=== PATIENT | female | born 1955 | race Caucasian/White ===

== ENCOUNTER 2016-05-23 08:10 | Outpatient (CLI) | payer OTHER ==
[~2016-05-23 08:10] MED LIST: CLINDAMYCIN300 M1 PO; GLUCOPHAGE1000 MG PO; GLUCOTROL10 MG PO; INVOKANA300 MG PO; LIPITOR10 MG PO; PENICILLIN VK PO; ZESTRIL10 MG PO
== END 2016-05-23 22:38 | disposition home or self-care (01) ==
LOC: MLB 08:10
PROVIDERS: ATTEND Internal Medicine Geriatric Medicine
DX: E11.9 Type 2 diabetes mellitus without complications (principal); I10 Essential (primary) hypertension; E55.9 Vitamin D deficiency, unspecified

== ENCOUNTER 2017-04-22 10:46 | Emergency (ER) | payer OTHER ==
[~2017-04-22] VITALS: Ht 160 cm; Wt 99.8 kg
[~2017-04-22 10:46] MED LIST changes: +CANA300T PO; -CLINDAMYCIN300 M1 PO; +GLIP10TA3 PO; -GLUCOPHAGE1000 MG PO; -GLUCOTROL10 MG PO; -INVOKANA300 MG PO; -LIPITOR10 MG PO; +LISI10TA11 PO; -PENICILLIN VK PO; -ZESTRIL10 MG PO
[2017-04-22 10:47] VITALS: BP_SYST 146; BP_SYST 167; BP_DIAS 71; BP_DIAS 97
[2017-04-22] MEDS ORDERED: KETOROLAC 30 MG/ML VIAL IM ONE (10:50)
[2017-04-22] MEDS ORDERED: ACETAMINOPHEN 325 MG TAB PO ONE (10:50)
--- NOTE | 2017-04-22 10:50 | NUR ---
62/F BIB SELF C/O LEFT EAR PAIN 610 X 2DAYS. SKIN IS PINK/WARM/DRY; AAOX4 WITH EVEN AND STEADY GAIT; LUNGS CLEAR BL. PATIENT POSITIONED FOR COMFORT; HOB ELEVATED; BEDRAILS UP X2; BED DOWN. ER MADE AWARE OF PT STATUS. Addendum: 04/22/17 at 1109 by MED1 BP 167/97. L EAR PAIN 10 AT THIS TIME. PT STATED HX OF HTN DENIES HEADACHE AT THIS TIME. MADE AWARE.
[2017-04-22 11:10] VITALS: BP 167/97
--- NOTE | 2017-04-22 11:10 | NUR ---
Patient discharged with BP 167/97; DENIES HEADACHE AT THIS TIMEE. Written and verbal after care instructions given and explained. Patient alert, oriented and verbalized understanding of instructions. Ambulatory with steady gait. All questions addressed prior to discharge. ID band removed. Patient advised to follow up with PMD. Rx of ACETAMINOPHEN, NAPROSYN & AXITHROMYCIN given. Patient educated on indication of medication including possible reaction and side effects. Opportunity to ask questions provided and answered.
== END 2017-04-22 11:10 | disposition home or self-care (01) ==
LOC: MED 10:46
DX: H66.92 Otitis media, unspecified, left ear (principal); E11.9 Type 2 diabetes mellitus without complications; I10 Essential (primary) hypertension; Z90.49 Acquired absence of other specified parts of digestive tract; Z90.710 Acquired absence of both cervix and uterus; Z88.5 Allergy status to narcotic agent; Z88.2 Allergy status to sulfonamides; Z88.0 Allergy status to penicillin; Z88.8 Allergy status to other drugs, medicaments and biological substances
CPT/HCPCS: 96372; 99283; J1885

== ENCOUNTER 2017-04-26 11:34 | Emergency (ER) | payer OTHER ==
[~2017-04-26] VITALS: Ht 160 cm; Wt 99.8 kg
[2017-04-26 11:38] VITALS: BP 149/71
[2017-04-26] MEDS ORDERED: KETOROLAC 60 MG/2 ML VIAL IM ONE (12:30)
[2017-04-26] MEDS ORDERED: cefTRIAXone 1,000 MG in LIDOCAINE 1% ***ER ONLY *** 2.1 ML IM ONE (12:30)
[2017-04-26] MEDS ORDERED: cefTRIAXone 1,000 MG VIAL ONE (12:37)
[2017-04-26] MEDS ORDERED: LIDOCAINE MPF 1% - **ER/OR** 5 ML ONE (12:38)
[2017-04-26 13:04] VITALS: BP 135/89
== END 2017-04-26 13:04 | disposition home or self-care (01) ==
LOC: MED 11:34
DX: H60.92 Unspecified otitis externa, left ear (principal); H66.92 Otitis media, unspecified, left ear; I10 Essential (primary) hypertension; E11.9 Type 2 diabetes mellitus without complications; Z79.899 Other long term (current) drug therapy; Z88.8 Allergy status to other drugs, medicaments and biological substances; Z88.2 Allergy status to sulfonamides; Z88.5 Allergy status to narcotic agent; Z79.84 Long term (current) use of oral hypoglycemic drugs
CPT/HCPCS: 96372; 99284; J0696; J1885; J2001

== ENCOUNTER 2017-06-21 10:06 | Outpatient (CLI) | payer OTHER ==
[2017-06-21 10:58] LABS: BASOPHILS # (AUTO) 0.1 K/uL (0.00-0.22); BASOPHILS % (AUTO) 0.8 % (0.0-2.0); EOSINOPHILS # (AUTO) 0.2 K/uL (0-0.4); EOSINOPHILS % (AUTO) 2.3 % (0.0-4.0); HEMATOCRIT 37.4 % (36-48); HEMOGLOBIN 12.5 g/dL (12.0-16.0); LYMPHOCYTES # (AUTO) 2.6 K/uL (2.5-16.5); LYMPHOCYTES % (AUTO) 27.4 % (20.5-51.1); MEAN CORPUSCULAR HEMOGLOBIN 28 pg (27-31); MEAN CORPUSCULAR HGB CONC 33 g/dL (33-37); MEAN CORPUSCULAR VOLUME 84.4 fL (80-94); MONOCYTES # (AUTO) 0.6 K/uL (0.8-1.0); MONOCYTES % (AUTO) 6.5 % (1.7-9.3); NEUTROPHILS # (AUTO) 6.1 K/uL (1.8-7.7); PLATELET COUNT (AUTO) 288 K/uL (140-450); RED BLOOD CELL COUNT(AUTO) 4.44 MIL/uL (4.20-5.40); RED CELL DISTRIBUTION WIDTH 13.6 % (11.6-13.7); WHITE BLOOD COUNT (AUTO) 9.6 K/uL (4.8-10.8)
[2017-06-21 11:29] LABS: ALBUMIN 3.2 g/dL (3.4-5.0); ANION GAP 13.9 (8-16); ASPARTATE AMINOTRANSFERASE 3 U/L (15-37); CARBON DIOXIDE 25.9 mmol/L (21-32); CHLORIDE 95 mmol/L (98-107); CHOL/HDL RATIO 10.8 (1-4.5); CREATININE 1.2 mg/dL (0.6-1.3); GFR ARICAN-AMERICAN 58 mL/min (>90); GLUCOSE 383 mg/dL (74-106); HDL CHOLESTEROL 36 mg/dL (40-60); POTASSIUM 4.8 mmol/L (3.5-5.1); SODIUM SERUM 130 mmol/L (136-145); THYROID STIMULATING HORMONE 1.68 uIU/mL (0.34-3.74); TOTAL BILIRUBIN 0.4 mg/dL (0.0-1.0); TRIGLYCERIDES 1106 mg/dL (30-150); UREA NITROGEN, BLOOD 42 mg/dL (7-18)
[2017-06-22 15:08] LABS: MICROALBUMIN, UR RANDOM 80.4 ug/mL (Not Estab.)
== END 2017-06-21 20:33 | disposition home or self-care (01) ==
LOC: MLB 10:06
PROVIDERS: ATTEND Internal Medicine Geriatric Medicine
DX: Z00.01 Encounter for general adult medical examination with abnormal findings (principal); M51.36 Other intervertebral disc degeneration, lumbar region; R80.9 Proteinuria, unspecified
CPT/HCPCS: 36415; 72110; 80053; 82043; 82306; 83036; 84443; 85025

== ENCOUNTER → 2017-11-11 | Outpatient (CLI) | payer OTHER ==
[2017-11-11 13:17] LABS: BASOPHILS # (AUTO) 0.2 K/uL (0.00-0.22); BASOPHILS % (AUTO) 1.3 % (0.0-2.0); EOSINOPHILS # (AUTO) 0.2 K/uL (0-0.4); EOSINOPHILS % (AUTO) 1.1 % (0.0-4.0); HEMATOCRIT 40.8 % (36-48); HEMOGLOBIN 13.4 g/dL (12.0-16.0); LYMPHOCYTES # (AUTO) 3.2 K/uL (2.5-16.5); LYMPHOCYTES % (AUTO) 21.3 % (20.5-51.1); MEAN CORPUSCULAR HEMOGLOBIN 27 pg (27-31); MEAN CORPUSCULAR HGB CONC 33 g/dL (33-37); MEAN CORPUSCULAR VOLUME 81.5 fL (80-94); MONOCYTES # (AUTO) 0.8 K/uL (0.8-1.0); MONOCYTES % (AUTO) 5.4 % (1.7-9.3); NEUTROPHILS # (AUTO) 10.5 K/uL (1.8-7.7); NEUTROPHILS % (AUTO) 70.9 % (42.2-75.2); PLATELET COUNT (AUTO) 352 K/uL (140-450); RED BLOOD CELL COUNT(AUTO) 5.01 MIL/uL (4.20-5.40); RED CELL DISTRIBUTION WIDTH 14.7 % (11.6-13.7); WHITE BLOOD COUNT (AUTO) 14.8 K/uL (4.8-10.8)
[2017-11-11 13:48] LABS: ALBUMIN 3.6 g/dL (3.4-5.0); ANION GAP 13.8 (8-16); CARBON DIOXIDE 23.1 mmol/L (21-32); CHOL/HDL RATIO 7.8 (1-4.5); CREATININE 1.2 mg/dL (0.6-1.3); POTASSIUM 4.9 mmol/L (3.5-5.1); TOTAL BILIRUBIN 0.4 mg/dL (0.0-1.0)
== END | disposition home or self-care (01) ==
LOC: MLB 12:49
PROVIDERS: ATTEND Internal Medicine Geriatric Medicine
DX: E11.9 Type 2 diabetes mellitus without complications (principal); I11.9 Hypertensive heart disease without heart failure; E78.5 Hyperlipidemia, unspecified; E55.9 Vitamin D deficiency, unspecified
CPT/HCPCS: 36415; 80053; 82306; 83036; 85025

== ENCOUNTER 2018-02-28 19:17 | Inpatient (IN) | payer OTHER ==
[~2018-02-28] VITALS: Ht 160 cm; Wt 113.4 kg
--- NOTE | 2018-02-28 19:17 | NUR ---
BIB EMS FROM HOME. PT STATES SLIDING OUT OF BED AND HURTING LOWER BACK UPON LANDING ON FLOOR IN SITTING POSITION. PT STATES 10/10 PAIN. CMS INTACT BILAT LOWER EXTREMITIES. VSS. POSITIONED IN BED FOR COMFORT. ER MD AWARE. CONTINUE TO MONITOR.
--- NOTE | 2018-02-28 19:17 | NUR ---
PT BIBA BLS. TAKEN TO BED 8 Addendum: 02/28/18 at 1924 by PUNEET PT BIBA ALS. TAKEN TO BED 8
[2018-02-28 19:20] VITALS: BP 147/68
[2018-02-28] MEDS ORDERED: INSU100S10 SC (19:37)
[2018-02-28] MEDS ORDERED: IBUP-1842 PO (19:37)
[2018-02-28] MEDS ORDERED: METF1000 PO (19:37)
[2018-02-28] MEDS ORDERED: LISI-420 PO (19:37)
--- NOTE | 2018-02-28 21:05 | NUR ---
PT TAKEN TO XRAY
--- NOTE | 2018-02-28 21:29 | NUR ---
PT RETURN FROM XRAY
--- NOTE | 2018-02-28 22:35 | NUR ---
Dr. Millan evaluating patient at bedside.
--- NOTE | 2018-02-28 22:52 | NUR ---
ORTHO IMMOBILIZER UNDONE AND CRUTCHES NOT BEING USED PT IS NOW BEING ADMITTED TO THE HOSPITAL. BEING SENT WITH PT TO NEW ROOM.
[2018-02-28] MEDS ORDERED: NACL 0.9% 1,000 ML IV ONE (22:55)
[2018-02-28] MEDS ORDERED: KETOROLAC 30 MG/ML VIAL IVP ONE (22:55)
[2018-02-28 23:21] LABS: MEAN CORPUSCULAR HEMOGLOBIN 28 pg (27-31); MEAN CORPUSCULAR HGB CONC 32 g/dL (33-37); MEAN CORPUSCULAR VOLUME 84.9 fL (80-94); PLATELET COUNT (AUTO) 364 K/uL (140-450); RED BLOOD CELL COUNT(AUTO) 4.35 MIL/uL (4.20-5.40); RED CELL DISTRIBUTION WIDTH 13.4 % (11.6-13.7)
[2018-02-28 23:37] LABS: LYMPHOCYTES % (MANUAL) 0 % (20-46); MONOCYTES % (MANUAL) 3 % (5-12)
[2018-02-28 23:44] LABS: ALBUMIN 2.3 g/dL (3.4-5.0); ANION GAP 20.3 (8-16); CARBON DIOXIDE 18.1 mmol/L (21-32); CREATININE 1.8 mg/dL (0.6-1.3); POTASSIUM 4.4 mmol/L (3.5-5.1); TOTAL BILIRUBIN 0.7 mg/dL (0.0-1.0)
[2018-03-01] VITALS (7 sets, daily range): BP systolic 82–147; BP diastolic 40–68
[2018-03-01] MEDS ORDERED: NACL 0.9% 3,000 ML IV ONE
[2018-03-01] MEDS ORDERED: LEVOFLOXACIN 500 MG/D5W PREMIX 100 ML IV ONE
[2018-03-01 00:10] LABS: APPEARANCE,URINE CLEAR (CLEAR); BILIRUBIN,URINE NEGATIVE (NEGATIVE); BLOOD, URINE 1+ (NEGATIVE); COLOR,URINE YELLOW (YELLOW); LEUKOCYTE ESTERASE ,URINE TRACE (NEGATIVE); NITRITE, URINE NEGATIVE (NEGATIVE); PH,URINE 5.5 (5.0-9.0); UGLUCOSE 3+ (NEGATIVE)
[2018-03-01 00:12] LABS: HYALINE CASTS, URINE 0-10 /LPF (None Seen); RBC,URINE 3-10 (FEW) /HPF (0-5); WBC,URINE 0-5 (RARE) /HPF (0-5); YEAST,URINE Many /HPF (None Seen)
[2018-03-01] MEDS ORDERED: INSULIN REGULAR, HUMAN 100 UNIT/ML VIAL SUBQ ONE (00:25)
[2018-03-01] MEDS ORDERED: METF1000 PO (01:03)
--- NOTE | 2018-03-01 01:10 | NUR ---
DR WRIGHT CALLED TELEPHONE ORDERS GIVEN FOR PT. REQUESTING THAT I CALL HER IN THE MORNING WITH PT BS RESULTS.
[2018-03-01] MEDS ORDERED: ACETAMINOPHEN 325 MG TAB PO PRN ×2 (01:15→07:07)
--- NOTE | 2018-03-01 01:30 | NUR ---
PT ARRIVED ON UNIT WITH ER NURSE VIA [facility]. PT TRANSFERRED FROM [facility] INTO BED. PT ACCOMPANIED BY FAMILY MEMBERS. PT IS AAOX4. PT IS ON RA WITH RESPIRATIONS EVEN AND UNLABORED. IV ACCESS IN L HAND 22G WITH FLUID BOLUS CURRENTLY INFUSING. IV IS PATENT AND INTACT. PT SKIN IS INTACT. FALL RISK PROTOCOL INITIATED. MRSA SWAB COLLECTED. ORIENTED PT TO ROOM AND USE OF CALL LIGHT. BED IS LOCKED, LOW POSITION WITH SIDE RAILS UP X2. BOARD UPDATED. CALL LIGHT IS WITHIN REACH. WILL CONTINUE TO MONITOR.
--- NOTE | 2018-03-01 04:00 | NUR ---
PT ASLEEP IN BED. NO S/SX OF DISTRESS. VS WITHIN NORMAL LIMITS. WILL CONTINUE TO MONITOR.
--- NOTE | 2018-03-01 04:35 | NUR ---
REPORT GIVEN AND CARE TRANSFERED TO IMANI RN ROOM 119B. TRANSPORTED VIA GURNEY WITH VSS. ACCOMPANIED BY FAMILY.
--- NOTE | 2018-03-01 05:27 | NUR ---
BS CHECKED, 495. WILL CALL DR. RICHARDS FOR ORDERS.
[2018-03-01] MEDS ORDERED: BLOOD GLUCOSE MONITORING 1 DEV DEV FS ONE (06:00)
--- NOTE | 2018-03-01 06:07 | NUR ---
DR MAURICE HERNANDEZ.
--- NOTE | 2018-03-01 06:25 | NUR ---
SPOKE WITH DR RICHARDS, ORDERS RECEIVED.
[2018-03-01 06:45] LABS: HEMATOCRIT 32.8 % (36-48); HEMOGLOBIN 10.6 g/dL (12.0-16.0); MEAN CORPUSCULAR HEMOGLOBIN 27 pg (27-31); MEAN CORPUSCULAR HGB CONC 32 g/dL (33-37); MEAN CORPUSCULAR VOLUME 84.8 fL (80-94); PLATELET COUNT (AUTO) 299 K/uL (140-450); RED BLOOD CELL COUNT(AUTO) 3.87 MIL/uL (4.20-5.40); RED CELL DISTRIBUTION WIDTH 13.6 % (11.6-13.7); WHITE BLOOD COUNT (AUTO) 19.8 K/uL (4.8-10.8)
[2018-03-01 06:53] LABS: ANION GAP 19.8 (8-16); CARBON DIOXIDE 18.2 mmol/L (21-32); CREATININE 1.3 mg/dL (0.6-1.3)
[2018-03-01] MEDS: NACL 0.9% 1,000 ML IV SCH ×2 (06:56→14:35)
--- NOTE | 2018-03-01 06:56 | NUR ---
ORDERED IVF STARTED.
[2018-03-01] MEDS ORDERED: INSULIN LISPRO 100 UNITS/ML VIAL SUBQ SCH (07:08)
[2018-03-01] MEDS ORDERED: INSULIN NPH HUMAN ISOPHANE 100 UNIT/ML VIAL SUBQ SCH (07:09)
[2018-03-01 07:20] LABS: LYMPHOCYTES % (MANUAL) 14 % (20-46); MONOCYTES % (MANUAL) 4 % (5-12)
--- NOTE | 2018-03-01 07:20 | NUR ---
ENDORSED PT TO DAY SHIFT NURSE FOR CONTINUITY OF CARE. PT IN STABLE CONDITION.
--- NOTE | 2018-03-01 07:21 | NUR ---
Received bedside report from pm nurse Janiya. Pt in bed, awake, verbally responsive, respirations even & nonlabored. No c/o discomfort at this time. Left hand IV acces asymptomatic with ongoing NS @ 75ml/hr. Call light within reach.
--- NOTE | 2018-03-01 08:15 | NUR ---
Assisted pt to bed white with moderate assist. Voided moderate amount. Pericare provided. Pt able to use siderails for bed mobility. Call light within reach.
[2018-03-01] MEDS: BLOOD GLUCOSE MONITORING 1 DEV DEV FS SCH ×4 (08:30→20:42)
--- NOTE | 2018-03-01 08:49 | NUR ---
PATIENT HAS BEEN SCREENED AND CATEGORIZED HIGH NUTRITION RISK. PATIENT WILL BE SEEN WITHIN 1-2 DAYS OF ADMISSION. 03/01/18-03/02/[address]
[2018-03-01] MEDS ORDERED: DEXTROSE 50% 50 ML SYR IVP PRN (09:05)
--- NOTE | 2018-03-01 09:05 | NUR ---
Pt c/o 09/19 neck & back pain. Pt repositioned for comfort. No swelling/redness present to back/neck area. Offered acetaminophen. Pt refused & states she will need something stronger. Informed pt no other pain meds ordered at this time. Verbalized understanding & states she will wait for new order. Dr Neil mercado.
[2018-03-01] MEDS ORDERED: LISINOPRIL 20 MG TAB PO SCH (09:30)
[2018-03-01] MEDS: HYDROcodone/APAP 5/325 MG 1 TAB TAB PO PRN ×3 (09:31→18:10)
--- NOTE | 2018-03-01 11:15 | NUR ---
Pt asleep. Respirations even & nonlabored in room air. FLACC 0. Call light within reach.
[2018-03-01] MEDS: INSULIN LISPRO SLIDING SCALE 100 UNITS/ML VIAL SUBQ PRN ×3 (11:55→20:48)
--- NOTE | 2018-03-01 12:15 | NUR ---
03/01/18 RD INITIAL ASSESSMENT COMPLETED PLEASE REFER TO NUTRITION ASSESSMENT UNDER CARE ACTIVITY FOR ESTIMATED NUTRITIONAL NEEDS. 1. CONTINUE 60 GM CCHO DIET TOLERATED 2. RD PROVIDED EDUCATION ON DM AND CHO COUNTING 3. RD TO FOLLOW-UP 3-5 DAYS, MODERATE RISK FILIPE VARELA, RD
--- NOTE | 2018-03-01 15:29 | NUR ---
Spongebath given via 2-person moderate assist. Pt repositioned. Mary Grace ADL care well. No c/o pain. Call light within reach. Left hand IV access asymptomatic with ongoing NS @ 75 ml/hr. Grand daughter at bedside visiting pt.
--- NOTE | 2018-03-01 16:15 | NUR ---
Son & grand daughter at bedside visiting. Pt drowsy, opens eyes spontaneously, verbally responsive. No c/o discomfort at this time. Respirations even & nonlabored in room air. Call light within reach.
[2018-03-01] MEDS: INSULIN NPH HUMAN ISOPHANE 100 UNIT/ML VIAL SUBQ SCH (16:31)
--- NOTE | 2018-03-01 18:15 | NUR ---
Pt refused dinner. States she is not hungry. Explained risk of hypoglycemia. Pt verbalized understanding, but cont to refuse. Pt repositioned. Call light within reach.
--- NOTE | 2018-03-01 19:15 | NUR ---
Bedside report given to pm nurse Ashley.
--- NOTE | 2018-03-01 19:20 | NUR ---
RECEIVED FROM AM RN IN BED AWAKE AND ALERT. VERBALIZES WELL IN CAMEROONIAN. NO SOB. NO PAIN COMPLAINTS AT THIS TIME. ON TELEMETRY MONITORING. DX. UNCONTROLLED DM. OBESE FEMALE. ENCOURAGED TO CALL FOR ANY HELP SHE MAY NEED. CALL LIGHT WITH IN REACH. CARE PLANS FOR THE NIGHT DISCUSSED WITH HER.
[2018-03-01] MEDS: ATORVASTATIN 20 MG TAB PO SCH (20:41)
[2018-03-01] MEDS: GLIMEPIRIDE 2 MG TAB PO SCH (20:42)
[2018-03-01] MEDS ORDERED: VANCOMYCIN PER PHARMACY MC PRN (22:10)
[2018-03-01] MEDS ORDERED: VANCOMYCIN 1,500 MG in DEXTROSE 5% 500 ML IV SCH (23:30)
[2018-03-01] MEDS ORDERED: VANCOMYCIN 1,000 MG VIAL ONE (23:41)
--- NOTE | 2018-03-01 23:44 | NUR ---
MD ABDI WITH NEW ORDER TO ADMINISTER 1500 MG OF VANCOMYCIN IVP WITH 500 ML D5% . ADMINISTERED ORDERED.
--- NOTE | 2018-03-02 03:07 | NUR ---
TURNED TO SIDES WITH ASSIST FROM PT. PILLOW SUPPORT TO PRESSURE AREAS. VERBALIZES WELL. SLEEPING AT THIS TIME. NO NOTED ADVERSE REACTIONS TO VANCO IVP MEDICATION.
[2018-03-02] MEDS: NACL 0.9% 1,000 ML IV SCH ×2 (03:55→17:15)
[2018-03-02 04:51] VITALS: BP 123/53
[2018-03-02] MEDS: BLOOD GLUCOSE MONITORING 1 DEV DEV FS SCH ×4 (05:25→21:02)
[2018-03-02] MEDS: INSULIN NPH HUMAN ISOPHANE 100 UNIT/ML VIAL SUBQ SCH ×2 (05:30→17:11)
[2018-03-02] MEDS: INSULIN LISPRO SLIDING SCALE 100 UNITS/ML VIAL SUBQ PRN ×4 (05:31→21:06)
[2018-03-02] MEDS: HYDROcodone/APAP 5/325 MG 1 TAB TAB PO PRN ×3 (05:32→16:20)
--- NOTE | 2018-03-02 06:47 | NUR ---
AM PERSONAL HYGIENE RENDERED. BEDDINGS CHANGED. NEEDS ALL MET. NO COMPLAINTS DONE. INCONTINENT X 4 THIS SHIFT. ENCOURAGED TO USE CALL LIGHT FOR HELP. "OK"
[2018-03-02 07:27] LABS: HEMATOCRIT 31.7 % (36-48); HEMOGLOBIN 10.3 g/dL (12.0-16.0); MEAN CORPUSCULAR HEMOGLOBIN 27 pg (27-31); MEAN CORPUSCULAR HGB CONC 33 g/dL (33-37); MEAN CORPUSCULAR VOLUME 83.4 fL (80-94); PLATELET COUNT (AUTO) 325 K/uL (140-450); RED CELL DISTRIBUTION WIDTH 13.8 % (11.6-13.7); WHITE BLOOD COUNT (AUTO) 24.9 K/uL (4.8-10.8)
--- NOTE | 2018-03-02 07:31 | NUR ---
AWAKE AND ALERT. VERBALIZES WELL. ENDORSED TO THE NEXT RN FOR CONTINUITY OF CARE.
--- NOTE | 2018-03-02 07:32 | NUR ---
RECEIVED REPORT FROM PM NURSE AT BEDSIDE. PT LYING ON HER BED. AWAKE AND ALERT. PT HAS LFT FA IV 22 G, NS IVF INFUSING AT 75 ML/HR. NO SIGN OF DISTRESS. PT IS TOTAL CARE, NEEDS HELP WITH HER ADLS. CALL LIGHT WITHIN PT REACH. INFORMED HER TO USE CALL LIGHT FOR NAY HELP. WILL CONTINUE O MONITOR PT.
[2018-03-02 07:38] LABS: ALBUMIN 1.5 g/dL (3.4-5.0); ANION GAP 18.7 (8-16); CARBON DIOXIDE 16.6 mmol/L (21-32); CREATININE 1.2 mg/dL (0.6-1.3); POTASSIUM 3.3 mmol/L (3.5-5.1); TOTAL BILIRUBIN 0.7 mg/dL (0.0-1.0)
[2018-03-02 07:49] VITALS: BP 119/53
[2018-03-02 07:50] LABS: CHOL/HDL RATIO 14.9 (1-4.5); MAGNESIUM 1.5 mg/dL (1.8-2.4); THYROID STIMULATING HORMONE 1.12 uIU/mL (0.34-3.74)
[2018-03-02] MEDS ORDERED: LEVOFLOXACIN 250 MG/D5 PREMIX 50 ML IV SCH (09:00)
[2018-03-02 09:08] LABS: LYMPHOCYTES % (MANUAL) 6 % (20-46); MONOCYTES % (MANUAL) 8 % (5-12)
[2018-03-02] MEDS: GLIMEPIRIDE 2 MG TAB PO SCH ×2 (09:08→21:02)
[2018-03-02] MEDS: LISINOPRIL 20 MG TAB PO SCH (09:09)
--- NOTE | 2018-03-02 09:10 | NUR ---
ADMINISTERED MEDS TO PT. TOLERATED WELL. LYIONG ON HER BED. NO SIGN OF DISTRESS NOTED. ALL SAFETY MEASURE IN PLACE. WILL CONTINUE TO MONITOR PT/
[2018-03-02 12:00] VITALS: BP 102/43
--- NOTE | 2018-03-02 12:24 | NUR ---
CHECKED ON PT, LYING ON HER BED. HELPED HER FOR REPOSITION. MEDICATED WITH PAIN MED. FAMILY OF PTS AT BEDSIDE. ADMINISTER HOMOLOG 10 UNITS FOR BS 367. WILL REASSESS PAIN IN AN HOUR. ALL SAFETY MEASURE IN PLACE . WILL CONTINUE TO MONITOR PT.
--- NOTE | 2018-03-02 14:26 | NUR ---
CHECKED ON PT, LYING ON HER BED. FAMILY MEMBER AT BEDSIDE, APPLYING PAIN CUSTOMS VERIFIER CREAM CREAM TO PT. PT A0X3, HAS DX OF UTI. HAS WBC TRENDING UP.CALLED DR WRIGHT, PT WANTS TO TALK TO DOCTOR. CALLED OFFICE, LAFT MSG . WILL CONTINUE TO MONITOR PT.
--- NOTE | 2018-03-02 14:45 | NUR ---
TRANSFERRED PT TO ROOM 118 AT 1445. PT STATES IS COMFORTABLE . PT SON AT BEDSIDE. NO SIG OF DISTRESSED. DR. WRIGHT STATES TO SEE . BED AT LOWER POSITION, CALL LIGHT WITHIN PT REACH. PTS AL BELONGING PLACED IN HER DRAWER, HAS PHONE AT BEDSIDE. WILL CONTINUE TO MONITOR PT.
[2018-03-02 16:00] VITALS: BP 118/44
--- NOTE | 2018-03-02 16:39 | NUR ---
CHECKED ON PT. RECORDED VS. COMPLAINING OF PAIN. MEDICATED WITH PAIN MEDS. BS 321, ADMINISTERED HUMOLOG PER SLIDING SCALE. ALL SAFETY MEASURE IN PLACE. WILL CONTINUE TO MONITOR PT.
--- NOTE | 2018-03-02 18:00 | NUR ---
RECEIVED CALL FROM RADIOLOGY REGARDING US GUIDED DRAINAGE FROM KNEE. STATES WILL REQUIRE PTT, INR CURRENT AND LAB VALUES. STATES THAT WILL INFORM IN AM IF PROCEDURE CAN BE DONE IN AM. INFORMED HER THAT DR WRIGHT HAS PUT ORDER FOR LABS. WILL PASS INFO TO PM NURSE AND CHARGE NURSE.
[2018-03-02] MEDS ORDERED: NYSTATIN/TRIAMCINOLONE CRM 15 GM TUBE TP PRN (18:05)
[2018-03-02] MEDS: VANCOMYCIN 1,250 MG in NACL 0.9% 250 ML IV SCH (18:12)
--- NOTE | 2018-03-02 18:16 | NUR ---
ADMINISTERED VANCOMYCIN TO PT ORDERED. INFORMED HER THAT SHE NEEDS TO EAT SHE IS SEVERE CALORE MALNUTRITION, PT IS ON GLUCERNA ORAL SUPPLEMENT. PT AWARE OF THE PROCEDURE THAT NEEDS TO BE DONE FOR KNEE ASPIRATION FORM KNEE. INFORMED HER MIGHT NEED CONSENT TO BE SIGNED FOR THE PROCESS.VERBALIZED UNDERSTANDING OF TEACHING. VANCOMYCIN INFUSING WELL. NO SIGN OF DISTRESS NOTED. PT CLEANED BY AIDE, SET UP HER FOOD TRAY. PT STATES THAT SHE CAN EAT BY HERSELF. INFORMED HER TO CALL IF NEEDS HELP WITH FEEDING. VERBALIZED UNDERSTANDING. VERBALIZED UNDERSTANDING. WILL CONTINUE TO MONITOR PT.
--- NOTE | 2018-03-02 19:20 | NUR ---
ENDORSED PT TO PM NURSE AT BEDSIDE. PT IN STABLE CONDITION.
--- NOTE | 2018-03-02 19:21 | NUR ---
RECEIVED REPORT FROM DAY SHIFT NURSE JUDE-RN AT BEDSIDE. PT RESTING IN BED. AOX4, ON ROOM AIR WITH LEFT WRIST #22G RUNNING VANCO. LEFT LEG HEMATOMA- SKIN INTACT. DISCUSSED PLAN OF CARE AND PT VERBALIZED UNDERSTANDING. NO S/S OF RESPIRATORY DISTRESS OR DISCOMFORT NOTED AT THIS TIME. BED IN LOWEST POSITION, BED BREAKS ON, BOTH SIDE RAILS UP AND FALL PRECAUTIONS IN PLACE. BEDSIDE TABLE AND CALL LIGHT ARE WITHIN REACH. WILL CONTINUE TO MONITOR.
[2018-03-02 20:00] VITALS: BP 121/47
--- NOTE | 2018-03-02 20:00 | NUR ---
VITAL SIGNS TAKEN AND TOLERATED WELL. BLOOD GLUCOSE 290- WILL ADMINISTER INSULIN COVERAGE. NO S/S OF RESPIRATORY DISTRESS OR DISCOMFORT NOTED AT THIS TIME. WILL CONTINUE TO MONITOR.
[2018-03-02] MEDS: ATORVASTATIN 20 MG TAB PO SCH (21:02)
--- NOTE | 2018-03-02 21:06 | NUR ---
SCHEDULED MEDICATION GIVEN AND TOLERATED WELL. INSULIN COVERAGE GIVEN AND TOLERATED WELL. NO S/S OF RESPIRATORY DISTRESS OR DISCOMFORT NOTED AT THIS TIME. WILL CONTINUE TO MONITOR.
[2018-03-02 21:11] LABS: PROTHROMBIN TIME 10.8 secs (10.8-13.4)
--- NOTE | 2018-03-02 22:00 | NUR ---
PT SLEEPING AT THIS TIME. NO S/S OF RESPIRATORY DISTRESS OR DISCOMFORT NOTED AT THIS TIME. WILL CONTINUE TO MONITOR.
[2018-03-03] VITALS: BP 118/49
--- NOTE | 2018-03-03 | NUR ---
PT CONTINUES TO SLEEP IN BED. NO S/S OF RESPIRATORY DISTRESS OR DISCOMFORT NOTED AT THIS TIME. WILL CONTINUE TO MONITOR.
--- NOTE | 2018-03-03 | NUR ---
VITAL SIGNS TAKEN BY MARLENE. NO S/S OF RESPIRATORY DISTRESS OR DISCOMFORT NOTED AT THIS TIME. WILL CONTINUE TO MONITOR.
[2018-03-03] MEDS: NACL 0.9% 1,000 ML IV SCH ×2 (01:17→11:58)
--- NOTE | 2018-03-03 02:00 | NUR ---
PT CONTINUES TO SLEEP. NO S/S OF RESPIRATORY DISTRESS OR DISCOMFORT NOTED AT THIS TIME. WILL CONTINUE TO MONITOR.
[2018-03-03 04:00] VITALS: BP 147/62
--- NOTE | 2018-03-03 04:00 | NUR ---
VITAL SIGNS TAKEN AND TOLERATED WELL. PT C/O PAIN 08/20- WILL MEDICATE WITH NORCO. NO S/S OF RESPIRATORY DISTRESS OR DISCOMFORT NOTED AT THIS TIME. WILL CONTINUE TO MONITOR.
[2018-03-03] MEDS: HYDROcodone/APAP 5/325 MG 1 TAB TAB PO PRN ×2 (04:48→11:57)
--- NOTE | 2018-03-03 04:48 | NUR ---
NORCO GIVEN FOR PAIN 08/20. PT TOLERATED WELL. NO S/S OF RESPIRATORY DISTRESS OR DISCOMFORT NOTED AT THIS TIME. WILL CONTINUE TO MONITOR.
--- NOTE | 2018-03-03 06:00 | NUR ---
BLOOD GLUCOSE 258- WILL ADMINISTER INSULIN COVERAGE.
--- NOTE | 2018-03-03 06:00 | NUR ---
PT CONTINUES TO SLEEP. NO S/S OF RESPIRATORY DISTRESS OR DISCOMFORT NOTED AT THIS TIME. WILL CONTINUE TO MONITOR.
[2018-03-03] MEDS: BLOOD GLUCOSE MONITORING 1 DEV DEV FS SCH ×4 (06:26→21:28)
[2018-03-03] MEDS: INSULIN LISPRO SLIDING SCALE 100 UNITS/ML VIAL SUBQ PRN ×3 (06:31→21:33)
[2018-03-03] MEDS: INSULIN NPH HUMAN ISOPHANE 100 UNIT/ML VIAL SUBQ SCH ×2 (06:32→17:20)
--- NOTE | 2018-03-03 06:32 | NUR ---
INSULIN COVERAGE GIVEN AND TOLERATED WELL. NO S/S OF RESPIRATORY DISTRESS OR DISCOMFORT NOTED AT THIS TIME. WILL CONTINUE TO MONITOR.
--- NOTE | 2018-03-03 07:19 | NUR ---
ENDORSED PT CARE TO DAY SHIFT NURSE ROSALIA FOR CONTINUITY OF CARE.
--- NOTE | 2018-03-03 07:29 | NUR ---
RECEIVED REPORT FROM RISK DEVELOPER NURSE AT BEDSIDE. PT RESTING IN BED. AOX4, ON ROOM AIR WITH LEFT WRIST #22G ON NS @ 75ML/HR. LEFT LEG HEMATOMA, BLISTER NOTED ON LEFT LOWER ABDOMEN- SKIN INTACT. DISCUSSED PLAN OF CARE AND PT VERBALIZED UNDERSTANDING. NO S/S OF RESPIRATORY DISTRESS OR DISCOMFORT NOTED AT THIS TIME. BED IN LOWEST POSITION, BED BREAKS ON, BOTH SIDE RAILS UP AND FALL PRECAUTIONS IN PLACE. BEDSIDE TABLE AND CALL LIGHT ARE WITHIN REACH. WILL CONTINUE TO MONITOR.
[2018-03-03 07:42] LABS: HEMOGLOBIN 10.2 g/dL (12.0-16.0); MEAN CORPUSCULAR HEMOGLOBIN 28 pg (27-31); MEAN CORPUSCULAR HGB CONC 33 g/dL (33-37); MEAN CORPUSCULAR VOLUME 84.4 fL (80-94); PLATELET COUNT (AUTO) 313 K/uL (140-450); RED BLOOD CELL COUNT(AUTO) 3.67 MIL/uL (4.20-5.40); RED CELL DISTRIBUTION WIDTH 13.7 % (11.6-13.7)
[2018-03-03 07:52] LABS: ALBUMIN 1.3 g/dL (3.4-5.0); ANION GAP 17.2 (8-16); CARBON DIOXIDE 19.1 mmol/L (21-32); CREATININE 0.9 mg/dL (0.6-1.3); POTASSIUM 3.3 mmol/L (3.5-5.1); TOTAL BILIRUBIN 0.5 mg/dL (0.0-1.0)
[2018-03-03 08:00] VITALS: BP 135/63
[2018-03-03 08:30] LABS: LYMPHOCYTES % (MANUAL) 9 % (20-46); MONOCYTES % (MANUAL) 3 % (5-12)
[2018-03-03 08:31] LABS: METAMYELOCYTES % 4 % (0-0)
--- NOTE | 2018-03-03 09:20 | NUR ---
PT IS REQUESTING GALAVIZ CATHETER. PT WAS EDUCATED ON RISKS OUTWEIGHING THE BENEFITS. PT VERBALIZED UNDERSTANDING.
[2018-03-03] MEDS: GLIMEPIRIDE 2 MG TAB PO SCH ×2 (09:46→21:27)
[2018-03-03] MEDS: LISINOPRIL 20 MG TAB PO SCH (09:46)
[2018-03-03] MEDS: NYSTATIN/TRIAMCINOLONE CRM 15 GM TUBE TP SCH ×2 (09:47→21:27)
--- NOTE | 2018-03-03 10:10 | NUR ---
PT INSISTING ON GALAVIZ CATHETER. DR WRIGHT NOTIFIED.
[2018-03-03 12:00] VITALS: BP 133/63
--- NOTE | 2018-03-03 12:12 | NUR ---
PT RESTING IN BED. ALL NEEDS MET AT THIS TIME. WILL CONTINUE TO MONITOR FREQUENTLY. CALL LIGHT WITHIN REACH. BED IN LOW POSITION.
[2018-03-03] MEDS: VANCOMYCIN 1,250 MG in NACL 0.9% 250 ML IV SCH (12:46)
--- NOTE | 2018-03-03 14:12 | NUR ---
DR. WRIGHT IN PT'S ROOM. PT INSISTED ON GALAVIZ CATHETER TO DR. LEE STATED TO GO AHEAD AND INSERT GALAVIZ. WILL INSERT CATHETER. ALL OTHER NEEDS MET AT THIS TIME.
[2018-03-03 16:00] VITALS: BP 137/67
--- NOTE | 2018-03-03 17:32 | NUR ---
ENDORSED PT TO COLLECTION COORDINATOR FOR CONTINUITY OF CARE. PT IN STABLE CONDITION.
--- NOTE | 2018-03-03 19:33 | NUR ---
RECEIVED REPORT FROM DAY SHIFT NURSE LEVI-RN AT BEDSIDE. PT RESTING IN BED. AOX4, ON ROOM AIR WITH LEFT WRIST #22G RUNNING VANCO. LEFT LEG HEMATOMA- S/P KNEE ASPIRATION 120 CC REMOVED. GALAVIZ CATHETER IN PLACE. DISCUSSED PLAN OF CARE AND PT VERBALIZED UNDERSTANDING. NO S/S OF RESPIRATORY DISTRESS OR DISCOMFORT NOTED AT THIS TIME. BED IN LOWEST POSITION, BED BREAKS ON, BOTH SIDE RAILS UP AND FALL PRECAUTIONS IN PLACE. BEDSIDE TABLE AND CALL LIGHT ARE WITHIN REACH. WILL CONTINUE TO MONITOR.
[2018-03-03 20:00] VITALS: BP 148/62
--- NOTE | 2018-03-03 20:00 | NUR ---
BLOOD GLUCOSE 261- WILL ADMINISTER INSULIN COVERAGE
--- NOTE | 2018-03-03 20:00 | NUR ---
VITAL SIGNS TAKEN AND TOLERATED WELL. PT STATED 3/10 PAIN LEVEL WITHIN TOLERABLE LEVEL. NO S/S OF RESPIRATORY DISTRESS AT THIS TIME. WILL CONTINUE TO MONITOR.
[2018-03-03 20:19] LABS: SPECIMENTYPE,BODY FLUID SYNOVIAL; TOTAL VOLUME,BODY FLUID 122 mL
[2018-03-03 20:20] LABS: APPEARANCE,SPUN,BODY FLUID HAZY (CLEAR); APPEARANCE,UNSPUN,BODY FLUID HAZY (CLEAR); COLOR,BODY FLUID YELLOW (LT YELLOW)
[2018-03-03] MEDS ORDERED: PREGABALIN 25 MG CAP PO SCH (21:00)
[2018-03-03] MEDS: PREGABALIN 25 MG CAP PO SCH (21:27)
[2018-03-03] MEDS: ATORVASTATIN 20 MG TAB PO SCH (21:27)
--- NOTE | 2018-03-03 21:27 | NUR ---
SCHEDULED MEDICATION GIVEN AND TOLERATED WELL. NO S/S OF RESPIRATORY DISTRESS AT THIS TIME. WILL CONTINUE TO MONITOR.
--- NOTE | 2018-03-03 21:33 | NUR ---
INSULIN COVERAGE GIVEN AND TOLERATED WELL. NO S/S OF RESPIRATORY DISTRESS AT THIS TIME. WILL CONTINUE TO MONITOR.
[2018-03-03 22:26] LABS: POLYNUCLEAR, BODY FLUID 98 %; RBC, BODY FLUID 648 /cu. mm.; WBC, BODY FLUID 10411 /cu. mm.
--- NOTE | 2018-03-03 23:00 | NUR ---
PT SLEEPING IN BED. NO S/S OF RESPIRATORY DISTRESS AT THIS TIME. WILL CONTINUE TO MONITOR.
[2018-03-04] VITALS: BP 126/57
--- NOTE | 2018-03-04 | NUR ---
VITAL SIGNS TAKEN AND TOLERATED WELL. PT C/O PAIN 12/20- WILL ADMINISTER PAIN MEDICATION. NO S/S OF RESPIRATORY DISTRESS AT THIS TIME. WILL CONTINUE TO MONITOR.
[2018-03-04] MEDS: HYDROcodone/APAP 5/325 MG 1 TAB TAB PO PRN ×5 (00:12→20:31)
--- NOTE | 2018-03-04 00:12 | NUR ---
NORCO GIVEN FOR PAIN 12/20. PT TOLERATED WELL. WILL CONTINUE TO MONITOR.
--- NOTE | 2018-03-04 02:00 | NUR ---
PT CONTINUES TO SLEEP. NO S/S OF RESPIRATORY DISTRESS OR DISCOMFORT NOTED AT THIS TIME. WILL CONTINUE TO MONITOR.
[2018-03-04 04:00] VITALS: BP 122/60
--- NOTE | 2018-03-04 04:00 | NUR ---
VITAL SIGNS TAKEN AND TOLERATED WELL. NO S/S OF RESPIRATORY DISTRESS OR DISCOMFORT NOTED AT THIS TIME. WILL CONTINUE TO MONITOR.
--- NOTE | 2018-03-04 05:30 | NUR ---
SPOKE WITH PHARMACY ABOUT VANCO TROPH AND WAS TOLD THERE IS AN ORDER FOR 0500 VANCO TROPH TO BE DRAWN.
--- NOTE | 2018-03-04 05:50 | NUR ---
SPOKE WITH MANAGER CLINICAL RESEARCH RACHELLE AND KAYLEEN ABOUT VANCO TROPH LAB DRAW AND NEITHER HAD ORDERS. CALLED LAB AND WAS TOLD THERE WAS ORDERS AND WOULD NOTIFY ASSIGNED MANAGER CLINICAL RESEARCH. KAYLEEN USED NURSES STATION COMPUTERS AND FOUND ORDERS. SHE WILL DRAW ORDERED LABS. SCHEDULED VANCOCIN WILL NOT BE GIVEN UNTIL VANCO TROPH LABS HAVE RESULTS.
--- NOTE | 2018-03-04 06:00 | NUR ---
BLOOD GLUCOSE 257- WILL ADMINISTER INSULIN COVERAGE.
[2018-03-04] MEDS: BLOOD GLUCOSE MONITORING 1 DEV DEV FS SCH ×5 (06:26→20:50)
[2018-03-04] MEDS: INSULIN NPH HUMAN ISOPHANE 100 UNIT/ML VIAL SUBQ SCH ×2 (06:39→17:14)
[2018-03-04] MEDS: INSULIN LISPRO SLIDING SCALE 100 UNITS/ML VIAL SUBQ PRN ×4 (06:39→20:53)
--- NOTE | 2018-03-04 06:39 | NUR ---
SCHEDULED MEDICATION HUMALIN AND INSULIN COVERAGE GIVEN AND TOLERATED WELL. NO S/S OF RESPIRATORY DISTRESS OR DISCOMFORT NOTED AT THIS TIME. WILL CONTINUE TO MONITOR.
[2018-03-04 06:52] LABS: BASOPHILS % (AUTO) 0.2 % (0.0-2.0); EOSINOPHILS % (AUTO) 0.2 % (0.0-4.0); HEMATOCRIT 32.4 % (36-48); HEMOGLOBIN 10.5 g/dL (12.0-16.0); LYMPHOCYTES # (AUTO) 1.2 K/uL (2.5-16.5); LYMPHOCYTES % (AUTO) 5.8 % (20.5-51.1); MEAN CORPUSCULAR HEMOGLOBIN 27 pg (27-31); MEAN CORPUSCULAR HGB CONC 32 g/dL (33-37); MEAN CORPUSCULAR VOLUME 83.7 fL (80-94); MONOCYTES # (AUTO) 1.2 K/uL (0.8-1.0); MONOCYTES % (AUTO) 5.7 % (1.7-9.3); NEUTROPHILS # (AUTO) 18.4 K/uL (1.8-7.7); NEUTROPHILS % (AUTO) 88.1 % (42.2-75.2); PLATELET COUNT (AUTO) 305 K/uL (140-450); RED BLOOD CELL COUNT(AUTO) 3.87 MIL/uL (4.20-5.40); RED CELL DISTRIBUTION WIDTH 13.9 % (11.6-13.7); WHITE BLOOD COUNT (AUTO) 20.9 K/uL (4.8-10.8)
[2018-03-04 07:26] LABS: ANION GAP 13.8 (8-16); CARBON DIOXIDE 20.8 mmol/L (21-32); CREATININE 0.9 mg/dL (0.6-1.3); POTASSIUM 3.6 mmol/L (3.5-5.1)
--- NOTE | 2018-03-04 07:29 | NUR ---
REPORT GIVEN TO DAY SHIFT NURSE UZAIR-RN FOR CONTINUITY OF CARE.
--- NOTE | 2018-03-04 07:30 | NUR ---
RECEIVED REPORT FROM OCEAN BIOLOGIST RN COREY AT BEDSIDE FOR CONTINUITY OF CARE. PATIENT RESTING IN BED WITH EYES CLOSED, AROUSABLE. AOX4. RESPIRATIONS EVEN AND UNLABORED ON ROOM AIR. MEDICATED FOR PAIN AT 0643. NO DISTRESS OR SOB NOTED ON ROOM AIR. PATIENT HAS GALAVIZ CATHETER DRAINING TO GRAVITY WITH YELLOW URINE. IV SITE PATENT, INTACT, AND INFUSING IVF WELL. UPDATED BOARD. UPDATED PLAN OF CARE. PATIENT VERBALIZED UNDERSTANDING. SAFETY PRECAUTIONS IN PLACE, CALL LIGHT WITHIN REACH, BED ALARM ON WITH BRAKES IN PLACE, WILL CONTINUE TO MONITOR PATIENT.
[2018-03-04] MEDS: NACL 0.9% 1,000 ML IV SCH ×2 (07:40→22:43)
[2018-03-04 07:58] VITALS: BP 127/63
[2018-03-04] MEDS: VANCOMYCIN 1,250 MG in NACL 0.9% 250 ML IV SCH (08:11)
--- NOTE | 2018-03-04 08:11 | NUR ---
VANCO TROPH 12.5 AND WITHIN LEVEL TO SAFELY GIVE SCHEDULED VANCO; GIVEN AND TOLERATED WELL. NO S/S OF RESPIRATORY DISTRESS OR DISCOMFORT NOTED AT THIS TIME. WILL CONTINUE TO MONITOR.
[2018-03-04] MEDS: PREGABALIN 25 MG CAP PO SCH ×2 (08:58→20:33)
[2018-03-04] MEDS: LACTOBACILLUS RHAMNOSUS GG 1 EACH CAP PO SCH (08:58)
[2018-03-04] MEDS: GLIMEPIRIDE 2 MG TAB PO SCH ×2 (08:58→20:33)
[2018-03-04] MEDS: LISINOPRIL 20 MG TAB PO SCH (08:58)
[2018-03-04] MEDS: POTASSIUM CHLORIDE 10 MEQ TABER PO SCH (08:58)
[2018-03-04] MEDS: NYSTATIN/TRIAMCINOLONE CRM 15 GM TUBE TP SCH ×2 (09:02→21:00)
--- NOTE | 2018-03-04 09:02 | NUR ---
ORDERED MEDICATIONS GIVEN. PATIENT TOLERATED THEM WELL. PATIENT REFUSED TO BE REPOSITIONED, STATED THAT "I'M GOOD RIGHT NOW". ALL NEEDS MET, NO COMPLAINTS AT THE MOMENT. SAFETY PRECAUTIONS IN PLACE, CALL LIGHT WITHIN REACH, WILL CONTINUE TO MONITOR PATIENT.
--- NOTE | 2018-03-04 11:20 | NUR ---
PATIENT GIVEN SPONGE BATH. PATIENT TOLERATED IT. DR. WRIGHT IN TO SEE THE PATIENT. WILL WAIT FOR HER ORDERS.
[2018-03-04 12:00] VITALS: BP 133/65
--- NOTE | 2018-03-04 14:35 | NUR ---
DR. WRIGHT IN TO SEE THE PATIENT. WAITING FOR HER NEW ORDERS. NO COMPLAINTS AT THIS TIME. SAFETY PRECAUTION IN PLACE, CALL LIGHT WITHIN REACH, WILL CONTINUE TO MONITOR PATIENT.
--- NOTE | 2018-03-04 15:15 | NUR ---
PATIENT'S FAMILY AT BEDSIDE. UPDATED THEM ABOUT PATIENT'S STATUS. SCDS GIVEN. PATIENT TOLERATING IT WELL. CALLED RT FOR IS ORDER. WILL CONTINUE TO MONITOR PATIENT.
[2018-03-04 16:00] VITALS: BP 133/57
--- NOTE | 2018-03-04 17:07 | NUR ---
PRN NORCO GIVEN FOR CHRONIC PAIN. BLOOD SUGAR 199, COVERAGE GIVEN. PATIENT TOLERATED IT WELL. NO COMPLAINTS AT THIS TIME. SAFETY PRECAUTION IN PLACE, CALL LIGHT WITHIN REACH, WILL CONTINUE TO MONITOR PATIENT.
--- NOTE | 2018-03-04 19:40 | NUR ---
REPORT GIVEN TO DIRECTOR CRAFT CENTER RN AT BEDSIDE FOR CONTINUITY OF CARE. PATIENT RESTING IN BED, STABLE.
--- NOTE | 2018-03-04 19:41 | NUR ---
RECEIVED BEDSIDE REPORT FROM AM SHIFT FOR CONTINUITY OF CARE. PATIENT RESTING IN BED WITH EYES CLOSED, AROUSABLE. AOX4. RESPIRATIONS EVEN AND UNLABORED ON ROOM AIR. PT C/O OF PAIN 8/10 GENERALIZED BODY PAIN BUT MORE ON LEFT SHOULDER. NO DISTRESS OR SOB NOTED ON ROOM AIR. PATIENT HAS GALAVIZ CATHETER DRAINING TO GRAVITY WITH YELLOW URINE. IV SITE PATENT, INTACT, AND INFUSING IVF WELL.POC REVIEWED W/ PATIENT. PATIENT VERBALIZED UNDERSTANDING. SAFETY PRECAUTIONS IN PLACE, CALL LIGHT WITHIN REACH, BED ALARM ON WITH BRAKES IN PLACE, WILL CONTINUE TO MONITOR PATIENT.
[2018-03-04 20:00] VITALS: BP 134/62
[2018-03-04] MEDS: ATORVASTATIN 20 MG TAB PO SCH (20:33)
[2018-03-04] MEDS: MICONAZOLE VAG 2% 45 GM TUBE VG SCH (21:00)
--- NOTE | 2018-03-04 21:30 | NUR ---
PT'S SISTER CALLED AND TALKED TO PT. PER SISTER ALOC ALTERED. WENT IN AND CHECKED W/ PT. PT CONFUSED IF ITS NIGHT TIME OR AM TIME. WILL REFER TO AP.(DR. WRIGHT).
--- NOTE | 2018-03-04 22:45 | NUR ---
DR. WRIGHT DCALLED UP AND INFORMED HER: RE: ALOC ( PER SISTER CONFUSED WHETHER ITS AM OR NIGHT TIME AND WHETHER SHE HAS FINISHED EATING OR NOT). ORDERS FROM DR. WRIGHT FOR CT SCAN IN THE A.M. CARRIED OUT. RE: PAIN ON LEFT SHOULDER, ORDERS OF DR. WRIGHT FOR X-RAY OF LEFT SHOULDER AND TO INCLUDE X-RAY BOTH HANDS(RE: SWELLING ON BOTH HANDS) IN THE AM, CARRIED OUT.WILLL CONTINUE TO MONITOR.
[2018-03-05] VITALS: BP 130/60
[2018-03-05] MEDS: VANCOMYCIN 1,500 MG in NACL 0.9% 500 ML IV SCH ×2 (01:23→19:51)
--- NOTE | 2018-03-05 01:37 | NUR ---
PT C/PO PAIN ON BACK BUT MORE ON LEFT SHOULDER. WILL MEDICATE
[2018-03-05] MEDS: HYDROcodone/APAP 5/325 MG 1 TAB TAB PO PRN ×4 (01:45→17:34)
[2018-03-05 04:00] VITALS: BP 134/64
--- NOTE | 2018-03-05 05:03 | NUR ---
PT AWAKE, NO COMPLAINTS AT THIS TIME. NO RESPIRATORY DISTRESS. WILL CONTINUE TO MONITOR
[2018-03-05] MEDS: BLOOD GLUCOSE MONITORING 1 DEV DEV FS SCH ×4 (05:30→21:06)
[2018-03-05] MEDS: INSULIN NPH HUMAN ISOPHANE 100 UNIT/ML VIAL SUBQ SCH ×2 (05:54→17:33)
--- NOTE | 2018-03-05 07:15 | NUR ---
ENDORSED TO AM SHIFT IN STABLE CONDITION. PAIN MEDS LAST GIVEN AT 6:48 AM. FOR REASSESSMENT OF PAIN
[2018-03-05 07:16] LABS: HEMATOCRIT 31.4 % (36-48); HEMOGLOBIN 10.1 g/dL (12.0-16.0); MEAN CORPUSCULAR HEMOGLOBIN 27 pg (27-31); MEAN CORPUSCULAR HGB CONC 32 g/dL (33-37); PLATELET COUNT (AUTO) 262 K/uL (140-450); RED BLOOD CELL COUNT(AUTO) 3.73 MIL/uL (4.20-5.40); RED CELL DISTRIBUTION WIDTH 14.4 % (11.6-13.7); WHITE BLOOD COUNT (AUTO) 26.6 K/uL (4.8-10.8)
--- NOTE | 2018-03-05 07:16 | NUR ---
RECEIVED REPORT FROM WOOD MECHANIST NURSE. PT IN STABLE CONDITION. RESPIRATIONS EVEN AND UNLABORED. IV INTACT AND PATENT. SAFETY MEASURES IN PLACE. BED IN LOW POSITION. WILL CONTINUE TO MONITOR.
[2018-03-05 07:23] LABS: ANION GAP 13.6 (8-16); CARBON DIOXIDE 21.2 mmol/L (21-32); CREATININE 0.8 mg/dL (0.6-1.3); POTASSIUM 3.8 mmol/L (3.5-5.1)
[2018-03-05 08:00] LABS: BASOPHILS % (MANUAL) 0 % (0-2); EOSINOPHILS % (MANUAL) 0 % (0-4); LYMPHOCYTES % (MANUAL) 2 % (20-46); METAMYELOCYTES % 3 % (0-0); MONOCYTES % (MANUAL) 3 % (5-12); MYELOCYTES % 2 % (0-0)
--- NOTE | 2018-03-05 08:00 | NUR ---
PT REFUSED CT HEAD STATING SHE DID NOT WANT TO BE MOVED.
[2018-03-05 09:39] LABS: ALBUMIN 1.1 g/dL (3.4-5.0); ANION GAP 13.3 (8-16); CARBON DIOXIDE 21.4 mmol/L (21-32); CREATININE 0.8 mg/dL (0.6-1.3); POTASSIUM 3.7 mmol/L (3.5-5.1); TOTAL BILIRUBIN 0.3 mg/dL (0.0-1.0)
[2018-03-05] MEDS: POTASSIUM CHLORIDE 10 MEQ TABER PO SCH (09:59)
[2018-03-05] MEDS: LACTOBACILLUS RHAMNOSUS GG 1 EACH CAP PO SCH (09:59)
[2018-03-05] MEDS: PREGABALIN 25 MG CAP PO SCH ×2 (10:00→21:07)
[2018-03-05] MEDS: GLIMEPIRIDE 2 MG TAB PO SCH ×2 (10:00→21:07)
[2018-03-05] MEDS: LISINOPRIL 20 MG TAB PO SCH (10:00)
[2018-03-05] MEDS: ENOXAPARIN 40 MG/0.4 ML SYR SUBQ SCH (10:02)
[2018-03-05] MEDS: NYSTATIN/TRIAMCINOLONE CRM 15 GM TUBE TP SCH ×2 (10:13→21:11)
--- NOTE | 2018-03-05 11:00 | NUR ---
ASSIST PT IN REPOSITIONING. PT TOLERATED WELL. WILL CONTINUE TO MONITOR.
[2018-03-05 11:32] LABS: ALBUMIN 1.1 g/dL (3.4-5.0); TOTAL BILIRUBIN 0.3 mg/dL (0.0-1.0)
[2018-03-05] MEDS: NACL 0.9% 1,000 ML IV SCH ×2 (11:55→19:50)
[2018-03-05 12:00] VITALS: BP 148/64
[2018-03-05 12:18] LABS: BILIRUBIN,DIRECT 0.1 mg/dL (0.0-0.3)
--- NOTE | 2018-03-05 13:00 | NUR ---
PT LYING IN BED IN STABLE CONDITION. RESPIRATIONS EVEN AND UNLABORED. PT REQUEST DOOR CLOSED AND LIGHTS OFF AT THIS TIME.
[2018-03-05] MEDS ORDERED: BISACODYL 5 MG TABEC PO SCH (13:30)
[2018-03-05] MEDS ORDERED: MAG SULF 2000 MG/WATER PREMIX 50 ML IV SCH (14:00)
[2018-03-05] MEDS: INSULIN LISPRO SLIDING SCALE 100 UNITS/ML VIAL SUBQ PRN ×3 (14:21→21:22)
[2018-03-05 16:00] VITALS: BP 131/65
--- NOTE | 2018-03-05 16:00 | NUR ---
NEW IV PLACED RIGHT HAND 22G.
--- NOTE | 2018-03-05 16:30 | NUR ---
GAVE PT SANDWICH FROM [facility] PER PT REQUEST.
[2018-03-05] MEDS: KETOROLAC 10 MG TAB PO SCH ×2 (18:00→23:19)
--- NOTE | 2018-03-05 18:13 | NUR ---
TORADOL 10MG TAB NOT GIVEN. NORCO GIVEN AT 1530. PT STATED SHE WILL TAKE THE TORADOL AT MIDNIGHT ORDERED.
--- NOTE | 2018-03-05 19:22 | NUR ---
GAVE REPORT TO SOFTWARE TOOLS BUILD ENGINEER NURSE FOR CONTINUITY OF CARE. PT IN STABLE CONDITION.
--- NOTE | 2018-03-05 19:25 | NUR ---
RECEIVED PT IN STABLE CONDITION FROM AM NURSE. AWAKE,ALERT AND ORIENTED X4. ON ROSITA MONITOR-SR/BBB. NO ACUTE DISTRESS NOR DISCOMFORT NOTED. BEDREST. WITH BOTH BUE, BLE SWELLING. LT LOWER ABDOMINAL FOLDS WITH BLISTERS.DRAINING TO WHITISH/BEIGE LIQUID. HAS INTERDRY .IVF INFUSING WELL ON THE RT HAND #22. BOTH HANDS ARE SWOLLEN BUT IV ACCESS WITH VERY GOOD BLOOD RETURN. LT HAND IV ACCESS NOT WORKING. DISCONTINUED. HAS GALAVIZ CATHETER TO GRAVITY. BED ON LOWEST POSITION. FREQUENT ROUNDS NEEDED. CALL LIGHT PLACED WITHIN EASY REACH. WILL CONTINUE TO MONITOR.
[2018-03-05 19:57] VITALS: BP 150/62
[2018-03-05] MEDS: ATORVASTATIN 20 MG TAB PO SCH (21:07)
[2018-03-05] MEDS: MICONAZOLE VAG 2% 45 GM TUBE VG SCH (21:08)
--- NOTE | 2018-03-05 21:22 | NUR ---
BLOOD SUGAR WAS CHECKED RESULT 220. INSULIN COVERAGE GIVEN SUBQ. PROVIDED WITH SOME SNACK. WILL CONTINUE TO MONITOR.
--- NOTE | 2018-03-05 22:14 | NUR ---
PAGED TO CLARIFY LEVAQUIN PO ORDER PER PHARMACY TO KNOW . CALLED BACK AND HE SAID LEVAQUIN PO 500MG QOD TO START TONIGHT.
[2018-03-05] MEDS ORDERED: LEVOFLOXACIN 500 MG TAB PO SCH (23:00)
[2018-03-05 23:30] VITALS: BP 115/45
--- NOTE | 2018-03-05 23:30 | NUR ---
FAMILY MEMBERS AT BEDSIDE. PT JUST HAD HER SCHEDULED MEDS.
--- NOTE | 2018-03-06 02:00 | NUR ---
MADE ROUNDS. PT SLEEPING. NO S/S OF ANY DISCOMFORT NOTED.
[2018-03-06 04:35] VITALS: BP 130/51
[2018-03-06] MEDS: HYDROcodone/APAP 5/325 MG 1 TAB TAB PO PRN ×3 (04:46→21:19)
--- NOTE | 2018-03-06 05:00 | NUR ---
PT ASLEEP AFTER THE PAIN MED GIVEN EARLIER. WILL CONTINUE TO MONITOR.
[2018-03-06] MEDS: BLOOD GLUCOSE MONITORING 1 DEV DEV FS SCH ×4 (06:09→20:58)
[2018-03-06] MEDS: INSULIN NPH HUMAN ISOPHANE 100 UNIT/ML VIAL SUBQ SCH ×2 (06:25→17:38)
[2018-03-06] MEDS: KETOROLAC 10 MG TAB PO SCH ×3 (06:27→18:10)
--- NOTE | 2018-03-06 07:20 | NUR ---
ENDORSED PT IN STABLE CONDITION TO AM NURSE.
--- NOTE | 2018-03-06 07:21 | NUR ---
RECEIVED REPORT FROM DIRECTOR OF HEAD START NURSE. PT IN STABLE CONDITION. RESPIRATIONS EVEN AND UNLABORED. IV INTACT AND PATENT. SAFETY MEASURES IN PLACE. CALL LIGHT AT BEDSIDE. BED IN LOW POSITION. WILL CONTINUE TO MONITOR.
[2018-03-06 07:47] LABS: CARBON DIOXIDE 20.1 mmol/L (21-32); CREATININE 0.8 mg/dL (0.6-1.3)
[2018-03-06 08:00] VITALS: BP 118/59
[2018-03-06 08:17] LABS: ANION GAP 14.1 (8-16); POTASSIUM 4.2 mmol/L (3.5-5.1)
--- NOTE | 2018-03-06 09:00 | NUR ---
GAVE ORDERED DUE MEDICATIONS, PT TOLERATED WELL. ASSISTED IN REPOSITIONING PT, PT TOLERATED WELL. WILL CONTINUE TO MONITOR.
[2018-03-06] MEDS: LISINOPRIL 20 MG TAB PO SCH (09:37)
[2018-03-06] MEDS: PREGABALIN 25 MG CAP PO SCH ×2 (09:38→21:01)
[2018-03-06] MEDS: LACTOBACILLUS RHAMNOSUS GG 1 EACH CAP PO SCH (09:38)
[2018-03-06] MEDS: SENNA 8.6 MG TAB PO SCH (09:38)
[2018-03-06] MEDS: POTASSIUM CHLORIDE 10 MEQ TABER PO SCH (09:38)
[2018-03-06] MEDS: GLIMEPIRIDE 2 MG TAB PO SCH ×2 (09:38→21:01)
[2018-03-06] MEDS: POLYETHYLENE GLYCOL 17 GM/PKT PO SCH (09:39)
[2018-03-06] MEDS: ENOXAPARIN 40 MG/0.4 ML SYR SUBQ SCH (09:40)
[2018-03-06] MEDS: NYSTATIN/TRIAMCINOLONE CRM 15 GM TUBE TP SCH ×2 (09:48→21:03)
--- NOTE | 2018-03-06 10:21 | NUR ---
03/06/18 RD FOLLOW UP COMPLETED PLEASE REFER TO NUTRITION PROGRESS NOTE UNDER CARE ACTIVITY FOR ESTIMATED NUTRITION NEEDS. RD RECOMMENDATIONS: 1. CONTINUE 60 GM CCHO DIET TOLERATED 2. RD PROVIDED EDUCATION ON DM AND CHO COUNTING 3. RD TO FOLLOW-UP 3-5 DAYS, MODERATE RISK ELSY CARROLL, MS, RDN
[2018-03-06 12:00] VITALS: BP 131/62
--- NOTE | 2018-03-06 12:00 | NUR ---
PT REFUSED SUPPOSITORY AT THIS TIME.
[2018-03-06] MEDS: NACL 0.9% 1,000 ML IV SCH (12:19)
[2018-03-06] MEDS: INSULIN LISPRO SLIDING SCALE 100 UNITS/ML VIAL SUBQ PRN ×3 (13:17→21:09)
--- NOTE | 2018-03-06 14:00 | NUR ---
PAGED DR. WRIGHT ABOUT VANCO EXP. DR. WRIGHT ADVISED TO CONTINUE VANCO ORDERED. DR. WRIGHT ALSO ADVISED TO ORDER CBC, BNP, AND MAG FOR AM BLOOD DRAW.
[2018-03-06] MEDS: VANCOMYCIN 1,500 MG in NACL 0.9% 500 ML IV SCH (14:24)
[2018-03-06] MEDS ORDERED: VANCOMYCIN PER PHARMACY MC PRN (15:50)
[2018-03-06 16:00] VITALS: BP 150/57
--- NOTE | 2018-03-06 18:06 | NUR ---
ASSISTED IN REPOSITIONING PT. PT TOLERATED WELL. WILL CONTINUE TO MONITOR.
--- NOTE | 2018-03-06 19:28 | NUR ---
GAVE REPORT TO NIGHT NURSE FOR CONTINUITY OF CARE. PT IN STABLE CONDITION.
--- NOTE | 2018-03-06 19:30 | NUR ---
RECEIVED BEDSIDE REPORT. PT IS A&OX4. RESPIRATIONS ARE EQUAL AND UNLABORED. PT DENIES ANY SOB OR PAIN AT THIS TIME. IV ON R HAND 24G INFUSING PER ORDERS. BOTH ARMS ARE SWOLLEN. LEFT ARM IS WARM TO THE TOUCH. PT DID NOT WANT ME TO ELEVATE ARM ON A PILLOW. HAS GALAVIZ CATH DRAINING YELLOW URINE. PATIENT WITH REDNESS ON SACRAL AREA AND VAGINA. HAS YEAST INFECTION. FAMILY MEMBER AT BEDSIDE. PLAN OF CARE WAS DISCUSSED WITH PATIENT. CALL LIGHT WITHIN REACH.
[2018-03-06 20:00] VITALS: BP 135/63
[2018-03-06] MEDS: ATORVASTATIN 20 MG TAB PO SCH (21:01)
--- NOTE | 2018-03-06 21:01 | NUR ---
VITAL SIGNS ARE WITHIN NORMAL LIMITS. DUE MEDICATIONS GIVEN PT TOLERATED WELL.
[2018-03-06] MEDS: MICONAZOLE VAG 2% 45 GM TUBE VG SCH (21:02)
--- NOTE | 2018-03-06 21:19 | NUR ---
NORCO ADMINISTERED PER ORDER FOR PAIN. PT TOLERATED WELL. ALL NEEDS MET AT THIS TIME. CALL LIGHT WITHIN REACH.
[2018-03-07 00:05] VITALS: BP 134/56
[2018-03-07] MEDS: KETOROLAC 10 MG TAB PO SCH ×4 (00:29→17:57)
--- NOTE | 2018-03-07 00:29 | NUR ---
VITAL SIGNS ARE WITHIN NORMAL LIMITS. TORADOL ADMINISTERED PER ORDERS. SAFETY MEASURES ARE IN PLACE. CALL LIGHT WITHIN REACH.
--- NOTE | 2018-03-07 02:10 | NUR ---
PT SLEEPING COMFORTABLY IN BED. RESPIRATIONS ARE EQUAL AND UNLABORED. CALL LIGHT WITHIN REACH.
[2018-03-07 04:00] VITALS: BP 134/55
--- NOTE | 2018-03-07 04:00 | NUR ---
VITAL SIGNS ARE WITHIN NORMAL LIMITS. NEW IVF BAG NOW INFUSING. PT IN NO DISTRESS. ALL NEEDS MET AT THIS TIME. WILL CONTINUE TO MONITOR.
[2018-03-07] MEDS: NACL 0.9% 1,000 ML IV SCH ×2 (04:48→17:15)
[2018-03-07] MEDS: BLOOD GLUCOSE MONITORING 1 DEV DEV FS SCH ×4 (06:14→20:29)
[2018-03-07] MEDS: INSULIN NPH HUMAN ISOPHANE 100 UNIT/ML VIAL SUBQ SCH ×2 (06:30→17:52)
--- NOTE | 2018-03-07 06:30 | NUR ---
PTS BLOOD SUGAR 102 INSULIN HELD. PT HAS NOT BEEN EATING WELL. WILL CONTINUE TO MONITOR.
--- NOTE | 2018-03-07 06:50 | NUR ---
R HAND IV INFILTRATED. REMOVED IV CATH INTACT. NEW IV STARTED ON R WRIST 22G NS INFUSING PER ORDERS. WILL CONTINUE TO MONITOR.
[2018-03-07 07:08] LABS: HEMATOCRIT 31.7 % (36-48); HEMOGLOBIN 10.2 g/dL (12.0-16.0); MEAN CORPUSCULAR HEMOGLOBIN 27 pg (27-31); MEAN CORPUSCULAR HGB CONC 32 g/dL (33-37); MEAN CORPUSCULAR VOLUME 84.7 fL (80-94); PLATELET COUNT (AUTO) 270 K/uL (140-450); RED BLOOD CELL COUNT(AUTO) 3.75 MIL/uL (4.20-5.40); RED CELL DISTRIBUTION WIDTH 14.2 % (11.6-13.7); WHITE BLOOD COUNT (AUTO) 28.3 K/uL (4.8-10.8)
--- NOTE | 2018-03-07 07:29 | NUR ---
RECEIVED BEDSIDE REPORT FROM AIR CARGO GROUND OPERATIONS SUPERVISOR. PT IS A&OX4. RESPIRATIONS ARE EQUAL AND UNLABORED. PT DENIES ANY SOB OR PAIN AT THIS TIME. IV ON R WRIST 22G INFUSING PER ORDERS. BOTH ARMS ARE SWOLLEN. PT HAS GALAVIZ CATH DRAINING YELLOW URINE. PATIENT WITH REDNESS ON SACRAL AREA AND VAGINA. REDDENED PEELING SPOT NOTED ON PT'S RIGHT BUTTOCK. PT EDUCATED ON THE IMPORTANCE OF TURNING Q2H. PT VERBALIZED UNDERSTANDING. HAS YEAST INFECTION. FAMILY MEMBER AT BEDSIDE. PLAN OF CARE WAS DISCUSSED WITH PATIENT. CALL LIGHT WITHIN REACH.
--- NOTE | 2018-03-07 07:30 | NUR ---
ENDORSED TO DAY SHIFT RN. PT STABLE CONDITION.
[2018-03-07 07:33] LABS: ANION GAP 13.2 (8-16); CARBON DIOXIDE 21.5 mmol/L (21-32); CREATININE 0.9 mg/dL (0.6-1.3); POTASSIUM 4.7 mmol/L (3.5-5.1)
[2018-03-07 07:52] LABS: LYMPHOCYTES % (MANUAL) 8 % (20-46); MONOCYTES % (MANUAL) 5 % (5-12)
[2018-03-07 08:00] VITALS: BP 128/74
[2018-03-07] MEDS ORDERED: CLINICAL MONITORING MC SCH (09:00)
[2018-03-07] MEDS: VANCOMYCIN 1,500 MG in NACL 0.9% 500 ML IV SCH (09:13)
--- NOTE | 2018-03-07 09:52 | NUR ---
ADMINISTERED MORNING MEDS TO PT. PT TOLERATED WELL. ALL NEEDS MET AT THIS TIME. WILL CONTINUE TO MONITOR.
[2018-03-07] MEDS: PREGABALIN 25 MG CAP PO SCH ×2 (10:01→20:47)
[2018-03-07] MEDS: POLYETHYLENE GLYCOL 17 GM/PKT PO SCH (10:01)
[2018-03-07] MEDS: GLIMEPIRIDE 2 MG TAB PO SCH ×2 (10:01→20:47)
[2018-03-07] MEDS: LACTOBACILLUS RHAMNOSUS GG 1 EACH CAP PO SCH (10:02)
[2018-03-07] MEDS: HYDROcodone/APAP 5/325 MG 1 TAB TAB PO PRN ×2 (10:02→20:47)
[2018-03-07] MEDS: LEVOFLOXACIN 500 MG TAB PO SCH (10:02)
[2018-03-07] MEDS: POTASSIUM CHLORIDE 10 MEQ TABER PO SCH (10:02)
[2018-03-07] MEDS: SENNA 8.6 MG TAB PO SCH (10:03)
[2018-03-07] MEDS: LISINOPRIL 20 MG TAB PO SCH (10:03)
[2018-03-07] MEDS: ENOXAPARIN 40 MG/0.4 ML SYR SUBQ SCH (10:04)
[2018-03-07] MEDS: NYSTATIN/TRIAMCINOLONE CRM 15 GM TUBE TP SCH ×2 (11:10→20:50)
[2018-03-07 12:00] VITALS: BP 142/69
--- NOTE | 2018-03-07 12:23 | NUR ---
PT NOTIFIED OF NEED TO TRANSFER TO [facility] FOR MRI. PT UNDERSTANDS. PT REQUESTED TO BE TAKEN TOMORROW BUT PER . PT NEEDS TO GO TODAY. PT VERBALIZED UNDERSTANDING. TRANSFER SCHEDULED FOR 1400
--- NOTE | 2018-03-07 12:42 | NUR ---
RECEIVED ORDER FOR MRI KNEE. SPOKE WITH MARY FROM [facility]. FAXED ORDER, FACE SHEET, H&P AND MED LIST. AND MRI SCREEN TO [phone].
--- NOTE | 2018-03-07 13:37 | NUR ---
SPOKE WITH VERONA FROM [facility]. THEY CAN DO THE MRI AT 2:45P.M. IT WAS APPROVED AT [facility] BY CEO VERONICA. I CALLED JAYDA MILLERACTUARIAL ANALYST NURSE AND INFORMED HER AND SHE WILL SET UP [facility] TRANSPORT. [facility] TO STOP AT OUT PATIENT SURGERY FIRST.
[2018-03-07 17:05] VITALS: BP 146/65
--- NOTE | 2018-03-07 17:10 | NUR ---
PT RETURNED FROM [place]. PT IN STABLE CONDITION. BS CHECKED WITH READING OF 176. WILL GIVE HUMALIN N AND INSULIN 2 UNITS COVERAGE. PT HAD BOWEL MOVEMENT AND WAS CHANGED. PEELING NOTED ON RIGHT BUTTOCK NOTED WITH REDNESS. MYCOLOG APPLIED TO AFFECTED AREA.
[2018-03-07] MEDS: INSULIN LISPRO SLIDING SCALE 100 UNITS/ML VIAL SUBQ PRN ×2 (17:53→20:55)
--- NOTE | 2018-03-07 19:25 | NUR ---
ENDORSED PT TO CLARITY DEVELOPER NURSE FOR CONTINUITY OF CARE. PT IN STABLE CONDITION.
--- NOTE | 2018-03-07 19:26 | NUR ---
RECEIVED BEDSIDE REPORT. PT IS A&OX4. RESPIRATIONS ARE EQUAL AND UNLABORED. PT DENIES ANY SOB OR PAIN AT THIS TIME. IV ON R WRIST 22G INFUSING PER ORDERS. BOTH ARMS ARE SWOLLEN. LEFT ARM IS WARM TO THE TOUCH. HAS GALAVIZ CATH DRAINING YELLOW URINE. PATIENT WITH REDNESS ON SACRAL AREA SKIN HAS BEGAN TO PEEL. BUT SHE REFUSES TO TURN. EDUCATED ON THE IMPORTANCE OF TURNING TO PREVENT PRESSURE ULCERS. VERBALIZED UNDERSTANDING STATES "YOU CAN TURN ME LATER."VISIBLE REDNESS ON VAGINA HAS YEAST INFECTION CURRENTLY ON TREATMENT. PLAN OF CARE WAS DISCUSSED WITH PATIENT. CALL LIGHT WITHIN REACH.
[2018-03-07 20:00] VITALS: BP 145/71
[2018-03-07] MEDS: ATORVASTATIN 20 MG TAB PO SCH (20:47)
--- NOTE | 2018-03-07 20:47 | NUR ---
VITAL SIGNS ARE WITHIN NORMAL LIMITS. PT HAS SOME PAIN IN LEFT KNEE NORCO WAS GIVEN. DUE MEDICATIONS ADMINISTERED. PT TOLERATED WELL.
[2018-03-07] MEDS: MICONAZOLE VAG 2% 45 GM TUBE VG SCH (20:50)
[2018-03-07] MEDS ORDERED: MORPHINE SULFATE 4 MG/ML SYR IVP SCH (21:00)
[2018-03-08] VITALS: BP 122/54
[2018-03-08] MEDS: KETOROLAC 10 MG TAB PO SCH ×5 (00:04→23:41)
--- NOTE | 2018-03-08 00:04 | NUR ---
VITAL SIGNS ARE WITHIN NORMAL LIMITS. TORADOL WAS GIVEN FOR PAIN
--- NOTE | 2018-03-08 01:42 | NUR ---
CALLED PHARMACY TO CLARIFY IF ITS OKAY TO GIVE VANCO. VANCO TROUGH DRAWN 03-07-18 AT 0655 VANCO 20.6 PER PHARMACY HOLD DOSE AND THEY WILL CLARIFY THIS MORNING.
--- NOTE | 2018-03-08 02:00 | NUR ---
SPOKE WITH PHARMACY OKAY TO GIVE 0200 DOSE OF VANCO. RANDOM VANCO 03-08-18 AT 1000.
[2018-03-08] MEDS: VANCOMYCIN 1,500 MG in NACL 0.9% 500 ML IV SCH ×2 (02:05→20:00)
--- NOTE | 2018-03-08 02:05 | NUR ---
VANCO INFUSING PER ORDERS. PT TOLERATED WELL. WILL CONTINUE TO MONITOR.
[2018-03-08 04:00] VITALS: BP 145/65
--- NOTE | 2018-03-08 04:30 | NUR ---
GALAVIZ CATH WAS EMPTIED. PT REFUSED TO GET CLEANED AND REPOSITION. REEDUCATED PATIENT ON THE IMPORTANCE TO REPOSITION TO PREVENT SORES. PT CONTINUES TO REFUSE. WILL CONTINUE TO MONITOR. CALL LIGHT WITHIN REACH.
--- NOTE | 2018-03-08 05:45 | NUR ---
PATIENT BLOOD SUAGR 100 ROBERTO HUMULIN HELD AT THIS TIME. PT HAS NOT BEING EATING WELL SINCE ADMISSION. SHE IS CURRENTLY ON GLUCERNA. WILL CONTINUE TO MONITOR.
[2018-03-08] MEDS: NACL 0.9% 1,000 ML IV SCH ×2 (05:49→19:55)
[2018-03-08] MEDS: BLOOD GLUCOSE MONITORING 1 DEV DEV FS SCH ×4 (05:49→20:35)
[2018-03-08] MEDS: INSULIN NPH HUMAN ISOPHANE 100 UNIT/ML VIAL SUBQ SCH ×2 (05:50→17:26)
--- NOTE | 2018-03-08 07:30 | NUR ---
ENDORSED PATIENT TO DAY SHIFT. PATIENT IS IN STABLE CONDITION.
--- NOTE | 2018-03-08 07:31 | NUR ---
RECEIVED BEDSIDE REPORT FROM REAL ESTATE LEGAL SECRETARY NURSE. PT AWAKE, ALERT, AND STABLE. NO SIGNS OF DISTRESS NOTED. PT DENIES PAIN. COLOR WNL. SAFETY MEASURES IN PLACE. CALL LIGHT WITHIN REACH. PLAN OF CARE REVIEWED WITH PATIENT. WILL CONTINUE TO MONITOR.
[2018-03-08 07:56] LABS: HEMATOCRIT 28.6 % (36-48); HEMOGLOBIN 9.1 g/dL (12.0-16.0); MEAN CORPUSCULAR HEMOGLOBIN 27 pg (27-31); MEAN CORPUSCULAR HGB CONC 32 g/dL (33-37); MEAN CORPUSCULAR VOLUME 85.1 fL (80-94); PLATELET COUNT (AUTO) 293 K/uL (140-450); RED BLOOD CELL COUNT(AUTO) 3.36 MIL/uL (4.20-5.40); RED CELL DISTRIBUTION WIDTH 14.4 % (11.6-13.7); WHITE BLOOD COUNT (AUTO) 28.1 K/uL (4.8-10.8)
[2018-03-08 08:00] VITALS: BP 118/61
[2018-03-08] MEDS: HYDROcodone/APAP 5/325 MG 1 TAB TAB PO PRN ×2 (08:25→15:32)
[2018-03-08 08:32] LABS: LYMPHOCYTES % (MANUAL) 6 % (20-46); MONOCYTES % (MANUAL) 6 % (5-12)
[2018-03-08] MEDS: POLYETHYLENE GLYCOL 17 GM/PKT PO SCH (09:28)
[2018-03-08] MEDS: PREGABALIN 25 MG CAP PO SCH ×2 (09:29→21:43)
[2018-03-08] MEDS: LACTOBACILLUS RHAMNOSUS GG 1 EACH CAP PO SCH (09:29)
[2018-03-08] MEDS: POTASSIUM CHLORIDE 10 MEQ TABER PO SCH (09:29)
[2018-03-08] MEDS: GLIMEPIRIDE 2 MG TAB PO SCH ×2 (09:30→21:43)
[2018-03-08] MEDS: LISINOPRIL 20 MG TAB PO SCH (09:30)
[2018-03-08] MEDS: SENNA 8.6 MG TAB PO SCH (09:30)
[2018-03-08] MEDS: NYSTATIN/TRIAMCINOLONE CRM 15 GM TUBE TP SCH ×2 (09:34→21:43)
[2018-03-08] MEDS: ENOXAPARIN 40 MG/0.4 ML SYR SUBQ SCH (09:36)
--- NOTE | 2018-03-08 09:45 | NUR ---
LOOSE BM X1, PERICARE DONE, BED BATH GIVEN, LINEN CHANGED, GOWN CHANGED, LEFT LOWER ABD WOUND WITH CREAM YELLOW DRAINAGE, WOUND BED CREAM YELLOW WITH BLACK SPOTS, FLUID FILLED BLISTERS NOTED AROUND THE WOUND. LEFT BUTTOCK/PERINEUM WOUNDS WITH CREAM/YELLOW DRAINAGE. MOISTURE RELATED OPEN SKIN NOTED TO BUTTOCK. NYSTATIN CREAM APPLIED PER ORDER. WILL NOTIFY DR WRIGHT OF WOUND CONDITION CHANGES AND REQUEST Z GUARD.
[2018-03-08 09:49] LABS: ANION GAP 12.4 (8-16); CARBON DIOXIDE 18.6 mmol/L (21-32)
[2018-03-08] MEDS ORDERED: Z-GUARD PASTE TP ONE (10:07)
--- NOTE | 2018-03-08 10:35 | NUR ---
DR WRIGHT CALLED TO NOTIFY OF WOUNDS ON LEFT LOWER ABD AT ABD FOLD AND LEFT PERINEUM, T.O FOR CULTURES AND WOUND CARE CONSULT.
[2018-03-08] MEDS ORDERED: Z-GUARD PASTE TP PRN (10:40)
[2018-03-08 12:00] VITALS: BP 145/72
--- NOTE | 2018-03-08 12:05 | NUR ---
PT'S NIECE FILIPE AT BEDSIDE, PT VERBALIZED PERMISSION TO DISCUSS MEDICAL INFORMATION WITH FILIPE, POC DISCUSSED, INSULIN 3U GIVEN FOR BS 164 PER SLIDING SCALE, WILL CONTINUE TO MONITOR.
[2018-03-08] MEDS: INSULIN LISPRO SLIDING SCALE 100 UNITS/ML VIAL SUBQ PRN ×3 (12:06→21:49)
--- NOTE | 2018-03-08 13:20 | NUR ---
UNABLE TO FLUSH IV, PT C/O PAIN AT IV ISTE, WILL START ANOTHER IV.
--- NOTE | 2018-03-08 14:20 | NUR ---
LARGE BM LOOSE, PERICARE DONE, CATH CARE DONE, WOUND CULTURE COLLECTED, PT POSITION CHANGED.
--- NOTE | 2018-03-08 15:02 | NUR ---
IV START ATTEMPTED X3, UNSUCCESSFUL, WILL NOTIFY .
--- NOTE | 2018-03-08 15:45 | NUR ---
ORDER RECIEVED FROM DR WRIGHT FOR PICC INSERTION. PT AGREES WITH PROCEDURE.
[2018-03-08 16:00] VITALS: BP 115/47
--- NOTE | 2018-03-08 16:48 | NUR ---
PICC LINE CONSENT SIGNED BY PT
--- NOTE | 2018-03-08 17:30 | NUR ---
POSITION CHANGED, PERICA REDONE, PT REPORTS PAIN WITH MOVEMNT ONLY.
--- NOTE | 2018-03-08 18:20 | NUR ---
PER PICC LINE SERVICE, [phone] , PICC NURSE SHYANNE WILL COME TO PLACE PICC LINE ERIS, SHYANNE WILL CALL WITH ETA. Addendum: 03/08/18 at 1935 by Ramona Owens RN [phone] PICC LINE NURSE.
--- NOTE | 2018-03-08 18:30 | NUR ---
PER PHARMACY, HOLD 1999 VANCO UNTIL TROPH RESULTED AND DISCUSSED WITH NIGHT PHARMACIST, WILL REPORT TO RUBBER TURNER NURSE.
--- NOTE | 2018-03-08 19:30 | NUR ---
RECEIVED PATIENT RESTING ON BED. EXPLAINED PLAN OF CARE. NO S/S OF DISTRESS NOTED. REPOSITIONED PATIENT AND PLACE IN COMFORTABLE POSITION. TOLD PATIENT TO USE CALL LIGHT FOR ASSISTANCE. WILL CONTINUE TO MONITOR
--- NOTE | 2018-03-08 19:30 | NUR ---
ENDORSED PT TO ASPHALT SPREADER NURSE. PT AWAKE, ALERT, AND STABLE. NO SIGNS ON DISCOMFORT NOTED.
[2018-03-08 20:00] VITALS: BP 122/54
--- NOTE | 2018-03-08 21:00 | NUR ---
V/S TAKEN AND RECORDED. SCHEDULE MEDICATION GIVEN. TOLERATED WELL. ALL NEEDS ATTENDED. REPOSITIONED PATIENT AND PLACE IN COMFORTABLE POSITION.ALL NEEDS ATTENDED. NO S/S OF DISTRESS NOTED.
[2018-03-08] MEDS: ATORVASTATIN 20 MG TAB PO SCH (21:42)
[2018-03-08] MEDS: MICONAZOLE VAG 2% 45 GM TUBE VG SCH (21:43)
[2018-03-08] MEDS: FLUCONAZOLE 200 MG/NS PREMIX 100 ML IV SCH (22:20)
--- NOTE | 2018-03-08 22:30 | NUR ---
PICC LINE INSERTED ON RIGHT UPPER ARM WITH 2 LUMEN BY SHYANNE PICC LINE NURSE.
[2018-03-09] VITALS: BP 124/58
--- NOTE | 2018-03-09 | NUR ---
V/S TAKEN AND RECORDED. REPOSITIONED PATIENT AND PLACE IN COMFORTABLE POSITION. ALL NEEDS ATTENDED. PAIN MEDICATION GIVEN. TOLERATED WELL.
--- NOTE | 2018-03-09 02:00 | NUR ---
SEEN PATIENT ASLEEP ON BED. REPOSITIONED AND PLACE IN COMFORTABLE POSITION. CALL LIGHTS WITHIN REACH. NO S/S OF DISTRESS NOTED. WILL CONTINUE TO MONITOR.
[2018-03-09 04:00] VITALS: BP 145/59
--- NOTE | 2018-03-09 04:15 | NUR ---
URINE COLLECTED AND SENT TO THE LAB.
[2018-03-09] MEDS: MORPHINE SULFATE 4 MG/ML SYR IVP PRN ×2 (04:52→23:54)
[2018-03-09] MEDS: INSULIN NPH HUMAN ISOPHANE 100 UNIT/ML VIAL SUBQ SCH ×2 (06:06→17:06)
[2018-03-09] MEDS: KETOROLAC 10 MG TAB PO SCH ×3 (06:13→18:00)
[2018-03-09] MEDS: BLOOD GLUCOSE MONITORING 1 DEV DEV FS SCH ×4 (06:16→21:00)
--- NOTE | 2018-03-09 07:35 | NUR ---
GAVE REPORT TO AM SHIFT RN AT BEDSIDE FOR CONTINUITY OF CARE. PATIENT IN STABLE CONDITION.
[2018-03-09 08:00] VITALS: BP 128/56
[2018-03-09] MEDS: POLYETHYLENE GLYCOL 17 GM/PKT PO SCH (09:00)
[2018-03-09] MEDS: SENNA 8.6 MG TAB PO SCH (09:00)
[2018-03-09] MEDS: NACL 0.9% 1,000 ML IV SCH ×2 (09:15→23:04)
[2018-03-09] MEDS: VANCOMYCIN 1,500 MG in NACL 0.9% 500 ML IV SCH (10:26)
[2018-03-09] MEDS: PREGABALIN 25 MG CAP PO SCH ×2 (10:28→21:00)
[2018-03-09] MEDS: LISINOPRIL 20 MG TAB PO SCH (10:29)
[2018-03-09] MEDS: LACTOBACILLUS RHAMNOSUS GG 1 EACH CAP PO SCH (10:29)
[2018-03-09] MEDS: LEVOFLOXACIN 500 MG TAB PO SCH (10:30)
[2018-03-09] MEDS: POTASSIUM CHLORIDE 10 MEQ TABER PO SCH (10:30)
[2018-03-09] MEDS: HYDROcodone/APAP 5/325 MG 1 TAB TAB PO PRN ×2 (10:30→17:02)
[2018-03-09] MEDS: GLIMEPIRIDE 2 MG TAB PO SCH ×2 (10:30→21:00)
[2018-03-09] MEDS: ENOXAPARIN 40 MG/0.4 ML SYR SUBQ SCH (10:35)
[2018-03-09] MEDS: NYSTATIN/TRIAMCINOLONE CRM 15 GM TUBE TP SCH ×2 (10:36→21:00)
[2018-03-09 12:00] VITALS: BP 149/56
--- NOTE | 2018-03-09 12:30 | NUR ---
PATIENT TURNED AND REPOSITIONED FOR COMFORT. PATIENT TOLERATED WELL
[2018-03-09 13:35] LABS: HEMATOCRIT 26.6 % (36-48); HEMOGLOBIN 8.5 g/dL (12.0-16.0); MEAN CORPUSCULAR HEMOGLOBIN 27 pg (27-31); MEAN CORPUSCULAR HGB CONC 32 g/dL (33-37); MEAN CORPUSCULAR VOLUME 83.3 fL (80-94); PLATELET COUNT (AUTO) 357 K/uL (140-450); RED BLOOD CELL COUNT(AUTO) 3.19 MIL/uL (4.20-5.40); WHITE BLOOD COUNT (AUTO) 28.2 K/uL (4.8-10.8)
[2018-03-09 13:45] LABS: ANION GAP 11.7 (8-16); CARBON DIOXIDE 20.5 mmol/L (21-32); POTASSIUM 5.2 mmol/L (3.5-5.1)
[2018-03-09 13:48] LABS: LYMPHOCYTES % (MANUAL) 5 % (20-46); MONOCYTES % (MANUAL) 1 % (5-12)
[2018-03-09 13:53] LABS: ALBUMIN 0.9 g/dL (3.4-5.0); TOTAL BILIRUBIN 0.3 mg/dL (0.0-1.0)
--- NOTE | 2018-03-09 14:21 | NUR ---
WOUND CARE EVALUATION NOTE: REASON FOR EVALUATION: MULTIPLE WOUNDS SKIN ASSESSMENT DONE THIS MORNING WITH THIS 63 Y/O FEMALE PT. ADMITTED FROM HOME TO [facility] WITH INITIAL DX OF LEFT KNEE PAIN. PAST MEDICAL HX INCLUDES UNCONTROLLED DM, CKD AND MORBID OBESITY. LABS ARE WBC 28.2, H/H 8.5/26.6, GLUCOSE 131 AND ALBUMIN 0.9. PT IS AWAKE, ALERT X4. SKIN IS WARM AND DRY, BLE NO HAIR GROWTH, DORSAL PEDAL PULSES DIFFICULT TO PALPATE DUE TO +2 EDEMA AND PAINFUL TO TOUCH. CAPILLARY REFILLED < 3 SEC. X 10 TOES[address] F/C IN PLACE, DEVONTE COLOR OF MODERATE AMOUNT URINE OUTPUT. PLAN OF CARE DISCUSSED WITH PRIMARY RN AND PT. PT VERBALIZES UNDERSTANDING. COMORBIDITIES RELATED TO SKIN BREAKS: INFECTION, DM, CKD, AND VERY LOW ALBUMIN LEVEL. INTEGUMENTARY: -INTERTRIGO TO BREAST FOLDS AND LOWER ABDOMINAL FOLDS -INCONTINENT ASSOCIATE DERMATITIS (IAD) TO: B/L GROINS EXTENDED TO R/L MEDIAL THIGHS, RIGHT AND LEFT INNER BUTTOCKS MULTIPLE SMALL PARTIAL THICKNESS SKIN EROSIONS WITH LARGEST SIZE 0.5X0.5X0.1 CM ON RIGHT INNER BUTTOCK, WOUND BED IS PINK, CLEAN AND MOIST. NO ODOR. - LLQ ABD OPEN WOUND(PUPPED BLISTER),6X5CM, WOUND BED 100 % THIN YELLOW SLOUGH, SMALL AMOUNT OF SEROUS DRAINAGE, NO ODOR AND PERIWOUND SKIN INTACT. -LEFT INNER THIGH ABSCESS, SKIN INTACT, 5X2CM, WARM TO TOUCH. -LEFT LABIA ABSCESS, 4X3 CM WITH MODERATE AMOUNT OF PURULENT DRAINAGE, STRONG ODOR, PAIN 5/10, HELENA-WOUND SKIN DENUDED. -BLANCHABLE REDNESS TO SACRALCOCCYX AND BILATERAL HEELS, SKIN INTACT. RECOMMENDATIONS: -ULTRASOUND TO LEFT INNER THIGH AND LEFT LABIA ABSCESS -SURGEON TO CONSULT LEFT INNER THIGH AND LEFT LABIA ABSCESS -KEEP SKIN DRY AND CLEAN AT ALL TIMES -APPLY INTER DRY CLOTH TO BREASTS FOLDS AND LOWER ABDOMINAL FOLDS INTERTRIGO QD AND PRN IF SOILING. -CLEANSE ALL IAD AREAS INCLUDES GROINS/ MEDIAL THIGHS, PERIANAL WITH SOAP AND WATER, PAT DRY AND APPLY Z-GUARD, BID AND PRN IF SOILING -CLEANSE LLQ ABDOMEN WOUND WITH WOUND CARE SOLUTION, PAT DRY, APPLY THERAHONEY SHEET, COVER WITH DRY DRESSING QOD AND PRN IF SOILING. -APPLY OPTIFORM TO SACRALCOCCYX AND CHANGE Q5D AND PRN IF DISLODGED -OFFLOAD BILATERAL HEELS BY PLACING PILLOWS UNDER CALVES UNLESS OTHERWISE CONTRAINDICATED -PRESSURE REDISTRIBUTION SURFACE THERAPY -TURN AND REPOSITION Q2H, OFFLOAD SACRALCOCCYX BY TURNING RIGHT AND LEFT -MONITOR SKIN CONDITION EACH TIME PT IS REPOSITIONS -KEEP SKIN DRY AND CLEAN AT ALL TIMES -CONTINUE TO FOLLOW RD RECOMMENDATIONS ALL ABOVE RECOMMENDATIONS DISCUSSED WITH PRIMARY RN AND DR. LEIGH WILL FOLLOW UP PT Q7-10 DAYS. PLEASE CONTACT WOUND CARE NURSE FOR ANY QUESTION AND CHANGE OF WOUND CONDITION. Addendum: 03/09/18 at 1439 by Harlan Monte RN (Grace) -CLEANSE LEFT LABIA ABSCESS WITH WOUND CARE SOLUTION AND COVER WITH DRY DRESSING BID AND PRN IF SOILING.
[2018-03-09 14:37] LABS: BILIRUBIN,URINE NEGATIVE (NEGATIVE); BLOOD, URINE 3+ (NEGATIVE); COLOR,URINE YELLOW (YELLOW); LEUKOCYTE ESTERASE ,URINE TRACE (NEGATIVE); NITRITE, URINE NEGATIVE (NEGATIVE); UGLUCOSE NEGATIVE (NEGATIVE)
[2018-03-09 14:38] LABS: APPEARANCE,URINE HAZY (CLEAR)
[2018-03-09] MEDS ORDERED: Z-GUARD PASTE TP SCH (15:00)
[2018-03-09 15:19] LABS: RBC,URINE >20 (MANY) /HPF (0-5); URINE AMORPHOUS URATE 3+ /HPF (None Seen); WBC,URINE 0-5 (RARE) /HPF (0-5)
--- NOTE | 2018-03-09 15:30 | NUR ---
PAGED DR WRIGHT TO UPDATE HER ABOUT PATIENT'S LAB VALUES TODAY AND TO INFORM HER ABOUT WOUND NURSE'S RECOMMENDATION. WAITING FOR CALL BACK
--- NOTE | 2018-03-09 15:59 | NUR ---
SPOKE WITH DR WRIGHT AND INFORMED HER ABOUT PATIENT'S LATEST LABS AND WOUND CARE NURSE'S RECOMMENDATION OF HAVING A SURGEON CONSULTATION
[2018-03-09 16:00] VITALS: BP 140/53
[2018-03-09] MEDS ORDERED: THERAHONEY GEL 42.5 GM TP SCH (16:00)
[2018-03-09] MEDS: INTERDRY CLOTH TP SCH (16:49)
--- NOTE | 2018-03-09 17:30 | NUR ---
SPOKE WITH DR ANN. PER DR ANN, KEEP PATIENT NPO. PLANS TO DO I&D OF THE LEFT LABIA ABSCESS ERIS
--- NOTE | 2018-03-09 19:30 | NUR ---
PATIENT REPORT GIVEN AT BEDSIDE. PATIENT ENDORSED IN STABLE CONDITION
--- NOTE | 2018-03-09 19:40 | NUR ---
RECEIVED PT FROM KILO MILLER PT IS AAOX4 ON BED REST PICC LINE ON RT UPPER ARM INFUSING WELL IV FLUIDS ON TELEMETRY ST, RELATIVES AT BD SIDE , PT IS NPO FOR INCISON AND DRAINAGE OF PERIANAL ABSCESS INITIAL ASSESSMENT DONE
[2018-03-09 20:00] VITALS: BP 141/75
--- NOTE | 2018-03-09 20:30 | NUR ---
DR CALZADA IS HERE AND ORDERS TO FOLLOW PT GOING TO OR FOR INCISION AND DRAINAGE OF PERIANAL ISCHIORECTAL ABSCESS CONSENT SIGNED
[2018-03-09] MEDS ORDERED: KETAMINE 500 MG/5 ML VIAL ONE (20:37)
--- NOTE | 2018-03-09 20:40 | NUR ---
PT IS TAKEN TO OR SURGICAL CHECK LIST READY.
[2018-03-09] MEDS ORDERED: LABETALOL 100 MG/20 ML VIAL IVP ONE (20:43)
[2018-03-09] MEDS ORDERED: PROPOFOL 200 MG/20 ML VIAL IV ONE (20:43)
[2018-03-09] MEDS ORDERED: LIDOCAINE/EPI MPF 1%1:200000 30 ML VIAL INJ ONE (20:53)
[2018-03-09] MEDS ORDERED: BUPIVACAINE-MPF 0.5% 30 ML VIAL INJ ONE (20:53)
[2018-03-09] MEDS: MICONAZOLE VAG 2% 45 GM TUBE VG SCH (21:00)
[2018-03-09] MEDS: ATORVASTATIN 20 MG TAB PO SCH (21:00)
--- NOTE | 2018-03-09 21:00 | NUR ---
PT ON SURGERY PO MEDIC WAS NOT GIVEN AND ALL MED AND BLOOD SUGAR ON SCHEDULE AT THIS TIME NOT GIVEN TOO
[2018-03-09 21:05] LABS: ANION GAP 15.9 (8-16); CARBON DIOXIDE 18.5 mmol/L (21-32); POTASSIUM 5.4 mmol/L (3.5-5.1)
[2018-03-09] MEDS ORDERED: HYDROmorphone 1 MG/ML AMP IVP PRN (21:15)
[2018-03-09] MEDS ORDERED: ONDANSETRON 4 MG/2 ML VIAL IVP PRN (21:15)
[2018-03-09] MEDS ORDERED: BLOOD GLUCOSE MONITORING 1 DEV DEV FS SCH (21:30)
[2018-03-09] MEDS: FLUCONAZOLE 200 MG/NS PREMIX 100 ML IV SCH (22:20)
[2018-03-09] MEDS ORDERED: MEROPENEM 1,000 MG in NACL 0.9% 100 ML IV SCH (23:00)
--- NOTE | 2018-03-09 23:10 | NUR ---
PT WAS TRANSFERRED FROM SURGERY. PT A0X2, WITH INTERMITTENT CONFUSION. PT IS EASILY REDIRECTED. PT VS BP 98/51, RR-14. P -91, T-97.6. DRSG IS IN PLACE AND WILL BE REMOVED BY SURGEON. PT HAS NO C/O PAIN AT THIS TIME. WILL CONTINUE TO MONITOR
--- NOTE | 2018-03-09 23:25 | NUR ---
REPORT FROM TELEMETRY UNIT GIVEN TO ICU NURSE AT BED SIDE
[2018-03-10] VITALS (10 sets, daily range): BP systolic 94–156; BP diastolic 2–70
--- NOTE | 2018-03-10 00:08 | NUR ---
PT C/O PAIN RATED A 6/10. PT GIVEN PRN WILL RE EVAL
--- NOTE | 2018-03-10 00:25 | NUR ---
PAGED DR. WRIGHT FOR MENTAL HEALTH ORDERLY.
--- NOTE | 2018-03-10 00:34 | NUR ---
SPOKE TO DR. WRIGHT REGARDING KILN LOADER. UPDATED ON PATIENT'S CURRENT CONDITION. WILL CALL [facility].
[2018-03-10] MEDS ORDERED: MEROPENEM 500 MG VIAL IV ONE ×2 (00:35→04:47)
--- NOTE | 2018-03-10 00:42 | NUR ---
SPOKE WITH DR. FERNANDEZ. DR. FERNANDEZ MADE AWARE OF PTS CURRENT CONDITION. WILL FOLLOW UP ANY ADDITIONAL ORDERS.
[2018-03-10] MEDS: WOUND CARE PREPARATION 178 ML SPR TP SCH ×2 (01:00→13:00)
[2018-03-10] MEDS: MORPHINE SULFATE 4 MG/ML SYR IVP PRN ×4 (01:33→22:17)
[2018-03-10] MEDS: Z-GUARD PASTE TP SCH ×2 (01:47→13:00)
--- NOTE | 2018-03-10 03:06 | NUR ---
PT REQUESTED SOMETHING FOR PAIN. RATING PAIN 6/10. WILL RE EVAL WITH IN AN HOUR.WILL CONTNUE TO MONITOR. PT REPOSITIONED FOR COMFORT
[2018-03-10] MEDS: HYDROcodone/APAP 5/325 MG 1 TAB TAB PO PRN ×3 (03:31→21:16)
[2018-03-10] MEDS: BLOOD GLUCOSE MONITORING 1 DEV DEV FS SCH ×4 (04:38→21:23)
[2018-03-10] MEDS: MEROPENEM 1,000 MG in NACL 0.9% 100 ML IV SCH ×3 (05:01→21:22)
--- NOTE | 2018-03-10 05:03 | NUR ---
PT HAS NO C/O PAIN DENIES ANY N/V AT THIS TIME WAS REPOSITIONED FOR COMFORT. GIVEN ORAL CARE AND WATER AT THIS TIME. PT BP WA READING LOWER THAT HER AVERAGE. THE NURSE CHANGED TO A BIGGER BP CUFF AND BP WAS MORE IN TH EPT NORMS. HOB DECREASES AND OT REQUESTED LIGHT BE TURNED OFF SO SHE CAN TRY TO GET SOME SLEEP
--- NOTE | 2018-03-10 05:41 | NUR ---
LAB AT BEDSIDE AT THIS TIME FOR AM DRAW.
[2018-03-10] MEDS: INSULIN NPH HUMAN ISOPHANE 100 UNIT/ML VIAL SUBQ SCH ×2 (06:30→17:00)
--- NOTE | 2018-03-10 06:55 | NUR ---
DR. FERNANDEZ AT BEDSIDE AT THIS TIME TO EVALUATE PT. UPDATED ON CURRENT CONDITION. WILL FOLLOW UP ANY ADDITIONAL ORDERS.
--- NOTE | 2018-03-10 07:05 | NUR ---
Report will be given to oncoming nurse. Pt has been cleaned and repostioned for comfort. VSS for current condition and history. Pt has no pain at this time per FACE scale. Alert and oriented to person only but with more response to stimuli than Christian catheter patent with clear yellow urine draining, only 150ml entire shift pt care transfer to on coming nurse Addendum: 03/10/18 at 0708 by Agency 02 RN RN pt denies pain report 04/22 and need no relief. urinae was 500 ml output for shif
--- NOTE | 2018-03-10 07:15 | NUR ---
ASSUMED CONTINUITY OF CARE. BEDSIDE REPORT RECEIVED FROM NIGHT RN. PATIENT IS STABLE CONDITION. COMPLETE ASSESSMENT TO FOLLOW.
[2018-03-10 07:57] LABS: HEMATOCRIT 22.1 % (36-48); MEAN CORPUSCULAR HEMOGLOBIN 27 pg (27-31); MEAN CORPUSCULAR HGB CONC 31 g/dL (33-37); MEAN CORPUSCULAR VOLUME 85.9 fL (80-94); PLATELET COUNT (AUTO) 376 K/uL (140-450); RED BLOOD CELL COUNT(AUTO) 2.57 MIL/uL (4.20-5.40); RED CELL DISTRIBUTION WIDTH 14.1 % (11.6-13.7)
[2018-03-10 08:24] LABS: HEMOGLOBIN 6.9 g/dL (12.0-16.0); WHITE BLOOD COUNT (AUTO) 32.4 K/uL (4.8-10.8)
[2018-03-10 08:25] LABS: LYMPHOCYTES % (MANUAL) 7 % (20-46); MONOCYTES % (MANUAL) 3 % (5-12)
--- NOTE | 2018-03-10 08:25 | NUR ---
PAGE KYLE GAVIN FOR CRITICAL LAB RESULT WBC32.4 HBG 6.9 ODER [facility] 2[facility] OF RED PACK CELL AND WILL COME TO SEE PATIENT IN ABOUT ONE HOUR.
[2018-03-10 08:34] LABS: ALBUMIN 0.8 g/dL (3.4-5.0); ANION GAP 17.2 (8-16); CARBON DIOXIDE 17.6 mmol/L (21-32); CREATININE 1.1 mg/dL (0.6-1.3); POTASSIUM 5.8 mmol/L (3.5-5.1); TOTAL BILIRUBIN 0.3 mg/dL (0.0-1.0)
[2018-03-10] MEDS: LACTOBACILLUS RHAMNOSUS GG 1 EACH CAP PO SCH ×2 (09:00→21:16)
[2018-03-10] MEDS: POTASSIUM CHLORIDE 10 MEQ TABER PO SCH (09:00)
[2018-03-10] MEDS: NYSTATIN/TRIAMCINOLONE CRM 15 GM TUBE TP SCH ×2 (09:00→21:00)
[2018-03-10] MEDS: SENNA 8.6 MG TAB PO SCH (09:00)
[2018-03-10] MEDS: POLYETHYLENE GLYCOL 17 GM/PKT PO SCH (09:00)
[2018-03-10] MEDS: LISINOPRIL 20 MG TAB PO SCH (09:02)
--- NOTE | 2018-03-10 10:30 | NUR ---
DR. WRIGHT SEEN THE PATIENT AT BED SIDE , ORDER RECEIVED.TO COLLECT STOOL FOR C=DIFF IF PT. HAS DIARRHEA.
--- NOTE | 2018-03-10 10:34 | NUR ---
PATIENT C/O SEVERE PAIN AT WOUND SITE 10/10 MORPHINE 2MG GIVEN ORDERED.
[2018-03-10] MEDS ORDERED: ALTEPLASE 2 MG VIAL MC SCH (10:45)
[2018-03-10] MEDS: VANCOMYCIN 1,500 MG in NACL 0.9% 500 ML IV SCH (11:14)
[2018-03-10] MEDS: GLIMEPIRIDE 2 MG TAB PO SCH ×2 (11:14→21:00)
[2018-03-10] MEDS: ENOXAPARIN 40 MG/0.4 ML SYR SUBQ SCH (11:15)
--- NOTE | 2018-03-10 12:20 | NUR ---
DR. WRIGHT IN, SEEN AND EXAMINED PATIENT. WILL FOLLOW UP WITH ORDERS.
[2018-03-10] MEDS: FOAM DRESSING TP SCH (13:00)
[2018-03-10] MEDS: THERAHONEY GEL 42.5 GM TP SCH (13:00)
--- NOTE | 2018-03-10 15:11 | NUR ---
03/10/18 RD FOLLOW UP COMPLETED PLEASE REFER TO NUTRITION PROGRESS NOTE UNDER CARE ACTIVITY FOR ESTIMATED NUTRITION NEEDS. RD RECOMMENDATIONS: 1.CONTINUE CLEAR LIQUID TOLERATED 2.ADAVNCE TO 60 GM CCHO DIET TOLERATED 2. RD PROVIDED EDUCATION ON DM AND CHO COUNTING 3. RD TO FOLLOW-UP 3-5 DAYS, MODERATE RISK ELSY CARROLL MS, RDN
--- NOTE | 2018-03-10 17:30 | NUR ---
TRANSFERRED TO TELE UNIT RM 118 VIA HOSPITAL BED, PATIENT IN STABLE CONDITION. REPORT GIVEN TO ANGELA ANDRADE.
--- NOTE | 2018-03-10 17:35 | NUR ---
RECEIVED PT FROM ICU NURSE BECCA, REPORT GIVEN AT BEDSIDE. VITALS TAKEN. WILL RECORD. PT IS AAOX4, S/P I/D OF LEFT PERINEAL AREA. DRESSING IN PLACE DRY AND INTACT. PT HAS PICC LINE TO THE RIGHT ARM, DOUBLE LUMEN, RUNNING PRBC AT 150ML/HR. NS 75ML/HR. GALAVIZ CATH IN PLACE, DRAINING SLIGHT DEVONTE URINE WITH SEDIMENTS. BED IN LOWEST POSITION, BED ALARM ON, FALL PRECAUTIONS IN PLACE, CALL LIGHT WITHIN REACH. PT IS ON TELE, WILL CONTINUE TO MONITOR.
--- NOTE | 2018-03-10 17:50 | NUR ---
ACCORDING ICU NURSE BECCA, BLOOD SUGAR BEFORE TRANSFER WAS 76, NO INSULIN WAS GIVEN.
--- NOTE | 2018-03-10 18:05 | NUR ---
PT C/O LEFT LEG PAIN 7/10 AFTER TRANSFERRING FROM BED TO BED. MORPHINE WILL BE GIVEN.
--- NOTE | 2018-03-10 18:25 | NUR ---
PRBC FINISHED, VITALS TAKEN, PT IS ON NS 75ML/HR
--- NOTE | 2018-03-10 19:25 | NUR ---
ENDORSED PT TO X RAY EQUIPMENT SERVICER RN. PT IN STABLE CONDITION.
--- NOTE | 2018-03-10 19:26 | NUR ---
RECEIVED BEDSIDE REPORT FROM DAY SHIFT NURSE RAYMOND RN, PT STABLE, NO DISTRESS NOTED, PICC LINE TO R UA, DOUBLE LUMEN, PATENT, INTACT, PT ON ROOM AIR, NO SOB NOTED, DRESSINGS INTACT, SEROSANGUINEOUS DISCHARGE NOTED, WILL REINFORCE DRESSING, INITIAL ASSESSMENT DONE, ALL SAFETY PRECAUTION MET, CALL LIGHT WITHIN REACH, WILL CONTINUE TO MONITOR.
[2018-03-10] MEDS: ATORVASTATIN 20 MG TAB PO SCH (21:16)
--- NOTE | 2018-03-10 21:16 | NUR ---
DUE MEDICATION ADMINISTERED, PT STATED HAVING PAIN 6/10 NORCO PER MD ORDER ADMINISTERED, PT TOLERATED WELL, DRESSINGS REINFORCED, NO DISTRESS NOTED, CALL LIGHT WITHIN REACH, WILL CONTINUE TO MONITOR.
[2018-03-10] MEDS: MICONAZOLE VAG 2% 45 GM TUBE VG SCH (21:17)
[2018-03-10] MEDS: PREGABALIN 25 MG CAP PO SCH (21:17)
[2018-03-10] MEDS: FLUCONAZOLE 200 MG/NS PREMIX 100 ML IV SCH (21:32)
[2018-03-10] MEDS: NACL 0.9% 1,000 ML IV SCH (22:00)
--- NOTE | 2018-03-10 22:17 | NUR ---
PT C/O PAIN 10/20 TO THE HELENA AREA, PAIN MEDICATION ADMINISTERED, PER MD ORDER, PT TOLERATED WELL, NO DISTRESS NOTED, CALL LIGHT WITHIN REACH, WILL CONTINUE TO MONITOR.
[2018-03-11] VITALS: BP 131/58
--- NOTE | 2018-03-11 00:05 | NUR ---
CHECKED ON PT, PT SLEEPING, V/S TAKEN, WNL, CALL LIGHT WITHIN [facility]. WILL CONTINUE TO MONITOR.
[2018-03-11] MEDS: WOUND CARE PREPARATION 178 ML SPR TP SCH ×2 (00:39→13:59)
[2018-03-11] MEDS: Z-GUARD PASTE TP SCH ×2 (00:39→13:00)
[2018-03-11] MEDS: NACL 0.9% 1,000 ML IV SCH ×2 (01:15→14:35)
[2018-03-11 04:00] VITALS: BP 143/58
[2018-03-11] MEDS: MEROPENEM 1,000 MG in NACL 0.9% 100 ML IV SCH ×3 (04:26→21:29)
[2018-03-11] MEDS: BLOOD GLUCOSE MONITORING 1 DEV DEV FS SCH ×5 (05:35→21:29)
[2018-03-11] MEDS: DEXTROSE 50% 50 ML SYR IVP PRN (05:37)
--- NOTE | 2018-03-11 05:37 | NUR ---
CHECKED ON PT BLOOD SUGAR 52, D 50 ADMINISTERED PER PROTOCOL, ORANGE JUICE GIVEN TO PT, PT TOLERATED WELL, WILL RECHECK BLOOD SUGAR. Addendum: 03/11/18 at 0628 by Evelyn Moon RN HUMULIN ORDERED NOT ADMINISTERED, PT HAS DECREASED BLOOD SUGAR
[2018-03-11] MEDS: INSULIN NPH HUMAN ISOPHANE 100 UNIT/ML VIAL SUBQ SCH ×2 (05:46→16:52)
--- NOTE | 2018-03-11 06:10 | NUR ---
RECHECKED PT BLOOD SUGAR 115, PT RESTING, NO DISTRESS NOTED. CALL LIGHT WITHIN REACH, WILL CONTINUE TO MONITOR.
[2018-03-11] MEDS: MORPHINE SULFATE 4 MG/ML SYR IVP PRN ×4 (06:15→20:03)
--- NOTE | 2018-03-11 07:19 | NUR ---
ENDORSED PT TO DAY SHIFT NURSE ALEJANDRO RN, PT STABLE, NO DISTRESS NOTED, CALL LIGHT WITHIN REACH.
--- NOTE | 2018-03-11 07:20 | NUR ---
Received bedside report from pm nurse Evelyn. Pt awake, verbally responsive, respirations even & nonlabored, FLACC 0. Call light within reach.
[2018-03-11] MEDS ORDERED: fentaNYL 0.05 MG/ML VIAL ONE (07:43)
[2018-03-11] MEDS ORDERED: HYDROmorphone PFS 2 MG/ML SYR ONE (07:43)
[2018-03-11] MEDS ORDERED: MIDAZOLAM 2 MG/2 ML VIAL ONE ×2 (07:44)
[2018-03-11] MEDS ORDERED: diphenhydrAMINE 50 MG/ML VIAL ONE (07:44)
--- NOTE | 2018-03-11 07:52 | NUR ---
Dr Marinelli at bedside, completed dressing change for right labia wound. Dilaudid 1mg IVP given per Dr Marinelli verbal order. Wound bed beefy red with min sanguineous discharge. Periwound blanchable red. Dr Marinelli packed wound with dry dressing & covered with dry abd pad. Pt sukhwinder tx well.
[2018-03-11 08:00] VITALS: BP 141/64
[2018-03-11 08:18] LABS: BASOPHILS # (AUTO) 0.1 K/uL (0.00-0.22); BASOPHILS % (AUTO) 0.5 % (0.0-2.0); EOSINOPHILS % (AUTO) 0.1 % (0.0-4.0); HEMATOCRIT 27.1 % (36-48); HEMOGLOBIN 8.6 g/dL (12.0-16.0); LYMPHOCYTES # (AUTO) 1.2 K/uL (2.5-16.5); LYMPHOCYTES % (AUTO) 4.1 % (20.5-51.1); MEAN CORPUSCULAR HEMOGLOBIN 27 pg (27-31); MEAN CORPUSCULAR HGB CONC 32 g/dL (33-37); MONOCYTES # (AUTO) 0.8 K/uL (0.8-1.0); MONOCYTES % (AUTO) 2.9 % (1.7-9.3); NEUTROPHILS # (AUTO) 26.6 K/uL (1.8-7.7); NEUTROPHILS % (AUTO) 92.4 % (42.2-75.2); PLATELET COUNT (AUTO) 460 K/uL (140-450); RED BLOOD CELL COUNT(AUTO) 3.19 MIL/uL (4.20-5.40); WHITE BLOOD COUNT (AUTO) 28.8 K/uL (4.8-10.8)
[2018-03-11] MEDS: LACTOBACILLUS RHAMNOSUS GG 1 EACH CAP PO SCH ×3 (09:00→21:29)
[2018-03-11] MEDS: POLYETHYLENE GLYCOL 17 GM/PKT PO SCH (09:00)
[2018-03-11] MEDS: SENNA 8.6 MG TAB PO SCH (09:00)
[2018-03-11 09:16] LABS: ALBUMIN 0.9 g/dL (3.4-5.0); ANION GAP 12.9 (8-16); CARBON DIOXIDE 20.7 mmol/L (21-32); POTASSIUM 5.6 mmol/L (3.5-5.1); TOTAL BILIRUBIN 0.4 mg/dL (0.0-1.0)
[2018-03-11] MEDS: GLIMEPIRIDE 2 MG TAB PO SCH ×2 (09:23→21:29)
[2018-03-11] MEDS: PREGABALIN 25 MG CAP PO SCH ×2 (09:23→21:29)
[2018-03-11] MEDS: LISINOPRIL 20 MG TAB PO SCH (09:23)
[2018-03-11] MEDS: ENOXAPARIN 40 MG/0.4 ML SYR SUBQ SCH (09:27)
[2018-03-11] MEDS: NYSTATIN/TRIAMCINOLONE CRM 15 GM TUBE TP SCH ×2 (09:30→21:29)
--- NOTE | 2018-03-11 10:10 | NUR ---
Pt asleep at this time, respirations even & nonlabored, FLACC 0. Call light within reach.
[2018-03-11] MEDS ORDERED: VANCOMYCIN PER PHARMACY MC PRN (10:20)
[2018-03-11 12:00] VITALS: BP 138/58
[2018-03-11] MEDS: VANCOMYCIN 1,250 MG in DEXTROSE 5% 250 ML IV SCH (12:13)
[2018-03-11] MEDS: THERAHONEY GEL 42.5 GM TP SCH (13:00)
--- NOTE | 2018-03-11 13:00 | NUR ---
Completed wound assessment & tx to abd & sacral wound. Perineal dressing with mod serosanguineous drainage. Reinforced with abd pad. Pt sukhwinder tx well. Call light within reach.
[2018-03-11] MEDS: FOAM DRESSING TP SCH (13:59)
[2018-03-11 16:00] VITALS: BP 132/56
--- NOTE | 2018-03-11 16:10 | NUR ---
Visitors at pt's bedside. Pt awake, interacting appropriately. Call light within reach.
[2018-03-11] MEDS: ERGOCALCIFEROL 50,000 IU SGL PO SCH (16:40)
[2018-03-11] MEDS: INSULIN LISPRO SLIDING SCALE 100 UNITS/ML VIAL SUBQ PRN (16:44)
[2018-03-11] MEDS: HYDROcodone/APAP 5/325 MG 1 TAB TAB PO PRN (16:51)
--- NOTE | 2018-03-11 19:20 | NUR ---
Report given to pm nurse Siomara.
--- NOTE | 2018-03-11 19:21 | NUR ---
RECEIVED BEDSIDE REPORT FROM AM SHIFT NURSE. PT C/O OF 10/20 ON LEFT KNEE AT THIS TIME. WILL MEDICATE. REPOSITIONED PT Q2. W/ PICC LINE TO R UA, DOUBLE LUMEN, PATENT, INTACT, PT ON ROOM AIR, NO SOB NOTED, DRESSINGS INTACT ON ABDOMINAL FOLDS. W/ INSTRUCTIONS NOT TO TOUCH DRESSINGS OF DR. ANN PER PREVIOUS SHIFT. FOR DRESSING BEE BY DR. ANN UNDER IV SEDATION. BED AT LOWEST POSITION. CALL LIGHT WITHIN REACH, WILL CONTINUE TO MONITOR.
[2018-03-11 20:00] VITALS: BP 130/54
--- NOTE | 2018-03-11 20:03 | NUR ---
PT C/O OF 8/10 PAIN ON LEFT KNEE THIS TIME. MEDICATED WITH MORPHINE. PT ALSO C/O OF RIGHT KNEE PAIN AND LOWER BACK PAIN. GENERALIZED PAIN. PAT REPOSITIONED Q2 TOLERATED
--- NOTE | 2018-03-11 21:00 | NUR ---
BLOOD SUGAR 144 MG/DL. NO INSULIN COVERAGE NEEDED. MEDS GIVEN. TOLERATED BY PT.
[2018-03-11] MEDS: ATORVASTATIN 20 MG TAB PO SCH (21:29)
[2018-03-11] MEDS: MICONAZOLE VAG 2% 45 GM TUBE VG SCH (21:30)
[2018-03-11] MEDS: FLUCONAZOLE 200 MG/NS PREMIX 100 ML IV SCH (21:53)
[2018-03-12] VITALS: BP 130/55
[2018-03-12] MEDS: MORPHINE SULFATE 4 MG/ML SYR IVP PRN ×4 (00:02→20:39)
[2018-03-12] MEDS: Z-GUARD PASTE TP SCH ×2 (01:00→12:11)
[2018-03-12] MEDS: WOUND CARE PREPARATION 178 ML SPR TP SCH ×2 (01:00→12:11)
--- NOTE | 2018-03-12 01:50 | NUR ---
PT Addendum: 03/12/18 at 0604 by Siomara Gonsales RN WRONG ENTRY
--- NOTE | 2018-03-12 01:50 | NUR ---
PT SLEEPING, RELIEVED BY PAIN MEDS. WILL MONITOR.
[2018-03-12 04:00] VITALS: BP 136/56
[2018-03-12] MEDS: NACL 0.9% 1,000 ML IV SCH ×2 (04:58→17:15)
[2018-03-12] MEDS: MEROPENEM 1,000 MG in NACL 0.9% 100 ML IV SCH ×3 (04:58→20:42)
[2018-03-12] MEDS: INSULIN NPH HUMAN ISOPHANE 100 UNIT/ML VIAL SUBQ SCH ×2 (05:55→17:14)
[2018-03-12] MEDS: BLOOD GLUCOSE MONITORING 1 DEV DEV FS SCH ×4 (05:56→20:42)
--- NOTE | 2018-03-12 05:59 | NUR ---
PTS BLOOD SUGAR IS 111 MG/DL.(WNL) PT DOES NOT WANT TO EAT. HUMULIN N WITHHELD FOR THIS DOSE ONLY. ENCOURAGED PT TO DRINK GLUCERNA. PT SAID DR. ANN MIGHT DO I&D (IV SEDATION) THIS A.M AND SHE DOES NOT WANT ANYTHING TO EAT/DRINK UNTIL AFTER THE PROCEDURE OF DR. ANN.
[2018-03-12 07:07] LABS: BASOPHILS # (AUTO) 0.1 K/uL (0.00-0.22); BASOPHILS % (AUTO) 0.2 % (0.0-2.0); EOSINOPHILS # (AUTO) 0.1 K/uL (0-0.4); EOSINOPHILS % (AUTO) 0.5 % (0.0-4.0); HEMATOCRIT 25.9 % (36-48); HEMOGLOBIN 8.4 g/dL (12.0-16.0); LYMPHOCYTES # (AUTO) 1.7 K/uL (2.5-16.5); LYMPHOCYTES % (AUTO) 7.1 % (20.5-51.1); MEAN CORPUSCULAR HEMOGLOBIN 28 pg (27-31); MEAN CORPUSCULAR HGB CONC 33 g/dL (33-37); MEAN CORPUSCULAR VOLUME 85.3 fL (80-94); MONOCYTES # (AUTO) 0.9 K/uL (0.8-1.0); MONOCYTES % (AUTO) 3.9 % (1.7-9.3); NEUTROPHILS # (AUTO) 21.3 K/uL (1.8-7.7); NEUTROPHILS % (AUTO) 88.3 % (42.2-75.2); PLATELET COUNT (AUTO) 521 K/uL (140-450); RED BLOOD CELL COUNT(AUTO) 3.04 MIL/uL (4.20-5.40); RED CELL DISTRIBUTION WIDTH 15.1 % (11.6-13.7); WHITE BLOOD COUNT (AUTO) 24.1 K/uL (4.8-10.8)
--- NOTE | 2018-03-12 07:51 | NUR ---
ENDORSED TO AM SHIFT NURSE, PT'S PAIN REASSESSED. 04/22 VERBALIZED BY PT
[2018-03-12 08:00] VITALS: BP 142/72
--- NOTE | 2018-03-12 08:00 | NUR ---
RECEIVED BEDSIDE REPORT FROM MATERIALS HANDLING COORDINATOR RN. PT SLEEPING IN BED, AROUSABLE BY VOICE. AOX4. NO C/O PAIN OR DISCOMFORT AT THIS TIME. RESPIRATIONS EVEN AND UNLABORED. PICC LINE TO RT UA PATENT AND ASYMPTOMATIC, INFUSING IVF PER MD ORDERS. S/P I&D ON LT PERIANAL AREA, LT ISCHIORECTAL AREA, AND PERINEAL AREA. DRESSINGS C/D/I. PER MATERIALS HANDLING COORDINATOR RNDR. ANN TO CHANGE DRESSINGS TODAY UNDER IV SEDATION. F/C IN PLACE, DRAINING URINE. ALL SAFETY PRECAUTIONS IN PLACE, WILL CONTINUE TO MONITOR.
[2018-03-12 08:15] LABS: ANION GAP 12.9 (8-16); CARBON DIOXIDE 22.9 mmol/L (21-32); CREATININE 0.9 mg/dL (0.6-1.3)
[2018-03-12 08:17] LABS: POTASSIUM 5.8 mmol/L (3.5-5.1)
[2018-03-12 08:47] LABS: CHOL/HDL RATIO 4.9 (1-4.5); THYROID STIMULATING HORMONE 3.72 uIU/mL (0.34-3.74)
[2018-03-12] MEDS: POLYETHYLENE GLYCOL 17 GM/PKT PO SCH (09:00)
[2018-03-12] MEDS: SENNA 8.6 MG TAB PO SCH (09:00)
[2018-03-12] MEDS ORDERED: amLODIPine 5 MG TAB PO SCH (09:00)
[2018-03-12] MEDS ORDERED: SODIUM POLYSTYRENE 15 GM/60 ML UDBTL PO SCH (09:16)
[2018-03-12] MEDS: ENOXAPARIN 40 MG/0.4 ML SYR SUBQ SCH (10:17)
[2018-03-12] MEDS: GLIMEPIRIDE 2 MG TAB PO SCH ×2 (10:19→20:38)
[2018-03-12] MEDS: amLODIPine 5 MG TAB PO SCH (10:19)
[2018-03-12] MEDS: PREGABALIN 25 MG CAP PO SCH ×2 (10:20→20:38)
[2018-03-12] MEDS: LACTOBACILLUS RHAMNOSUS GG 1 EACH CAP PO SCH ×2 (10:20→21:10)
[2018-03-12] MEDS: NYSTATIN/TRIAMCINOLONE CRM 15 GM TUBE TP SCH ×2 (10:21→21:10)
--- NOTE | 2018-03-12 10:26 | NUR ---
SCHEDULED MEDICATIONS ADMINISTERED. PT EDUCATED ON THE KAYEXALATE AND VERBALIZED COMPLETE UNDERSTANDING.
[2018-03-12 12:00] VITALS: BP 161/68
[2018-03-12] MEDS: VANCOMYCIN 1,250 MG in DEXTROSE 5% 250 ML IV SCH (12:05)
[2018-03-12] MEDS: FOAM DRESSING TP SCH (12:10)
[2018-03-12] MEDS: THERAHONEY GEL 42.5 GM TP SCH (12:11)
--- NOTE | 2018-03-12 12:11 | NUR ---
PER PREMIUM REPRESENTATIVE RN, DO NOT TOUCH WOUND/DRESSINGS. DR. ANN TO COMPLETE WOUND DRESSING CHANGE UNDER IV SEDATION TODAY.
--- NOTE | 2018-03-12 14:09 | NUR ---
PT HAVING LARGE LIQUIDY BM AFTER KAYEXALATE ADMINISTRATION. Addendum: 03/12/18 at 1410 by Kinza Hancock Meng, RN DRESSINGS CHANGED PRN SOILING.
--- NOTE | 2018-03-12 14:31 | NUR ---
PER DR. WRIGHT, INSERT RECTAL TUBE. NOTIFIED DR. WRIGHT THAT INCISION/WOUND IS VERY CLOSE TO RECTUM.
--- NOTE | 2018-03-12 14:55 | NUR ---
PER DR. KYLE HODGES, HOLD OFF ON RECTAL TUBE PLACEMENT.
[2018-03-12 16:00] VITALS: BP 159/68
--- NOTE | 2018-03-12 16:31 | NUR ---
ASKED PT IF WE CAN CHANGE HER NOW. SHE REFUSES, STATES SHE WANTS TO WAIT FOR DR. ANN FOR DRESSING CHANGE BECAUSE IT HURTS WHEN WE TURN HER. EXPLAINED THAT STOOL MAY BE SITTING IN HER WOUNDS NOW AND THAT SHE SHOULD BE CHANGED FOR INFECTION PREVENTION. PT CONTINUES TO REFUSE AND WISHES TO WAIT FOR DR. ANN.
--- NOTE | 2018-03-12 17:05 | NUR ---
INFORMED PT THAT DR. ANN IS HERE. ASKED IF WE CAN CHANGE/CLEAN HER BEFORE DR. ANN PERFORMS DRESSING CHANGE. PT CONTINUES TO REFUSE.
--- NOTE | 2018-03-12 17:39 | NUR ---
OBTAINED DRESSINGS FROM OPERATING ROOM FOR DR. ANN TO CHANGE DRESSINGS. INFORMED DR. ANN THAT DR. WRIGHT REQUESTS THAT HE CALL HER REGARDING THE RECTAL TUBE.
[2018-03-12] MEDS ORDERED: HYDROmorphone 1 MG/ML AMP ONE (17:59)
--- NOTE | 2018-03-12 18:14 | NUR ---
PT HAS BEEN CLEANED. LARGE LIQUID BM. DR. ANN AT BEDSIDE FOR DRESSING CHANGE. PT PREMEDICATED WITH DILAUDID PER DR. ANN ORDERS.
[2018-03-12] MEDS ORDERED: HYDROmorphone 1 MG/ML AMP IVP SCH (18:15)
[2018-03-12] MEDS ORDERED: SODIUM POLYSTYRENE 15 GM/60 ML UDBTL PR SCH (19:15)
--- NOTE | 2018-03-12 19:25 | NUR ---
ENDORSED POC TO FOUR H CLUB AGENT RN AT BEDSIDE. PT IN STABLE CONDITION.
--- NOTE | 2018-03-12 19:26 | NUR ---
RECEIVED BEDSIDE REPORT FROM AM SHIFT RN. PT SLEEPING IN BED, AROUSABLE BY VOICE. AOX4.C/O PAIN 5/10 R KNEE AND GENERALIZED DISCOMFORT AT THIS TIME. RESPIRATIONS EVEN AND UNLABORED. PICC LINE TO RT UA PATENT AND ASYMPTOMATIC, INFUSING IVF PER MD ORDERS. S/P I&D ON LT PERIANAL AREA, LT ISCHIORECTAL AREA, AND PERINEAL AREA. DRESSINGS C/D/I. S/P CHANGE DRESSINGS TODAY 2ND DAY. DILAUDID FOR PAIN GIVEN BY DOCTOR. F/C IN PLACE, DRAINING URINE. ALL SAFETY PRECAUTIONS IN PLACE, WILL CONTINUE TO MONITOR.
[2018-03-12 20:00] VITALS: BP 150/65
[2018-03-12] MEDS: ATORVASTATIN 20 MG TAB PO SCH (20:38)
[2018-03-12] MEDS: INSULIN LISPRO SLIDING SCALE 100 UNITS/ML VIAL SUBQ PRN (20:43)
--- NOTE | 2018-03-12 21:20 | NUR ---
PT REFUSED TO TAKE KAYEXALATE THIS EVENING. PER PT SHE DOES NOT WANT TO HAVE CRAMPING FOR TONIGHT. WILL TRY IN THE EARLY AM OR TRY TO CONVICE PT 1ST. WILL INSERT THE RECTAL TUBE 1ST BEFORE KAYEXALATE. GIVEN MORPHINE 4 MG FOR PAIN NOW.
--- NOTE | 2018-03-12 21:20 | NUR ---
PER CHARGE NURSE, DR. WRIGHT MIGHT HAVE MENTIONED ON THE PREVIOUS SHIFT AM SHIFT, JUST TO CLEAN THE RECTAL SITE S/P I&D AND THAT IT IS POSSIBLE NOT TO INSERT THE RECTAL TUBE LONG WE KEEP THE SITE CLEAN. WILL ASK DR. ANN.
--- NOTE | 2018-03-12 21:30 | NUR ---
PT HAD 1 LOOSE BM, I DOSE OF KAYEXALATE GIVEN LAST AM SHIFT(PREVIOUS SHIFT). PT WAS CLEANED WITH HELP OF 3 ASSIST. SITE FOR I&D WAS SOILED, CLEANED IT WELL, PACKED IT WITH DRESSING, APPLIED ZGUARD. ALSO REINFORCED THE ABDOMINAL FOLDS WITH TREATMENT AND DRESSING. PT FELT A LOT OF PAIN VERBALIZED. 10/20.PRIPR MORPHINE WAS GIVEN FOR THIS. ATTEMPTED TO PUT IN THE RECTAL TUBE. PT SCREAMED W/ A LOT OF PAIN. SHE COULD NOT TOLERATE IT. WILL TRY AND CALL DR. LAMB.
--- NOTE | 2018-03-12 21:34 | NUR ---
PT'S FRIEND AT BEDSIDE. COULD NOT INSERT THE RECTAL TUBE YET TO VISITOR HERE. BUT WILL TRY AGAIN AFTER.
--- NOTE | 2018-03-12 22:00 | NUR ---
DR. WRIGHT WAS CONTACTED RE: KAYEXALATE 2ND DOSE NOT GIVEN PT REFUSED TO TAKE IT CAUSING HER DISCOMFORT AND CRAMPING EARLIER. DICONTINUE KAYEXALATE PER DR. WRIGHT'S ORDER, SHE ORDERED FOR D50 AND 7 UNITS OF REGULAR INSULIN INSTEAD. CHARGE NURSE TO ORDER.
--- NOTE | 2018-03-12 22:15 | NUR ---
DR. MARTIN WAS CONTACTED RE: RECTAL TUBE, WAS INFORMED THAT PT IS IN A LOT PAIN AND THAT SITE IS RAW AND PACKED WITH DRESSING W/ FRESH BLOOD S/P I AND D RECTAL SITE LAST DONE AT OR. DR. ANN SPOKE TO CHARGE NURSE AND HE SAID TO PUT THE RECTAL TUBE ANYWAY. Addendum: 03/13/18 at 0619 by Siomara Gonsales RN DR. ANN WAS CONTACTED RE: RECTAL TUBE, WAS INFORMED THAT PT IS IN A LOT PAIN AND THAT SITE IS RAW AND PACKED WITH DRESSING W/ FRESH BLOOD S/P I AND D RECTAL SITE LAST DONE AT OR. DR. ANN SPOKE TO CHARGE NURSE AND HE SAID TO PUT THE RECTAL TUBE ANYWAY.
[2018-03-12] MEDS: FLUCONAZOLE 200 MG/NS PREMIX 100 ML IV SCH (22:20)
[2018-03-12] MEDS ORDERED: INSULIN REGULAR, HUMAN 100 UNIT/ML VIAL SUBQ ONE (23:10)
[2018-03-12] MEDS ORDERED: DEXTROSE 50% 50 ML SYR IVP ONE (23:10)
[2018-03-13] MEDS: Z-GUARD PASTE TP SCH ×2 (00:19→13:00)
[2018-03-13 01:00] VITALS: BP 146/65
[2018-03-13] MEDS: WOUND CARE PREPARATION 178 ML SPR TP SCH ×2 (01:00→13:00)
[2018-03-13] MEDS: NACL 0.9% 1,000 ML IV SCH ×2 (03:33→19:55)
[2018-03-13 04:00] VITALS: BP 140/65
[2018-03-13] MEDS: MEROPENEM 1,000 MG in NACL 0.9% 100 ML IV SCH ×3 (04:54→20:43)
[2018-03-13] MEDS: BLOOD GLUCOSE MONITORING 1 DEV DEV FS SCH ×4 (05:57→20:43)
--- NOTE | 2018-03-13 05:57 | NUR ---
PT BLOOD SUGAR IS 115 MG/DL . HELD PT'S HUMULIN N PER PATIENT'S REQUEST. PATIENT WAS GIVEN REGULAR INSULIN EARLIER.
[2018-03-13] MEDS: INSULIN NPH HUMAN ISOPHANE 100 UNIT/ML VIAL SUBQ SCH ×2 (05:58→16:55)
--- NOTE | 2018-03-13 06:13 | NUR ---
NO BM THIS TIME AFTER THE LAST EPISODE OF LOOSE STOOL. ATTEMPTED TO INSERT THE RECTAL TUBE, PT SAID SHE IS NOT COMFORTABLE AT THIS TIME. TRIED TO REINSERT 2X. WILL ENDORSE TO NEXT SHIFT TO RETRY RECTAL INSERTION
[2018-03-13] MEDS: MORPHINE SULFATE 4 MG/ML SYR IVP PRN ×3 (06:38→20:43)
--- NOTE | 2018-03-13 07:15 | NUR ---
PT WAS GIVEN PAIN MEDS AT 6:38AM FOR 10/20 PAIN GENERALIZED AND ALSO THE RECTAL SITE S/P I&D. PT IN STABLE CONDITION
--- NOTE | 2018-03-13 07:40 | NUR ---
Report received from pm nurse Siomara. Pt asleep, respirations even & nonlabored, FLACC 0. Right upper arm PICC line asymptomatic with ongoing NS @ 75ml/hr. Call light within reach.
[2018-03-13 07:57] LABS: BASOPHILS # (AUTO) 0.1 K/uL (0.00-0.22); BASOPHILS % (AUTO) 0.6 % (0.0-2.0); EOSINOPHILS # (AUTO) 0.1 K/uL (0-0.4); EOSINOPHILS % (AUTO) 0.5 % (0.0-4.0); HEMATOCRIT 25.2 % (36-48); HEMOGLOBIN 8.2 g/dL (12.0-16.0); LYMPHOCYTES # (AUTO) 1.8 K/uL (2.5-16.5); LYMPHOCYTES % (AUTO) 8.3 % (20.5-51.1); MEAN CORPUSCULAR HEMOGLOBIN 28 pg (27-31); MEAN CORPUSCULAR HGB CONC 32 g/dL (33-37); MEAN CORPUSCULAR VOLUME 84.8 fL (80-94); MONOCYTES % (AUTO) 4.5 % (1.7-9.3); NEUTROPHILS # (AUTO) 18.6 K/uL (1.8-7.7); NEUTROPHILS % (AUTO) 86.1 % (42.2-75.2); PLATELET COUNT (AUTO) 540 K/uL (140-450); RED BLOOD CELL COUNT(AUTO) 2.97 MIL/uL (4.20-5.40); RED CELL DISTRIBUTION WIDTH 14.8 % (11.6-13.7); WHITE BLOOD COUNT (AUTO) 21.6 K/uL (4.8-10.8)
[2018-03-13 08:00] VITALS: BP 167/68
[2018-03-13] MEDS: GLIMEPIRIDE 2 MG TAB PO SCH ×2 (08:21→20:41)
[2018-03-13] MEDS: amLODIPine 5 MG TAB PO SCH (08:22)
[2018-03-13] MEDS: LACTOBACILLUS RHAMNOSUS GG 1 EACH CAP PO SCH ×2 (08:22→20:42)
[2018-03-13] MEDS: PREGABALIN 25 MG CAP PO SCH ×2 (08:22→20:42)
[2018-03-13] MEDS: NYSTATIN/TRIAMCINOLONE CRM 15 GM TUBE TP SCH ×2 (08:23→20:56)
[2018-03-13] MEDS: ENOXAPARIN 40 MG/0.4 ML SYR SUBQ SCH (08:27)
[2018-03-13] MEDS: SENNA 8.6 MG TAB PO SCH (08:29)
[2018-03-13] MEDS: POLYETHYLENE GLYCOL 17 GM/PKT PO SCH (08:29)
[2018-03-13] MEDS: HYDROcodone/APAP 5/325 MG 1 TAB TAB PO PRN ×2 (08:32→16:50)
[2018-03-13 08:42] LABS: ALBUMIN 0.9 g/dL (3.4-5.0); ANION GAP 14.6 (8-16); CARBON DIOXIDE 21.8 mmol/L (21-32); CREATININE 0.9 mg/dL (0.6-1.3); POTASSIUM 4.4 mmol/L (3.5-5.1); TOTAL BILIRUBIN 0.4 mg/dL (0.0-1.0)
--- NOTE | 2018-03-13 09:15 | NUR ---
Pt in high fowlers in bed, eating breakfast. No c/o discomfort at this time. Call light within reach.
--- NOTE | 2018-03-13 11:10 | NUR ---
Pt repositioned. Wound dressing intact. Right upper arm PICC in place & asymptomatic. Call light within reach.
[2018-03-13] MEDS: VANCOMYCIN 1,250 MG in DEXTROSE 5% 250 ML IV SCH (11:18)
[2018-03-13 12:00] VITALS: BP 154/65
[2018-03-13] MEDS: THERAHONEY GEL 42.5 GM TP SCH (13:00)
[2018-03-13] MEDS: FOAM DRESSING TP SCH (13:00)
--- NOTE | 2018-03-13 13:10 | NUR ---
Wound tx provided to abd wound & perineal/ischiorectal wound, repositioned. Pericare provided. Right upper arm PICC intact & asymptomatic. Call light within reach.
[2018-03-13 16:00] VITALS: BP 117/66
[2018-03-13] MEDS: INSULIN LISPRO SLIDING SCALE 100 UNITS/ML VIAL SUBQ PRN ×2 (16:54→22:43)
--- NOTE | 2018-03-13 19:25 | NUR ---
Report given to pm nurse Kusum.
--- NOTE | 2018-03-13 19:26 | NUR ---
RECEIVED REPORT FROM DAY SHIFT NURSE PAIGE AT BEDSIDE. PT RESTING IN BED, AOX4, ON ROOM AIR WITH A RIGHT UPPER ARM PICC LINE INFUSING NS 0.9% @ 75ML/HR. LEFT GROIN ABSCESS, PERINEAL INCISION S/P I&D ON 03/01/2018. GALAVIZ CATHETER IN PLACE. DISCUSSED PLAN OF CARE AND PT VERBALIZED UNDERSTANDING. NO S/S OF RESPIRATORY DISTRESS OR DISCOMFORT NOTED AT THIS TIME. BED IN LOWEST POSITION, BED BREAKS ON, BOTH SIDE RAILS UP AND FALL PRECAUTIONS IN PLACE. BEDSIDE TABLE AND CALL LIGHT ARE WITHIN REACH. WILL CONTINUE TO MONITOR.
[2018-03-13 20:00] VITALS: BP 109/67
--- NOTE | 2018-03-13 20:00 | NUR ---
VITAL SIGNS TAKEN AND TOLERATED WELL. BLOOD GLUCOSE 192- WILL ADMINISTER INSULIN COVERAGE. NO S/S OF RESPIRATORY DISTRESS OR DISCOMFORT NOTED AT THIS TIME. WILL CONTINUE TO MONITOR.
[2018-03-13] MEDS: ATORVASTATIN 20 MG TAB PO SCH (20:42)
--- NOTE | 2018-03-13 20:56 | NUR ---
SCHEDULED MEDICATION GIVEN AND TOLERATED WELL. PT C/O PAIN 09/19 AND MEDICATED WITH MORPHINE. PT TOLERATED WELL. NO S/S OF RESPIRATORY DISTRESS OR DISCOMFORT NOTED AT THIS TIME. WILL CONTINUE TO MONITOR.
--- NOTE | 2018-03-13 21:00 | NUR ---
HUMALOG NOT AVAILABLE ON THE UNIT. CHARGE NURSE RAMIRO AND POINTER MACHINE OPERATOR VICK ARE AWARE. POINTER MACHINE OPERATOR VICK WILL BRING HUMALOG VIAL. WILL ADMINISTER INSULIN COVERAGE WHEN HUMALOG IS AVAILABLE.
[2018-03-13] MEDS: FLUCONAZOLE 200 MG/NS PREMIX 100 ML IV SCH (22:43)
--- NOTE | 2018-03-13 22:43 | NUR ---
SCHEDULED MEDICATION GIVEN AND INSULIN COVERAGE GIVEN. HUMALOG WAS UNAVAILABLE ON THE UNIT AND BOTH CHARGE NURSE RAMIRO AND RESIDENTIAL PROGRAM DIRECTOR VICK WERE INFORMED. NO S/S OF RESPIRATORY DISTRESS OR DISCOMFORT NOTED AT THIS TIME. WILL CONTINUE TO MONITOR.
[2018-03-14] VITALS: BP 148/61
--- NOTE | 2018-03-14 | NUR ---
VITAL SIGNS TAKEN AND TOLERATED WELL. NO S/S OF RESPIRATORY DISTRESS OR DISCOMFORT NOTED AT THIS TIME. WILL CONTINUE TO MONITOR.
[2018-03-14] MEDS: Z-GUARD PASTE TP SCH ×2 (01:00→13:00)
[2018-03-14] MEDS: WOUND CARE PREPARATION 178 ML SPR TP SCH ×2 (01:00→13:00)
--- NOTE | 2018-03-14 01:00 | NUR ---
SEA-CLENS AND Z-GUARD ARE NOT AVAILABLE. NURSE AVIVA-RN WAS ASSIGNED PT LAST NIGHT AND WAS NOT ABLE TO FIND SEA-CLENS AND Z-GUARD WELL. WILL ENDORSE TO DAY SHIFT NURSE TO ORDER WITH PHARMACY.
--- NOTE | 2018-03-14 02:00 | NUR ---
PT CONTINUES TO SLEEP IN BED. NO S/S OF RESPIRATORY DISTRESS OR DISCOMFORT NOTED AT THIS TIME. WILL CONTINUE TO MONITOR.
[2018-03-14 04:00] VITALS: BP 149/70
--- NOTE | 2018-03-14 04:00 | NUR ---
VITAL SIGNS TAKEN AND TOLERATED WELL. NO S/S OF RESPIRATORY DISTRESS OR DISCOMFORT NOTED AT THIS TIME. WILL CONTINUE TO MONITOR.
[2018-03-14] MEDS: MEROPENEM 1,000 MG in NACL 0.9% 100 ML IV SCH ×3 (04:16→21:12)
--- NOTE | 2018-03-14 04:16 | NUR ---
SCHEDULED MEDICATION GIVEN AND TOLERATED WELL. NO S/S OF RESPIRATORY DISTRESS OR DISCOMFORT NOTED AT THIS TIME. WILL CONTINUE TO MONITOR.
[2018-03-14] MEDS: MORPHINE SULFATE 4 MG/ML SYR IVP PRN (04:43)
--- NOTE | 2018-03-14 04:43 | NUR ---
PT C/O PAIN DURING PERINEAL CARE. MEDICATED WITH MORPHINE. WOUND DRESSING CHANGE ON PERINEAL DUE TO SOILING. PT TOLERATED WELL. NO S/S OF RESPIRATORY DISTRESS OR DISCOMFORT NOTED AT THIS TIME. WILL CONTINUE TO MONITOR.
--- NOTE | 2018-03-14 06:00 | NUR ---
BLOOD GLUCOSE 119- NO INSULIN COVERAGE NEEDED. NO S/S OF RESPIRATORY DISTRESS OR DISCOMFORT NOTED AT THIS TIME. WILL CONTINUE TO MONITOR.
[2018-03-14] MEDS: BLOOD GLUCOSE MONITORING 1 DEV DEV FS SCH ×4 (06:12→21:05)
[2018-03-14] MEDS: INSULIN NPH HUMAN ISOPHANE 100 UNIT/ML VIAL SUBQ SCH ×2 (06:16→17:00)
--- NOTE | 2018-03-14 06:16 | NUR ---
SCHEDULED MEDICATION HUMULIN GIVEN AND TOLERATED WELL. NO S/S OF RESPIRATORY DISTRESS OR DISCOMFORT NOTED AT THIS TIME. WILL CONTINUE TO MONITOR.
[2018-03-14 07:20] LABS: BASOPHILS # (AUTO) 0.1 K/uL (0.00-0.22); BASOPHILS % (AUTO) 0.6 % (0.0-2.0); EOSINOPHILS # (AUTO) 0.1 K/uL (0-0.4); EOSINOPHILS % (AUTO) 0.7 % (0.0-4.0); HEMATOCRIT 25.9 % (36-48); HEMOGLOBIN 8.3 g/dL (12.0-16.0); LYMPHOCYTES # (AUTO) 1.8 K/uL (2.5-16.5); LYMPHOCYTES % (AUTO) 9.3 % (20.5-51.1); MEAN CORPUSCULAR HEMOGLOBIN 27 pg (27-31); MEAN CORPUSCULAR HGB CONC 32 g/dL (33-37); MEAN CORPUSCULAR VOLUME 84.3 fL (80-94); MONOCYTES # (AUTO) 1.1 K/uL (0.8-1.0); MONOCYTES % (AUTO) 5.6 % (1.7-9.3); NEUTROPHILS # (AUTO) 16.2 K/uL (1.8-7.7); NEUTROPHILS % (AUTO) 83.8 % (42.2-75.2); PLATELET COUNT (AUTO) 593 K/uL (140-450); RED BLOOD CELL COUNT(AUTO) 3.08 MIL/uL (4.20-5.40); RED CELL DISTRIBUTION WIDTH 14.4 % (11.6-13.7); WHITE BLOOD COUNT (AUTO) 19.3 K/uL (4.8-10.8)
[2018-03-14 07:42] LABS: ANION GAP 14.4 (8-16); CARBON DIOXIDE 23.3 mmol/L (21-32); CREATININE 0.8 mg/dL (0.6-1.3); POTASSIUM 4.7 mmol/L (3.5-5.1)
--- NOTE | 2018-03-14 07:44 | NUR ---
ENDORSED PT CARE TO DAY SHIFT NURSE BIENVENIDO-RN FOR CONTINUITY OF CARE.
--- NOTE | 2018-03-14 07:45 | NUR ---
RECEIVED BEDSIDE REPORT FROM ANGELA NICOLE. PT STABLE, SLEEPING COMFORTABLY BUT EASILY AROUSABLE. NO SIGNS OF DISTRESS NOTED. SAFETY MEASURES IN PLACE. PLAN OF CARE REVIEWED. WILL CONTINUE TO MONITOR.
[2018-03-14 08:00] VITALS: BP 144/59
[2018-03-14] MEDS: SENNA 8.6 MG TAB PO SCH (09:00)
[2018-03-14] MEDS: POLYETHYLENE GLYCOL 17 GM/PKT PO SCH (09:00)
[2018-03-14] MEDS: NYSTATIN/TRIAMCINOLONE CRM 15 GM TUBE TP SCH ×2 (09:00→21:00)
[2018-03-14] MEDS: amLODIPine 5 MG TAB PO SCH (09:39)
[2018-03-14] MEDS: PREGABALIN 25 MG CAP PO SCH ×2 (09:40→21:02)
[2018-03-14] MEDS: LACTOBACILLUS RHAMNOSUS GG 1 EACH CAP PO SCH ×2 (09:40→21:02)
[2018-03-14] MEDS: GLIMEPIRIDE 2 MG TAB PO SCH ×2 (09:41→21:02)
--- NOTE | 2018-03-14 09:41 | NUR ---
ADMINISTERED SCHEDULED MEDICATIONS. PT TOLERATED WELL. PT REPOSITIONED. NO OTHER NEEDS AT THIS TIME.
[2018-03-14] MEDS: HYDROcodone/APAP 5/325 MG 1 TAB TAB PO PRN (09:43)
[2018-03-14] MEDS: ENOXAPARIN 40 MG/0.4 ML SYR SUBQ SCH (09:46)
[2018-03-14] MEDS: VANCOMYCIN 1,250 MG in DEXTROSE 5% 250 ML IV SCH (11:48)
--- NOTE | 2018-03-14 11:48 | NUR ---
ADMINISTERED SCHEDULED VANCOMYCIN. VANCO TROUGH 14.4. PHARMACY AWARE. PT TOLERATED WELL. IVF TUBING CHANGED. NO OTHER NEEDS AT THIS TIME. Addendum: 03/14/18 at 1230 by Ramona Owens RN PT COMPLAINED OF NAUSEA. WILL PAGE DR WRIGHT. Addendum: 03/14/18 at 1930 by Yessy Smyth RN PT DECLINED BEING TURNED, PT WANTS TO STAY IN SAME POSITION FOR NOW, WILL ATTEMPT POSITION CHANGE AT LATER TIME.
[2018-03-14] MEDS: NACL 0.9% 1,000 ML IV SCH ×2 (11:50→22:19)
[2018-03-14 12:00] VITALS: BP 135/51
[2018-03-14] MEDS: THERAHONEY GEL 42.5 GM TP SCH (13:00)
[2018-03-14] MEDS: FOAM DRESSING TP SCH (13:00)
--- NOTE | 2018-03-14 13:10 | NUR ---
OPEN WOUND NOTED AT THE CREASE OF ABDOMINAL FOLD AT SUPRAPUBIC AREA 1CM X 12CM. YELLOW WOUND BED, MODERATE DRAINAGE, SURROUNDING TISSUE RED. CLEANED WITH NS, DRESSED WITH GAUZE, AND INTERDRY APPLIED TO THE CREASE. WILL NOTIFY . PHOTO TAKEN. Addendum: 03/14/18 at 1929 by Yessy Smyth RN POSITION CHANGED AT THIS TIME.
[2018-03-14] MEDS: ONDANSETRON 4 MG/2 ML VIAL IVP PRN (14:32)
[2018-03-14] MEDS ORDERED: ONDANSETRON 4 MG/2 ML VIAL ONE (14:35)
--- NOTE | 2018-03-14 14:35 | NUR ---
Correspondence Section Supervisor Note: requested I speak with patient regarding Medi-[employer] application. Dr. Trejo and I met with patient at bedside. She stated she only met with [employer] energy conservation representative Bertram from [facility] ext [phone] once and reported she does not recall their conversation since she was drowsy. She told me that she would like to apply for [employer] (even if it is with a share of cost). I explained to her I was going to contact Bertram and inform him of this. She stated she has worked for [employer] for 20 plus years and asked me how the hospital was going to financially help her with hospital bill. She reported she was already given lorna discount information. I explained to her that she could talk to administration regarding this matter. She verbalized understanding. I requested for Bertram to please meet and assist patient with [employer] application. Per Bertram, he will meet with patient today.
--- NOTE | 2018-03-14 15:05 | NUR ---
ADMINISTERED SCHEDULED MEDICATION. ADMINISTERED PRN ZOFRAN FOR NAUSEA. PT TOLERATED WELL. PT REPOSITIONED. LEFT LOWER ABDOMINAL WOUND CLEANSED AND DRESSING CHANGED. NO OTHER NEEDS AT THIS TIME.
--- NOTE | 2018-03-14 15:30 | NUR ---
DR. ANN PAGED AND CALLED BACK. DRESSING CHANGE AND PACKING TO BE DONE BY NURSING QDAY AND NEEDED FOR SOILING. DR. ANN NOTIFIED OF NEW WOUND AT SUPRAPUBIC ABDOMINAL FOLD.
[2018-03-14 16:00] VITALS: BP 126/57
[2018-03-14] MEDS: HYDROmorphone PFS 2 MG/ML SYR IVP PRN ×2 (16:40→21:03)
--- NOTE | 2018-03-14 16:43 | NUR ---
ADMINISTERED DILAUDID PRIOR TO WOUND CARE. PT TOLERATED WELL. BLOOD GLUCOSE 113. NO INSULIN NEEDED PER SLIDING SCALE. PT STABLE, BACK TO SLEEPING COMFORTABLY BUT EASILY AROUSABLE.
--- NOTE | 2018-03-14 17:30 | NUR ---
DRESSING CHANGED ON LEFT LABIAL SURGICAL WOUND. PACKED WITH STERILE GAUZE SOAKED IN NORMAL SALINE. PT TOLERATED PROCEDURE WELL. DENIES PAIN. WILL CONTINUE TO MONITOR.
--- NOTE | 2018-03-14 19:25 | NUR ---
ENDORSED PT TO RN ALICIA FOR CONTINUITY OF CARE. PT STABLE.
--- NOTE | 2018-03-14 19:30 | NUR ---
RECEIVED FROM AM RN IN BED AWAKE AND WATCHING TV. "I FEEL BETTER NOW" DENIES ANY PAIN AT THIS TIME. CALL LIGHT WITH IN REACH. DRESSING TO ABDOMEN AND PERINEAL INTACT. NO BLEEDING. ENCOURAGED TO CALL FOR ANY HELP SHE MAY NEED. REMINDED TO TURN Q 2H AND STAY ON THAT SIDE WHERE SHE IS TURNED . "OK" PT. ROM X 4.PT. FEMALE OBESE. IVF SIT INTACT AND NO INFILTRATION. AFEBRILE. ON TELEMETRY MONITORING. CARE PLANS FOR THE NIGHT DISCUSSED WITH HER AND MADE SURE CALL LIGHT WITH IN REACH.
--- NOTE | 2018-03-14 20:00 | NUR ---
PT. ASSISTED BY CNAS TO RIGHT SIDE. REMINDED TO TURN THAT SIDE FOR A WHILE. PILLOW SUPPORT TO PRESSURE AREAS.
[2018-03-14 20:24] VITALS: BP 155/66
[2018-03-14] MEDS: ATORVASTATIN 20 MG TAB PO SCH (21:01)
--- NOTE | 2018-03-14 22:00 | NUR ---
PT. TURNED TO OTHER SIDE BY CNAS. PILLOW SUPPORT TO PRESSURE AREAS. PT. TRYING TO REASON WITH CNAS NOT TO BE TURNED. EXPLAINED TO HER WHY. PILLOW SUPPORT TO PRESSURE AREAS.
[2018-03-14] MEDS: FLUCONAZOLE 200 MG/NS PREMIX 100 ML IV SCH (22:17)
--- NOTE | 2018-03-15 00:15 | NUR ---
PT. TURNED BY CNAS. PILLOW SUPPORT TO PRESSURE AREAS. ENCOURAGED TO STAY ON TURNED SIDE MUCH POSSIBLE. PT. NOTED TO MOVE TO OTHER SIDE. RE-ORIENTED TO IMPORTANCE OF HER TURNING. NO COMPLAINTS OF PAIN DONE AT THIS TIME.
--- NOTE | 2018-03-15 00:25 | NUR ---
PT. REMINDED THAT SHE IS NPO MIDNIGHT FOR PLANNED PROCEDURE OF MD. Clive ANN FOR FURTHER DEBRIDEMENT . "OK" EXPLAINED PROCEDURE TO HER BY Rafael CASTILLO WITNESSED BY ME.
[2018-03-15] MEDS: WOUND CARE PREPARATION 178 ML SPR TP SCH ×2 (01:00→13:00)
[2018-03-15 01:13] VITALS: BP 128/54
[2018-03-15] MEDS: Z-GUARD PASTE TP SCH ×2 (01:31→13:00)
--- NOTE | 2018-03-15 02:20 | NUR ---
PT. TURNED TO HER SIDES . PILLOW SUPPORT PROVIDED. NO COMPLAINTS DONE AT THIS TIME. WENT BACK TO SLEEP IMMEDIATELY. GALAVIZ CATHETER IN PLACE AND DRAINING WELL WITH YELLOW URINE.
--- NOTE | 2018-03-15 04:20 | NUR ---
AWAKE AND TURNED BY CNAS TO SIDE. PILLOW SUPPORT TO PRESSURE AREAS. A/O X 4. ROM X 4. CLEAR SPEECH. REQUESTED FOR PAIN RELIEVER RT C/O I AND D SITE TO LEFT LABIA /VAGINAL HURTING.
[2018-03-15 04:38] VITALS: BP 140/70
[2018-03-15] MEDS: MORPHINE SULFATE 4 MG/ML SYR IVP PRN ×3 (04:41→22:25)
[2018-03-15] MEDS: MEROPENEM 1,000 MG in NACL 0.9% 100 ML IV SCH ×3 (04:44→20:38)
[2018-03-15] MEDS: BLOOD GLUCOSE MONITORING 1 DEV DEV FS SCH ×4 (06:13→20:51)
[2018-03-15] MEDS: INSULIN NPH HUMAN ISOPHANE 100 UNIT/ML VIAL SUBQ SCH ×2 (06:19→17:00)
--- NOTE | 2018-03-15 06:24 | NUR ---
CONSENT FOR PROCEDURE TO BE DONE BY MD ANN TODAY SIGNED BY PT.
--- NOTE | 2018-03-15 07:05 | NUR ---
RECEIVED BEDSIDE REPORT FROM FORM WORKER NURSE. PATIENT AAOX4. PATIENT ON ROOM AIR WITH NO DISTRESS. GALAVIZ CATHETER IN PLACE. PICC LINE ON PATY INFUSING NS AT 75, CLEAN DRY AND INTACT. FALL RISK PROTOCOL IN PLACE. BED IN LOW POSITION, CALL LIGHT WITHIN REACH. WILL CONTINUE TO MONITOR.
[2018-03-15 07:38] LABS: BASOPHILS # (AUTO) 0.1 K/uL (0.00-0.22); BASOPHILS % (AUTO) 0.6 % (0.0-2.0); EOSINOPHILS # (AUTO) 0.1 K/uL (0-0.4); EOSINOPHILS % (AUTO) 0.7 % (0.0-4.0); HEMATOCRIT 24.3 % (36-48); HEMOGLOBIN 7.8 g/dL (12.0-16.0); LYMPHOCYTES % (AUTO) 10.9 % (20.5-51.1); MEAN CORPUSCULAR HEMOGLOBIN 27 pg (27-31); MEAN CORPUSCULAR HGB CONC 32 g/dL (33-37); MEAN CORPUSCULAR VOLUME 84.5 fL (80-94); MONOCYTES % (AUTO) 5.2 % (1.7-9.3); NEUTROPHILS # (AUTO) 15.5 K/uL (1.8-7.7); NEUTROPHILS % (AUTO) 82.6 % (42.2-75.2); PLATELET COUNT (AUTO) 534 K/uL (140-450); RED BLOOD CELL COUNT(AUTO) 2.88 MIL/uL (4.20-5.40); RED CELL DISTRIBUTION WIDTH 14.5 % (11.6-13.7); WHITE BLOOD COUNT (AUTO) 18.7 K/uL (4.8-10.8)
[2018-03-15 08:00] VITALS: BP 149/67
[2018-03-15 08:07] LABS: ANION GAP 11.5 (8-16); CARBON DIOXIDE 26.3 mmol/L (21-32); CREATININE 0.8 mg/dL (0.6-1.3); POTASSIUM 4.8 mmol/L (3.5-5.1)
[2018-03-15] MEDS: POLYETHYLENE GLYCOL 17 GM/PKT PO SCH (09:00)
[2018-03-15] MEDS: SENNA 8.6 MG TAB PO SCH (09:00)
[2018-03-15] MEDS: amLODIPine 5 MG TAB PO SCH (09:00)
[2018-03-15] MEDS: GLIMEPIRIDE 2 MG TAB PO SCH ×2 (09:00→20:40)
[2018-03-15] MEDS: LACTOBACILLUS RHAMNOSUS GG 1 EACH CAP PO SCH ×2 (09:00→20:39)
[2018-03-15] MEDS: ENOXAPARIN 40 MG/0.4 ML SYR SUBQ SCH (09:00)
[2018-03-15] MEDS: PREGABALIN 25 MG CAP PO SCH ×2 (09:00→20:39)
[2018-03-15] MEDS: NYSTATIN/TRIAMCINOLONE CRM 15 GM TUBE TP SCH ×2 (09:00→20:45)
[2018-03-15] MEDS: HYDROmorphone PFS 2 MG/ML SYR IVP PRN (09:50)
[2018-03-15 09:54] LABS: ANTI-NUCLEAR ANTIBODY TITER NEGATIVE (Negative)
--- NOTE | 2018-03-15 11:59 | NUR ---
FAMILY AT BEDSIDE. PATIENT SPEAKING WITH THEM, NO COMPLAINTS AT THIS TIME. WILL CONTINUE TO MONITOR.
[2018-03-15 12:00] VITALS: BP 131/47
--- NOTE | 2018-03-15 12:00 | NUR ---
PATIENTS FAMILY AT BEDSIDE. FAMILY OPENING RUTH PRESENTS. ON ROOM AIR, NO DISTRESS NOTED. WILL CONTINUE TO MONITOR.
[2018-03-15] MEDS: NACL 0.9% 1,000 ML IV SCH (12:13)
[2018-03-15] MEDS: FOAM DRESSING TP SCH (13:00)
[2018-03-15] MEDS: THERAHONEY GEL 42.5 GM TP SCH (13:39)
--- NOTE | 2018-03-15 14:00 | NUR ---
FAMILY AT BEDSIDE. PATIENT AND FAMILY CONVERSING. NO COMPLAINTS AT THIS TIME. WILL CONTINUE TO MONITOR.
--- NOTE | 2018-03-15 15:32 | NUR ---
03/15/18 RD FOLLOW UP COMPLETED PLEASE REFER TO NUTRITION ASSESSMENT UNDER CARE ACTIVITY FOR ESTIMATED NUTRITIONAL NEEDS. 1. CONTINUE NPO MEDICALLY NECESSARY 2. ADVANCE TO 60 GM CCHO DIET TOLERATED 3. RD PROVIDED EDUCATION ON DM AND CHO COUNTING 4. RD TO FOLLOW-UP 3-5 DAYS, MODERATE RISK FILIPE VARELA RD
[2018-03-15 16:00] VITALS: BP 148/69
--- NOTE | 2018-03-15 17:30 | NUR ---
NOTIFIED DR. ANN OF GLUCOSE OF 64. DR. ANN ORDERED 1 AMP OF D50 BEFORE SURGERY. ADMINISTERED 1 AMP OF D50. PATIENT TOLERATED WELL. PATIENT BROUGHT TO OR. WILL MONITOR WHEN PATIENT RETURNS TO UNIT.
[2018-03-15] MEDS: DEXTROSE 50% 50 ML SYR IVP PRN (17:38)
[2018-03-15] MEDS ORDERED: DESFLURANE 240 ML BTL INH ONE (18:00)
[2018-03-15] MEDS ORDERED: ONDANSETRON 4 MG/2 ML VIAL IVP ONE (18:00)
[2018-03-15] MEDS ORDERED: PROPOFOL 200 MG/20 ML VIAL IV ONE (18:00)
[2018-03-15] MEDS ORDERED: fentaNYL 0.05 MG/ML VIAL ONE (18:03)
[2018-03-15] MEDS: BUPIVACAINE-MPF 0.5% 30 ML VIAL INJ ONE ×2 (18:45→20:20)
[2018-03-15] MEDS ORDERED: HYDROmorphone 1 MG/ML AMP IVP PRN (18:45)
[2018-03-15] MEDS ORDERED: ONDANSETRON 4 MG/2 ML VIAL IVP PRN (18:45)
[2018-03-15] MEDS: HYDROmorphone PFS 2 MG/ML SYR ONE ×2 (19:30→19:40)
[2018-03-15 20:00] VITALS: BP 146/65
--- NOTE | 2018-03-15 20:10 | NUR ---
RECEIVED REPORT FROM ANGELA VARGAS FOR CONTINUITY OF CARE. PT IS A/OX4 ON ROOM AIR. PT IS ABLE TO MAKE NEEDS KNOWN, ABLE TO FOLLOW COMMANDS. PT IS UNABLE TO MOVE LEGS AND SKIN IS NOT INTACT, SEE WOUND ASSESSMENT. PT JUST CAME BACK FROM SURGERY (I&D) AND HAS A GALAVIZ CATHETER IN PLACE. PT ALSO HAS A RECTAL TUBE IN PLACE. PT HAS A PICC LINE TO RIGHT UPPER ARM, ASYMPTOMATIC AND INTACT. DISCUSSED PLAN OF CARE WITH PT, PT VERBALIZED UNDERSTANDING. VITAL SIGNS WITHIN NORMAL LIMITS. PT STABLE, DENIES PAIN, NO SIGNS OF DISTRESS NOTED AT THIS TIME. PT POSITIONED FOR COMFORT. BED IN LOWEST POSITION, BED ALARM ON. CALL LIGHT WITHIN REACH, WILL CONTINUE TO MONITOR.
[2018-03-15] MEDS: ATORVASTATIN 20 MG TAB PO SCH (20:39)
--- NOTE | 2018-03-15 20:46 | NUR ---
MEDICATED WITH SCHEDULED MEDICATIONS, PT TOLERATED WELL.
[2018-03-15] MEDS: FLUCONAZOLE 200 MG/NS PREMIX 100 ML IV SCH (22:23)
--- NOTE | 2018-03-15 22:32 | NUR ---
PT C/O SEVERE PAIN TO DEBRIDEMENT AREAS, MEDICATED WITH MORPHINE ORDERED. PT TOLERATED WELL.
[2018-03-16] VITALS (7 sets, daily range): BP systolic 107–150; BP diastolic 50–67
--- NOTE | 2018-03-16 | NUR ---
VITAL SIGNS WITHIN NORMAL LIMITS. PT STABLE, DENIES PAIN, NO SIGNS OF DISTRESS NOTED AT THIS TIME. PT POSITIONED FOR COMFORT. BED IN LOWEST POSITION, BED ALARM ON. CALL LIGHT WITHIN REACH, WILL CONTINUE TO MONITOR.
[2018-03-16] MEDS: WOUND CARE PREPARATION 178 ML SPR TP SCH ×3 (00:37→23:49)
[2018-03-16] MEDS: Z-GUARD PASTE TP SCH ×3 (00:38→23:50)
[2018-03-16] MEDS: NACL 0.9% 1,000 ML IV SCH ×2 (01:30→21:37)
[2018-03-16] MEDS: MORPHINE SULFATE 4 MG/ML SYR IVP PRN ×3 (02:24→21:03)
[2018-03-16] MEDS: MEROPENEM 1,000 MG in NACL 0.9% 100 ML IV SCH ×3 (05:11→20:45)
[2018-03-16] MEDS: BLOOD GLUCOSE MONITORING 1 DEV DEV FS SCH ×4 (05:13→21:37)
[2018-03-16] MEDS: INSULIN NPH HUMAN ISOPHANE 100 UNIT/ML VIAL SUBQ SCH ×2 (05:16→17:38)
--- NOTE | 2018-03-16 05:27 | NUR ---
BLOOD SUGAR AT THIS TIME PER FINGERSTICK IS 85 MG/DL. GAVE APPLE JUICE 260 ML. TOLERATED WELL. A/O X 4. ABLE TO VERBALIZE NEEDS WELL.
[2018-03-16] MEDS: HYDROmorphone PFS 2 MG/ML SYR IVP PRN ×2 (05:50→16:34)
--- NOTE | 2018-03-16 07:30 | NUR ---
ENDORSED TO THE NEXT RN FOR CONTINUITY OF CARE. AWAKE AND ALERT. ABLE TO VERBALIZE NEEDS WELL. GALAVIZ CATHETER INTACT AND DRAINING WELL WITH YELLOW URINE. RECTAL BAG IN PLACE. NO BM YET. PICC LINE TO RIGHT UPPER ARM INTACT AND NO INFILTRATION S/S/. TURNED BY CNAS Q 2H. REMINDED ALL THE TIME THAT SHE NEEDS TO STAY ON TURNED SIDE TO AVOID ANY FUTURE OPEN SORES. "OK" PT. HAS TENDENCY TO CHANGE POSITION AND NOT ADHERE TO TURNED SIDE. DRESSINGS TO I AND D SITES INTACT AND NO BLEEDING.
--- NOTE | 2018-03-16 07:31 | NUR ---
RECEIVED BEDSIDE REPORT FROM TRAVEL TRAILER COMPONENTS ASSEMBLER NURSE. PATIENT AAOX4. PATIENT ON ROOM AIR, NO DISTRESS NOTED. PICC LINE DOUBLE LUMEN ON PATY, DRESSING CLEAN DRY AND INTACT, INFUSING NS AT 75. PATIENT ON STANDARD ISOLATION. PATIENT W GALAVIZ CATHETER AND RECTAL TUBE. PATIENT ON TELE MONITOR. BED IN LOW POSITION, CALL LIGHT WITHIN REACH. WILL CONTINUE TO MONITOR.
[2018-03-16 07:36] LABS: ANION GAP 13.8 (8-16); CARBON DIOXIDE 26.9 mmol/L (21-32); CREATININE 0.8 mg/dL (0.6-1.3); POTASSIUM 4.7 mmol/L (3.5-5.1)
[2018-03-16 07:38] LABS: HEMATOCRIT 25.5 % (36-48); HEMOGLOBIN 8.1 g/dL (12.0-16.0); MEAN CORPUSCULAR HEMOGLOBIN 27 pg (27-31); MEAN CORPUSCULAR HGB CONC 32 g/dL (33-37); MEAN CORPUSCULAR VOLUME 85.2 fL (80-94); PLATELET COUNT (AUTO) 524 K/uL (140-450); RED BLOOD CELL COUNT(AUTO) 2.99 MIL/uL (4.20-5.40); RED CELL DISTRIBUTION WIDTH 14.6 % (11.6-13.7); WHITE BLOOD COUNT (AUTO) 20.2 K/uL (4.8-10.8)
[2018-03-16 09:00] LABS: LYMPHOCYTES % (MANUAL) 8 % (20-46); MONOCYTES % (MANUAL) 4 % (5-12)
[2018-03-16] MEDS: SENNA 8.6 MG TAB PO SCH (09:00)
[2018-03-16] MEDS: POLYETHYLENE GLYCOL 17 GM/PKT PO SCH (09:00)
[2018-03-16] MEDS: NYSTATIN/TRIAMCINOLONE CRM 15 GM TUBE TP SCH ×2 (09:00→21:00)
[2018-03-16] MEDS: ENOXAPARIN 40 MG/0.4 ML SYR SUBQ SCH (09:00)
[2018-03-16] MEDS: PREGABALIN 25 MG CAP PO SCH ×2 (09:35→20:45)
[2018-03-16] MEDS: GLIMEPIRIDE 2 MG TAB PO SCH ×2 (09:35→20:45)
[2018-03-16] MEDS: amLODIPine 5 MG TAB PO SCH (09:35)
[2018-03-16] MEDS: LACTOBACILLUS RHAMNOSUS GG 1 EACH CAP PO SCH ×2 (09:35→20:44)
--- NOTE | 2018-03-16 09:48 | NUR ---
ADMINISTERED SCHEDULED MEDS. PATIENT TOLERATED WELL. WILL CONTINUE TO MONITOR. FAMILY AT BEDSIDE.
--- NOTE | 2018-03-16 10:14 | NUR ---
S/P I&D WOUND CARE EVALUATION PENDING, S/P SURGERY LESS THAN 24 HOURS, DRESSING IN PLACE.
--- NOTE | 2018-03-16 12:01 | NUR ---
PATIENT SLEEPING. NO DISTRESS AT THIS TIME. WILL CONTINUE TO MONITOR.
--- NOTE | 2018-03-16 12:40 | NUR ---
PATIENTS PICC LINE DRESSING CHANGED. DATE TIME AND INITIALS APPLIED ON PICC LINE DRESSING. PICC LINE INSERTION SITE CLEAN, WITH ABSENCE OF DRAINAGE, REDNESS, OR ODOR. PATIENT TOLERATED WELL. WILL CONTINUE TO MONITOR.
--- NOTE | 2018-03-16 12:45 | NUR ---
P.T. NOTES PATIENT CLEARED BY HER NURSE LESLEY FOR THIS P.T. VISIT AND STATES THAT THE PATIENT WAS GIVEN DILAUDID EARLIER & SHOULD BE FINE TO DO P.T. HOWEVER, SHE REFUSED ON INITIAL ATTEMPT IN SPITE OF SEVERAL ENCOURAGEMENTS WERE GIVEN. ANOTHER NURSE (RELATIVE) WAS ALSO PRESENT AND AWARE OF HER REFUSAL. PATIENT STATES SHE IS IN A LOT OF PAIN AND SHE THEN STARTED CRYING. PATIENT THEN CHANGED HER MIND AND SAID TO COME BACK AROUND 12:30 AND WILL TRY TO PARTICIPATE. RETURNED AT THE SAID TIME BUT FLATLY SAID "NO" UPON ENTRY TO HER ROOM. PLAN: WE'LL ATTEMPT AGAIN ON THE NEXT P.T. VISIT SCHEDULE BUT IF SHE CONTINUES TO REFUSE TO PARTICIPATE WITH THE P.O.C., WE'LL D/C P.T. SERVICES.
[2018-03-16] MEDS: THERAHONEY GEL 42.5 GM TP SCH (13:00)
[2018-03-16] MEDS: FOAM DRESSING TP SCH (13:00)
--- NOTE | 2018-03-16 13:05 | NUR ---
CHART REVIEW DONE.
--- NOTE | 2018-03-16 13:08 | NUR ---
PATIENT EATING LUNCH. NO SIGNS OF DISTRESS, ON 2 L NC. WILL CONTINUE TO MONITOR.
[2018-03-16] MEDS: HYDROcodone/APAP 5/325 MG 1 TAB TAB PO PRN (13:33)
--- NOTE | 2018-03-16 15:05 | NUR ---
FAMILY AT BEDSIDE. PATIENT SPEAKING WITH THEM WITH NO DISTRESS ON 2 L NC. WILL CONTINUE TO MONITOR.
--- NOTE | 2018-03-16 15:53 | NUR ---
WOUND CARE TREATMENT PLAN DISCUSSED WITH DR. WRIGHT AND CHARGE NURSE WELL. DR. WRIGHT GIVES INSTRUCTIONS TO CONTINUE DR. ANN ORDERS AND KEEP AREA DRY AND CLEAN POSSIBLE. P500 MATTRESS ORDERED MD VERBAL ORDER BY DR. WRIGHT AND AB NOTIFIED.
[2018-03-16] MEDS ORDERED: ESCITALOPRAM 20 MG TAB PO SCH (16:00)
--- NOTE | 2018-03-16 17:00 | NUR ---
CHANGED WOUND DRESSINGS ON SACRAL COCCYX, LOWER ABDOMINAL FOLDS, L LABIA. PACKED WITH GAUZE AND APPLIED TOPICAL CREAMS. WASHED WITH NS AND PAT DRY. NYSTATIN CREAM AND OPTIFOAM APPLIED TO SACRAL COCCYX. L LABIA CLEANSED W WOUND CLEANSING SPRAY AND NS AND APPLIED Z GUARD TO GROIN AREA. ABDOMINAL PAD COVERED WOUND. PACKED ABDOMINAL WOUNDS, APPLIED THERAHONEY, AND COVERED WITH ABDOMINAL PAD. DRESSINGS CLEAN, DRY AND INTACT. PATIENT TOLERATED WELL. MEDICATED WITH DILAUDID 20 MIN PRIOR.
--- NOTE | 2018-03-16 19:30 | NUR ---
RECEIVED REPORT AT BEDSIDE FOR CONTINUITY OF CARE. PT AAOX4. PT IV NOTED PATY PICC LINE NS 75ML/HR. NO SOB NO S/S OF DISTRESS ON RA. BED LOWERED CALL LIGHT WITHIN REACH WILL CONTINUE TO MONITOR.
--- NOTE | 2018-03-16 19:43 | NUR ---
GAVE BEDSIDE REPORT TO TRUCK ENGINE ASSEMBLER NURSE. PATIENT ENDORSED IN STABLE CONDITION.
--- NOTE | 2018-03-16 20:00 | NUR ---
PT AND NURSE STATED PT RECEIVED WOUND DRESSING CHANGE AT 6PM. SO DIDNT ADMIN CLOTH, ABD BINDER AND NYSTATIN BECAUSE OF NEW WOUND CHANGE. WILL CONTINUE TO MONITOR. PT ALSO HAS BEEN REPOSITION Q2H.
[2018-03-16] MEDS: ATORVASTATIN 20 MG TAB PO SCH (20:45)
[2018-03-16] MEDS: INSULIN LISPRO SLIDING SCALE 100 UNITS/ML VIAL SUBQ PRN (20:58)
[2018-03-16] MEDS: INTERDRY CLOTH TP SCH (21:37)
--- NOTE | 2018-03-17 | NUR ---
PT SLEEPING NO SOB NO S/S OF DISTRESS. WILL CONTINUE TO MONITOR.
[2018-03-17] MEDS: MORPHINE SULFATE 4 MG/ML SYR IVP PRN ×4 (02:30→21:20)
[2018-03-17] MEDS: NACL 0.9% 1,000 ML IV SCH ×2 (02:31→17:15)
[2018-03-17 04:00] VITALS: BP 147/66
[2018-03-17] MEDS: MEROPENEM 1,000 MG in NACL 0.9% 100 ML IV SCH ×3 (04:27→20:25)
[2018-03-17] MEDS: INSULIN NPH HUMAN ISOPHANE 100 UNIT/ML VIAL SUBQ SCH ×2 (05:59→16:47)
[2018-03-17] MEDS: BLOOD GLUCOSE MONITORING 1 DEV DEV FS SCH ×4 (05:59→20:18)
[2018-03-17 06:13] LABS: BASOPHILS # (AUTO) 0.1 K/uL (0.00-0.22); BASOPHILS % (AUTO) 0.4 % (0.0-2.0); EOSINOPHILS # (AUTO) 0.2 K/uL (0-0.4); EOSINOPHILS % (AUTO) 0.9 % (0.0-4.0); HEMOGLOBIN 7.4 g/dL (12.0-16.0); LYMPHOCYTES # (AUTO) 2.4 K/uL (2.5-16.5); LYMPHOCYTES % (AUTO) 13.4 % (20.5-51.1); MEAN CORPUSCULAR HEMOGLOBIN 27 pg (27-31); MEAN CORPUSCULAR HGB CONC 32 g/dL (33-37); MONOCYTES # (AUTO) 1.2 K/uL (0.8-1.0); MONOCYTES % (AUTO) 6.5 % (1.7-9.3); NEUTROPHILS # (AUTO) 14.4 K/uL (1.8-7.7); NEUTROPHILS % (AUTO) 78.8 % (42.2-75.2); PLATELET COUNT (AUTO) 523 K/uL (140-450); RED BLOOD CELL COUNT(AUTO) 2.74 MIL/uL (4.20-5.40); WHITE BLOOD COUNT (AUTO) 18.2 K/uL (4.8-10.8)
[2018-03-17 07:14] LABS: ANION GAP 11.4 (8-16); CARBON DIOXIDE 26.3 mmol/L (21-32); CREATININE 0.8 mg/dL (0.6-1.3); POTASSIUM 4.7 mmol/L (3.5-5.1)
--- NOTE | 2018-03-17 07:30 | NUR ---
ENDORSED REPORT TO DAYSHIFT NURSE AT BEDSIDE FOR CONTINUITY OF CARE.
--- NOTE | 2018-03-17 07:40 | NUR ---
PATIENT WAS AWAKE, ALERT. RESPIRATION EVEN, UNLABOR ON ROOM AIR. SKIN DRY AND WARM. PICC LINE PATENT AND INTACT. COMPLAINED OF PAIN OF THE WOUND AND LEG 9/10, WILL MEDICATE PER ORDER. GALAVIZ DRAINING CLEAR YELLOW URINE. RECTAL TUBE IS IN PLACE. DRESSINGS DRY AND INTACT. PLAN OF CARE WAS DISCUSSED WITH PATIENT. BED AT LOW POSITION, SIDE RAILS UP. CALL LIGHT WITHIN REACH
[2018-03-17 08:00] VITALS: BP 145/60
[2018-03-17] MEDS: SENNA 8.6 MG TAB PO SCH (09:03)
[2018-03-17] MEDS: LACTOBACILLUS RHAMNOSUS GG 1 EACH CAP PO SCH ×2 (09:03→20:24)
[2018-03-17] MEDS: ESCITALOPRAM 20 MG TAB PO SCH (09:04)
[2018-03-17] MEDS: GLIMEPIRIDE 2 MG TAB PO SCH ×2 (09:05→20:24)
[2018-03-17] MEDS: POLYETHYLENE GLYCOL 17 GM/PKT PO SCH (09:05)
[2018-03-17] MEDS: amLODIPine 5 MG TAB PO SCH (09:05)
[2018-03-17] MEDS: NYSTATIN/TRIAMCINOLONE CRM 15 GM TUBE TP SCH ×2 (09:06→20:32)
[2018-03-17] MEDS: ENOXAPARIN 40 MG/0.4 ML SYR SUBQ SCH (09:13)
--- NOTE | 2018-03-17 10:00 | NUR ---
PATIENT WAS AWAKE, ALERT. RESPIRATION EVEN, UNLABOR ON ROOM AIR. NO DISTRESS NOTED AT THIS TIME
[2018-03-17] MEDS: HYDROmorphone PFS 2 MG/ML SYR IVP PRN (10:49)
[2018-03-17] MEDS: WOUND CARE PREPARATION 178 ML SPR TP SCH (11:59)
[2018-03-17] MEDS: FOAM DRESSING TP SCH (11:59)
[2018-03-17 12:00] VITALS: BP 145/62
[2018-03-17] MEDS: Z-GUARD PASTE TP SCH (12:00)
[2018-03-17] MEDS: THERAHONEY GEL 42.5 GM TP SCH (12:00)
--- NOTE | 2018-03-17 12:00 | NUR ---
WOUND DRESSING WAS DONE PER ORDER. PATIENT WAS PRE MEDICATED PRIOR. PATIENT TOLERATED WELL
--- NOTE | 2018-03-17 14:15 | NUR ---
PATIENT WAS AWAKE, ALERT. RESPIRATION EVEN, UNLABOR ON ROOM AIR. NO DISTRESS NOTED AT THIS TIME
[2018-03-17 16:00] VITALS: BP 153/71
--- NOTE | 2018-03-17 16:30 | NUR ---
PATIENT WAS AWAKE, ALERT. RESPIRATION EVEN, UNLABOR ON ROOM AIR. COMPLAINED OF LEG PAIN /, MEDS WERE GIVEN PER ORDER. FAMILY AT BEDSIDE. CALL LIGHT WITHIN REACH
--- NOTE | 2018-03-17 17:36 | NUR ---
OK TO CONTINUE MEROPENEM FOR [address] ABDI
--- NOTE | 2018-03-17 17:42 | NUR ---
SURGERY CONSENT WAS OBTAINED AT BEDSIDE, SIGNED BY PATIENT. PATIENT VERBALIZED UNDERSTANDING OF PROCEDURE.
[2018-03-17] MEDS: INTERDRY CLOTH TP SCH (18:43)
--- NOTE | 2018-03-17 18:45 | NUR ---
PATIENT WAS AWAKE, ALERT. RESPIRATION EVEN, UNLABOR ON ROOM AIR. INTERDRY WAS PLACED UNDER ABDOMINAL FOLD. PICC LINE PATENT AND INTACT. FAMILY WERE AT BEDSIDE. NO DISTRESS NOTED
--- NOTE | 2018-03-17 19:17 | NUR ---
ENDORSEMENT GIVEN TO HORTICULTURAL AGENT NURSE. PATIENT IS STABLE AT THIS TIME
--- NOTE | 2018-03-17 19:18 | NUR ---
RECEIVED BEDSIDE REPORT. PT IS A&O X4. RESPIRATIONS ARE EQUAL AND UNLABORED. REPORT PAIN TOLERABLE IN ABDOMEN AT THIS TIME. PT DRESSING ON ABDOMEN IS CLEAN DRY AND INTACT. HAS PACKING ON LEFT LABIA. PT WITH GALAVIZ IN PLACE DRAINING CLEAR YELLOW URINE. RECTAL TUBE IN PLACE. NO STOOL SEEN. PICC LINE ON RIGHT UPPER ARM IVF INFUSING PER ORDERS. PLAN OF CARE WAS DISCUSSED WITH PATIENT. CALL LIGHT WITHIN REACH.
[2018-03-17] MEDS: ATORVASTATIN 20 MG TAB PO SCH (20:24)
[2018-03-17] MEDS: PREGABALIN 50 MG CAP PO SCH (20:24)
--- NOTE | 2018-03-17 20:25 | NUR ---
VITAL SIGNS ARE WITHIN NORMAL LIMITS. DUE MEDICATIONS ADMINISTERED. MERREM INFUSING PER ORDERS. PT TOLERATED WELL. PT TURNED AND REPOSITION FOR COMFORT. CALL LIGHT WITHIN REACH.
[2018-03-17] MEDS: INSULIN LISPRO SLIDING SCALE 100 UNITS/ML VIAL SUBQ PRN (20:29)
[2018-03-17 23:58] VITALS: BP 150/55
--- NOTE | 2018-03-18 | NUR ---
VITAL SIGNS ARE WITHIN NORMAL LIMITS. ALL NEEDS MET AT THIS TIME. WILL CONTINUE TO MONITOR.
[2018-03-18] MEDS: WOUND CARE PREPARATION 178 ML SPR TP SCH ×2 (01:00→15:26)
[2018-03-18] MEDS: MORPHINE SULFATE 4 MG/ML SYR IVP PRN ×3 (01:19→21:05)
[2018-03-18] MEDS: NACL 0.9% 1,000 ML IV SCH ×2 (01:20→19:55)
[2018-03-18] MEDS: Z-GUARD PASTE TP SCH ×2 (01:32→15:27)
--- NOTE | 2018-03-18 04:04 | NUR ---
PT SLEEPING COMFORTABLY IN BED. RESPIRATIONS ARE EQUAL AND UNLABORED. CALL LIGHT WITHIN REACH.
[2018-03-18] MEDS: MEROPENEM 1,000 MG in NACL 0.9% 100 ML IV SCH ×3 (05:33→21:19)
--- NOTE | 2018-03-18 05:33 | NUR ---
MERREM NOW INFUSING PER ORDERS. ALL NEEDS MET AT THIS TIME.
--- NOTE | 2018-03-18 06:15 | NUR ---
PATIENTS BLOOD SUGAR IS 91. HUMULIN HELD DUE TO BLOOD SUGAR AND PATIENTS LOW APPETITE. PT IS AWARE OF NEED FOR CT OF ABDOMEN/PELVIS TODAY. ALL NEEDS ARE MET AT THIS TIME. CALL LIGHT WITHIN REACH.
[2018-03-18] MEDS: BLOOD GLUCOSE MONITORING 1 DEV DEV FS SCH ×4 (06:29→20:37)
[2018-03-18] MEDS: INSULIN NPH HUMAN ISOPHANE 100 UNIT/ML VIAL SUBQ SCH ×2 (06:29→17:29)
--- NOTE | 2018-03-18 07:25 | NUR ---
ENDORSED PATIENT TO DAY SHIFT RN. PT IN STABLE CONDITION.
--- NOTE | 2018-03-18 07:31 | NUR ---
RECEIVED BEDSIDE REPORT FROM SOUND EFFECTS MANAGER NURSE. PT IS AWAKE, RESTING IN BED, AOX4. NO S/S DISTRESS. VITALS STABLE. NO C/O PAIN OR DISCOMFORT AT THIS TIME. PT IS BEDBOUND. WOUND PACKING IN LEFT LABIA/ISCHIORECTAL C/D/I. ABD DRESSING C/D/I. DRESSINGS CHANGED DURING 03/18 SOUND EFFECTS MANAGER PRN SOILING. PT STATES THAT DR. ANN INFORMED HER THAT DRESSINGS TO BE CHANGED NEXT ON 03/19/18. WILL VERIFY WITH DR. WRIGHT. RT UA PICC PATENT AND ASYMPTOMATIC, INFUSING IVF PER DR. HAMM. F/C IN PLACE, DRAINING URINE. RECTAL TUBE IN PLACE, NO STOOL NOTED. PT AWARE OF PLANS FOR CT ABD W/O CONTRAST LATER TODAY. ALL SAFETY PRECAUTIONS IN PLACE, WILL CONTINUE TO MONITOR.
[2018-03-18 08:00] VITALS: BP 136/54
[2018-03-18] MEDS: amLODIPine 5 MG TAB PO SCH (09:00)
[2018-03-18] MEDS: ENOXAPARIN 40 MG/0.4 ML SYR SUBQ SCH (09:21)
[2018-03-18] MEDS: PREGABALIN 50 MG CAP PO SCH ×2 (09:28→21:20)
[2018-03-18] MEDS: ESCITALOPRAM 20 MG TAB PO SCH (09:28)
[2018-03-18] MEDS: GLIMEPIRIDE 2 MG TAB PO SCH ×2 (09:28→21:20)
[2018-03-18] MEDS: LACTOBACILLUS RHAMNOSUS GG 1 EACH CAP PO SCH ×2 (09:28→21:20)
[2018-03-18] MEDS: POLYETHYLENE GLYCOL 17 GM/PKT PO SCH (09:29)
[2018-03-18] MEDS: NYSTATIN/TRIAMCINOLONE CRM 15 GM TUBE TP SCH ×2 (09:29→21:26)
[2018-03-18] MEDS: SENNA 8.6 MG TAB PO SCH (09:29)
--- NOTE | 2018-03-18 10:42 | NUR ---
RESEARCH PROFESSIONAL HERE TO TAKE PT FOR CT ABD W/O CONTRAST.
[2018-03-18] MEDS: FOAM DRESSING TP SCH (11:42)
--- NOTE | 2018-03-18 11:42 | NUR ---
DRY FOOD PRODUCTS MIXER HERE TO TAKE PT FOR CT ABD W/O CONTRAST. Addendum: 03/18/18 at 1201 by Kinza Hancock Meng, RN REAL TIME [id number]
--- NOTE | 2018-03-18 11:49 | NUR ---
RECEIVED CRITICAL RADIOLOGY RESULT FOR CT ABD. CALLED AND REPORTED RESULTS TO DR. ANN.
[2018-03-18] MEDS: THERAHONEY GEL 42.5 GM TP SCH (12:02)
--- NOTE | 2018-03-18 12:05 | NUR ---
LLQ WOUND DRESSING NOT CHANGED. ORDER FOR QOD AND PT HAD DRESSING CHANGED ON 03/17/18 AT 1300. DRESSING C/D/I. WILL CHANGE TODAY IF PRN SOILING. PT REFUSING LT LABIA DRESSING CHANGE NOW. STATES THAT DR. ANN TOLD HER IT WILL BE CHANGED TOMORROW 03/18/18. INFORMED PT THAT THE ORDER IS FOR LT LABIA DRESSING CHANGE BID. PT VERBALIZED UNDERSTANDING BUT WANTS TO WAIT UNTIL LATER. Addendum: 03/18/18 at 1208 by Kinza Hancock Meng RN LLQ WOUND DRESSING NOT CHANGED. ORDER FOR QOD AND PT HAD DRESSING CHANGED ON 03/17/18 AT 1300. DRESSING C/D/I. WILL CHANGE TODAY IF PRN SOILING. PT REFUSING LT LABIA DRESSING CHANGE NOW. STATES THAT DR. ANN TOLD HER IT WILL BE CHANGED TOMORROW 03/19/18. INFORMED PT THAT THE ORDER IS FOR LT LABIA DRESSING CHANGE BID. DRESSING C/D/I NOW. PT VERBALIZED UNDERSTANDING BUT WANTS TO WAIT UNTIL LATER.
[2018-03-18] MEDS: INSULIN LISPRO SLIDING SCALE 100 UNITS/ML VIAL SUBQ PRN ×2 (12:15→21:26)
--- NOTE | 2018-03-18 12:20 | NUR ---
PT AGREES TO WOUND CARE AFTER SHE EATS LUNCH. WILL ADMIN DILAUDID IVP 20 MIN BEFORE DRESSING CHANGE PER PT REQUEST. Addendum: 03/18/18 at 1746 by Kinza Hancock Meng, RN WILL ADMIN DILAUDID IVP 20 MIN BEFORE DRESSING CHANGE PER MD ORDER.
[2018-03-18] MEDS: ERGOCALCIFEROL 50,000 IU SGL PO SCH (13:36)
[2018-03-18] MEDS: HYDROmorphone PFS 2 MG/ML SYR IVP PRN (13:36)
--- NOTE | 2018-03-18 15:25 | NUR ---
ALL WOUND DRESSINGS CHANGED. PATIENT TOLERATED WELL. SEE WOUND ASSESSMENT.
[2018-03-18 16:00] VITALS: BP 130/53
--- NOTE | 2018-03-18 16:32 | NUR ---
BLOOD GLUCOSE CHECKED WITH 148 MG/DL RESULT. DENIES PAIN AND DISCOMFORT. WILL CONTINUE TO MONITOR.
--- NOTE | 2018-03-18 19:14 | NUR ---
ENDORSED POC TO MACHINE TENDER AT BEDSIDE. PT IN STABLE CONDITION.
--- NOTE | 2018-03-18 19:15 | NUR ---
RECEIVED BEDSIDE REPORT. PT IS A&O X4. RESPIRATIONS ARE EQUAL AND UNLABORED. REPORT PAIN TOLERABLE IN ABDOMEN AT THIS TIME. PT DRESSING ON ABDOMEN IS CLEAN DRY AND INTACT. HAS PACKING ON LEFT LABIA. CLEAN AND DRY. DRESSING CHANGE WAS DONE TODAY DURING THE DAY. PT WITH GALAVIZ IN PLACE DRAINING CLEAR YELLOW URINE. RECTAL TUBE IN PLACE. NO STOOL SEEN. PICC LINE ON RIGHT UPPER ARM IVF INFUSING PER ORDERS. PLAN OF CARE WAS DISCUSSED WITH PATIENT. PT AWARE SHE WILL BE NPO AFTER MIDNIGHT. CALL LIGHT WITHIN REACH.
--- NOTE | 2018-03-18 21:19 | NUR ---
DUE MEDICATIONS WERE GIVEN. MERREM INFUSING PER ORDERS. PT CLEANED AND REPOSITION FOR COMFORT. ALL NEEDS MET AT THIS TIME. CALL LIGHT WITHIN REACH.
[2018-03-18] MEDS: ATORVASTATIN 20 MG TAB PO SCH (21:20)
[2018-03-18] MEDS: DEXT 5% / NACL 0.9% 1,000 ML IV SCH (23:35)
--- NOTE | 2018-03-18 23:35 | NUR ---
NEW BAG OF IVF NOW INFUSING PER ORDERS. VITAL SIGNS ARE WITHIN NORMAL LIMITS. ALL NEEDS MET AT THIS TIME. WILL CONTINUE TO MONITOR.
[2018-03-19] VITALS: BP 148/67
[2018-03-19] MEDS ORDERED: DEXT 5% / NACL 0.9% 500 ML IV SCH
[2018-03-19] MEDS: Z-GUARD PASTE TP SCH ×2 (00:04→13:00)
[2018-03-19] MEDS: WOUND CARE PREPARATION 178 ML SPR TP SCH ×2 (01:00→13:00)
--- NOTE | 2018-03-19 03:30 | NUR ---
PT SLEEPING COMFORTABLY IN BED. RESPIRATIONS ARE EQUAL AND UNLABORED. CALL LIGHT WITHIN REACH.
[2018-03-19] MEDS: MEROPENEM 1,000 MG in NACL 0.9% 100 ML IV SCH ×3 (05:41→22:25)
[2018-03-19] MEDS: BLOOD GLUCOSE MONITORING 1 DEV DEV FS SCH ×4 (05:45→21:21)
[2018-03-19] MEDS: INSULIN NPH HUMAN ISOPHANE 100 UNIT/ML VIAL SUBQ SCH ×2 (06:05→16:44)
[2018-03-19] MEDS: INSULIN LISPRO SLIDING SCALE 100 UNITS/ML VIAL SUBQ PRN ×2 (06:06→22:56)
--- NOTE | 2018-03-19 06:06 | NUR ---
BLOOD SUGAR 249. INSULIN WAS GIVEN PER ORDERS. ALL NEEDS MET AT THIS TIME. WILL CONTINUE TO MONITOR
--- NOTE | 2018-03-19 07:05 | NUR ---
RECEIVED PT REPORT FROM BACKSIDE GRINDER NURSE. PT IS ASLEEP AT THIS TIME, NO S/S OF ACUTE DISTRESS OR SOB. CALL LIGHT IS WITHIN REACH. PT IS CURRENTLY NPO FOR UPCOMING PROCEDURE. PT IS ON ROOM AIR. GALAVIZ CATHETER NOTED DRAINING CLEAR YELLOW URINE. RECTAL TUBE IN PLACE. ABD DRESSING NOTED. DOUBLE LUME PICC LINE NOTED ON RUE, INFUSING D5NS 100 ML/HR. FALL PRECAUTIONS IN PLACE. WILL CONTINUE TO MONITOR PT.
--- NOTE | 2018-03-19 07:10 | NUR ---
ENDORSED TO RN. PT IN STABLE CONDITION.
[2018-03-19 07:20] LABS: HEMATOCRIT 24.2 % (36-48); HEMOGLOBIN 7.8 g/dL (12.0-16.0); MEAN CORPUSCULAR HEMOGLOBIN 27 pg (27-31); MEAN CORPUSCULAR HGB CONC 32 g/dL (33-37); MEAN CORPUSCULAR VOLUME 83.2 fL (80-94); PLATELET COUNT (AUTO) 571 K/uL (140-450); RED BLOOD CELL COUNT(AUTO) 2.91 MIL/uL (4.20-5.40)
[2018-03-19 07:35] LABS: ALBUMIN 1.2 g/dL (3.4-5.0); CARBON DIOXIDE 27.7 mmol/L (21-32); CREATININE 0.8 mg/dL (0.6-1.3); POTASSIUM 4.7 mmol/L (3.5-5.1); TOTAL BILIRUBIN 0.3 mg/dL (0.0-1.0)
[2018-03-19 08:00] VITALS: BP 141/69
[2018-03-19] MEDS: NYSTATIN/TRIAMCINOLONE CRM 15 GM TUBE TP SCH ×2 (09:00→22:25)
[2018-03-19] MEDS: NACL 0.9% 1,000 ML IV SCH ×2 (09:15→22:35)
[2018-03-19] MEDS: LACTOBACILLUS RHAMNOSUS GG 1 EACH CAP PO SCH ×2 (09:36→22:24)
[2018-03-19] MEDS: amLODIPine 5 MG TAB PO SCH (09:36)
[2018-03-19] MEDS: PREGABALIN 50 MG CAP PO SCH ×2 (09:37→22:24)
[2018-03-19] MEDS: ESCITALOPRAM 20 MG TAB PO SCH (09:37)
[2018-03-19] MEDS: GLIMEPIRIDE 2 MG TAB PO SCH ×2 (09:38→22:24)
[2018-03-19] MEDS: SENNA 8.6 MG TAB PO SCH (09:38)
[2018-03-19] MEDS: ENOXAPARIN 40 MG/0.4 ML SYR SUBQ SCH (09:39)
[2018-03-19] MEDS: DEXT 5% / NACL 0.9% 1,000 ML IV SCH ×2 (09:40→22:00)
[2018-03-19] MEDS: POLYETHYLENE GLYCOL 17 GM/PKT PO SCH (09:42)
[2018-03-19] MEDS: MORPHINE SULFATE 4 MG/ML SYR IVP PRN ×2 (09:55→15:11)
--- NOTE | 2018-03-19 10:20 | NUR ---
PT SEEN BY WOUND CARE NURSE. ABD AND LABIA WOUND AREAS CLEANSED, PACKED, AND DRY DRESSINGS APPLIED. PT TOLERATED WELL.
--- NOTE | 2018-03-19 11:00 | NUR ---
PT SEEN BY PHYS THERAPY. PT WAS ABLE TO SIT ON THE SIDE OF HER BED FOR 20 MINUTES.
--- NOTE | 2018-03-19 12:07 | NUR ---
WOUND CARE RE-EVALUATION TO ABDOMEN SURGICAL WOUNDS: ABDOMEN WOUND IS NOT APPROPRIATE FOR WOUND VAC TREATMENT AT THIS TIME DUE TO GREATER THAN 50% OF YELLOW SLOUGH TO WOUND BEDS. PT. IS SCHEDULED FOR LABIA/PERINEUM DEBRIDEMENT TONIGHT WITH DR. ANN THEREFORE WOUND CARE RE-EVAL. TO LABIA AND PERINEUM IS PENDING AT THIS TIME. MULTIPLE ABDOMEN SURGICAL WOUNDS SITE #1 ON MID ABDOMEN WOUND BED WITH 50% YELLOW SLOUGH, AND 50% OF GRANULATION TISSUE SMALL AMOUNT OF SEROSANGUINEOUS DRAINAGE, NO ODOR AND HELENA-WOUND SKIN INTACT. ABDOMEN SURGICAL WOUNDS SITE #2 ON LUQ ABDOMEN WOUND BED WITH 20% YELLOW SLOUGH, AND 80% OF GRANULATION TISSUE, MODERATE AMOUNT OF SEROSANGUINEOUS DRAINAGE, NO ODOR AND HELENA-WOUND SKIN INTACT. ABDOMEN SURGICAL WOUNDS SITE #3 ON LEFT LOWER ABDOMEN FOLD WOUND BED WITH 70% YELLOW SLOUGH, AND 30% OF GRANULATION TISSUE, MODERATE AMOUNT OF SEROSANGUINEOUS DRAINAGE, NO ODOR AND HELENA-WOUND SKIN INTACT. RECOMMENDATIONS: -IF AGREEABLE WITH SURGEON, DEBRIDEMENT TO ABDOMINAL SURGICAL WOUNDS, AFTER DEBRIDEMENT, WOUND VAC MAY BE PLACE IF DEBRIDEMENT TO THE AREAS ARE SUCCESSFUL DONE WITHOUT COMPLICATION. -CLEANSE MULTIPLE ABDOMEN SURGICAL WOUNDS WITH NS, PAT DRY, PACK WOUNDS WITH 1/2" KERLEX ELBA ROLL MOIST WITH NS, FILL THE BASE OF THE WOUND, COVER WITH ABD DRESSING AND SECURE WITH TAPE QD AND PRN IF SOILING.
[2018-03-19] MEDS: FOAM DRESSING TP SCH (13:00)
[2018-03-19] MEDS: GAUZE TP SCH (13:00)
--- NOTE | 2018-03-19 13:10 | NUR ---
CALLED AB ABOUT PT'S BED DISPLAYING A "PNEUMATIC BOARD SYSTEM ERROR", PT REPORTS THE BED IS NOT INFLATING. AB SAYS A MDM DEVELOPER SHOULD COME BY WITHIN THE NEXT 4 HOURS TO FIX THE ISSUE. WORK ORDER CONFIRMATION # [id number]. Addendum: 03/19/18 at 1651 by Cindy Chapman RN AB MDM DEVELOPER CALLED AND WALKED ME THROUGH THE STEPS TO GET THE BED REINFLATED. THE BED IS NOW IN WORKING CONDITION.
--- NOTE | 2018-03-19 13:49 | NUR ---
CHART REVIEW DONE.
--- NOTE | 2018-03-19 15:41 | NUR ---
LINENS CHANGED, AND PT REPOSITIONED. THE PRESENT OPTIFOAM DRESSING IS CLEAN, DRY, AND INTACT. FAMILY IS AT BEDSIDE. NO S/S OF ACUTE DISTRESS OR SOB. CALL LIGHT WITHIN REACH. WILL CONTINUE TO MONITOR.
[2018-03-19 16:00] VITALS: BP 110/56
--- NOTE | 2018-03-19 18:15 | NUR ---
PT SEEN BY DR ANN.
--- NOTE | 2018-03-19 18:35 | NUR ---
OBTAINED CONSENT FOR BLOOD TRANSFUSION
--- NOTE | 2018-03-19 18:38 | NUR ---
CALLED LAB TO CHECK IF PRBC'S ARE READY FOR PT'S TRANSFUSION. LAB SAID THEY WILL CALL RIGHT AWAY WHEN IT IS READY.
--- NOTE | 2018-03-19 19:30 | NUR ---
PT ENDORSED TO GATEMAN IN STABLE CONDITION.
--- NOTE | 2018-03-19 19:30 | NUR ---
RECEIVED REPORT FROM DAY SHIFT FROM DAY SHIFT NURSEDOUG AT PT BEDSIDE. PT FAMILY IS AT BEDSIDE. PT IS AAOX4. PT IS ON RA WITH RESPIRATIONS EVEN AND UNLABORED. PATY PICC LINE IS IN PLACE WITH IVF RUNNING PER MD ORDERS. PATENT AND INTACT. PT HAS MULTIPLE WOUNDS TO ABDOMEN AND PERIANAL ARE COVERED WITH DRY AND INTACT DRESSINGS. GALAVIZ CATHETER AND RECTAL TUBE ARE IN PLACE. NO C/O PAIN AT THIS TIME. BED IS LOCKED, LOW POSITION WITH SIDE RAILS UP X2. CALL LIGHT IS WITHIN REACH. BOARD UPDATED. WILL CONTINUE TO MONITOR.
[2018-03-19 22:05] VITALS: BP 138/63
[2018-03-19] MEDS: HYDROmorphone PFS 2 MG/ML SYR IVP PRN (22:07)
[2018-03-19] MEDS: ATORVASTATIN 20 MG TAB PO SCH (22:24)
--- NOTE | 2018-03-19 22:25 | NUR ---
FIRST UNIT OF PRBC STARTED. NO SIGNS OR SYMPTOMS OF DISTRESS. WILL CONTINUE TO MONITOR.
--- NOTE | 2018-03-19 22:27 | NUR ---
ADMINISTERED SCHEDULED MEDICATIONS. PT TOLERATED WELL. NO SIGNS OR SYMPTOMS OF DISTRESS. WILL CONTINUE TO MONITOR.
[2018-03-19 22:40] VITALS: BP 144/63
[2018-03-19 22:55] VITALS: BP 134/53
--- NOTE | 2018-03-19 22:56 | NUR ---
INSULIN COVERAGE GIVEN FOR BS 193. PT TURNED AND Z-GUARD APPLIED TO BUTTOCKS AND INNER THIGHS. ALL DRESSING ARE DRY AND INTACT. NO SIGNS OR SYMPTOMS OF DISTRESS. WILL CONTINUE TO MONITOR.
[2018-03-20] VITALS (8 sets, daily range): BP systolic 121–142; BP diastolic 55–68
--- NOTE | 2018-03-20 00:01 | NUR ---
VS WNL. PRBC STILL INFUSING. PT TOLERATING WELL. NO SIGNS OR SYMPTOMS OF DISTRESS. WILL CONTINUE TO MONITOR.
[2018-03-20] MEDS: WOUND CARE PREPARATION 178 ML SPR TP SCH ×2 (01:09→13:00)
[2018-03-20] MEDS: Z-GUARD PASTE TP SCH ×2 (01:09→13:00)
--- NOTE | 2018-03-20 01:15 | NUR ---
BLOOD TRANSFUSION COMPLETE. VS WNL. PT REQUESTING TO BE TURNED. PT TURNED. PT TOLERATED WELL. NO SIGNS OR SYMPTOMS OF DISTRESS. WILL CONTINUE TO MONITOR.
--- NOTE | 2018-03-20 02:20 | NUR ---
SECOND UNIT OF PRBC STARTED. PT TOLERATING WELL. NO SIGNS OR SYMPTOMS OF DISTRESS. WILL CONTINUE TO MONITOR.
[2018-03-20] MEDS: MORPHINE SULFATE 4 MG/ML SYR IVP PRN ×4 (03:03→21:24)
--- NOTE | 2018-03-20 03:03 | NUR ---
PT C/O PAIN, MORPHINE GIVEN. PT TURNED. PT TOLERATED WELL. NO SIGNS OR SYMPTOMS OF DISTRESS. WILL CONTINUE TO MONITOR.
--- NOTE | 2018-03-20 05:05 | NUR ---
BLOOD TRANSFUSION COMPLETED. NO REACTION NOTED. WILL CONTINUE TO MONITOR PT.
[2018-03-20] MEDS: DEXT 5% / NACL 0.9% 1,000 ML IV SCH ×2 (05:28→16:00)
--- NOTE | 2018-03-20 05:29 | NUR ---
NEW BAG OF IVF STARTED.
[2018-03-20] MEDS: BLOOD GLUCOSE MONITORING 1 DEV DEV FS SCH ×4 (05:59→21:07)
[2018-03-20] MEDS: INSULIN NPH HUMAN ISOPHANE 100 UNIT/ML VIAL SUBQ SCH ×2 (06:05→18:17)
--- NOTE | 2018-03-20 06:07 | NUR ---
SCHEDULED MEDICATIONS ADMINISTERED. BS CHECKED, 140, NO COVERAGE NEEDED PER MD ORDERS. PT C/O PAIN, MORPHINE GIVEN. LAB AT BEDSIDE DRAWING BLOOD. PT TOLERATING WELL. NO S/S OF DISTRESS. WILL CONTINUE TO MONITOR.
[2018-03-20] MEDS: MEROPENEM 1,000 MG in NACL 0.9% 100 ML IV SCH ×3 (06:14→21:11)
--- NOTE | 2018-03-20 07:12 | NUR ---
ENDORSED PT TO DAY SHIFT NURSE FOR CONTINUITY OF CARE. PT IN STABLE CONDITION.
[2018-03-20 07:23] LABS: BASOPHILS # (AUTO) 0.1 K/uL (0.00-0.22); BASOPHILS % (AUTO) 0.4 % (0.0-2.0); EOSINOPHILS # (AUTO) 0.2 K/uL (0-0.4); EOSINOPHILS % (AUTO) 1.5 % (0.0-4.0); HEMATOCRIT 30.1 % (36-48); HEMOGLOBIN 9.8 g/dL (12.0-16.0); LYMPHOCYTES # (AUTO) 2.3 K/uL (2.5-16.5); LYMPHOCYTES % (AUTO) 14.5 % (20.5-51.1); MEAN CORPUSCULAR HEMOGLOBIN 27 pg (27-31); MEAN CORPUSCULAR HGB CONC 33 g/dL (33-37); MEAN CORPUSCULAR VOLUME 83.7 fL (80-94); MONOCYTES # (AUTO) 1.1 K/uL (0.8-1.0); MONOCYTES % (AUTO) 7.1 % (1.7-9.3); NEUTROPHILS % (AUTO) 76.5 % (42.2-75.2); PLATELET COUNT (AUTO) 554 K/uL (140-450); RED BLOOD CELL COUNT(AUTO) 3.59 MIL/uL (4.20-5.40); RED CELL DISTRIBUTION WIDTH 14.9 % (11.6-13.7); WHITE BLOOD COUNT (AUTO) 15.6 K/uL (4.8-10.8)
--- NOTE | 2018-03-20 07:25 | NUR ---
RECEIVED PT REPORT FROM INSURANCE ANALYST NURSE. PT IS AWAKE IN BED, NO S/S OF DISTRESS NOTED, NO SOB OR C/O PAIN AT THIS TIME. D5NS INFUSING AT 100 ML/HR, THROUGH THE RUE PICC LINE. PT IS NPO FOR THE UPCOMING DEBRIDEMENT PROCEDURE TODAY. PT IS ON ROOM AIR. ABD AND LABIA DRESSINGS ARE INTACT. CALL LIGHT WITHIN REACH, FALL PRECAUTIONS IN PLACE. WILL CONTINUE TO MONITOR.
[2018-03-20 08:32] LABS: ANION GAP 11.7 (8-16); CARBON DIOXIDE 28.1 mmol/L (21-32); CREATININE 0.8 mg/dL (0.6-1.3); POTASSIUM 4.8 mmol/L (3.5-5.1)
[2018-03-20] MEDS: amLODIPine 5 MG TAB PO SCH (08:57)
[2018-03-20] MEDS: PREGABALIN 50 MG CAP PO SCH ×2 (08:58→21:12)
[2018-03-20] MEDS: SENNA 8.6 MG TAB PO SCH (08:59)
[2018-03-20] MEDS: POLYETHYLENE GLYCOL 17 GM/PKT PO SCH (08:59)
[2018-03-20] MEDS: ESCITALOPRAM 20 MG TAB PO SCH (08:59)
[2018-03-20] MEDS: LACTOBACILLUS RHAMNOSUS GG 1 EACH CAP PO SCH ×2 (08:59→21:12)
[2018-03-20] MEDS: GLIMEPIRIDE 2 MG TAB PO SCH ×2 (08:59→21:11)
[2018-03-20] MEDS: NYSTATIN/TRIAMCINOLONE CRM 15 GM TUBE TP SCH ×2 (09:00→21:12)
--- NOTE | 2018-03-20 09:00 | NUR ---
P.T. NOTES PATIENT REFUSED TO PARTICIPATE WITH P.T. TODAY IN SPITE OF SEVERAL ENCOURAGEMENTS GIVEN. SHE STATES THAT SHE WANTS TO REST TODAY DUE TO SURGERY WILL BE DONE AGAIN LATER TODAY. PLAN: WE'LL FOLLOW UP AGAIN TOMORROW.
[2018-03-20] MEDS: BUPIVACAINE-MPF 0.5% 30 ML VIAL INJ ONE ×2 (10:49→12:12)
[2018-03-20] MEDS ORDERED: PROPOFOL 200 MG/20 ML VIAL IV ONE (10:51)
[2018-03-20] MEDS ORDERED: KETAMINE 500 MG/5 ML VIAL ONE (11:06)
[2018-03-20] MEDS ORDERED: BLOOD GLUCOSE MONITORING 1 DEV DEV FS ONE (11:20)
[2018-03-20] MEDS ORDERED: ONDANSETRON 4 MG/2 ML VIAL IVP PRN (11:20)
[2018-03-20] MEDS ORDERED: HYDROmorphone 1 MG/ML AMP IVP PRN (11:20)
--- NOTE | 2018-03-20 11:50 | NUR ---
PT OFF THE UNIT FOR DEBRIDEMENT PROCEDURE
[2018-03-20] MEDS: NACL 0.9% 1,000 ML IV SCH (11:55)
--- NOTE | 2018-03-20 12:50 | NUR ---
PT BACK ON THE UNIT FROM PROCEDURE. VS STABLE. FAMILY AT BEDSIDE.
[2018-03-20] MEDS: FOAM DRESSING TP SCH (13:00)
[2018-03-20] MEDS: GAUZE TP SCH (13:00)
--- NOTE | 2018-03-20 14:18 | NUR ---
CHART REVIEW DONE.
--- NOTE | 2018-03-20 15:16 | NUR ---
03/20/18 RD FOLLOW UP COMPLETED PLEASE REFER TO NUTRITION ASSESSMENT UNDER CARE ACTIVITY FOR ESTIMATED NUTRITIONAL NEEDS. 1.CONTINUE CCHO 60 GM WITH PROSOURCE TID TOLERATED 2. RECOMMEND MVI FOR WOUND HEALING 3. RD TO FOLLOW-UP 3-5 DAYS, MODERATE RISK FILIPE VARELA, RD
--- NOTE | 2018-03-20 15:37 | NUR ---
RECEIVED A CALL FROM FNSFILIPE AND RECOMMENDED MULTIVITAMIN FOR THE PT TO HELP WITH THE WOUND HEALING, AM ANGELA CAMACHO NOTIFIED AND VERBALIZED UNDERSTANDING OF FNS RECOMMENDATION.
--- NOTE | 2018-03-20 18:10 | NUR ---
PT REPOSITIONED AND LINENS CHANGED. PT TOLERATED WELL. SURGICAL DRESSINGS ARE DRY AND INTACT, NO DRAINAGE NOTED. WILL CONTINUE TO MONITOR PT.
[2018-03-20] MEDS: INSULIN LISPRO SLIDING SCALE 100 UNITS/ML VIAL SUBQ PRN (18:16)
--- NOTE | 2018-03-20 19:25 | NUR ---
PT ENDORSED TO GRAB SETTER NURSE IN STABLE CONDITION.
--- NOTE | 2018-03-20 19:30 | NUR ---
ASSUMED CARE OF PATIENT, AWAKE, ALERT AND ORIENTED. NO COMPLAINS. CARE BOARD UPDATED. CALL LIGHT WITHIN REACH.
--- NOTE | 2018-03-20 20:00 | NUR ---
DRESSING ABD AND LABIAL DRY AND INTACT. CARE BOARD UPDATED. PLAN OF CARE DISCUSSED WITH PATIENT, VERBALIZED UNDERSTANDING WELL. CALL LIGHT WITHIN REACH.
[2018-03-20] MEDS: ATORVASTATIN 20 MG TAB PO SCH (21:12)
--- NOTE | 2018-03-21 | NUR ---
VITAL SIGNS STABLE. AFEBRILE. NO COMPLAINS. SLEEPING WELL, EASILY AROUSABLE. CALL LIGHT WITHIN REACH.
[2018-03-21] MEDS: WOUND CARE PREPARATION 178 ML SPR TP SCH ×2 (00:07→13:00)
[2018-03-21] MEDS: Z-GUARD PASTE TP SCH ×2 (00:08→13:00)
[2018-03-21 00:22] VITALS: BP 141/63
[2018-03-21] MEDS: NACL 0.9% 1,000 ML IV SCH ×2 (01:59→14:35)
[2018-03-21] MEDS: DEXT 5% / NACL 0.9% 1,000 ML IV SCH ×3 (02:00→21:41)
--- NOTE | 2018-03-21 04:00 | NUR ---
ASLEEP NO COMPLAINS. CALL LIGHT WITHIN REACH.
[2018-03-21] MEDS: MEROPENEM 1,000 MG in NACL 0.9% 100 ML IV SCH ×3 (04:35→21:17)
[2018-03-21] MEDS: BLOOD GLUCOSE MONITORING 1 DEV DEV FS SCH ×4 (05:48→20:58)
[2018-03-21] MEDS: INSULIN NPH HUMAN ISOPHANE 100 UNIT/ML VIAL SUBQ SCH ×2 (06:33→17:06)
--- NOTE | 2018-03-21 07:29 | NUR ---
ENDORSED CARE AT BEDSIDE WITH JOSEF MILLER, PATIENT IN STABLE CONDITION.
--- NOTE | 2018-03-21 07:34 | NUR ---
RECEIVED PT FROM SANFORIZING MACHINE OPERATOR NURSEDENITA, PT IS AWAKE AND LYING ON THE BED WITH FAMILY ON THE BEDSIDE. SIDE RAILS ARE UP AND CALL LIGHT WITHIN REACH, PT HAS A PICC LINE IN PLACE, DOUBLE LUMEN WITH IVF INFUSING AT 75ML/HR. PT VERBALIZED A PAIN RATE OF 10/10 AND WILL MEDICATE. NO SOB NOTED. WILL CONTINUE TO MONITOR PT.
[2018-03-21] MEDS: MORPHINE SULFATE 4 MG/ML SYR IVP PRN ×3 (07:55→21:18)
[2018-03-21 08:00] VITALS: BP 154/74
--- NOTE | 2018-03-21 08:02 | NUR ---
PT IS AWAKE WITH FRIENDS AND FAMILY ON THE BEDSIDE, PT VERBALIZED A PAIN RATE OF 67/10 FOR HER RT LEG, MORPHINE GIVEN VIA IV PUSH, V/S CHECKED PRIOR TO MEDICATION ADMINISTRATION. WILL RE-ASSESS AND MONITOR PT.
[2018-03-21] MEDS: amLODIPine 5 MG TAB PO SCH (08:15)
[2018-03-21] MEDS: PREGABALIN 50 MG CAP PO SCH ×2 (08:16→21:18)
[2018-03-21] MEDS: SENNA 8.6 MG TAB PO SCH (08:16)
[2018-03-21] MEDS: GLIMEPIRIDE 2 MG TAB PO SCH ×2 (08:16→21:18)
[2018-03-21] MEDS: POLYETHYLENE GLYCOL 17 GM/PKT PO SCH (08:17)
[2018-03-21] MEDS: LACTOBACILLUS RHAMNOSUS GG 1 EACH CAP PO SCH ×2 (08:17→21:17)
[2018-03-21] MEDS: ESCITALOPRAM 20 MG TAB PO SCH (08:17)
--- NOTE | 2018-03-21 08:22 | NUR ---
PT'S ORAL MEDICATIONS WERE GIVEN AND PT TOLERATED IT. NO SIGN OF DISTRESS NOTED. WILL MONITOR PT.
[2018-03-21] MEDS: NYSTATIN/TRIAMCINOLONE CRM 15 GM TUBE TP SCH ×2 (10:22→21:19)
--- NOTE | 2018-03-21 10:22 | NUR ---
PT'S MEDICATION WAS APPLIED IN THE BUTTOCKS AND PT WAS REPOSITIONED TO HER RT SIDE, MADE COMFORTABLE, NO SIGN OF DISTRESS NOTED. WILL MONITOR PT;.L
[2018-03-21 11:07] LABS: BASOPHILS % (AUTO) 0.1 % (0.0-2.0); EOSINOPHILS # (AUTO) 0.2 K/uL (0-0.4); EOSINOPHILS % (AUTO) 1.3 % (0.0-4.0); HEMATOCRIT 31.4 % (36-48); HEMOGLOBIN 10.1 g/dL (12.0-16.0); LYMPHOCYTES # (AUTO) 2.1 K/uL (2.5-16.5); MEAN CORPUSCULAR HEMOGLOBIN 27 pg (27-31); MEAN CORPUSCULAR HGB CONC 32 g/dL (33-37); MEAN CORPUSCULAR VOLUME 83.3 fL (80-94); MONOCYTES # (AUTO) 1.1 K/uL (0.8-1.0); MONOCYTES % (AUTO) 6.2 % (1.7-9.3); NEUTROPHILS # (AUTO) 14.2 K/uL (1.8-7.7); NEUTROPHILS % (AUTO) 80.4 % (42.2-75.2); PLATELET COUNT (AUTO) 529 K/uL (140-450); RED BLOOD CELL COUNT(AUTO) 3.77 MIL/uL (4.20-5.40); WHITE BLOOD COUNT (AUTO) 17.7 K/uL (4.8-10.8)
--- NOTE | 2018-03-21 11:58 | NUR ---
PT IS AWAKE AND LYING ON THE BED, BLOOD GLUCOSE CHECK DONE AND RESULT IS 126 AND NO INSULIN COVERAGE NEEDED, WILL MONITOR PT.
--- NOTE | 2018-03-21 12:19 | NUR ---
PT IS AWAKE AND WAS STARTED ON D5NS AT 100ML/HR. IV MEDICATION WAS GIVEN VIA PIGGYBACK WELL. WILL MONITOR PT.
[2018-03-21] MEDS: GAUZE TP SCH (13:00)
[2018-03-21] MEDS: FOAM DRESSING TP SCH (13:00)
--- NOTE | 2018-03-21 14:00 | NUR ---
PT WAS REPOSITIONED, DRESSING CHANGED DONE AND CLEANSING AND PACKING OF THE LABIAL WOUND WAS DONE BY WOUND CARE NURSECARA, BARRIER CREAM WAS APPLIED TO GROIN AREAS AND BUTTOCK. NO SIGN OF DISTRESS NOTED. WILL MONITOR PT.
--- NOTE | 2018-03-21 15:00 | NUR ---
CHART REVIEW DONE.
[2018-03-21 16:00] VITALS: BP 141/61
--- NOTE | 2018-03-21 17:09 | NUR ---
PT IS AWAKE, VITAL SIGNS TAKEN AND IS WITHIN NORMAL LIMIT, BLOOD GLUCOSE CHECK DONE AND RESULT MIS 145, NO INSULIN COVERAGE NEEDED. HUMULIN N INSULIN GIVEN SUBQ ON THE LEFT UA. WILL MONITOR PT.
--- NOTE | 2018-03-21 19:25 | NUR ---
ENDORSED PT TO ACCOUNT UNDERWRITER NURSEMISSY FOR CONTINUITY OF CARE, PT IS STABLE AT THIS TIME.
--- NOTE | 2018-03-21 19:30 | NUR ---
RECEIVED REPORT FROM DAYSNHFT NURSE AT BEDSIDE FOR CONTINUITY OF CARE. PT AAOX4. NO SOB NO S/S OF DISTRESS ON RA. PT IV NOTED PATY PICC LINE DOUBLE LUMEN. BED LOWERED CALL LIGHT WITHIN REACH WILL CONTINUE TO MONITOR.
[2018-03-21] MEDS: ATORVASTATIN 20 MG TAB PO SCH (21:18)
[2018-03-22] VITALS: BP 109/72
[2018-03-22] MEDS: WOUND CARE PREPARATION 178 ML SPR TP SCH ×2 (01:00→11:35)
[2018-03-22] MEDS: Z-GUARD PASTE TP SCH ×2 (01:41→11:35)
[2018-03-22] MEDS: MORPHINE SULFATE 4 MG/ML SYR IVP PRN ×4 (02:21→21:02)
[2018-03-22] MEDS: NACL 0.9% 1,000 ML IV SCH ×2 (05:48→21:02)
[2018-03-22] MEDS: MEROPENEM 1,000 MG in NACL 0.9% 100 ML IV SCH ×3 (05:48→21:02)
[2018-03-22] MEDS: DEXT 5% / NACL 0.9% 1,000 ML IV SCH ×2 (05:48→17:03)
[2018-03-22] MEDS: INSULIN NPH HUMAN ISOPHANE 100 UNIT/ML VIAL SUBQ SCH ×2 (06:03→17:09)
[2018-03-22] MEDS: BLOOD GLUCOSE MONITORING 1 DEV DEV FS SCH ×4 (06:52→21:19)
--- NOTE | 2018-03-22 07:20 | NUR ---
ENDORSED REPORT TO DAYSHIFT NURSE AT BEDSIDE FOR CONTINUITY CARE.
--- NOTE | 2018-03-22 07:25 | NUR ---
RECEIVED PT. FROM HAND SLITTER ANGELA LOUIS; PT IS A/Ox4, PATIENT CAN VERBALIZE NEEDS. NO SOB OR RESPIRATORY DISTRESS NOTED. PT. HAS A PICC LINE IN PLACE, DOUBLE LUMEN WITH IVF INFUSING AT 75ML/HR., PATENT, INTACT AND NO S/SX OF SWELLING OR INFECTION NOTED. SIDE RAILS UP, CALL LIGHT WITHIN REACH. WILL CONTINUE TO MONITOR.
[2018-03-22 08:00] VITALS: BP 133/71
[2018-03-22] MEDS: POLYETHYLENE GLYCOL 17 GM/PKT PO SCH ×2 (09:00→09:28)
[2018-03-22] MEDS: SENNA 8.6 MG TAB PO SCH (09:27)
[2018-03-22] MEDS: LACTOBACILLUS RHAMNOSUS GG 1 EACH CAP PO SCH ×2 (09:27→20:59)
[2018-03-22] MEDS: PREGABALIN 50 MG CAP PO SCH ×2 (09:28→21:01)
[2018-03-22] MEDS: GLIMEPIRIDE 2 MG TAB PO SCH ×2 (09:30→21:00)
[2018-03-22] MEDS: ESCITALOPRAM 20 MG TAB PO SCH (09:30)
[2018-03-22] MEDS: amLODIPine 5 MG TAB PO SCH (09:32)
[2018-03-22] MEDS: NYSTATIN/TRIAMCINOLONE CRM 15 GM TUBE TP SCH ×2 (09:35→21:03)
--- NOTE | 2018-03-22 09:35 | NUR ---
PT. COMPLAINED OF 7/10 BACK PAIN. MORPHINE GIVEN. WILL CONTINUE TO MONITOR
--- NOTE | 2018-03-22 10:00 | NUR ---
NONFARM ANIMAL CARETAKER CARA WENT TO CHANGE DRESSING AND APPLY WOUND VAC ON ABDOMEN. SPONGE BATH GIVEN, LINENS CHANGED. REPOSITIONED, PATIENT TOLERATED WELL. WILL CONTINUE TO MONITOR.
[2018-03-22 10:52] LABS: BASOPHILS # (AUTO) 0.1 K/uL (0.00-0.22); BASOPHILS % (AUTO) 0.6 % (0.0-2.0); EOSINOPHILS # (AUTO) 0.4 K/uL (0-0.4); EOSINOPHILS % (AUTO) 1.9 % (0.0-4.0); HEMATOCRIT 31.5 % (36-48); HEMOGLOBIN 10.1 g/dL (12.0-16.0); LYMPHOCYTES # (AUTO) 2.3 K/uL (2.5-16.5); LYMPHOCYTES % (AUTO) 11.9 % (20.5-51.1); MEAN CORPUSCULAR HEMOGLOBIN 27 pg (27-31); MEAN CORPUSCULAR HGB CONC 32 g/dL (33-37); MEAN CORPUSCULAR VOLUME 83.7 fL (80-94); MONOCYTES # (AUTO) 1.4 K/uL (0.8-1.0); MONOCYTES % (AUTO) 7.1 % (1.7-9.3); NEUTROPHILS # (AUTO) 15.2 K/uL (1.8-7.7); NEUTROPHILS % (AUTO) 78.5 % (42.2-75.2); PLATELET COUNT (AUTO) 522 K/uL (140-450); RED BLOOD CELL COUNT(AUTO) 3.76 MIL/uL (4.20-5.40); RED CELL DISTRIBUTION WIDTH 15.4 % (11.6-13.7); WHITE BLOOD COUNT (AUTO) 19.4 K/uL (4.8-10.8)
[2018-03-22] MEDS: ONDANSETRON 4 MG/2 ML VIAL IVP PRN (11:34)
[2018-03-22] MEDS: FOAM DRESSING TP SCH (11:34)
[2018-03-22] MEDS: GAUZE TP SCH (11:35)
--- NOTE | 2018-03-22 11:43 | NUR ---
WOUND CARE RE-EVALUATION TO S/P 03/20/2018 ABDOMEN AND PERINEUM SURGICAL WOUNDS: INTEGUMENTARY -PREVIOUS MULTIPLE ABDOMEN SURGICAL WOUNDS 3 SITES IS NOW ALL MERGED WITH ONE " Z " SHAPE WOUND.[id number] CM, WOUND BED 100 % YELLOW LOOSE (FATTY)TISSUE LIKE WITH MODERATE AMOUNT OF SEROSANGUINEOUS DRAINAGE, NO ODOR AND HELENA-WOUND SKIN INTACT. -LEFT LABIA SURGICAL WOUND [id number], 100% GRANULATION TISSUE WITH MODERATE AMOUNT OF SEROSANGUINEOUS DRAINAGE, NO ODOR AND HELENA-WOUND SKIN INTACT. - LEFT PERINEUM SURGICAL WOUND [id number], WITH TUNNELING, 100% GRANULATION TISSUE WITH MODERATE AMOUNT OF SEROSANGUINEOUS DRAINAGE, NO ODOR AND HELENA-WOUND SKIN TOWARD ANAL AREA DENUDED. -SACRALCOCCYX IAD 0.5X0.5X0.1CM WOUND BED PINK AND MOIST, HELENA-WOUND DRY AND INTACT. RECOMMENDATIONS: -[facility] VAC THERAPY TO ABDOMEN SURGICAL WOUND WITH LARGE GRANUFOAM DRESSING FOLLOW V.A.C THERAPY CLINICAL GUIDELINES. SET THERAPY ON CONTINUOUS THERAPY AT 125 MMHG. CHANGE DRESSING Q72 HOURS AND PRN IS DISLODGED. (PLACE LARGE ADAPTIC DRESSING TO WOUND BED PRIOR FOAM DRESSING APPLICATION) -CLEANSE LEFT LABIA AND LEFT PERINEUM SURGICAL WOUNDS WITH NS, PAT DRY, PACK WOUNDS WITH 1/2" ELBA ROLL MOIST WITH NS, FILL THE BASE OF THE WOUND, COVER WITH ABD DRESSING AND SECURE WITH TAPE QD AND PRN IF SOILING. -MAY APPLY COLOSTOMY BAG TO ANAL AREA TO COLLECT STOOL TO AVOID FECAL CONTAMINATION PT. WAS PRE-MEDICATED FOR PAIN AND TOLERATED PROCEDURES WELL. PRIMARY RN AT BED SIDE ASSISTED WOUND CARE AND DR. ANN WAS PAGED AND CALLED TO CLARIFY ORDER.
--- NOTE | 2018-03-22 12:30 | NUR ---
SPOKE WITH DR ABDI, RENEW MERREM IV ABX, Q8H, 1G.
--- NOTE | 2018-03-22 12:57 | NUR ---
MET DR. ANN AT ICU AND SPOKE TO DR. ANN REGARDING TO: WOUND BED WITH 100 % YELLOW LOOSE (FATTY)LIKE TISSUE, HE REPLIED " DON'T WORRY ABOUT THAT YELLOW TISSUE."
--- NOTE | 2018-03-22 13:00 | NUR ---
P.T. NOTES PATIENT WAS SEEN INITIALLY IN THE MORNING (10:00 AM) BUT PER WOUND CARE NURSE CARA, TO COME BACK SINCE SHE IS PLACING A WOUND VAC AT THIS TIME AROUND HER WOUND AREA. INFORMED PATIENT THAT P.T. WILL COME BACK AFTER AN HOUR (AROUND 11:00 AM) & WAS AGREEABLE WITH THE TIME. BUT UPON RETURN, SHE REFUSED TO PARTICIPATE STATING THAT SHE'S IN A LOT OF PAIN RIGHT NOW AND WOULD LIKE TO DO IT TOMORROW INSTEAD. PLAN: WE'LL FOLLOW UP AGAIN TOMORROW.
--- NOTE | 2018-03-22 13:30 | NUR ---
CHANGED LYRICA ORDER FROM 100MG. TO 150MG. ORDERS MADE AND CARRIED OUT
[2018-03-22 16:00] VITALS: BP 142/60
--- NOTE | 2018-03-22 19:25 | NUR ---
ENDORSED REPORT TO PRODUCTION ROUSTABOUT NURSE AT BEDSIDE FOR CONTINUITY CARE.
--- NOTE | 2018-03-22 19:26 | NUR ---
RECEIVED REPORT FROM DAYSHIFT NURSE AT BEDSIDE FOR CONTINUITY OF CARE. PT AAOX4. PT IV NOTED PATY PICC LINE DOUBLE LUMEN NS 75ML/HR. NO SOB NO S/S OF DISTRESS ON RA. PT HAS WOUND VAC ON CONTINUIOUS SUCTIONING OUTPUT AT THIS TIME IS 40ML/HR. PT HAS RECTAL BAG, NO BM AT THIS TIME WILL CONTINUE TO MONITOR .
[2018-03-22] MEDS: ATORVASTATIN 20 MG TAB PO SCH (20:59)
[2018-03-22] MEDS: ASCORBIC ACID 500 MG TAB PO SCH (21:00)
[2018-03-22] MEDS: INSULIN LISPRO SLIDING SCALE 100 UNITS/ML VIAL SUBQ PRN (21:04)
[2018-03-23] VITALS: BP 138/65
[2018-03-23] MEDS: WOUND CARE PREPARATION 178 ML SPR TP SCH ×2 (01:00→12:27)
[2018-03-23] MEDS: MORPHINE SULFATE 4 MG/ML SYR IVP PRN ×5 (01:14→21:37)
[2018-03-23] MEDS: Z-GUARD PASTE TP SCH ×2 (01:17→12:27)
[2018-03-23] MEDS: DEXT 5% / NACL 0.9% 1,000 ML IV SCH ×2 (04:00→12:27)
[2018-03-23] MEDS: MEROPENEM 1,000 MG in NACL 0.9% 100 ML IV SCH ×3 (05:25→20:17)
[2018-03-23] MEDS: INSULIN NPH HUMAN ISOPHANE 100 UNIT/ML VIAL SUBQ SCH ×2 (05:28→16:56)
[2018-03-23] MEDS: NACL 0.9% 1,000 ML IV SCH ×2 (05:28→12:27)
[2018-03-23] MEDS: BLOOD GLUCOSE MONITORING 1 DEV DEV FS SCH ×4 (05:29→20:16)
[2018-03-23 07:08] LABS: BASOPHILS # (AUTO) 0.1 K/uL (0.00-0.22); BASOPHILS % (AUTO) 0.4 % (0.0-2.0); EOSINOPHILS # (AUTO) 0.4 K/uL (0-0.4); EOSINOPHILS % (AUTO) 2.3 % (0.0-4.0); HEMATOCRIT 29.8 % (36-48); HEMOGLOBIN 9.4 g/dL (12.0-16.0); LYMPHOCYTES # (AUTO) 2.2 K/uL (2.5-16.5); LYMPHOCYTES % (AUTO) 13.8 % (20.5-51.1); MEAN CORPUSCULAR HEMOGLOBIN 27 pg (27-31); MEAN CORPUSCULAR HGB CONC 32 g/dL (33-37); MEAN CORPUSCULAR VOLUME 84.3 fL (80-94); MONOCYTES # (AUTO) 1.1 K/uL (0.8-1.0); NEUTROPHILS # (AUTO) 12.2 K/uL (1.8-7.7); NEUTROPHILS % (AUTO) 76.5 % (42.2-75.2); PLATELET COUNT (AUTO) 475 K/uL (140-450); RED BLOOD CELL COUNT(AUTO) 3.54 MIL/uL (4.20-5.40); RED CELL DISTRIBUTION WIDTH 15.5 % (11.6-13.7); WHITE BLOOD COUNT (AUTO) 15.9 K/uL (4.8-10.8)
--- NOTE | 2018-03-23 07:19 | NUR ---
ENDORSED REPORT TO DAYSHIFT NURSE AT BEDSIDE FOR CONTINUITY OF CARE.
--- NOTE | 2018-03-23 07:20 | NUR ---
RECEIVED PT REPORT FROM SPORTS PHYSIOLOGIST ANGELA LOUIS. PT IS AAOx4, PT CAN VERBALIZE NEEDS. NO S/S OF RESPIRATORY DISTRESS NOTED. RIGHT ARM PICC LINE IN PLACE, DOUBLE LUMEN WITH IVF INFUSING AT 75ML/HR, PATENT, INTACT. WOUND DRESSING CLEAN AND INTACT. WOUND VAC WORKING FINE. 100ML DRAINAGE IN THE COLLECTION BAG. SIDE RAILS UP, CALL LIGHT WITHIN REACH. BED IN LOWEST POSITION, AIR MATTRESS AND SCDS WORKING. WILL CONTINUE TO MONITOR.
[2018-03-23 08:00] VITALS: BP 133/60
[2018-03-23] MEDS: ZINC SULF 220 MG CAP PO SCH (09:07)
[2018-03-23] MEDS ORDERED: LACTULOSE 20 GM/30 ML UDC PO PRN (09:10)
[2018-03-23] MEDS: PREGABALIN 50 MG CAP PO SCH ×2 (09:13→20:23)
[2018-03-23] MEDS: ESCITALOPRAM 20 MG TAB PO SCH (09:14)
[2018-03-23] MEDS: LACTOBACILLUS RHAMNOSUS GG 1 EACH CAP PO SCH ×2 (09:14→20:22)
[2018-03-23] MEDS: GLIMEPIRIDE 2 MG TAB PO SCH ×2 (09:14→20:21)
[2018-03-23] MEDS: ASCORBIC ACID 500 MG TAB PO SCH ×2 (09:14→20:23)
[2018-03-23] MEDS: SENNA 8.6 MG TAB PO SCH (09:14)
[2018-03-23] MEDS ORDERED: ESCITALOPRAM 20 MG TAB PO SCH (09:14)
[2018-03-23] MEDS: NYSTATIN/TRIAMCINOLONE CRM 15 GM TUBE TP SCH ×2 (09:15→22:07)
[2018-03-23] MEDS: POLYETHYLENE GLYCOL 17 GM/PKT PO SCH (09:15)
[2018-03-23] MEDS: amLODIPine 5 MG TAB PO SCH (09:15)
--- NOTE | 2018-03-23 10:03 | NUR ---
PT WORKED WITH PHYSICAL THERAPY. PT WAS PREMEDICATED. PT WAS ABLE TO STAND UP WITH ASSISTANCE FROM PHYSICAL THERAPIST.
[2018-03-23 10:10] LABS: ANION GAP 10.1 (8-16); CARBON DIOXIDE 26.6 mmol/L (21-32); POTASSIUM 4.7 mmol/L (3.5-5.1)
[2018-03-23 10:11] LABS: CREATININE 0.8 mg/dL (0.6-1.3)
--- NOTE | 2018-03-23 11:05 | NUR ---
DRESSING CHANGED FOR LEFT LABIA AND LEFT PERINEAL AREA. RINSED WITH WOUND CLEANING SOLUTION, PATTED DRY, PACKED WITH WET TO DRY ELBA DRESSING. APPLIED NEW RECTAL BAG.
[2018-03-23] MEDS: FOAM DRESSING TP SCH (12:19)
[2018-03-23] MEDS: GAUZE TP SCH (12:26)
[2018-03-23] MEDS: INTERDRY CLOTH TP SCH (12:31)
[2018-03-23 16:00] VITALS: BP 139/71
--- NOTE | 2018-03-23 16:00 | NUR ---
PT THOUGHT SHE HAD BM, HOWEVER IT WAS JUST FLATUS IN THE RECTAL BAG.
--- NOTE | 2018-03-23 17:00 | NUR ---
BLOOD SUGAR 113, HUMULIN 20 UNITS WAS NOT GIVEN, WILL LET MASTER MOTORCYCLE TECHNICIAN TO CHECK BLOOD SUGAR AROUND 9PM TO SEE IF COVERAGE IS NEEDED. PT VERBALIZED UNDERSTANDING.
--- NOTE | 2018-03-23 19:00 | NUR ---
WOUND VAC WORKING FINE, DRAINAGE AT 160ML CECIL IN THE COLLECTION CONTAINER. OUTPUT FOR THE SHIFT IS 60ML.
--- NOTE | 2018-03-23 19:05 | NUR ---
RECEIVED REPORT FROM RAYMOND RN DAYSHIFT NURSE AT BEDSIDE FOR CONTINUITY OF CARE, PT IN STABLE CONDITION.
--- NOTE | 2018-03-23 19:05 | NUR ---
ENDORSED REPORT TO LEAD TECHNICIAN NURSE AT BEDSIDE FOR CONTINUITY CARE.
--- NOTE | 2018-03-23 19:54 | NUR ---
PT IN SITTING UP IN BED NO S/S OF PAIN OR DISTRESS NOTED, VISITORS AT BEDSIDE V/S FOLLOWS T 98.1 P 86 R 20 B/P 145/68 02 93% ON R/A.
[2018-03-23] MEDS: ATORVASTATIN 20 MG TAB PO SCH (20:23)
[2018-03-23] MEDS: INSULIN LISPRO SLIDING SCALE 100 UNITS/ML VIAL SUBQ PRN (21:01)
--- NOTE | 2018-03-23 21:45 | NUR ---
PT ON WOUND BED WITH WOUND VAC IN PLACE NO AIR LEAKS NOTED. PICC LINE IN TACT AND RUNNING N/S ORDERED.PT GIVEN DUE MEDS OF MERREM IV HUNG ORDERED AND RUNNING AT 200MLS/HR, CULTURELLE, AMARYL, LIPITOR, LYRICA AND VITAMIN C. PT FINGERSTICK IS 174 AND SHE WAS GIVEN 3 UNITS OF HUMALOG COVERAGE. PT ALSO C/O SEVERE PAIN IN BACK 09/19 AND WAS GIVEN 4MG/1ML MORPHINE IVP. WOUND DRESSINGS CHANGED ON HER BUTTOCKS AND LABIA DUE TO WETNESS. RECTAL BAG AND GALAVIZ CATHETER INTACT PT OFFERED PRUNE JUICE, BUT PT DECLINED AT THIS TIME. PT TURNED AND REPOSITIONED.
[2018-03-24] VITALS: BP 113/56
[2018-03-24] MEDS: WOUND CARE PREPARATION 178 ML SPR TP SCH ×2 (00:50→12:43)
[2018-03-24] MEDS: Z-GUARD PASTE TP SCH ×2 (00:50→12:43)
[2018-03-24] MEDS: DEXT 5% / NACL 0.9% 1,000 ML IV SCH ×3 (00:50→20:00)
[2018-03-24] MEDS: MORPHINE SULFATE 4 MG/ML SYR IVP PRN ×5 (01:38→23:06)
--- NOTE | 2018-03-24 02:00 | NUR ---
PT C/O BACK PAIN 10/20, AND WAS GIVEN MORPHINE IVP ORDERED. PT WAS TURNED AND REPOSITIONED FOR COMFORT.
--- NOTE | 2018-03-24 04:32 | NUR ---
PT IN BED AWAKE BUT IN NO DISTRESS. PT DENIES PAIN AND DOESN'T WANT TO BE TURNED. N/S RUNNING AT 75MLS/HR. SEROSANGUINEOUS FLUID DRAINING FROM WOUND VAC. ALL FALLS PRECAUTIONS IN PLACE AND CALL YANES IN REACH.
[2018-03-24] MEDS: MEROPENEM 1,000 MG in NACL 0.9% 100 ML IV SCH ×3 (05:16→20:53)
--- NOTE | 2018-03-24 05:30 | NUR ---
MARY FLANNERY ORDERED.
--- NOTE | 2018-03-24 06:27 | NUR ---
PT IN BED NO S/S OF PAIN OR DISTRESS F/S IS 148 NO COVERAGE NEEDED.
[2018-03-24] MEDS: INSULIN NPH HUMAN ISOPHANE 100 UNIT/ML VIAL SUBQ SCH ×2 (06:40→18:18)
[2018-03-24] MEDS: BLOOD GLUCOSE MONITORING 1 DEV DEV FS SCH ×4 (06:43→20:53)
--- NOTE | 2018-03-24 07:26 | NUR ---
ENDORSED CARE TO AM RN SHIFT AT BEDSIDE FOR CONTINUITY OF CARE, PT IN STABLE CONDITION.
--- NOTE | 2018-03-24 07:27 | NUR ---
RECEIVED BEDSIDE REPORT FROM INSTALLATION COORDINATOR NURSE. PATIENT IS AWAKE, ALERT AND ORIENTEDX4. NO SIGNS OF DISTRESS ON RA. PICC LINE DOUBLE LUMEN ON PATY, CLEAN, DRY AND INTACT. SKIN HAS WOUNDS ABD, BUTTOCK, PERINEAL AREA. WOUND VAC ON ABD WOUND. ALL DRESSINGS CLEAN, DRY AND INTACT. WOUND BED IN PLACE. FALL RISK PROTOCOL INITIATED. PATIENT UP W PT FOR A FEW SECONDS YESTERDAY. PATIENT HAS RECTAL BAG, NO BM AT THIS TIME. GALAVIZ CATH IN PLACE. DRAINING WELL. BED IN LOW POSITION. CALL LIGHT WITHIN REACH. WILL CONTINUE TO MONITOR THE PATIENT
[2018-03-24 08:00] VITALS: BP 130/64
[2018-03-24] MEDS: PREGABALIN 50 MG CAP PO SCH ×2 (08:23→20:50)
[2018-03-24] MEDS: ESCITALOPRAM 20 MG TAB PO SCH (08:28)
[2018-03-24] MEDS: POLYETHYLENE GLYCOL 17 GM/PKT PO SCH (08:43)
[2018-03-24] MEDS: ZINC SULF 220 MG CAP PO SCH (08:43)
[2018-03-24] MEDS: amLODIPine 5 MG TAB PO SCH (08:43)
[2018-03-24] MEDS: LACTOBACILLUS RHAMNOSUS GG 1 EACH CAP PO SCH ×2 (08:43→20:49)
[2018-03-24] MEDS: SENNA 8.6 MG TAB PO SCH (08:43)
[2018-03-24] MEDS: GLIMEPIRIDE 2 MG TAB PO SCH ×2 (08:43→20:49)
[2018-03-24] MEDS: ASCORBIC ACID 500 MG TAB PO SCH ×2 (08:43→20:50)
[2018-03-24] MEDS: NYSTATIN/TRIAMCINOLONE CRM 15 GM TUBE TP SCH ×2 (08:45→21:00)
--- NOTE | 2018-03-24 08:45 | NUR ---
ADMINISTERED MEDS. PATIENT TOLERATED WELL. NO SIGNS OF DISTRESS, WILL CONTINUE TO MONITOR THE PATIENT.
[2018-03-24] MEDS: NACL 0.9% 1,000 ML IV SCH ×2 (09:15→18:16)
--- NOTE | 2018-03-24 09:16 | NUR ---
CLEANSED PATIENT. STILL NO BM AT THIS TIME. PATIENT TURNED TO R SIDE. PERFORMED WOUND CARE ON BUTTOCKS. DRESSINGS CLEAN, DRY AND INTACT.
--- NOTE | 2018-03-24 11:00 | NUR ---
PATIENT IS SLEEPING. WILL CONTINUE TO MONITOR THE PATIENT.
[2018-03-24] MEDS: FOAM DRESSING TP SCH (12:42)
[2018-03-24] MEDS: GAUZE TP SCH (12:43)
--- NOTE | 2018-03-24 13:20 | NUR ---
ADMINISTERED MEDS. PATIENT TOLERATED WELL. NO SIGNS OF DISTRESS. WILL CONTINUE TO MONITOR THE PATIENT.
--- NOTE | 2018-03-24 13:50 | NUR ---
03/24/18 RD FOLLOW UP COMPLETED PLEASE REFER TO NUTRITION PROGRESS NOTE UNDER CARE ACTIVITY FOR ESTIMATED NUTRITION NEEDS. RD RECOMMENDATIONS: 1. CONTINUE CCHO 60 GM WITH PROSOURCE AND GLUCERNA TID TOLERATED 2. CONTINUE MVI, VITAMIN C AND ZINC FOR WOUND HEALING 3. RD TO FOLLOW-UP 3-5 DAYS, MODERATE RISK XAVIER GOODMAN, RD
--- NOTE | 2018-03-24 15:10 | NUR ---
PATIENT IN NO SIGNS OF DISTRESS. PATIENT SLEEPING. WILL CONTINUE TO MONITOR THE PATIENT.
[2018-03-24 16:00] VITALS: BP 114/50
--- NOTE | 2018-03-24 16:00 | NUR ---
WOUND VAC LEAKING. REINFORCED WOUND VAC W NEW DRESSING
--- NOTE | 2018-03-24 17:49 | NUR ---
LABIA WOUND CARE DONE AGAIN D/T SOILED DRESSING.
--- NOTE | 2018-03-24 18:22 | NUR ---
ADMINISTERED PRN PAIN MEDS. PATIENT TOLERATED WELL. WILL CONTINUE TO MONITOR THE PATIENT
--- NOTE | 2018-03-24 19:25 | NUR ---
RECEIVED REPORT AT BEDSIDE FROM RADHA RN DAYSHIFT NURSE AT BEDSIDE FOR CONTINUITY OF CARE, PT IN STABLE CONDITION.
--- NOTE | 2018-03-24 19:25 | NUR ---
BEDSIDE REPORT GIVEN TO FEED MILLER NURSE. PATIENT IS STABLE. NO SIGN OF DISTRESS IN RA. DENIES PAIN.
--- NOTE | 2018-03-24 20:00 | NUR ---
PT ON WOUND BED, R UPPER ARM PICC LINE INTACT AND RUNNING N/S AT 75MLS/HR. WOUND VAC INTACT WITH NO AIR LEAKS AND SUCTIONING A MINIMAL AMOUNT OF SEROSANGUINEOUS FLUID. DRESSING TO LABIA NO DRAINAGE NOTED AND INTACT. PT C/O THAT SHE HAS NOT YET HAD A BM IN 3 DAYS. ABDOMEN IS SOFT AND DISTENDED WITH ACTIVE BM IN ALL 4 QUADS. PT GIVEN 2 PRUNE JUICES TO ASSIST WITH BM. PT LUNGS CLEAR AND SHE HAS NO C/O OF PAIN OR DISTRESS NOTED. PT DECLINED TO BE TURNED AT THIS TIME.
--- NOTE | 2018-03-24 20:30 | NUR ---
PT V/S FOLLOWS T 97.4 P 82 R 18 B/P 144/67 02 94% ON ROOM AIR . F/S IS 127, NO COVERAGE NEEDED. PT ATE VERY LITTLE OF DINNER. ( ABOUT 10% OF DINNER CONSUMED).
[2018-03-24] MEDS: ATORVASTATIN 20 MG TAB PO SCH (20:50)
--- NOTE | 2018-03-24 21:30 | NUR ---
PT AOX4 LYING IN BED WITH HOB ELEVATED 45%. PT GIVEN ALL DUE MEDS AT THIS TIME; IV ABT MERREM, WELL AMARYL, CULTURELLE, LIPITOR , LYRICA AND VITAMIN C. PT DECLINED TO BE TURNED BUT ASKED IF WE COULD RETURN TO TURN IN REPOSITION IN A LITTLE WHILE. WILL CONTINUE TO MONITOR PT FOR BM AND PAIN.
--- NOTE | 2018-03-24 23:30 | NUR ---
PT TURNED CHANGED AND REPOSITIONED. PT C/O SEVERE PAIN AND REQUEST PAIN MEDS BEFORE DRESSING CHANGES. PT GIVEN MORPHINE IVP ORDERED. BUTTOCK AND VAGINAL DRESSING CHANGED ORDERED. MODERATE AMOUNT OF SEROSANGUINEOUS DRAINAGE NOTED TO BOTH WOUNDS. MILD ODOR NOTED WITH DRESSING CHANGES. PT ALSO HAD ABOUT 1000 UNITS OF YELLOW LIGHT DEVONTE URINE DRAINED FROM UNARY BAG. RECTAL BAG INTACT BUT LOOSE. SOME STOOL NOTED AT TIP OF ANUS. PT TURNED TO LEFT SIDE TO ASSIST WITH BM. ALL FALLS PRECAUTIONS IN PLACE AND CALL YANES IN REACH.
[2018-03-25] VITALS: BP 141/67
[2018-03-25] MEDS: Z-GUARD PASTE TP SCH ×2 (00:46→14:03)
[2018-03-25] MEDS: WOUND CARE PREPARATION 178 ML SPR TP SCH ×2 (00:46→14:03)
--- NOTE | 2018-03-25 01:00 | NUR ---
PT RESTING IN BED , SHE DECLINES TO BE TURNED AT THIS TIME. NO BM NOTED RECTAL BAG AND DRESSINGS IN PLACE. V/S FOLLOWS T 98.1 P 78 R 18 B/P 141/67 02 96% WITH R/A. WILL CONTINUE TO MONITOR PT FOR PAIN AND BM.
[2018-03-25] MEDS: MORPHINE SULFATE 4 MG/ML SYR IVP PRN ×4 (04:10→19:28)
--- NOTE | 2018-03-25 04:26 | NUR ---
PT TURNED NO BM YET, PT GIVEN PRN IVPO MORPHINE ORDERED FOR GENERALIZED PAIN. WILL MONITOR FOR EFFECT.
[2018-03-25] MEDS: MEROPENEM 1,000 MG in NACL 0.9% 100 ML IV SCH ×3 (05:24→21:38)
[2018-03-25] MEDS: DEXT 5% / NACL 0.9% 1,000 ML IV SCH ×2 (06:00→16:00)
[2018-03-25] MEDS: BLOOD GLUCOSE MONITORING 1 DEV DEV FS SCH ×4 (06:22→21:00)
[2018-03-25] MEDS: INSULIN NPH HUMAN ISOPHANE 100 UNIT/ML VIAL SUBQ SCH ×2 (06:34→17:00)
[2018-03-25 06:47] LABS: BASOPHILS % (AUTO) 0.2 % (0.0-2.0); EOSINOPHILS # (AUTO) 0.3 K/uL (0-0.4); EOSINOPHILS % (AUTO) 1.7 % (0.0-4.0); HEMATOCRIT 29.9 % (36-48); HEMOGLOBIN 9.7 g/dL (12.0-16.0); LYMPHOCYTES # (AUTO) 2.1 K/uL (2.5-16.5); LYMPHOCYTES % (AUTO) 11.9 % (20.5-51.1); MEAN CORPUSCULAR HEMOGLOBIN 27 pg (27-31); MEAN CORPUSCULAR HGB CONC 33 g/dL (33-37); MEAN CORPUSCULAR VOLUME 83.2 fL (80-94); MONOCYTES % (AUTO) 5.8 % (1.7-9.3); NEUTROPHILS # (AUTO) 14.1 K/uL (1.8-7.7); NEUTROPHILS % (AUTO) 80.4 % (42.2-75.2); PLATELET COUNT (AUTO) 523 K/uL (140-450); RED BLOOD CELL COUNT(AUTO) 3.59 MIL/uL (4.20-5.40); RED CELL DISTRIBUTION WIDTH 15.9 % (11.6-13.7); WHITE BLOOD COUNT (AUTO) 17.6 K/uL (4.8-10.8)
--- NOTE | 2018-03-25 07:30 | NUR ---
REPORT GIVEN TO HIRA FOR ENDORSEMENT OF CARE, PT IN STABLE CONDITION.
--- NOTE | 2018-03-25 07:31 | NUR ---
RECEIVED BEDSIDE REPORT FROM WINDSCREEN FITTER NURSE. PATIENT IS AWAKE, ALERT AND ORIENTEDX4. NO SIGNS OF DISTRESS ON RA. PICC LINE PATY, INFUSING NS AT 75. CLEAN,DRY AND INTACT. PATIENT IS BEDBOUND AT THIS TIME. UP W PT FOR ABOUT 10SEC LAST SESSION. FALL RISK PROTOCOL IN PLACE. SKIN HAS ABDOMINAL SURGICAL WOUND, WOUND VACC IN PLACE, CLEAN,DRY AND INTACT. LABIA HAS SURGICAL WOUND AND BUTTOCKS, ALL DRESSINGS CLEAN AND INTACT. RECTAL BAG IN PLACE. PATIENT HAS GALAVIZ CATH. WOUND CARE BED IN PLACE. BED IN LOW POSITION. CALL LIGHT WITHIN REACH. WILL CONTINUE TO MONITOR THE PATIENT
[2018-03-25 07:34] LABS: ANION GAP 10.8 (8-16); CARBON DIOXIDE 27.7 mmol/L (21-32); CREATININE 0.8 mg/dL (0.6-1.3); POTASSIUM 4.5 mmol/L (3.5-5.1)
[2018-03-25 08:00] VITALS: BP 129/70
[2018-03-25] MEDS: LACTOBACILLUS RHAMNOSUS GG 1 EACH CAP PO SCH ×2 (08:38→21:32)
[2018-03-25] MEDS: GLIMEPIRIDE 2 MG TAB PO SCH ×2 (08:38→21:32)
[2018-03-25] MEDS: PREGABALIN 50 MG CAP PO SCH ×2 (08:39→21:33)
[2018-03-25] MEDS: ASCORBIC ACID 500 MG TAB PO SCH ×2 (08:39→21:33)
[2018-03-25] MEDS: SENNA 8.6 MG TAB PO SCH (08:39)
[2018-03-25] MEDS: ESCITALOPRAM 20 MG TAB PO SCH (08:40)
[2018-03-25] MEDS: ZINC SULF 220 MG CAP PO SCH (08:40)
[2018-03-25] MEDS: POLYETHYLENE GLYCOL 17 GM/PKT PO SCH (08:41)
[2018-03-25] MEDS: amLODIPine 5 MG TAB PO SCH (08:41)
[2018-03-25] MEDS: NACL 0.9% 1,000 ML IV SCH (08:42)
[2018-03-25] MEDS: NYSTATIN/TRIAMCINOLONE CRM 15 GM TUBE TP SCH ×2 (08:48→21:00)
--- NOTE | 2018-03-25 08:49 | NUR ---
ADMINISTERED MEDS. PATIENT TOLERATED WELL. NO SIGNS OF DISTRESS. WILL CONTINUE TO MONITOR THE PATIENT.
--- NOTE | 2018-03-25 10:00 | NUR ---
PATIENT IS SLEEPING. BED IN LOW POSITION. CALL LIGHT WITHIN REACH. WILL CONTINUE TO MONITOR THE PATINET
--- NOTE | 2018-03-25 11:02 | NUR ---
GAVE PRN PAIN MED. PATIENT TOLERATED WELL. WILL CONTINUE TO MONITOR THE PATIENT
--- NOTE | 2018-03-25 13:56 | NUR ---
ADMINISTERED ROBERTO ANTIBIOTICS. PATIENT TOLERATED WELL. NO SIGNS OF DISTRESS.
[2018-03-25] MEDS: FOAM DRESSING TP SCH (14:02)
[2018-03-25] MEDS: GAUZE TP SCH (14:03)
--- NOTE | 2018-03-25 14:05 | NUR ---
PERFORMED WOUND CARE. PATIENT TOLERATED WELL. NO SIGNS OF DISTRESS. WILL CONTINUE TO MONITOR
[2018-03-25] MEDS: ERGOCALCIFEROL 50,000 IU SGL PO SCH (14:41)
--- NOTE | 2018-03-25 14:50 | NUR ---
PATIENT ASKED FOR MORPHINE, MORPHINE HAS , CALLED DR WRIGHT AND SHE SAID OK TO KEEP CONTINUING MORPHINE ORDERED.
[2018-03-25 16:00] VITALS: BP 144/69
--- NOTE | 2018-03-25 16:00 | NUR ---
NO SIGNS OF DISTRESS. FAMILY AT BEDSIDE. WILL CONTINUE TO MONITOR THE PATIENT
[2018-03-25] MEDS ORDERED: SODIUM PHOSPHATE 118 ML ENEM RC PRN (17:45)
[2018-03-25] MEDS ORDERED: HYDROcodone/APAP 5/325 MG 1 TAB TAB PO PRN (17:45)
--- NOTE | 2018-03-25 17:59 | NUR ---
DR WRIGHT IN TO SEE PATIENT. PATIENT IN NO SIGNS OF DISTRESS. TOLD PATIENT WOUND VACC WILL BE CHANGED AT 1930. SHE SAID OK, LONG SHE IS MEDICATED BEFORE.
--- NOTE | 2018-03-25 18:09 | NUR ---
PATIENT RECEIVED 20UNITS HUMALOG FROM PRECEPTEE, FUNMI. PATIENTS LAST BS IS 103. PATIENT WAS SUPPOSE TO RECEIVED HUMALIN N 20 UNITS AND RECEIVED THE WRONG MEDICATION. PATIENT IS AWARE OF THE INCIDENT AND DR WRIGHT. DOCTOR KYLE SAID TO MAKE SURE PATIENT EATS. GAVE PATIENT 2 ORANGE JUICE, MILK AND GRAM CRACKERS. PATIENT CURRENTLY EATING FRUIT PLATTER. WILL CONTINUE TO MONITOR THE PATIENT. DR WRIGHT SAID TO CHECK BS 1900 AND 0000.
--- NOTE | 2018-03-25 18:39 | NUR ---
PATIENT REFUSED SUPP AT THIS TIME AND AT 7. SHE WANTS IT W KNIFE CHANGER AFTER WOUND VACC CHANGE
--- NOTE | 2018-03-25 18:40 | NUR ---
CHECKED BS 123. PATIENT HAS NO SYMPTOMS OF HYPOGLYCEMIA. WILL CONTINUE TO MONITOR
[2018-03-25] MEDS ORDERED: BISACODYL 10 MG SUPP RC SCH (19:00)
--- NOTE | 2018-03-25 19:10 | NUR ---
RECEIVED REPORT FROM RADHA RN DAYSHIFT NURSE AT BEDSIDE FOR CONTINUITY OF CARE, PT IN STABLE CONDITION.
--- NOTE | 2018-03-25 19:10 | NUR ---
GAVE BEDSIDE REPORT TO SAND SCREENER NURSE. PATIENT ENDORSED IN STABLE CONDITION. ENDORSED BS CHECKS AT 9PM AND 12AM. AND ALSO ENDORSED THE SUPPOSITORY. PATIENT WANTS IT AFTER WOUND VACC PLACEMENT
--- NOTE | 2018-03-25 19:15 | NUR ---
FINGERSTICK RECHECK WAS 117. PT SAYS SHE FEELS FINE. WILL RECHECK F/S IN ABOUT 2 HRS.
--- NOTE | 2018-03-25 19:42 | NUR ---
PT ON WOUND BED HOB UP 45%. PT AWAKE AND ALERT WITH C/O OF 7/10 PAIN IN BACK AND ABDOMEN. MOPRHINE 4MG IVP GIVEN. V/S FOLLOWS T 97.8 P 88 R 18 02 96 ON R/A B/P IS 144/68. CARA WOUND VAC NURSE AT BEDSIDE DOING WOUND CARE.
[2018-03-25 20:00] VITALS: BP 134/63
--- NOTE | 2018-03-25 21:00 | NUR ---
WOUND VAC DRESSING CHANGE PER PROTOCOL, WOUND VAC FUNCTIONING WITH CONTINUE SUCTION AT 125 mmHg, PT. TOLERATED PROCEDURE WELL. OBSERVED 150 ML LIGHT BROWN DRAINAGE IN CANISTER. PRIMARY RN AT BED SIDE ASSISTED DRESSING CHANGE, PHOTO TAKEN.
[2018-03-25] MEDS: ATORVASTATIN 20 MG TAB PO SCH (21:34)
--- NOTE | 2018-03-25 22:00 | NUR ---
PT SAID THAT SHE HAS A HEADACHE AND IS FEELING DIZZY, PT FINGERSTICK RECHECK WAS 66. PT GIVEN 1 CUP OF OJ WITH 2 SUGAR PACKETS. PT SAID THAT SHE DIDNT WANT TO EAT ANYTHING. PT ENCOURAGED TO EAT SOME ANDREA CRACKERS AT BEDSIDE. WILL RECHECK BLOOD SUGAR IN A SHORTLY.
--- NOTE | 2018-03-25 22:30 | NUR ---
BLOOD SUGAR RECHECK WAS 107. AWAITING EFFECT OF DUE SUPPOSITORY. PT TURNED WITH ASSISTANCE AND REPOSITIONED.
[2018-03-26] MEDS: WOUND CARE PREPARATION 178 ML SPR TP SCH ×2 (01:00→12:42)
[2018-03-26] MEDS: Z-GUARD PASTE TP SCH ×2 (01:00→12:42)
[2018-03-26] MEDS: NACL 0.9% 1,000 ML IV SCH (01:38)
[2018-03-26] MEDS: MORPHINE SULFATE 4 MG/ML SYR IVP PRN ×4 (01:44→21:08)
--- NOTE | 2018-03-26 01:45 | NUR ---
PT RESTING IN BED WITH EYES CLOSED NO BM NOTED, PT GIVEN 1 FLEETS ENEMA PRN FOR CONSTIPATION. A VERY SMALL AMOUNT OF STOOL CAME OUT WITH ENEMA. PT TURNED ON SIDE AWAITING A BM. PT ALSO C/O OF SEVERE PAIN IN BACK AND ABD PT GIVEN MORPHINE 4MG IVP/PRN. RECHECK OF F/S IS 140.
[2018-03-26] MEDS: DEXT 5% / NACL 0.9% 1,000 ML IV SCH (02:00)
--- NOTE | 2018-03-26 05:30 | NUR ---
PT HAD LARGE BM DRESSINGS CHANGED, RECTAL MILTON CHANGED.
[2018-03-26] MEDS: MEROPENEM 1,000 MG in NACL 0.9% 100 ML IV SCH ×3 (05:52→21:27)
[2018-03-26 06:30] LABS: BASOPHILS # (AUTO) 0.1 K/uL (0.00-0.22); BASOPHILS % (AUTO) 0.4 % (0.0-2.0); EOSINOPHILS # (AUTO) 0.3 K/uL (0-0.4); EOSINOPHILS % (AUTO) 1.5 % (0.0-4.0); HEMOGLOBIN 9.6 g/dL (12.0-16.0); LYMPHOCYTES # (AUTO) 2.1 K/uL (2.5-16.5); LYMPHOCYTES % (AUTO) 12.1 % (20.5-51.1); MEAN CORPUSCULAR HEMOGLOBIN 27 pg (27-31); MEAN CORPUSCULAR HGB CONC 32 g/dL (33-37); MEAN CORPUSCULAR VOLUME 83.1 fL (80-94); MONOCYTES % (AUTO) 5.4 % (1.7-9.3); NEUTROPHILS # (AUTO) 14.3 K/uL (1.8-7.7); NEUTROPHILS % (AUTO) 80.6 % (42.2-75.2); PLATELET COUNT (AUTO) 485 K/uL (140-450); RED BLOOD CELL COUNT(AUTO) 3.61 MIL/uL (4.20-5.40); RED CELL DISTRIBUTION WIDTH 15.7 % (11.6-13.7); WHITE BLOOD COUNT (AUTO) 17.8 K/uL (4.8-10.8)
--- NOTE | 2018-03-26 06:30 | NUR ---
PT GIVEN PRN IVP MORPHINE FOR SEVERE PAIN 10/20. PT F/S 107 GIVEN JUICE WITH HUMULIN N ORDER (20 UNITS).
[2018-03-26] MEDS: BLOOD GLUCOSE MONITORING 1 DEV DEV FS SCH ×4 (06:42→21:01)
[2018-03-26] MEDS: INSULIN NPH HUMAN ISOPHANE 100 UNIT/ML VIAL SUBQ SCH ×2 (06:42→16:33)
--- NOTE | 2018-03-26 07:20 | NUR ---
REPORT GIVEN TO MARGARET RN AND ERIC VYAS RN DAYSHIFT NURSE AT BEDSIDE, PT RESTING ON WOUND BED IN STABLE CONDITION.
[2018-03-26 08:00] VITALS: BP 143/63
--- NOTE | 2018-03-26 08:00 | NUR ---
PATIENT IS AWAKE, ALERT, RESPIRATION EVEN AND UNLABOR ON ROOM AIR. VITAL SIGNS WITHIN THE NORMAL RANGE. DENIES PAIN AND DISCOMFORT. CALL LIGHT WITHIN REACH. Addendum: 03/26/18 at 0836 by Muriel Catherine RN PICC LINE PATENT AND INTACT. WOUND VAC IS IN PLACE. GALAVIZ DRAINING CLEAR YELLOW URINE. PLAN OF CARE WAS DISCUSS WITH PATIENT. BED IS IN LOW POSITION. SIDE RAILS UP.
[2018-03-26] MEDS: ASCORBIC ACID 500 MG TAB PO SCH ×2 (09:29→21:02)
[2018-03-26] MEDS: PREGABALIN 50 MG CAP PO SCH ×2 (09:30→21:02)
[2018-03-26] MEDS: LACTOBACILLUS RHAMNOSUS GG 1 EACH CAP PO SCH ×2 (09:30→21:01)
[2018-03-26] MEDS: amLODIPine 5 MG TAB PO SCH (09:30)
[2018-03-26] MEDS: ZINC SULF 220 MG CAP PO SCH (09:30)
[2018-03-26] MEDS: GLIMEPIRIDE 2 MG TAB PO SCH ×2 (09:31→21:01)
[2018-03-26] MEDS: ESCITALOPRAM 20 MG TAB PO SCH (09:31)
[2018-03-26] MEDS: SENNA 8.6 MG TAB PO SCH (09:31)
[2018-03-26] MEDS: POLYETHYLENE GLYCOL 17 GM/PKT PO SCH (09:31)
[2018-03-26] MEDS: NYSTATIN/TRIAMCINOLONE CRM 15 GM TUBE TP SCH ×2 (09:32→21:00)
--- NOTE | 2018-03-26 10:00 | NUR ---
PATIENT IS AWAKE, ALERT, RESPIRATION EVEN AND UNLABOR ON ROOM AIR. PICC LINE DRESSING WAS CHANGE. MEDS WERE GIVEN PER ORDER. NO DISTRESS NOTED AT THIS TIME. CALL LIGHT WITHIN REACH.
--- NOTE | 2018-03-26 12:30 | NUR ---
PATIENT IS AWAKE, ALERT, RESPIRATION EVEN AND UNLABOR ON ROOM AIR. DRESSING CHANGED FOR LABIA AND PERINEAL AREA. RINSED WITH NORMAL SALINE. PATTED DRY, PACKED WITH WET TO DRY ELBA DRESSING. APPLIED NEW RECTAL BAG. ALL TREATMENTS WERE GIVEN AND TOLERATED WELL. NO DISTRESS NOTED AT THIS TIME. CALL LIGHT WITHIN REACH.
[2018-03-26] MEDS: FOAM DRESSING TP SCH (12:41)
[2018-03-26] MEDS: GAUZE TP SCH (12:42)
--- NOTE | 2018-03-26 13:30 | NUR ---
P.T. NOTES UNABLE TO SEE PATIENT (3X ATTEMPTS WERE MADE) FOR TREATMENTS DUE TO SEVERAL FACTORS SUCH : 1ST ATTEMPT: HER RECTAL BAG NOT PROPERLY PLACED AND NURSE HAVE TO FIX IT FIRST, 2ND TIME - NOT READY YET DUE TO SHE JUST HAD HER DRESSING CHANGED AND WANTS TO REST FIRST DUE TO INCREASED DISCOMFORT AND LASTLY, SHE HAD A BM AND NEEDED TO BE CLEANED AND CHANGE DRESSING AGAIN. SHE REQUESTED TO BE SEEN TOMORROW MORNING INSTEAD. PLAN: WE'LL CONTINUE PER PLAN OF CARE.
--- NOTE | 2018-03-26 14:15 | NUR ---
WOUND DRESSING WAS CHANGED DUE TO SOILING. NEW FECAL BAG WAS PLACED. PATIENT TOLERATED WELL
--- NOTE | 2018-03-26 14:45 | NUR ---
OK TO DISCONTINUE ALL IVF PER DR. WRIGHT.
--- NOTE | 2018-03-26 15:46 | NUR ---
PATIENT IS AWAKE, ALERT, RESPIRATION EVEN AND UNLABOR ON ROOM AIR. FAMILY IS AT BEDSIDE. NO DISTRESS NOTED. DENIES PAIN. CALL LIGHT WITHIN REACH.
[2018-03-26 16:00] VITALS: BP 144/64
--- NOTE | 2018-03-26 18:30 | NUR ---
PATIENT WAS AWAKE, ALERT. RESPIRATION EVEN, UNLABOR ON ROOM AIR. NO DISTRESS NOTED AT THIS TIME. PICC LINE PATENT AND INTACT. CALL LIGHT WITHIN REACH
--- NOTE | 2018-03-26 19:20 | NUR ---
ENDORSE CARE TO SCIENTIFIC PUBLICATIONS EDITOR. PATIENT IS STABLE AT THIS TIME.
--- NOTE | 2018-03-26 19:20 | NUR ---
RECEIVED REPORT FROM JEANNINE RN AND ASAEL RN DAYSHIFT NURSE FOR CONTINUITY OF CARE, PT INSTABLE CONDITION.
--- NOTE | 2018-03-26 20:00 | NUR ---
PT ON WOUND BED ALL FALLS PRECAUTIONS IN PLACE. PT REQUEST TO BE GIVEN A BREAK FROM THE SEQUENTIALS. EXPLAINED RISKS AND BENEFITS, PT ASKED IF SHE CAN HAVE SEQUENTIALS OFF FOR A LITTLE WHILE BECAUSE SHE IS SO TIRED OF HAVING THEM ON. SEQUENTIALS TAKEN OFF. WOUND VAC IN TACT NO AIR LEAKS NOTED. DRESSINGS IN TACT. PT V/S FOLLOWS T 98.9 P 89 R 20 B/P 144/64 02 94% ON R/A.
[2018-03-26] MEDS: ATORVASTATIN 20 MG TAB PO SCH (21:02)
--- NOTE | 2018-03-26 21:30 | NUR ---
PT F/S IS 133, NO COVERAGE NEEDED. PT C/O PAIN IN BACK AND WOUNDS 7/10 PAIN. GIVEN MORPHINE 4MG IVP VIA PICC LINE . PT GIVEN ALL DUE MEDS AMARYL, CULTURELLE, LIPITOR, LYRICA, VITAMIN C AND MERREM IV ABT. FLUIDS OF N/S REPLACED AND RUNNING ORDERED. PT TURNED AND REPOSITIONED.
[2018-03-27] VITALS: BP 134/60
[2018-03-27] MEDS: Z-GUARD PASTE TP SCH ×2 (01:00→13:56)
[2018-03-27] MEDS: WOUND CARE PREPARATION 178 ML SPR TP SCH ×2 (01:00→13:56)
[2018-03-27] MEDS: MORPHINE SULFATE 4 MG/ML SYR IVP PRN ×5 (05:12→21:30)
[2018-03-27] MEDS: MEROPENEM 1,000 MG in NACL 0.9% 100 ML IV SCH ×3 (05:19→21:34)
--- NOTE | 2018-03-27 05:50 | NUR ---
FINGERSTICK IS 62 PROVIDED JUICE AND PUDDING. WILL RECHECK F/S IN 1/2HR.
[2018-03-27] MEDS: INSULIN NPH HUMAN ISOPHANE 100 UNIT/ML VIAL SUBQ SCH ×2 (06:30→17:23)
[2018-03-27 06:59] LABS: HEMATOCRIT 30.1 % (36-48); HEMOGLOBIN 9.7 g/dL (12.0-16.0); MEAN CORPUSCULAR HEMOGLOBIN 27 pg (27-31); MEAN CORPUSCULAR HGB CONC 32 g/dL (33-37); MEAN CORPUSCULAR VOLUME 82.4 fL (80-94); PLATELET COUNT (AUTO) 471 K/uL (140-450); RED BLOOD CELL COUNT(AUTO) 3.65 MIL/uL (4.20-5.40); RED CELL DISTRIBUTION WIDTH 15.7 % (11.6-13.7); WHITE BLOOD COUNT (AUTO) 20.8 K/uL (4.8-10.8)
[2018-03-27 07:15] LABS: ANION GAP 11.5 (8-16); CARBON DIOXIDE 27.9 mmol/L (21-32); CREATININE 0.7 mg/dL (0.6-1.3); POTASSIUM 4.4 mmol/L (3.5-5.1)
--- NOTE | 2018-03-27 07:20 | NUR ---
F/S RETAKE WAS 91. PT GIVEN HUMULIN N 20 UNITS ORDERED BREAKFAST AT BEDSIDE.
--- NOTE | 2018-03-27 07:25 | NUR ---
RECEIVED REPORT FROM CELESTINA GLUER MACHINE OPERATOR RN. PT IS AAOX4, DOUBLE LUMEN PICC IN RIGHT ARM. PT HAS MULTIPLE WOUNDS THAT WILL NEED WOUND DRESSING CHANGES. PT CONNECTED TO WOUND VAC FOR ABDOMINAL WOUND. DRAINING WELL WITH NO SIGNS OF PRESSURE OR LEAKAGE NOTED. PT VERBALIZED UNDERSTANDING OF PLAN OF CARE FOR THE DAY. WILL CONTINUE TO MONITOR CLOSELY. CALL LIGHT WITHIN REACH.
--- NOTE | 2018-03-27 07:30 | NUR ---
REPORT GIVEN TO LEVI AT BEDSIDE FOR CONTINUITY OF CARE, PT IN STABLE CONDITION.
[2018-03-27] MEDS: BLOOD GLUCOSE MONITORING 1 DEV DEV FS SCH ×4 (07:46→21:13)
[2018-03-27 08:00] VITALS: BP 126/67
[2018-03-27 08:15] LABS: LYMPHOCYTES % (MANUAL) 14 % (20-46); MONOCYTES % (MANUAL) 4 % (5-12)
[2018-03-27] MEDS: POLYETHYLENE GLYCOL 17 GM/PKT PO SCH (09:00)
[2018-03-27] MEDS: amLODIPine 5 MG TAB PO SCH (09:23)
[2018-03-27] MEDS: SENNA 8.6 MG TAB PO SCH (09:24)
[2018-03-27] MEDS: LACTOBACILLUS RHAMNOSUS GG 1 EACH CAP PO SCH ×2 (09:25→21:33)
[2018-03-27] MEDS: ZINC SULF 220 MG CAP PO SCH (09:25)
[2018-03-27] MEDS: PREGABALIN 50 MG CAP PO SCH ×2 (09:25→21:33)
[2018-03-27] MEDS: ESCITALOPRAM 20 MG TAB PO SCH (09:25)
[2018-03-27] MEDS: GLIMEPIRIDE 2 MG TAB PO SCH ×2 (09:25→21:31)
[2018-03-27] MEDS: ASCORBIC ACID 500 MG TAB PO SCH ×2 (09:26→21:34)
[2018-03-27] MEDS: NYSTATIN/TRIAMCINOLONE CRM 15 GM TUBE TP SCH ×3 (11:36→21:34)
--- NOTE | 2018-03-27 11:45 | NUR ---
PT BLOOD GLUCOSE AT 91. NO NEED FOR INSULIN AT THIS TIME.
--- NOTE | 2018-03-27 12:48 | NUR ---
CHANGED PT DRESSING FOR WOUNDS. PT TOLERATED WELL. PT WAS PREMEDICATED WITH MORPHINE 20 MINS BEFORE WOUND CHANGE. DRESSING IN NOW DRY AND INTACT. WILL MONITOR [id number] AND PT CLOSELY. CALL LIGHT WITHIN REACH, AISLINN IN LOW POSITION.
--- NOTE | 2018-03-27 12:56 | NUR ---
Car Runner Note: Sales Associate Key Holder and/or Aviation Operations Specialist will await physician's tentative discharge plan recommendation and follow up as needed.
[2018-03-27] MEDS: BACLOFEN 10 MG TAB PO SCH ×2 (13:54→17:16)
[2018-03-27] MEDS: FOAM DRESSING TP SCH (13:55)
[2018-03-27] MEDS: GAUZE TP SCH (13:55)
--- NOTE | 2018-03-27 14:02 | NUR ---
PT RESTING IN BED. ALL NEEDS MET AT THIS TIME. WILL CONTINUE TO MONITOR FREQUENTLY. CALL LIGHT WITHIN REACH. BED IN LOW POSITION.
[2018-03-27 16:00] VITALS: BP 125/67
--- NOTE | 2018-03-27 19:26 | NUR ---
ENDORSED PT TO SUMMER TIRE TECHNICIAN RN FOR CONTINUITY OF CARE. PT IN STABLE CONDITION AT THIS TIME.
--- NOTE | 2018-03-27 19:26 | NUR ---
RECEIVED BEDSIDE REPORT FROM ANGELA SIMS, PATIENT IN BED, AAOX4, ABLE TO FOLLOW COMMANDS, ON RA, NO SIGNS OF ACUTE DISTRESS, C/O RAWLS 9/10, V/S TAKEN BP 100/52 HR 97, WILL MEDICATE ACCORDING TO MD ORDER, PICC IN RIGHT ARM, DOUBLE LUMEN INFUSING NS AT 10, NOTED WOUNDS ON BUTTOCK, ABDOMEN, AND VAGINAL AREA, WOUND VAC IN PLACE WITH 400 CC OUTPUT DARK BROWN LIQUID, WILL PROVIDE WOUND CARE ACCORDING TO MD ORDER, GALAVIZ CATH IN PLACE DRAINING DARK YELLOW URINE, BG 94, EXPLAINED PLAN OF CARE, UPDATED BORED, WILL CONTINUE TO MONITOR.
--- NOTE | 2018-03-27 21:30 | NUR ---
DUE MEDICATIONS GIVEN PATIENT TOLERATED WELL, MEDICATED WITH MORPHINE ACCORDING TO MD ORDER, WILL CONTINUE TO MONITOR.
[2018-03-27] MEDS: ATORVASTATIN 20 MG TAB PO SCH (21:31)
--- NOTE | 2018-03-27 23:52 | NUR ---
PATIENT RESTING IN BED, V/S TAKEN, ALL WITHIN BASELINE WILL CONTINUE TO MONITOR.
[2018-03-28] VITALS: BP 100/52
--- NOTE | 2018-03-28 | NUR ---
V/S TAKEN ALL WITHIN BASELINE. WILL CONTINUE TO MONITOR.
[2018-03-28] MEDS: WOUND CARE PREPARATION 178 ML SPR TP SCH ×2 (01:42→13:27)
[2018-03-28] MEDS: Z-GUARD PASTE TP SCH ×2 (01:42→13:28)
[2018-03-28] MEDS: MORPHINE SULFATE 4 MG/ML SYR IVP PRN ×3 (03:49→20:41)
--- NOTE | 2018-03-28 03:49 | NUR ---
PT C/O PAIN MEDICATED ACCORDING TO MD ORDER
[2018-03-28] MEDS: MEROPENEM 1,000 MG in NACL 0.9% 100 ML IV SCH ×3 (04:00→20:41)
--- NOTE | 2018-03-28 04:30 | NUR ---
WOUND CARE PROVIDED ACCORDING TO MD HURD
[2018-03-28] MEDS: INSULIN NPH HUMAN ISOPHANE 100 UNIT/ML VIAL SUBQ SCH ×2 (06:30→17:38)
[2018-03-28] MEDS: DEXTROSE 50% 50 ML SYR IVP PRN (06:31)
[2018-03-28] MEDS: BLOOD GLUCOSE MONITORING 1 DEV DEV FS SCH ×4 (06:36→20:32)
--- NOTE | 2018-03-28 06:36 | NUR ---
BLOOD GLUCOSE 59 MEDICATED ACCORDING TO MD ORDER.
[2018-03-28 06:54] LABS: HEMATOCRIT 28.5 % (36-48); HEMOGLOBIN 9.1 g/dL (12.0-16.0); MEAN CORPUSCULAR HEMOGLOBIN 27 pg (27-31); MEAN CORPUSCULAR HGB CONC 32 g/dL (33-37); MEAN CORPUSCULAR VOLUME 83.6 fL (80-94); PLATELET COUNT (AUTO) 435 K/uL (140-450); RED BLOOD CELL COUNT(AUTO) 3.41 MIL/uL (4.20-5.40); RED CELL DISTRIBUTION WIDTH 15.9 % (11.6-13.7)
--- NOTE | 2018-03-28 07:00 | NUR ---
BLOOD SUGAR 115, ENDORSED PATIENT TO DAY SHIFT NURSE, PATIENT STABLE.
--- NOTE | 2018-03-28 07:26 | NUR ---
RECEIVED REPORT FROM UTILITY SPECIALIST RN. PT IS AAOX4, DOUBLE LUMEN PICC IN RIGHT ARM. PT HAS MULTIPLE WOUNDS THAT WILL NEED WOUND DRESSING CHANGES. PT CONNECTED TO WOUND VAC FOR ABDOMINAL WOUND. DRAINING WELL WITH NO SIGNS OF PRESSURE OR LEAKAGE NOTED. PT VERBALIZED UNDERSTANDING OF PLAN OF CARE FOR THE DAY. WILL CONTINUE TO MONITOR CLOSELY. CALL LIGHT WITHIN REACH.
[2018-03-28 08:00] VITALS: BP 132/58
[2018-03-28 08:06] LABS: EOSINOPHILS % (MANUAL) 1 % (0-4); LYMPHOCYTES % (MANUAL) 12 % (20-46); MONOCYTES % (MANUAL) 7 % (5-12)
[2018-03-28] MEDS: POLYETHYLENE GLYCOL 17 GM/PKT PO SCH (09:00)
[2018-03-28] MEDS: SENNA 8.6 MG TAB PO SCH (09:00)
[2018-03-28] MEDS: GLIMEPIRIDE 2 MG TAB PO SCH ×2 (09:45→20:40)
[2018-03-28] MEDS: amLODIPine 5 MG TAB PO SCH (09:45)
--- NOTE | 2018-03-28 09:45 | NUR ---
PT RESTING IN BED. ALL NEEDS MET AT THIS TIME. WILL CONTINUE TO MONITOR FREQUENTLY. CALL LIGHT WITHIN REACH. BED IN LOW POSITION.
[2018-03-28] MEDS: ASCORBIC ACID 500 MG TAB PO SCH ×2 (09:46→20:40)
[2018-03-28] MEDS: LACTOBACILLUS RHAMNOSUS GG 1 EACH CAP PO SCH ×2 (09:46→20:40)
[2018-03-28] MEDS: BACLOFEN 10 MG TAB PO SCH ×3 (09:46→17:33)
[2018-03-28] MEDS: PREGABALIN 50 MG CAP PO SCH ×2 (09:46→20:40)
[2018-03-28] MEDS: ESCITALOPRAM 20 MG TAB PO SCH (09:47)
[2018-03-28] MEDS: ZINC SULF 220 MG CAP PO SCH (09:47)
[2018-03-28] MEDS: NYSTATIN/TRIAMCINOLONE CRM 15 GM TUBE TP SCH ×2 (09:48→20:42)
--- NOTE | 2018-03-28 12:07 | NUR ---
WOUND CARE DONE WITH PRIMARY RN. PER CHARGE NURSE, DR. ANN PLAN FOR DEBRIDEMENT TOMORROW, MILD ODOR NOTICE WOUND VAC DRESSING REMOVED MOIST TO DRY DRESSING APPLY TO WOUND BED, COVER WITH ABD. PAD AND SECURE WITH TAPE. RECTAL BAG REMOVE, PERINEUM WOUNDS WITH FECAL CONTAMINATION, DRESSING CHANGE DONE WITH MOIST TO DRY AND COVER WITH ISLAND DRESSING. PT. TOLERATES PROCEDURES WELL.
--- NOTE | 2018-03-28 12:09 | NUR ---
WOUND CARE WAS DONE WITH CARA, ASSOCIATE FINANCIAL REPRESENTATIVE. PT WOUND VAC WAS DC'D FOR EXPECTED DEBRIDEMENT BY DR. ANN TOMORROW. PT TOLERATED WOUND DRESSING CHANGE WELL. PRE-MEDICATED PT WITH MORPHINE 4MG. FECAL CONTAMINATION WAS NOTED IN PER-ANAL WOUND. CLEANED WITH NORMAL SALINE AND PACKED WOUND WITH WET TO DRY DRESSING.
[2018-03-28] MEDS: FOAM DRESSING TP SCH (13:27)
[2018-03-28] MEDS: GAUZE TP SCH (13:27)
--- NOTE | 2018-03-28 15:41 | NUR ---
PT IN ROOM WITH FAMILY AT BEDSIDE. PT IN GOOD SPIRITS. ALL NEEDS MET AT THIS TIME. WILL CONTINUE TO MONITOR FREQUENTLY. CALL LIGHT WITHIN REACH, BED IN LOW POSITION.
[2018-03-28 16:00] VITALS: BP 139/64
--- NOTE | 2018-03-28 16:15 | NUR ---
SPOKE TO ALONDRA AT DR. ANN OFFICE MESSAGE GIVEN PT'S WOUND VAC OFF DUE TO STRONG ODOR, MOIST TO DRY DRESSING APPLIED AT THIS MORNING. PENDING FOR DR. ANN RE-EVALUATION AND DEBRIDEMENT.
--- NOTE | 2018-03-28 19:25 | NUR ---
RECEIVED REPORT FROM DAY SHIFT FROM DAY SHIFT NURSE, LEVI, AT PT BEDSIDE. PT IS AAOX4. PT IS ON RA WITH RESPIRATIONS EVEN AND UNLABORED. PTAY PICC LINE IS IN PLACE, PATENT AND INTACT. PT HAS MULTIPLE WOUNDS TO ABDOMEN AND PERIANAL AREA COVERED WITH DRY AND INTACT DRESSINGS. GALAVIZ CATHETER IN PLACE. NO C/O PAIN AT THIS TIME. BED IS LOCKED, LOW POSITION WITH SIDE RAILS UP X2. CALL LIGHT IS WITHIN REACH. BOARD UPDATED. WILL CONTINUE TO MONITOR.
--- NOTE | 2018-03-28 19:57 | NUR ---
ENDORSED PT TO CUSTOMS IMPORT SPECIALIST FOR CONTINUITY OF CARE. PT IN STABLE CONDITION AT THIS TIME.
[2018-03-28] MEDS: ATORVASTATIN 20 MG TAB PO SCH (20:40)
--- NOTE | 2018-03-28 20:41 | NUR ---
ADMINISTERED SCHEDULED MEDICATIONS. PT C/O PAIN, MORPHINE GIVEN. PT TOLERATED WELL. NO SIGNS OR SYMPTOMS OF DISTRESS. ALL OTHER NEEDS ARE MET AT THIS TIME. WILL CONTINUE TO MONITOR.
--- NOTE | 2018-03-28 21:41 | NUR ---
PT ASLEEP IN BED. NO S/S OF DISTRESS. WILL CONTINUE TO MONITOR.
[2018-03-29] VITALS (7 sets, daily range): BP systolic 119–140; BP diastolic 57–63
--- NOTE | 2018-03-29 | NUR ---
PT VS WNL. NO SIGNS OR SYMPTOMS OF DISTRESS. WILL CONTINUE TO MONITOR PT.
[2018-03-29] MEDS: Z-GUARD PASTE TP SCH ×2 (01:03→12:06)
--- NOTE | 2018-03-29 02:34 | NUR ---
SPOKE WITH DR. ANN, ORDERED TO HAVE PT NPO. SAID HE WILL TRY TO DO SURGERY TODAY.
--- NOTE | 2018-03-29 04:00 | NUR ---
PT HAD LARGE BM. DRESSING SOILED. PERIANAL WOUND CLEANED AND DRESSING CHANGED. PT TOLERATED WELL. NO SIGNS OR SYMPTOMS OF DISTRESS. WILL CONTINUE TO MONITOR.
[2018-03-29] MEDS: MEROPENEM 1,000 MG in NACL 0.9% 100 ML IV SCH ×3 (04:23→20:54)
[2018-03-29] MEDS: MORPHINE SULFATE 4 MG/ML SYR IVP PRN ×2 (04:23→20:54)
--- NOTE | 2018-03-29 04:23 | NUR ---
PT C/O PAIN, MORPHINE GIVEN. SCHEDULED ANTIBIOTIC ADMINISTERED. PT TOLERATED WELL. NO SIGNS OR SYMPTOMS OF DISTRESS. WILL CONTINUE TO MONITOR.
[2018-03-29] MEDS: BLOOD GLUCOSE MONITORING 1 DEV DEV FS SCH ×4 (05:56→20:50)
--- NOTE | 2018-03-29 05:59 | NUR ---
DR. MARISSA HERNANDEZ.
[2018-03-29] MEDS: INSULIN NPH HUMAN ISOPHANE 100 UNIT/ML VIAL SUBQ SCH ×2 (06:30→16:58)
--- NOTE | 2018-03-29 06:37 | NUR ---
DR. ANN PAGED AGAIN.
--- NOTE | 2018-03-29 06:41 | NUR ---
SPOKE WITH DR. ANN. FLUID ORDERS RECEIVED.
[2018-03-29] MEDS: DEXT 5% /NACL 0.9% 1,000 ML IV SCH (06:57)
--- NOTE | 2018-03-29 06:57 | NUR ---
ORDERED FLUIDS STARTED.
--- NOTE | 2018-03-29 07:18 | NUR ---
ENDORSED PT TO DAY SHIFT NURSE FOR CONTINUITY OF CARE. PT IN STABLE CONDITION.
--- NOTE | 2018-03-29 07:19 | NUR ---
RECEIVED BEDSIDE REPORT FROM HOSPICE ENTRANCE ATTENDANT NURSE. PATIENT AAOX4. PATIENT ON ROOM AIR, NO DISTRESS NOTED. PATIENT UNABLE TO AMBULATE. GALAVIZ CATHETER IN PLACE, SECURE CLEAN AND DRY. PICC LINE ON PATY INFUSING D5 NS AT 50. PICC LINE DRESSING CLEAN DRY AND INTACT. PATIENT ON WOUND CARE BED. ABDOMINAL WOUND, LEFT LABIA WOUND, AND SACRAL WOUND DRESSINGS ARE DRY AND INTACT. FALL RISK PROTOCOL IN PLACE. BED IN LOW POSITION, CALL LIGHT WITHIN REACH. WILL CONTINUE TO MONITOR.
[2018-03-29] MEDS: NYSTATIN/TRIAMCINOLONE CRM 15 GM TUBE TP SCH ×2 (09:00→20:55)
--- NOTE | 2018-03-29 09:00 | NUR ---
P.T. NOTES PATIENT REQUESTING NOT TO GET UP TODAY STATING SHE'S VERY ANXIOUS BECAUSE SHE WILL BE UNDERGOING ANOTHER SURGERY LATER TODAY. PATIENT WAS REMINDED OF THE IMPORTANCE OF GETTING OUT OF BED AND MOBILITY ACTIVITIES BUT STATES SHE HAS BEEN MOVING AND EXERCISING HER ARM AND LEGS WHILE IN BED. HER REQUEST TO REFUSE WAS RESPECTED. CHARGE NURSE JACE WAS MADE AWARE OF HER REFUSAL TODAY. PLAN: WE'LL CONTINUE PER PLAN OF CARE TOMORROW.
[2018-03-29] MEDS: LACTOBACILLUS RHAMNOSUS GG 1 EACH CAP PO SCH ×2 (09:43→20:54)
[2018-03-29] MEDS: ZINC SULF 220 MG CAP PO SCH (09:44)
[2018-03-29] MEDS: BACLOFEN 10 MG TAB PO SCH ×3 (09:44→16:58)
[2018-03-29] MEDS: ESCITALOPRAM 20 MG TAB PO SCH (09:44)
[2018-03-29] MEDS: GLIMEPIRIDE 2 MG TAB PO SCH ×2 (09:45→20:54)
[2018-03-29] MEDS: SENNA 8.6 MG TAB PO SCH (09:46)
[2018-03-29] MEDS: ASCORBIC ACID 500 MG TAB PO SCH ×2 (09:46→20:54)
[2018-03-29] MEDS: amLODIPine 5 MG TAB PO SCH (09:48)
[2018-03-29] MEDS: POLYETHYLENE GLYCOL 17 GM/PKT PO SCH (09:49)
--- NOTE | 2018-03-29 10:25 | NUR ---
BLOOD SUGAR IS 76. NO COVERAGE NEEDED. WILL CONTINUE TO MONITOR.
[2018-03-29 11:09] LABS: HEMATOCRIT 29.1 % (36-48); HEMOGLOBIN 9.3 g/dL (12.0-16.0); MEAN CORPUSCULAR HEMOGLOBIN 26 pg (27-31); MEAN CORPUSCULAR HGB CONC 32 g/dL (33-37); MEAN CORPUSCULAR VOLUME 82.4 fL (80-94); PLATELET COUNT (AUTO) 454 K/uL (140-450); RED BLOOD CELL COUNT(AUTO) 3.54 MIL/uL (4.20-5.40); RED CELL DISTRIBUTION WIDTH 15.5 % (11.6-13.7); WHITE BLOOD COUNT (AUTO) 16.1 K/uL (4.8-10.8)
[2018-03-29 11:33] LABS: LYMPHOCYTES % (MANUAL) 15 % (20-46); MONOCYTES % (MANUAL) 3 % (5-12)
[2018-03-29 12:05] LABS: ALBUMIN 1.7 g/dL (3.4-5.0); ANION GAP 8.6 (8-16); CARBON DIOXIDE 30.2 mmol/L (21-32); CREATININE 0.7 mg/dL (0.6-1.3); POTASSIUM 4.8 mmol/L (3.5-5.1); TOTAL BILIRUBIN 0.5 mg/dL (0.0-1.0)
[2018-03-29] MEDS: WOUND CARE PREPARATION 178 ML SPR TP SCH (12:06)
[2018-03-29] MEDS: GAUZE TP SCH (12:06)
--- NOTE | 2018-03-29 12:07 | NUR ---
CHANGED WOUND DRESSINGS ON ABDOMEN, LEFT PERINEUM AREA, AND BUTTOCKS. CLEANSED PATIENT WITH WIPES AND NS. GAUZE USED TO PAT AREA DRY. ABDOMINAL PADS COVERED WOUNDS. DRESSINGS ARE DRY AND INTACT. APPLIED Z GUARD TO GROIN AREA. NYSTATIN APPLIED ON BUTTOCKS. PATIENT TOLERATED WELL. WILL CONTINUE TO MONITOR.
[2018-03-29 12:47] LABS: PROTHROMBIN TIME 11.2 secs (10.8-13.4)
[2018-03-29] MEDS: FOAM DRESSING TP SCH (12:49)
--- NOTE | 2018-03-29 17:01 | NUR ---
FAMILY AT BEDSIDE. PATIENT ON ROOM AIR, NO DISTRESS NOTED. WILL CONTINUE TO MONITOR.
[2018-03-29] MEDS ORDERED: PROPOFOL 200 MG/20 ML VIAL IV ONE (17:21)
[2018-03-29] MEDS ORDERED: KETAMINE 500 MG/5 ML VIAL ONE (17:23)
[2018-03-29] MEDS ORDERED: BUPIVACAINE-MPF 0.5% 30 ML VIAL INJ ONE (17:30)
[2018-03-29] MEDS ORDERED: ONDANSETRON 4 MG/2 ML VIAL IVP PRN (17:45)
[2018-03-29] MEDS ORDERED: HYDROmorphone 1 MG/ML AMP IVP PRN (17:45)
[2018-03-29] MEDS ORDERED: BUPIVACAINE-MPF/EPI 0.25% 30 ML VIAL INJ ONE ×3 (18:10→18:47)
[2018-03-29] MEDS ORDERED: BLOOD GLUCOSE MONITORING 1 DEV DEV FS SCH (18:11)
--- NOTE | 2018-03-29 19:05 | NUR ---
RECEIVED REPORT FROM DAY SHIFT FROM DAY SHIFT NURSE, PT CURRENTLY IN SURGERY.
--- NOTE | 2018-03-29 19:05 | NUR ---
GAVE REPORT TO AIRCRAFT PART ASSEMBLER NURSE. PATIENT CURRENTLY STILL IN OR.
--- NOTE | 2018-03-29 19:30 | NUR ---
PT ARRIVED ON BACK ON UNIT FROM OR. PT IS ACCOMPANIED BY FAMILY MEMBERS. PT IS AAOX4. VS WNL. NO C/O PAIN AT THIS TIME. NO SIGNS OR SYMPTOMS OF DISTRESS. WILL CONTINUE TO MONITOR.
[2018-03-29] MEDS: ATORVASTATIN 20 MG TAB PO SCH (20:54)
--- NOTE | 2018-03-29 20:54 | NUR ---
ADMINISTERED SCHEDULED MEDICATIONS. BS CHECKED, 143. NO COVERAGE NEEDED PER MD ORDERS. PT C/O PAIN, MORPHINE GIVEN. PT FAMILY IS STILL AT BEDSIDE. PT HAS NO SIGNS OR SYMPTOMS OF DISTRESS. WILL CONTINUE TO MONITOR.
--- NOTE | 2018-03-29 23:00 | NUR ---
PT ASLEEP IN BED. PT TOLERATED WELL. NO SIGNS OR SYMPTOMS OF DISTRESS. WILL CONTINUE TO MONITOR.
[2018-03-30] VITALS: BP 135/65
[2018-03-30] MEDS: MORPHINE SULFATE 4 MG/ML SYR IVP PRN ×4 (01:04→21:42)
[2018-03-30] MEDS: Z-GUARD PASTE TP SCH ×2 (01:04→13:48)
--- NOTE | 2018-03-30 01:04 | NUR ---
PT C/O PAIN, MORPHINE GIVEN. PT TOLERATED WELL. NO SIGNS OR SYMPTOMS OF DISTRESS. WILL CONTINUE TO MONITOR.
--- NOTE | 2018-03-30 01:24 | NUR ---
PT HAD SM BM. PT CLEANED AND TURNED. DRESSING REMAIN CLEAN, DRY AND INTACT. PT TOLERATED WELL. NO SIGNS OR SYMPTOMS OF DISTRESS. WILL CONTINUE TO MONITOR.
[2018-03-30] MEDS: DEXT 5% /NACL 0.9% 1,000 ML IV SCH ×2 (02:40→22:40)
--- NOTE | 2018-03-30 04:45 | NUR ---
PT C/O PAIN, MORPHINE GIVEN. PT TOLERATED WELL. WILL CONTINUE TO MONITOR.
--- NOTE | 2018-03-30 05:28 | NUR ---
PT HAD SM BM. DRESSING SOILED. CLEANED PT AND CHANGED DRESSING. PT TOLERATED WELL. NO SIGNS OR SYMPTOMS OF DISTRESS. WILL CONTINUE TO MONITOR.
--- NOTE | 2018-03-30 05:39 | NUR ---
BS CHECKED, 132. NO COVERAGE NEEDED PER MD ORDERS.
[2018-03-30] MEDS: BLOOD GLUCOSE MONITORING 1 DEV DEV FS SCH ×4 (05:51→21:00)
[2018-03-30] MEDS: INSULIN NPH HUMAN ISOPHANE 100 UNIT/ML VIAL SUBQ SCH ×2 (05:55→17:13)
--- NOTE | 2018-03-30 05:56 | NUR ---
SCHEDULED MEDICATION ADMINISTERED. PT TOLERATED WELL. ALL OTHER NEEDS ARE MET AT THIS TIME. WILL CONTINUE TO MONITOR.
--- NOTE | 2018-03-30 07:09 | NUR ---
ENDORSED PT TO DAY SHIFT NURSE FOR CONTINUITY OF CARE. PT IN STABLE CONDITION.
--- NOTE | 2018-03-30 07:10 | NUR ---
RECEIVED BEDSIDE REPORT FROM DIESEL MECHANIC FARM NURSE. PATIENT AAOX4. PATIENT ON ROOM AIR, NO DISTRESS NOTED. PATIENT UNABLE TO AMBULATE. WITH GALAVIZ CATHETER, CLEAN DRY AND INTACT. PICC LINE ON PATY, CLEAN DRY AND INTACT. PATIENT ON WOUND CARE BED. DRESSINGS ON ABDOMEN, L LABIA, AND BUTTOCKS CLEAN DRY AND INTACT. FALL RISK PROTOCOL IN PLACE. BED IN LOW POSITION, CALL LIGHT WITHIN REACH. WILL CONTINUE TO MONITOR.
--- NOTE | 2018-03-30 07:59 | NUR ---
ASKED PATIENT ABOUT ALLERGY TO CODEINE REGARDING ORDER FOR DILAUDID. PATIENT STATED THE CODEINE ALLERGY REACTION WAS LONG AGO. PATIENT STATED THE REACTION WAS A STOMACH ACHE, AND DILAUDID HAS HELPED HER IN THE PAST. PATIENT OK TO GET DILAUDID.
[2018-03-30 08:00] VITALS: BP 115/57
[2018-03-30] MEDS: HYDROmorphone 1 MG/ML AMP IVP PRN ×2 (08:21→16:42)
[2018-03-30] MEDS: ESCITALOPRAM 20 MG TAB PO SCH (08:34)
[2018-03-30] MEDS: LACTOBACILLUS RHAMNOSUS GG 1 EACH CAP PO SCH ×2 (08:34→21:51)
[2018-03-30] MEDS: ASCORBIC ACID 500 MG TAB PO SCH ×2 (08:35→21:52)
[2018-03-30] MEDS: BACLOFEN 10 MG TAB PO SCH ×3 (08:36→16:42)
[2018-03-30] MEDS: SENNA 8.6 MG TAB PO SCH (08:36)
[2018-03-30] MEDS: GLIMEPIRIDE 2 MG TAB PO SCH ×2 (08:36→21:51)
[2018-03-30] MEDS: ZINC SULF 220 MG CAP PO SCH (08:37)
[2018-03-30] MEDS: POLYETHYLENE GLYCOL 17 GM/PKT PO SCH (09:00)
[2018-03-30] MEDS: amLODIPine 5 MG TAB PO SCH (09:00)
[2018-03-30] MEDS: NYSTATIN/TRIAMCINOLONE CRM 15 GM TUBE TP SCH ×2 (09:00→21:00)
--- NOTE | 2018-03-30 11:35 | NUR ---
WOUND CARE RE-EVALUATION S/P SURGICAL DEBRIDEMENT 03/29/2018 INTEGUMENTARY -ABDOMEN SURGICAL WOUNDS " Z " SHAPE WOUND.[id number] CM, WOUND BED 60% YELLOW SLOUGH AND 4O % GRANULATING TISSUE WITH MODERATE AMOUNT OF SEROSANGUINEOUS DRAINAGE, NO ODOR AND HELENA-WOUND SKIN INTACT. TUNNELING TO 6 O'CLOCK THRU LEFT LABIA SURGICAL WOUND, UNDERMINING TO 3 O'CLOCK 3CM. -LEFT LABIA SURGICAL WOUND [id number], 100% GRANULATION TISSUE WITH MODERATE AMOUNT OF SEROSANGUINEOUS DRAINAGE, NO ODOR AND HELENA-WOUND SKIN INTACT. TUNNELING TO 12 O'CLOCK THRU ABDOMEN SURGICAL WOUND -LEFT PERINEUM/ ISCHIORECTAL SURGICAL WOUND [id number], WITH TUNNELING @12 O'CLOCK, 100% GRANULATION TISSUE WITH MODERATE AMOUNT OF SEROSANGUINEOUS DRAINAGE, NO ODOR AND HELENA-WOUND SKIN TOWARD HELENA-ANAL AREA DENUDED HAS IMPROVED -LEFT MEDIAL THIGH S/P I&D [id number] WOUND BED IS 100% YELLOW, MODERATE AMOUNT OF SEROSANGUINEOUS DRAINAGE, NO ODOR AND HELENA-WOUND SKIN INTACT. -SACRALCOCCYX IAD IMPROVING, SLIT OBSERVED, WOUND BED PINK, HELENA-WOUND DRY AND INTACT. RECOMMENDATIONS: -DISCONTINUE [facility] VAC THERAPY -CLEANSE LEFT LABIA AND LEFT PERINEUM EXTENDED ISCHIORECTAL AND LEFT MEDIAT THIGH SURGICAL WOUNDS WITH NS, PAT DRY, PACK WOUNDS WITH 1/2" ELBA ROLL MOIST WITH NS, FILL THE BASE OF THE WOUND, COVER WITH ABD DRESSING AND SECURE WITH TAPE QD AND PRN IF SOILING. - AFTER DRESSING APPLY TO PERIANAL MAY APPLY RECTAL BAG TO ANAL AREA TO COLLECT STOOL TO AVOID FECAL CONTAMINATION
--- NOTE | 2018-03-30 11:35 | NUR ---
MET DR. ANN AT [facility] UNIT AND EXPLAIN WOUND VAC NOT APPROPRIATE THIS TIME DUE TO ABDOMINAL SURGICAL WOUND HAS TUNNELING THRU LEFT LABIA AND ENTIRE OPEN WOUNDS THRU PERINEUM/ISCHIORECTAL AREAS WITH HIGH RISK OF FECAL CONTAMINATION.
[2018-03-30 12:48] LABS: HEMATOCRIT 31.4 % (36-48); HEMOGLOBIN 9.9 g/dL (12.0-16.0); MEAN CORPUSCULAR HEMOGLOBIN 26 pg (27-31); MEAN CORPUSCULAR HGB CONC 32 g/dL (33-37); MEAN CORPUSCULAR VOLUME 81.9 fL (80-94); PLATELET COUNT (AUTO) 500 K/uL (140-450); RED BLOOD CELL COUNT(AUTO) 3.83 MIL/uL (4.20-5.40); RED CELL DISTRIBUTION WIDTH 15.6 % (11.6-13.7); WHITE BLOOD COUNT (AUTO) 17.6 K/uL (4.8-10.8)
[2018-03-30 13:00] LABS: ALBUMIN 1.9 g/dL (3.4-5.0); ANION GAP 9.6 (8-16); CARBON DIOXIDE 28.5 mmol/L (21-32); CREATININE 0.7 mg/dL (0.6-1.3); POTASSIUM 4.1 mmol/L (3.5-5.1); TOTAL BILIRUBIN 0.6 mg/dL (0.0-1.0)
[2018-03-30 13:12] LABS: EOSINOPHILS % (MANUAL) 2 % (0-4); LYMPHOCYTES % (MANUAL) 6 % (20-46); MONOCYTES % (MANUAL) 2 % (5-12)
[2018-03-30] MEDS: GAUZE TP SCH (13:47)
[2018-03-30] MEDS: WOUND CARE PREPARATION 178 ML SPR TP SCH (13:47)
[2018-03-30] MEDS: FOAM DRESSING TP SCH (13:47)
--- NOTE | 2018-03-30 14:30 | NUR ---
SOILED DRESSINGS AND LINENS CHANGED. PATIENT TURNED TO OPPOSITE SIDE. PATIENT PULLED UP IN BED. DRESSINGS CLEAN DRY AND INTACT. GALAVIZ CATHETER CARE PERFORMED. PATIENT TOLERATED WELL. WILL CONTINUE TO MONITOR.
[2018-03-30] MEDS: INTERDRY CLOTH TP SCH (15:00)
[2018-03-30 16:00] VITALS: BP 128/51
--- NOTE | 2018-03-30 18:00 | NUR ---
PATIENT EATING DINNER. PATIENT ON ROOM AIR, WITH NO DISTRESS NOTED. WILL CONTINUE TO MONITOR.
--- NOTE | 2018-03-30 19:19 | NUR ---
RECEIVED REPORT AT BEDSIDE FROM RN DAYSHIFT NURSE, PT IN STABLE CONDITION.
--- NOTE | 2018-03-30 19:19 | NUR ---
GAVE REPORT TO RADIOLOGY AIDE NURSE. PATIENT ENDORSED IN STABLE CONDITION.
--- NOTE | 2018-03-30 20:00 | NUR ---
PT IN BED ALL FALLS PRECAUTIONS IN PLACE AND CALL YANES IN EACH. PT AOX4 , DRESSINGS INTACT PICC LINE INTACT AND FLUSHED PATENT. PT C/O MILD PAIN 3-4/10. FAMILY AT BEDSIDE AND V/S FOLLOWS T 98.6 P 82 R 20 B/P/140/66 02 94% ON ROOM AIR. WILL CONTINUE TO MONITOR PT PAIN LEVEL.
--- NOTE | 2018-03-30 21:45 | NUR ---
PT IN BED C/O PAIN 6/10 PAIN AND REQUESTED MORPHINE. PT GIVEN MORPHINE PRN/IVP ORDERED. PT ALSO GIVEN ALL DUE MEDS. FINGERSTICK IS 150 NO COVERAGE NEEDED. PT HAD A BM, PT WAS CLEANED, CHANGED AND TURNED. WILL CONTINUE TO MONITOR FOR EFFECT OF PAIN MEDICATION.
[2018-03-30] MEDS: ATORVASTATIN 20 MG TAB PO SCH (21:52)
[2018-03-31 01:00] VITALS: BP 136/59
[2018-03-31] MEDS: Z-GUARD PASTE TP SCH ×2 (01:00→13:50)
--- NOTE | 2018-03-31 01:00 | NUR ---
PT IN BED, ALL FALLS PRECAUTIONS IN PLACE V/S FOLLOWS T 97.0 P 80 R 20 B/P 136/59 02 95% WITH ROOM AIR. ALL REQUESTED NEEDS ATTENDED BY STAFF AND CALL YANES IN REACH.
[2018-03-31] MEDS: HYDROmorphone 1 MG/ML AMP IVP PRN ×3 (03:55→21:25)
--- NOTE | 2018-03-31 04:00 | NUR ---
PT GIVEN DILAUDID IVP FOR SEVERE PAIN IN WOUNDS. MEDICATION ADMINISTRATION. GIVEN BEFORE WOUND CARE.
[2018-03-31] MEDS: BLOOD GLUCOSE MONITORING 1 DEV DEV FS SCH ×3 (06:23→17:00)
[2018-03-31] MEDS: INSULIN NPH HUMAN ISOPHANE 100 UNIT/ML VIAL SUBQ SCH ×2 (06:30→17:00)
--- NOTE | 2018-03-31 07:20 | NUR ---
RECEIVED BEDSIDE REPORT FROM ANGELA OSCAR. PT STABLE, AWAKE, AND ALERT. NO SIGNS OF DISTRESS NOTED. DENIES PAIN. CALL LIGHT WITHIN REACH. BED IN LOW POSITION. SAFETY MEASURES IN PLACE. PLAN OF CARE REVIEWED.
--- NOTE | 2018-03-31 07:20 | NUR ---
REPORT GIVEN AT BEDSIDE FOR CONTINUITY OF CARE, PT IN STABLE CONDITION.
[2018-03-31 08:00] VITALS: BP 113/62
[2018-03-31] MEDS: MORPHINE SULFATE 4 MG/ML SYR IVP PRN ×2 (08:46→18:44)
[2018-03-31] MEDS: ESCITALOPRAM 20 MG TAB PO SCH (08:47)
[2018-03-31] MEDS: LACTOBACILLUS RHAMNOSUS GG 1 EACH CAP PO SCH ×2 (08:47→21:17)
[2018-03-31] MEDS: ZINC SULF 220 MG CAP PO SCH (08:48)
[2018-03-31] MEDS: amLODIPine 5 MG TAB PO SCH (08:48)
[2018-03-31] MEDS: ASCORBIC ACID 500 MG TAB PO SCH ×2 (08:48→21:18)
[2018-03-31] MEDS: BACLOFEN 10 MG TAB PO SCH ×3 (08:49→17:00)
[2018-03-31] MEDS: GLIMEPIRIDE 2 MG TAB PO SCH ×2 (08:49→21:17)
--- NOTE | 2018-03-31 08:50 | NUR ---
ADMINISTERED SCHEDULED MEDICATIONS. ADMINISTERED MORPHINE FOR 8/10 PAIN ON LOWER ABDOMINAL WOUND. PT TOLERATED WELL. NO SIGNS OF DISTRESS NOTED. NO OTHER NEEDS AT THIS TIME.
[2018-03-31] MEDS: NYSTATIN/TRIAMCINOLONE CRM 15 GM TUBE TP SCH ×2 (09:00→21:00)
[2018-03-31] MEDS: SENNA 8.6 MG TAB PO SCH (09:00)
[2018-03-31] MEDS: POLYETHYLENE GLYCOL 17 GM/PKT PO SCH (09:00)
--- NOTE | 2018-03-31 11:50 | NUR ---
DR ABDI PAGED AND CALLED BACK, INFORMED OF ORDER FOR MEROPENEM, ORDER RENEWED SAME DOSE AND FREQUENCY PREVIOUSLY PER DR ABDI.
--- NOTE | 2018-03-31 12:12 | NUR ---
BG 61, GAVE PT ORANGE JUICE AND MILK. PT REFUSED TO EAT BREAKFAST AND LUNCH. ENCOURAGED TO INCREASE PO INTAKE. PT DRINKING GLUCERNA.
[2018-03-31] MEDS: DEXT 5% /NACL 0.9% 1,000 ML IV SCH (12:13)
--- NOTE | 2018-03-31 13:40 | NUR ---
ADMINISTERED DILAUDID FOR WOUND CARE. ADMINISTERED SCHEDULED MEDICATION. WOUND CARE DONE PER MD ORDER. DRESSING CHANGED. PT TOLERATED WELL. NO OTHER NEEDS AT THIS TIME.
[2018-03-31] MEDS: WOUND CARE PREPARATION 178 ML SPR TP SCH (13:49)
[2018-03-31] MEDS: GAUZE TP SCH (13:49)
[2018-03-31] MEDS: FOAM DRESSING TP SCH (13:49)
[2018-03-31] MEDS: MEROPENEM 1,000 MG in NACL 0.9% 100 ML IV SCH ×2 (14:05→21:16)
[2018-03-31 16:00] VITALS: BP 130/62
--- NOTE | 2018-03-31 17:00 | NUR ---
ADMINISTERED SCHEDULED MEDICATION, HELD HUMULIN N FOR BG 65. GAVE PT ORANGE JUICE, MILK, AND CRACKERS. NO SIGNS OF DISTRESS NOTED.
--- NOTE | 2018-03-31 18:45 | NUR ---
HEMODIALYSIS COMPLETED BY DIALYSIS NURSE PAOLO, 2.0L TAKEN OUT OVER [id number], PER REPORT. Addendum: 03/31/18 at 1847 by Yessy Smyth RN DISREGARD ABOVE NOTE
--- NOTE | 2018-03-31 18:47 | NUR ---
MORPHINE GIVEN FOR PAIN AFTER WOUND CARE
--- NOTE | 2018-03-31 19:15 | NUR ---
RECEIVED ENDORSEMENT OF CARE FROM [facility] RN DAYSHIFT NURSE FOR CONTINUITY OF CARE, PT IN STABLE CONDITION.
--- NOTE | 2018-03-31 19:15 | NUR ---
ENDORSED PT TO ANGELA OSCAR FOR CONTINUITY OF CARE. PT IN STABLE CONDITION, AWAKE, AND ALERT.
--- NOTE | 2018-03-31 20:10 | NUR ---
PT ON WOUND BED WITH ALL FALLS PRECAUTIONS IN PLACE. PICC LINE ON UPPER R ARM INTACT AND RUNNING D5 NS AT 50MLS/HR. V/S FOLLOWS T 97.0 P 80 R 18 B/P145/60 02 94%. PT C/O 6/10 PAIN IN WOUNDS, WILL MEDICATE REQUESTED.
[2018-03-31] MEDS: ATORVASTATIN 20 MG TAB PO SCH (21:17)
--- NOTE | 2018-03-31 21:30 | NUR ---
PT GIVEN ALL DUE MEDS AT THIS TIME, GLIPIZIDE, LIPITOR, VITAMIN C, WELL MERREM IV ABT . FINGERSTICK IS 113 PT C/O OF SEVERE PAIN IN WOUNDS 9/10 PAIN. PT GIVEN 1MG DILAUDID PRN/IVP. WILL CONTINUE TO MONITOR PT FOR PAIN RELIEF.
[2018-04-01] VITALS: BP 144/71
--- NOTE | 2018-04-01 00:16 | NUR ---
PT IN BED AWAKE NO C/O VOICED V/S FOLLOWS T 97.4 P 82 R 18 B/P 144/71 02 96% WITH ROOM AIR. ALL FALLS PRECAUTIONS IN PLACE AND BILL YANES IN REACH.
[2018-04-01] MEDS: Z-GUARD PASTE TP SCH ×2 (01:00→13:44)
[2018-04-01] MEDS: MORPHINE SULFATE 4 MG/ML SYR IVP PRN ×2 (03:33→21:46)
--- NOTE | 2018-04-01 05:30 | NUR ---
MERREM IV ABT HUNG ORDERED.
[2018-04-01] MEDS: MEROPENEM 1,000 MG in NACL 0.9% 100 ML IV SCH ×3 (05:33→21:39)
--- NOTE | 2018-04-01 06:30 | NUR ---
PT F/S IS 79 GIVEN LARGE GLASS OF OJ WITH SUGAR PACKETS (2) . PT THEN RECEIVED SCHEDULED HUMULIN N
[2018-04-01] MEDS: INSULIN NPH HUMAN ISOPHANE 100 UNIT/ML VIAL SUBQ SCH ×2 (06:39→17:00)
--- NOTE | 2018-04-01 07:30 | NUR ---
REPORT GIVEN TO MAYRA MILLER DAYSHIFT NURSE AT BEDSIDE FOR CONTINUITY OF CARE, PT IN STABLE CONDITION.
--- NOTE | 2018-04-01 07:31 | NUR ---
RECEIVED REPORT FROM PRODUCT MARKETING EXECUTIVE NURSE. PATIENT LYING DOWN IN BED SLEEPING, AROUSABLE BY VOICE. NO DISTRESS NOTED. PAIN WITHIN TOLERABLE AT THIS TIME. AAOX4, CALM, COOPERATIVE, SKIN COLOR APPROPRIATE TO ETHNICITY, WARM TO TOUCH. HAS LARGE ABDOMINAL WOUND, LEFT THIGH, LEFT GLUTEAL, AND LEFT LABIA WOUNDS. DRESSING IS DRY AND INTACT. RIGHT PICC LINE NOTED, PATENT, AND INFUSING IVF PER MD ORDERS. REVIEWED PLAN OF CARE WITH PATIENT. PATIENT VERBALIZED UNDERSTANDING. SAFETY MEASURES IN PLACE, CALL LIGHT WITHIN REACH. WILL CONTINUE TO MONITOR.
[2018-04-01 08:00] VITALS: BP 125/89
[2018-04-01] MEDS: POLYETHYLENE GLYCOL 17 GM/PKT PO SCH (09:00)
[2018-04-01] MEDS: GLIMEPIRIDE 2 MG TAB PO SCH ×2 (09:56→21:44)
[2018-04-01] MEDS: LACTOBACILLUS RHAMNOSUS GG 1 EACH CAP PO SCH ×2 (09:56→21:44)
[2018-04-01] MEDS: amLODIPine 5 MG TAB PO SCH (09:56)
[2018-04-01] MEDS: BACLOFEN 10 MG TAB PO SCH ×3 (09:56→18:10)
[2018-04-01] MEDS: SENNA 8.6 MG TAB PO SCH (09:57)
[2018-04-01] MEDS: ESCITALOPRAM 20 MG TAB PO SCH (09:57)
[2018-04-01] MEDS: ZINC SULF 220 MG CAP PO SCH (09:57)
[2018-04-01] MEDS: ASCORBIC ACID 500 MG TAB PO SCH ×2 (09:57→21:44)
[2018-04-01] MEDS: ENOXAPARIN 40 MG/0.4 ML SYR SUBQ SCH (09:58)
[2018-04-01] MEDS: NYSTATIN/TRIAMCINOLONE CRM 15 GM TUBE TP SCH ×2 (09:59→21:45)
[2018-04-01] MEDS: DEXT 5% /NACL 0.9% 1,000 ML IV SCH ×2 (10:10→14:40)
--- NOTE | 2018-04-01 10:26 | NUR ---
PATIENT LYING DOWN IN BED. NO DISTRESS NOTED. PAIN WITHIN TOLERABLE. SCHEDULED MEDICATIONS DUE GIVEN. WILL CONTINUE TO MONITOR.
[2018-04-01] MEDS ORDERED: DEXTROSE 50% 50 ML SYR IVP PRN (10:35)
[2018-04-01] MEDS: BLOOD GLUCOSE MONITORING 1 DEV DEV FS SCH ×3 (11:30→21:37)
[2018-04-01] MEDS: FOAM DRESSING TP SCH (13:43)
[2018-04-01] MEDS: GAUZE TP SCH (13:43)
[2018-04-01] MEDS: WOUND CARE PREPARATION 178 ML SPR TP SCH (13:44)
[2018-04-01] MEDS: HYDROmorphone 1 MG/ML AMP IVP PRN (14:33)
[2018-04-01] MEDS: ERGOCALCIFEROL 50,000 IU SGL PO SCH (14:43)
--- NOTE | 2018-04-01 14:47 | NUR ---
PATIENT LYING DOWN IN BED WATCHING TV. NO DISTRESS NOTED. PAIN MEDICATION GIVEN. WOUND DRESSING CHANGED PER MD ORDERS. SCHEDULED MEDICATIONS DUE GIVEN. PATIENT TOLERATED WELL. WILL CONTINUE TO MONITOR.
[2018-04-01 16:00] VITALS: BP 137/81
--- NOTE | 2018-04-01 17:00 | NUR ---
BLOOD GLUCOSE 59, ASYMPTOMATIC. PATIENT REPORTS NOT EATING LUNCH DUE TO DECREASED APPETITE. 2 ORANGE JUICES GIVEN AT THIS TIME. WILL CONTINUE TO MONITOR.
--- NOTE | 2018-04-01 18:11 | NUR ---
PATIENT LYING DOWN IN BED WATCHING TV. SCHEDULED MEDICATIONS DUE GIVEN. WILL CONTINUE TO MONITOR.
--- NOTE | 2018-04-01 19:20 | NUR ---
RECEIVED ENDORSEMENT FROM MAYRA MILLER DAYSMDFT NURSE FOR CONTINUITY OF CARE, PT IN STABLE CONDITION.
--- NOTE | 2018-04-01 20:00 | NUR ---
PT ON WOUND BED AOX4, WITH DRESSINGS INTACT AND PICC LINE ON UPPER R ARM INTACT AND FLUSHED PATENT. PT V/S FOLLOWS T 98.6 P 82 R 18 B/P 127/62 02 95% ON R/A. PT DECLINED TO BE TURNED AND REPOSITIONED. 450 MLS OF YELLOW CLEAR URINE DRAINED FROM GALAVIZ CATHETER BAG. BED LOW ALL FALS PRECAUTIONS IN PLACE AND CALL YANES IN REACH.
--- NOTE | 2018-04-01 21:00 | NUR ---
PT GIVEN SCHEDULED MEDS INCLUDING IV ABT MERREM. PT TURNED AND REPOSITIONED. ALL FALLS PRECAUTIONS IN PLACE AND CALL YANES IN REACH.
--- NOTE | 2018-04-01 21:15 | NUR ---
PT FINGERSTICK IS 125, NO COVERAGE NEEDED.
--- NOTE | 2018-04-01 22:00 | NUR ---
PT C/O 7/10 PAIN IN BACK, WOUNDS AND GENERALIZED BODY PAIN. PT GIVEN IVP/PRN MORPHINE 4MG. WILL CONTINUE TO MONITOR PT FOR PAIN RELIEF.
[2018-04-02] VITALS: BP 137/81
--- NOTE | 2018-04-02 00:45 | NUR ---
PT REMAINS ON WOUND BED WITH ALL FALLS PRECAUTIONS IN PLACE. D5 N/S RUNNING AT 50MLS/HR. PICC LINE IN TACT AND FLUSHED PATENT. PT SAYS THAT SHE FEELS BETTER, HOWEVER PT DECLINES TO BE TURNED AND REPOSITIONED. ASKED PT IS WE COULD TURN AND CHANGE HER DURING WOUND CARE, AND PT AGREES.
[2018-04-02] MEDS: Z-GUARD PASTE TP SCH ×2 (01:00→13:00)
--- NOTE | 2018-04-02 02:00 | NUR ---
PT TURNED , CHANGED AND REPOSITIONED. WOUND CARE PROVIDED.
[2018-04-02] MEDS: HYDROmorphone 1 MG/ML AMP IVP PRN (04:10)
--- NOTE | 2018-04-02 04:19 | NUR ---
PT GIVEN DILAUDID FOR SEVERE PAIN IN WOUNDS 10/20. DILAUDID IVP/PRN. WILL MONITOR FOR EFFECT.
[2018-04-02] MEDS: MEROPENEM 1,000 MG in NACL 0.9% 100 ML IV SCH ×3 (05:39→21:18)
--- NOTE | 2018-04-02 05:48 | NUR ---
POSITIVE EFFECT OF PRN DILAUDID, MERREM IV ABT HUNG ORDERED.
[2018-04-02 06:30] LABS: BASOPHILS # (AUTO) 0.1 K/uL (0.00-0.22); BASOPHILS % (AUTO) 0.7 % (0.0-2.0); EOSINOPHILS # (AUTO) 0.5 K/uL (0-0.4); EOSINOPHILS % (AUTO) 3.5 % (0.0-4.0); HEMATOCRIT 28.7 % (36-48); HEMOGLOBIN 9.2 g/dL (12.0-16.0); LYMPHOCYTES # (AUTO) 1.8 K/uL (2.5-16.5); LYMPHOCYTES % (AUTO) 13.6 % (20.5-51.1); MEAN CORPUSCULAR HEMOGLOBIN 26 pg (27-31); MEAN CORPUSCULAR HGB CONC 32 g/dL (33-37); MEAN CORPUSCULAR VOLUME 81.3 fL (80-94); MONOCYTES # (AUTO) 0.9 K/uL (0.8-1.0); NEUTROPHILS # (AUTO) 10.1 K/uL (1.8-7.7); NEUTROPHILS % (AUTO) 75.2 % (42.2-75.2); PLATELET COUNT (AUTO) 424 K/uL (140-450); RED BLOOD CELL COUNT(AUTO) 3.53 MIL/uL (4.20-5.40); RED CELL DISTRIBUTION WIDTH 15.9 % (11.6-13.7); WHITE BLOOD COUNT (AUTO) 13.5 K/uL (4.8-10.8)
[2018-04-02] MEDS: INSULIN NPH HUMAN ISOPHANE 100 UNIT/ML VIAL SUBQ SCH ×2 (06:48→17:00)
[2018-04-02] MEDS: BLOOD GLUCOSE MONITORING 1 DEV DEV FS SCH ×4 (06:50→21:29)
--- NOTE | 2018-04-02 06:52 | NUR ---
AM FINGERSTICK WAS 101 NO HUMALOG COVERAGE NEEDED. PT GIVEN 2 JUICES WITH SUGAR PACKET AND SHE CONSUMMED THEM. PT GIVEN LONG ACTING HUMULIN N 20 UNITS ORDERED.
[2018-04-02 07:02] LABS: ALBUMIN 1.9 g/dL (3.4-5.0); ANION GAP 8.7 (8-16); CARBON DIOXIDE 28.4 mmol/L (21-32); CREATININE 0.7 mg/dL (0.6-1.3); POTASSIUM 4.1 mmol/L (3.5-5.1); TOTAL BILIRUBIN 0.5 mg/dL (0.0-1.0)
--- NOTE | 2018-04-02 07:21 | NUR ---
ENDORSED CARE TO MAYRA MILLER AND FUNMI MILLER ORIENTEE AT BEDSIDE FOR CONTINUITY OF CARE, PT IN STABLE CONDITION.
--- NOTE | 2018-04-02 07:23 | NUR ---
RECEIVED BEDSIDE REPORT FROM WOOL FLEECE SORTER NURSE. PATIENT IS AOX4. SKIN IS INTACT, CLEAN AND DRY. SHE HAS MULTIPLE WOUND ON ABDOMEN, LEFT THIGH, AND LEFT LABIA, LEFT BUTTOCKS. DRESS DRY, CLEAN AND INTACT.RECTAL BAG IN PLACE. PATIENT IS BEDREST. RESPIRATION IS EVEN, UNLABORED AND ON ROOM AIR. R PICC LINE NOTICED, INTACT AND PATENT, INFUSING IVF ORDERED. SAFETY MEASURES IN PLACE. BED IN LOW POSITION, CALL LIGHT WITHIN REACH. WILL CONTINUE TO MONITOR.
[2018-04-02 08:00] VITALS: BP 137/51
[2018-04-02] MEDS: MORPHINE SULFATE 4 MG/ML SYR IVP PRN ×3 (08:26→19:11)
[2018-04-02] MEDS: LACTOBACILLUS RHAMNOSUS GG 1 EACH CAP PO SCH ×2 (08:32→21:19)
[2018-04-02] MEDS: ASCORBIC ACID 500 MG TAB PO SCH ×2 (08:33→21:19)
[2018-04-02] MEDS: SENNA 8.6 MG TAB PO SCH (08:33)
[2018-04-02] MEDS: ZINC SULF 220 MG CAP PO SCH (08:34)
[2018-04-02] MEDS: amLODIPine 5 MG TAB PO SCH (08:34)
[2018-04-02] MEDS: BACLOFEN 10 MG TAB PO SCH ×3 (08:34→17:47)
[2018-04-02] MEDS: GLIMEPIRIDE 2 MG TAB PO SCH (08:35)
[2018-04-02] MEDS: ESCITALOPRAM 20 MG TAB PO SCH (08:36)
[2018-04-02] MEDS: ENOXAPARIN 40 MG/0.4 ML SYR SUBQ SCH (08:38)
--- NOTE | 2018-04-02 08:41 | NUR ---
PT COMPLAINED OF PAIN. MORPHINE GIVEN. ALL THE SCHEDULED MEDS ARE GIVEN. PATIENT REFUSED SENNA AT THE TIME. PATIENT TOLERATED WELL. WILL CONTINUE TO MONITOR.
[2018-04-02] MEDS: POLYETHYLENE GLYCOL 17 GM/PKT PO SCH (09:00)
[2018-04-02] MEDS: NYSTATIN/TRIAMCINOLONE CRM 15 GM TUBE TP SCH (09:32)
[2018-04-02] MEDS: DEXT 5% /NACL 0.9% 1,000 ML IV SCH (10:40)
--- NOTE | 2018-04-02 11:20 | NUR ---
PATIENT IS RESTING AND WATCHING TV ON BED. NO SIGNS OF DISTRESS. DENIES OF PAIN. WILL CONTINUE TO MONITOR.
--- NOTE | 2018-04-02 12:24 | NUR ---
Credit Assessment Analyst Note: Per Civil Engineering Technician Pinky, patient does not have Medicare A & B coverage at this time. Per Medi-[employer]ki Scheduling Administrator Bertram from [facility], patient has not provided him with required documents for [employer] application. Sealing Machine Operator and/or Claim Professional will continue to wait for physician's tentative discharge plan recommendation and follow up as needed.
[2018-04-02] MEDS: WOUND CARE PREPARATION 178 ML SPR TP SCH (13:00)
[2018-04-02] MEDS: FOAM DRESSING TP SCH (13:00)
[2018-04-02] MEDS: GAUZE TP SCH (13:00)
--- NOTE | 2018-04-02 15:11 | NUR ---
04/02/18 RD FOLLOW UP COMPLETED PLEASE REFER TO NUTRITION ASSESSMENT UNDER CARE ACTIVITY FOR ESTIMATED NUTRITIONAL NEEDS. 1. CONTINUE CCHO 60 GM 2. RECOMMEND ENSURE MAX BID 3. CONTINUE MVI, VITAMIN C AND ZINC FOR WOUND HEALING 4. RD TO FOLLOW-UP 5-7 DAYS, LOW RISK FILIPE VARELA, RD
[2018-04-02 16:00] VITALS: BP 138/61
--- NOTE | 2018-04-02 17:49 | NUR ---
ADMINISTERED SCHEDULED MED PER ORDER. PATIENT TOLERATED WELL. VISITOR AT BEDSIDE. WILL CONTINUE TO MONITOR.
--- NOTE | 2018-04-02 19:15 | NUR ---
RECEIVED REPORT FROM DAY SHIFT NURSE. AAOX4. PT C/O PAIN. DAY SHIFT NURSE IN THE ROOM TO GIVE PAIN MEDS. NO RESP DISTRESS NOTED. PT HAS DRESSING TO LOWER ABDOMEN, PERINEAL AREA AND LEFT LEG. DRESSING DRY AND INTACT. PT HAS PICC LINE TO RIGHT UPPER ARM, [address] LUMENS. GALAVIZ CATH IN PLACE DRAINING YELLOW URINE. PT HAS RECTAL BAG. DISCUSSED PLAN OF CARE, PT VERBALIZED UNDERSTANDING. REPOSITIONED PT. SAFETY PRECAUTION IN PLACE. CALL LIGHT WITHIN REACH.
--- NOTE | 2018-04-02 19:37 | NUR ---
GAVE BEDSIDE REPORT TO CORPORATE LOGISTICS MANAGER NURSE FOR CONTINUITY OF CARE. PATIENT IS IN STABLE CONDITION, NO SIGNS OF DISTRESS. INFORMED CORPORATE LOGISTICS MANAGER NURSE LAST PRN PAIN MED WAS ADMINISTERED AT 191.
[2018-04-02] MEDS: INSULIN LISPRO SLIDING SCALE 100 UNITS/ML VIAL SUBQ PRN (21:17)
--- NOTE | 2018-04-02 21:30 | NUR ---
CHECKED BLOOD SUGAR 175. HUMALOG 2 UNITS SUBQ GIVEN. DUE MEDS GIVEN. PT TOLERATED WELL.
--- NOTE | 2018-04-02 23:45 | NUR ---
PT SLEEPING. NO S/S OF PAIN OR SOB. PT KEPT CLEAN, DRY AND COMFORTABLE.
[2018-04-03] VITALS: BP 129/72
[2018-04-03] MEDS: Z-GUARD PASTE TP SCH ×2 (01:30→12:34)
--- NOTE | 2018-04-03 02:00 | NUR ---
PT AWAKE. WOUND DRESSINGS CHANGED. PT TOLERATED PROCEDURE WELL.
--- NOTE | 2018-04-03 05:15 | NUR ---
PT C/O PAIN 10/20. MORPHINE 4 MG IVP GIVEN.
[2018-04-03] MEDS: MORPHINE SULFATE 4 MG/ML SYR IVP PRN ×3 (05:17→19:44)
[2018-04-03] MEDS: MEROPENEM 1,000 MG in NACL 0.9% 100 ML IV SCH ×3 (05:18→22:05)
[2018-04-03] MEDS: INSULIN NPH HUMAN ISOPHANE 100 UNIT/ML VIAL SUBQ SCH ×2 (06:18→17:00)
[2018-04-03] MEDS: BLOOD GLUCOSE MONITORING 1 DEV DEV FS SCH ×4 (06:18→22:35)
[2018-04-03] MEDS: DEXT 5% /NACL 0.9% 1,000 ML IV SCH ×2 (06:40→12:33)
--- NOTE | 2018-04-03 07:25 | NUR ---
ENDORSED PT TO DAY SHIFT NURSE. PT IN STABLE CONDITION.
--- NOTE | 2018-04-03 07:27 | NUR ---
RECEIVED BEDSIDE REPORT FROM PROFESSOR OF SOCIAL WORK NURSE. PATIENT IS AOX4. DENIES OF PAIN. NO SIGNS OF DISTRESS IN ROOM AIR. SKIN IS INTACT, CLEAN AND DRY. MULTIPLE WOUND ON ABDOMEN, LEFT THIGH, AND LEFT LABIA, LEFT BUTTOCKS. DRESS DRY, CLEAN AND INTACT.RECTAL BAG IN PLACE. PATIENT IS BEDREST. RESPIRATION IS EVEN, UNLABORED AND ON ROOM AIR. R PICC LINE NOTICED, INTACT AND PATENT, INFUSING IVF ORDERED. SAFETY MEASURES IN PLACE. BED IN LOW POSITION, CALL LIGHT WITHIN REACH. WILL CONTINUE TO MONITOR.
[2018-04-03 08:00] VITALS: BP 128/66
[2018-04-03] MEDS: POLYETHYLENE GLYCOL 17 GM/PKT PO SCH (09:00)
[2018-04-03] MEDS: SENNA 8.6 MG TAB PO SCH (09:00)
[2018-04-03] MEDS: LACTOBACILLUS RHAMNOSUS GG 1 EACH CAP PO SCH ×2 (09:07→22:05)
[2018-04-03] MEDS: HYDROcodone/APAP 5/325 MG 1 TAB TAB PO PRN (09:07)
[2018-04-03] MEDS: BACLOFEN 10 MG TAB PO SCH ×3 (09:08→18:04)
[2018-04-03] MEDS: ENOXAPARIN 40 MG/0.4 ML SYR SUBQ SCH (09:08)
[2018-04-03] MEDS: ASCORBIC ACID 500 MG TAB PO SCH ×2 (09:08→22:05)
[2018-04-03] MEDS: amLODIPine 5 MG TAB PO SCH (09:08)
[2018-04-03] MEDS: ESCITALOPRAM 20 MG TAB PO SCH (09:09)
[2018-04-03] MEDS: ZINC SULF 220 MG CAP PO SCH (09:09)
--- NOTE | 2018-04-03 09:16 | NUR ---
CALLED SPOKE WITH DR. MARVIN RAZA OVER THE PHONE REGARDING DR. WRIGHT'S ORDER FOR CONSULTATION WITH A PSYCHOLOGIST ASIDE FROM HER ORDER OF PSYCHIATRIST. DR. WONG STATED HE WILL COME AND SEE PT TODAY, NO NEED TO FAX PT'S FACE SHEET. PER DR. WRIGHT, PT NEEDS TO SEEN BY BOTH PSYCHIATRIST (DR. SAMPSON) AND PSYCHOLOGIST (DR. WONG).
--- NOTE | 2018-04-03 09:19 | NUR ---
ADMINISTERED SCHEDULED MEDS PER ORDER. PT REFUSED TO TAKE MIRALAX AND SENNA. PREMEDICATED WITH PRN PAIN MED PRIOR TO PT. PT TOLERATED WELL. WILL CONTINUE TO MONITOR.
[2018-04-03] MEDS: FOAM DRESSING TP SCH (12:33)
[2018-04-03] MEDS: GAUZE TP SCH (12:34)
[2018-04-03] MEDS: WOUND CARE PREPARATION 178 ML SPR TP SCH (12:34)
--- NOTE | 2018-04-03 12:42 | NUR ---
ADMINISTERED SCHEDULED MEDS PER ORDER. ADMINISTERED PRN PAIN MED. NO SIGNS OF DISTRESS NOTED. PATIENT TOLERATED WELL. WILL CONTINUE TO MONITOR.
[2018-04-03 16:00] VITALS: BP 127/58
--- NOTE | 2018-04-03 18:05 | NUR ---
SCHEDULED MEDICATIONS DUE GIVEN. WILL CONTINUE TO MONITOR.
--- NOTE | 2018-04-03 19:36 | NUR ---
GAVE REPORT TO BENEFITS TECHNICIAN NURSE FOR CONTINUITY OF CARE. PATIENT IN STABLE CONDITION.
--- NOTE | 2018-04-03 19:37 | NUR ---
RECEIVED REPORT FROM DAYSUTFT NURSE AT BEDSIDE FOR CONTINUITY OF CARE. PT AAOX4. PT IV NOTED PTAY PICC LINE DOUBLE LUMEN D5NS 50ML/HR. NO SOB NO S/S OF DISTRESS ON RA. GALAVIZ IN PLACE. BED LOWERED CALL LIGHT WITHIN REACH WILL CONTINUE TO MONITOR.
[2018-04-03] MEDS: traZODone 50 MG TAB PO PRN (22:24)
[2018-04-03] MEDS: INSULIN LISPRO SLIDING SCALE 100 UNITS/ML VIAL SUBQ PRN (22:34)
[2018-04-04] VITALS: BP 120/63
[2018-04-04] MEDS: Z-GUARD PASTE TP SCH ×2 (01:00→13:17)
[2018-04-04] MEDS: DEXT 5% /NACL 0.9% 1,000 ML IV SCH ×2 (02:40→12:45)
[2018-04-04] MEDS: MEROPENEM 1,000 MG in NACL 0.9% 100 ML IV SCH ×3 (04:39→21:14)
[2018-04-04] MEDS: MORPHINE SULFATE 4 MG/ML SYR IVP PRN ×5 (04:40→21:55)
[2018-04-04] MEDS: INSULIN NPH HUMAN ISOPHANE 100 UNIT/ML VIAL SUBQ SCH ×2 (05:12→16:37)
[2018-04-04] MEDS: BLOOD GLUCOSE MONITORING 1 DEV DEV FS SCH ×4 (05:13→21:14)
--- NOTE | 2018-04-04 07:26 | NUR ---
ENDORSED REPORT TO DAYSHIFT NURSE AT BEDSIDE FOR CONTINUITY OF CARE.
--- NOTE | 2018-04-04 07:27 | NUR ---
RECEIVED BEDSIDE REPORT FROM ANGELA LOUIS. PT STABLE, AWAKE, AND ALERT. NO SIGNS OF DISTRESS NOTED. DENIES PAIN. NO REDNESS, SWELLING, OR INFLAMMATION NOTED ON IV SITE. CALL LIGHT WITHIN REACH. BED IN LOW POSITION. SAFETY MEASURES IN PLACE. PLAN OF CARE REVIEWED.
[2018-04-04 08:00] VITALS: BP 131/58
[2018-04-04] MEDS: ZINC SULF 220 MG CAP PO SCH (09:22)
[2018-04-04] MEDS: ESCITALOPRAM 20 MG TAB PO SCH (09:23)
[2018-04-04] MEDS: ASCORBIC ACID 500 MG TAB PO SCH ×2 (09:23→21:15)
[2018-04-04] MEDS: LACTOBACILLUS RHAMNOSUS GG 1 EACH CAP PO SCH ×2 (09:23→21:15)
[2018-04-04] MEDS: SENNA 8.6 MG TAB PO SCH (09:24)
[2018-04-04] MEDS: amLODIPine 5 MG TAB PO SCH (09:24)
[2018-04-04] MEDS: POLYETHYLENE GLYCOL 17 GM/PKT PO SCH (09:25)
[2018-04-04] MEDS: BACLOFEN 10 MG TAB PO SCH ×3 (09:25→16:34)
--- NOTE | 2018-04-04 09:30 | NUR ---
ADMINISTERED SCHEDULED MEDICATIONS AND MORPHINE FOR 8/10 BACK PAIN. PT TOLERATED WELL. NO OTHER NEEDS AT THIS TIME.
[2018-04-04] MEDS: ENOXAPARIN 40 MG/0.4 ML SYR SUBQ SCH (09:40)
--- NOTE | 2018-04-04 10:30 | NUR ---
PT AT THE BEDSIDE.
--- NOTE | 2018-04-04 12:10 | NUR ---
BG 140, NO COVERAGE NEEDED. FAMILY AT THE BEDSIDE.
[2018-04-04] MEDS: FOAM DRESSING TP SCH (13:17)
[2018-04-04] MEDS: WOUND CARE PREPARATION 178 ML SPR TP SCH (13:17)
[2018-04-04] MEDS: GAUZE TP SCH (13:17)
--- NOTE | 2018-04-04 14:00 | NUR ---
WOUNDS ASSESSED, CLEANSED, DRESSINGS CHANGED. RECTAL BAG CHANGED. LINENS CHANGED. DR WRIGHT AT THE BEDSIDE.
--- NOTE | 2018-04-04 14:24 | NUR ---
ORDER FOR [facility]. FAXED THE FACE SHEET TO [facility], . SPOKE WITH LEONIDES, .
--- NOTE | 2018-04-04 14:27 | NUR ---
Cigarette Making Machine Operator Note: Per Candle Wrapper Pinky, patient now has Medicare coverage. I spoke with , per , if [facility] is not able to accept patient, snf placement will be alternative discharge plan. She stated I can fax inquiry to [facility] . I faxed inquiry to both [facility].
--- NOTE | 2018-04-04 15:30 | NUR ---
LEONIDES FROM [facility] AT THE BEDSIDE.
[2018-04-04 16:00] VITALS: BP 121/62
--- NOTE | 2018-04-04 16:38 | NUR ---
PT'S FAMILY WASHED HER HAIR, BED LINEN WET, GOWN WET, LINEN CHANGED, GOWN CHNAGED, POSITION CHANGED FOR COMFORT, BG 117, HUMLIN N HELD. NO COVERAGE NEEDED PER SLIDING SCALE. PT C/O 6/10 PAIN, OFFERED NORCO, PT STATES NORCO DOESN'T WORK, MORPHINE NOT DUE UNTIL 1705, PT WISHES TO WAIT UNTIL 1705 FOR MORPHINE.
--- NOTE | 2018-04-04 19:25 | NUR ---
ENDORSED PT TO ANGELA LOUIS FOR CONTINUITY OF CARE. PT STABLE, AWAKE, AND ALERT.
[2018-04-04] MEDS: traZODone 50 MG TAB PO PRN (21:15)
[2018-04-04] MEDS: INSULIN LISPRO SLIDING SCALE 100 UNITS/ML VIAL SUBQ PRN (21:39)
[2018-04-04 23:59] VITALS: BP 154/65
--- NOTE | 2018-04-05 | NUR ---
PT SLEEPING NO SOB NO S/S OF DISTRESS ON RA.
[2018-04-05] MEDS: Z-GUARD PASTE TP SCH ×2 (01:00→15:33)
[2018-04-05] MEDS: MEROPENEM 1,000 MG in NACL 0.9% 100 ML IV SCH ×3 (05:46→21:24)
[2018-04-05] MEDS: INSULIN NPH HUMAN ISOPHANE 100 UNIT/ML VIAL SUBQ SCH ×2 (06:15→17:00)
[2018-04-05] MEDS: MORPHINE SULFATE 4 MG/ML SYR IVP PRN ×5 (06:16→23:00)
[2018-04-05] MEDS: INSULIN LISPRO SLIDING SCALE 100 UNITS/ML VIAL SUBQ PRN ×2 (06:16→21:36)
[2018-04-05] MEDS: BLOOD GLUCOSE MONITORING 1 DEV DEV FS SCH ×4 (06:17→21:22)
[2018-04-05 06:54] LABS: BASOPHILS # (AUTO) 0.1 K/uL (0.00-0.22); BASOPHILS % (AUTO) 0.8 % (0.0-2.0); EOSINOPHILS # (AUTO) 0.7 K/uL (0-0.4); EOSINOPHILS % (AUTO) 6.7 % (0.0-4.0); HEMATOCRIT 27.7 % (36-48); LYMPHOCYTES % (AUTO) 17.9 % (20.5-51.1); MEAN CORPUSCULAR HEMOGLOBIN 27 pg (27-31); MEAN CORPUSCULAR HGB CONC 33 g/dL (33-37); MEAN CORPUSCULAR VOLUME 81.9 fL (80-94); MONOCYTES # (AUTO) 0.8 K/uL (0.8-1.0); NEUTROPHILS # (AUTO) 7.4 K/uL (1.8-7.7); NEUTROPHILS % (AUTO) 67.6 % (42.2-75.2); PLATELET COUNT (AUTO) 416 K/uL (140-450); RED BLOOD CELL COUNT(AUTO) 3.38 MIL/uL (4.20-5.40); RED CELL DISTRIBUTION WIDTH 16.4 % (11.6-13.7)
--- NOTE | 2018-04-05 06:55 | NUR ---
PLAN OF CARE TO [facility] TODAY OR TOMORROW.
--- NOTE | 2018-04-05 07:10 | NUR ---
ENDORSED REPORT TO DAYSHIFT NURSE AT BEDSIDE FOR CONTINUITY OF CARE.
--- NOTE | 2018-04-05 07:10 | NUR ---
PATIENT RECEIVED AT BEDSIDE. PATIENT ASLEEP BUT AROUSABLE. NO S/S OF DISTRESS. GALAVIZ CATH IN PLACE, DRAINING YELLOW URINE. BED LOWERED WITH CALL LIGHT WITHIN REACH. WILL CONTINUE TO MONITOR
[2018-04-05 07:53] LABS: ALBUMIN 1.8 g/dL (3.4-5.0); ANION GAP 13.1 (8-16); CARBON DIOXIDE 25.3 mmol/L (21-32); CREATININE 0.7 mg/dL (0.6-1.3); POTASSIUM 4.4 mmol/L (3.5-5.1); TOTAL BILIRUBIN 0.4 mg/dL (0.0-1.0)
[2018-04-05 07:59] VITALS: BP 129/64
[2018-04-05] MEDS: BACLOFEN 10 MG TAB PO SCH ×3 (08:49→17:00)
[2018-04-05] MEDS: LACTOBACILLUS RHAMNOSUS GG 1 EACH CAP PO SCH ×2 (08:49→21:23)
[2018-04-05] MEDS: POLYETHYLENE GLYCOL 17 GM/PKT PO SCH (08:50)
[2018-04-05] MEDS: ZINC SULF 220 MG CAP PO SCH (08:50)
[2018-04-05] MEDS: ASCORBIC ACID 500 MG TAB PO SCH ×2 (08:50→21:23)
[2018-04-05] MEDS: ESCITALOPRAM 20 MG TAB PO SCH (08:50)
[2018-04-05] MEDS: SENNA 8.6 MG TAB PO SCH (08:50)
[2018-04-05] MEDS: amLODIPine 5 MG TAB PO SCH (08:50)
[2018-04-05] MEDS: ENOXAPARIN 40 MG/0.4 ML SYR SUBQ SCH (08:56)
--- NOTE | 2018-04-05 09:00 | NUR ---
P.T. NOTES RECEIVED A MESSAGE FROM HER RN KILO THAT SHE DOES NOT WANT TO HAVE ANY P.T. SERVICES TODAY DUE TO NOT FEELING GOOD RIGHT NOW. PLAN: WE'LL FOLLOW UP AGAIN TOMORROW IF SHE REMAINS IN THIS HOSPITAL.
[2018-04-05] MEDS: DEXT 5% /NACL 0.9% 1,000 ML IV SCH ×2 (11:59→22:49)
[2018-04-05] MEDS: HYDROcodone/APAP 5/325 MG 1 TAB TAB PO PRN (12:00)
--- NOTE | 2018-04-05 14:06 | NUR ---
PATIENT SEEN BY DR WRIGHT
--- NOTE | 2018-04-05 14:46 | NUR ---
CM NOTE 1130 AM TERI CAME STATING THAT THEY ARE ACCEPTING PATIENT IN [facility] AND THAT HE IS LOOKING FOR A BED 1445 PM RECEIVED CALL FROM REJI [facility]# [phone] AND HE SAID THAT [place] CAN NO LONGER ACCEPT PATIENT BECAUSE THEY CHECKED THE INSURANCE AND PATIENT ONLY HAS MEDICARE PART A CHARGE NURSE JAYDA AND KENNEY AKBAR
--- NOTE | 2018-04-05 15:28 | NUR ---
CM NOTE RECEIVED CALL FROM STEFANIE OF [facility] STATING THAT THEY CAN TAKE PATIENT TODAY TO RM [address] WR[address]. CHARGE NURSE JAYDA AKBAR.
[2018-04-05] MEDS: GAUZE TP SCH (15:32)
[2018-04-05] MEDS: WOUND CARE PREPARATION 178 ML SPR TP SCH (15:32)
[2018-04-05] MEDS: FOAM DRESSING TP SCH (15:32)
[2018-04-05] MEDS ORDERED: SIMETHICONE 80 MG TAB.CHEW PO SCH (16:00)
--- NOTE | 2018-04-05 17:00 | NUR ---
WOUND DRESSINGS CHANGED. PATIENT TOLERATED WELL. PHOTOS TAKEN AND FILED IN THE CHART
--- NOTE | 2018-04-05 17:10 | NUR ---
Hyster Driver Note: I met with patient and patient's son Nick at bedside. Per patient, she does not want to be transfer to [facility] due to poor ratings listed online. I provided her with a list of detention facilities and encouraged her to review list and provide me with her top 3 detention facilities choices. Patient and Nick verbalized they wanted to look over the list today and provide me with their snfs choices tomorrow. I gave patient my contact information and told her I will meet with her tomorrow, charge nurse Heide aware of above information. Addendum: 04/06/18 at 1548 by Carolyn SALINAS Late entry for 04/05/18: Patient stated she has never been at a detention facility before and became tearful. I normalized her feelings. I provided one on one counseling. I also provided her with general information on detention facilities.
[2018-04-05 17:16] VITALS: BP 138/63
--- NOTE | 2018-04-05 19:30 | NUR ---
PATIENT REPORT GIVEN AT BEDSIDE. PATIENT ENDORSED IN STABLE CONDITION
--- NOTE | 2018-04-05 19:40 | NUR ---
RECEIVED PT FROM KILO MILLER PT IS AAOX4 ON BED REST PICC LINE O;N RT UA INFUSING WELL GALAVIZ CATH DRAINING WELL YELLOW URINE NO PAIN AT THIS TIME INITIAL ASSESSMENT DONE
[2018-04-05 20:00] VITALS: BP 136/60
--- NOTE | 2018-04-05 21:00 | NUR ---
BRENNAN RUIZ FROM [facility] CALL TO NOTIFY THAT BED IS READY FOR [facility] BUT [facility] WANTS TO HAVE MORE INFORMATION ABOUT THIS REHAB CENTER AND BRENNAN RUIZ IS COMING TONIGH TO TALK TO [facility]
--- NOTE | 2018-04-05 21:30 | NUR ---
[facility] RUI[facility] IS HERE AND TALK TO THE PT
--- NOTE | 2018-04-05 21:30 | NUR ---
DR ABDI IS HERE AND SEE THE PT
--- NOTE | 2018-04-06 | NUR ---
PT ON CLOSE MON;ITORING IV ON RT UA INFUSING WELL NOT DISTRESS NOTED AT THIS TIME
[2018-04-06] MEDS: Z-GUARD PASTE TP SCH ×2 (01:00→13:00)
[2018-04-06 02:30] VITALS: BP 147/64
[2018-04-06] MEDS: MORPHINE SULFATE 4 MG/ML SYR IVP PRN ×4 (02:37→17:35)
--- NOTE | 2018-04-06 03:03 | NUR ---
AFTER PAIN MEDICATION GIVEN PT SLEEPS QUIET REMAIN STABLE AT THIS TIME
--- NOTE | 2018-04-06 04:30 | NUR ---
SPONGE BATH GIVEN LINEN CHANGED IV O;N RT UA PICC LINE INFUSING WELL ALL DRESSING ARE DRY AND CLEAN
--- NOTE | 2018-04-06 05:37 | NUR ---
PT HAS A BIG BM DRESSING ARE DRY AND CLEAN NOT DISTRESS NOTED
[2018-04-06] MEDS: BLOOD GLUCOSE MONITORING 1 DEV DEV FS SCH ×3 (06:38→16:30)
[2018-04-06] MEDS: INSULIN NPH HUMAN ISOPHANE 100 UNIT/ML VIAL SUBQ SCH ×2 (06:39→17:00)
--- NOTE | 2018-04-06 07:04 | NUR ---
BLOOD SUGAR TEST 138 PT SLEEPING WELL NOT DISTRESS NOTED
--- NOTE | 2018-04-06 07:30 | NUR ---
RECEIVED BEDSIDE REPORT FROM VENEER STOCK LAYER NURSE. PATIENT AAOX4. PATIENT ON ROOM AIR, NO DISTRESS NOTED. ABDOMINAL WOUND, L LABIA, AND BUTTOCKS WOUND DRESSINGS CLEAN DRY AND INTACT. PATIENT UNABLE TO AMBULATE AND INCONTINENT. PATIENT WITH GALAVIZ CATHETER IN PLACE AND RECTAL BAG. PICC LINE ON PATY INFUSING NS AT 50, PICC LINE CLEAN DRY AND INTACT. PICC DRESSING CHANGED ON 04/03/18. PATIENT ON WOUND CARE BED. PATIENT ON MED SURGE AND STANDARD ISO. FALL RISK PROTOCOL IN PLACE. BED IN LOW POSITION, CALL LIGHT WITHIN REACH. WILL CONTINUE TO MONITOR.
[2018-04-06 08:00] VITALS: BP 127/67
[2018-04-06] MEDS: LACTOBACILLUS RHAMNOSUS GG 1 EACH CAP PO SCH (09:32)
[2018-04-06] MEDS: ZINC SULF 220 MG CAP PO SCH (09:33)
[2018-04-06] MEDS: ASCORBIC ACID 500 MG TAB PO SCH (09:33)
[2018-04-06] MEDS: ESCITALOPRAM 20 MG TAB PO SCH (09:33)
[2018-04-06] MEDS: BACLOFEN 10 MG TAB PO SCH ×3 (09:33→17:00)
[2018-04-06] MEDS: amLODIPine 5 MG TAB PO SCH (09:34)
[2018-04-06] MEDS: ENOXAPARIN 40 MG/0.4 ML SYR SUBQ SCH (09:39)
--- NOTE | 2018-04-06 09:46 | NUR ---
ADMINISTERED SCHEDULED MEDS. PATIENT TOLERATED WELL. WILL CONTINUE TO MONITOR.
--- NOTE | 2018-04-06 12:09 | NUR ---
PT NOTE 1100 CHART REVIEWED AND CLEARED FOR PT PER RN; Pt REFUSED TO PARTICIPATE WITH PT TX STATING THAT SHE IS LEAVING TODAY TO TRANSFER TO SNF. Pt WAS EDUCATED ON HEP, UNDERSTANDING NOTED; RN NOTIFIED.
[2018-04-06] MEDS: WOUND CARE PREPARATION 178 ML SPR TP SCH (13:00)
[2018-04-06] MEDS: FOAM DRESSING TP SCH (13:00)
[2018-04-06] MEDS: GAUZE TP SCH (13:00)
[2018-04-06] MEDS: INTERDRY CLOTH TP SCH (15:00)
--- NOTE | 2018-04-06 15:33 | NUR ---
PATIENT WILL GO TO [facility] ROOM [address] UNDER DR. WRIGHT. CALLED [facility] AND ASKED FOR BARIATRIC GURNEY. PICKUP WILL BE AT 8:30P.Cuba MCCORMICK RN CHARGE NURSE AWARE.
--- NOTE | 2018-04-06 15:52 | NUR ---
Customs And Border Protection Inspector Note: This morning I informed I met with patient and patient's son Nick yesterday to discuss discharge plan to snf. I told patient and Nick were in agreement with snf placement. and I met with patient at bedside. provided patient with an update on her medical condition and explained to her she was medically stable. I informed patient plan was to transfer her to snf of her choice today. She agreed with plan. She told me her son Nick was going to tour [facility] this morning and she would let me know if she was in agreement with being transfer to [facility] or if she wanted me to contact another snf. I went to patient's room in the afternoon. She stated Nick went to [facility] and liked facility. Per patient, she would like to be transfer to [facility] today. She reported she is planning to participate with physical therapist at [facility]. I encouraged her to speak with transition social worker at [facility] for ongoing counseling services and to submit any required documents for [facility] application. She verbalized understanding. No questions or concerns were reported by patient. Per Cindy from [facility], patient may go to room 100A today at their facility, accepting physician is , rn field case manager Cady made aware.
[2018-04-06 16:00] VITALS: BP 131/60
--- NOTE | 2018-04-06 17:45 | NUR ---
EDUCATED PATIENT ON TRANSFER TO [facility]. EDUCATED PATIENT THE NEED TO REMOVE PICC LINE ORDERED BY DR. WRIGHT SINCE IT WAS INSERTED ON 03/08/18 AND PATIENT WILL NO LONGER CONTINUE ABX. PATIENT VERBALIZED UNDERSTANDING. REMOVED WRIST BANDS AND CHARGE NURSE REMOVED PICC LINE. PATIENT TOLERATED WELL. GALAVIZ CATHETER STILL IN PLACE, WELL RECTAL BAG. ABDOMINAL, L LABIA, AND BUTTOCKS WOUND DRESSINGS CHANGED BEFORE TRANSFER. DRESSINGS CLEAN DRY AND INTACT. ANSWERED ALL QUESTIONS AND CONCERNS OF PATIENT PRIOR TO DISCHARGE AND SWABBED BOTH NARES FOR MRSA BEFORE DISCHARGE.
--- NOTE | 2018-04-06 17:46 | NUR ---
GAVE REPORT TO ANNE FROM [facility] REGARDING PATIENT. ANSWERED ALL QUESTIONS AND CONCERNS OF NURSE.
--- NOTE | 2018-04-11 10:24 | NUR ---
Received verbal order for hydromorphone 1mg IVP once from Dr Marinelli on 03/11/18 0743. Late entry noted now. Unable to correct time of input d/t pt discharged.
[2018-04-11] MEDS ORDERED: HYDROmorphone 1 MG/ML AMP IVP PRN (10:25)
== END 2018-04-06 17:50 | DRG 853 ==
LOC: MED 19:17 → MTU 03-01 00:30 → MIC 03-09 23:02 → MTU 03-10 17:30
PROVIDERS: ADMIT Internal Medicine Geriatric Medicine; ATTEND Internal Medicine Geriatric Medicine
PROC: 0S9D3ZX Drainage of Left Knee Joint, Percutaneous Approach, Diagnostic (ICD-10-PCS; 2018-03-03)
PROC: 02HV33Z Insertion of Infusion Device into Superior Vena Cava, Percutaneous Approach (ICD-10-PCS; 2018-03-08)
PROC: B548ZZA Ultrasonography of Superior Vena Cava, Guidance (ICD-10-PCS; 2018-03-08)
PROC: 0JBB0ZZ Excision of Perineum Subcutaneous Tissue and Fascia, Open Approach (ICD-10-PCS; 2018-03-09)
PROC: 0J9C0ZZ Drainage of Pelvic Region Subcutaneous Tissue and Fascia, Open Approach (ICD-10-PCS; 2018-03-09)
PROC: 0J9B0ZZ Drainage of Perineum Subcutaneous Tissue and Fascia, Open Approach (ICD-10-PCS; 2018-03-09)
PROC: 0JBC0ZZ Excision of Pelvic Region Subcutaneous Tissue and Fascia, Open Approach (ICD-10-PCS; principal; 2018-03-09 20:30)
PROC: 30233N1 Transfusion of Nonautologous Red Blood Cells into Peripheral Vein, Percutaneous Approach (ICD-10-PCS; 2018-03-10)
PROC: 0JB80ZZ Excision of Abdomen Subcutaneous Tissue and Fascia, Open Approach (ICD-10-PCS; 2018-03-15)
PROC: 0JBB0ZZ Excision of Perineum Subcutaneous Tissue and Fascia, Open Approach (ICD-10-PCS; 2018-03-15)
PROC: 0JB80ZZ Excision of Abdomen Subcutaneous Tissue and Fascia, Open Approach (ICD-10-PCS; 2018-03-29)
PROC: 0JBB0ZZ Excision of Perineum Subcutaneous Tissue and Fascia, Open Approach (ICD-10-PCS; 2018-03-29)
PROC: 0JBC0ZZ Excision of Pelvic Region Subcutaneous Tissue and Fascia, Open Approach (ICD-10-PCS; 2018-03-29)
PROC: 0J9M0ZZ Drainage of Left Upper Leg Subcutaneous Tissue and Fascia, Open Approach (ICD-10-PCS; 2018-03-29)
DX: A41.9 Sepsis, unspecified organism (principal); M72.6 Necrotizing fasciitis; E87.1 Hypo-osmolality and hyponatremia; K61.0 Anal abscess; N76.4 Abscess of vulva; M25.062 Hemarthrosis, left knee; L03.114 Cellulitis of left upper limb; L97.929 Non-pressure chronic ulcer of unspecified part of left lower leg with unspecified severity; Z68.41 Body mass index [BMI] 40.0-44.9, adult; B37.49 Other urogenital candidiasis; L02.416 Cutaneous abscess of left lower limb; E46 Unspecified protein-calorie malnutrition; E11.65 Type 2 diabetes mellitus with hyperglycemia; E87.5 Hyperkalemia; E11.22 Type 2 diabetes mellitus with diabetic chronic kidney disease; N18.3 Chronic kidney disease, stage 3 (moderate); E66.01 Morbid (severe) obesity due to excess calories; E78.5 Hyperlipidemia, unspecified; J45.909 Unspecified asthma, uncomplicated; M17.12 Unilateral primary osteoarthritis, left knee; I12.9 Hypertensive chronic kidney disease with stage 1 through stage 4 chronic kidney disease, or unspecified chronic kidney disease; G89.29 Other chronic pain; K61.39 Other ischiorectal abscess; D63.8 Anemia in other chronic diseases classified elsewhere; M51.36 Other intervertebral disc degeneration, lumbar region; F43.21 Adjustment disorder with depressed mood; E55.9 Vitamin D deficiency, unspecified; K59.00 Constipation, unspecified; E78.1 Pure hyperglyceridemia; M47.816 Spondylosis without myelopathy or radiculopathy, lumbar region; E11.649 Type 2 diabetes mellitus with hypoglycemia without coma; W01.0XXA Fall on same level from slipping, tripping and stumbling without subsequent striking against object, initial encounter; Z88.5 Allergy status to narcotic agent; Z88.0 Allergy status to penicillin; Z88.2 Allergy status to sulfonamides; Z79.4 Long term (current) use of insulin; Z79.84 Long term (current) use of oral hypoglycemic drugs; Z91.19 Patient's noncompliance with other medical treatment and regimen; Z90.710 Acquired absence of both cervix and uterus; Z82.49 Family history of ischemic heart disease and other diseases of the circulatory system; Z83.3 Family history of diabetes mellitus; Z90.49 Acquired absence of other specified parts of digestive tract; Y93.89 Activity, other specified; Y92.89 Other specified places as the place of occurrence of the external cause; Y99.8 Other external cause status
CPT/HCPCS: 36415; 71045; 72100; 73030; 73130; 73562; 73564; 75989; 76881; 80048; 80053; 80076; 80202; 81001; 82009; 82306; 82945; 82948; 83036; 83605; 83735; 84132; 84134; 84157; 84443; 85025; 85610; 85651; 85730; 86430; 86886; 86900; 86901; 86920; 87040; 87070; 87075; 87081; 87086; 87186; 87205; 88304; 89051; 93005; 96361; 96365; 96375; 97110; 97164; 97530; 99285; A4649; C1751; J1170; J1200; J1450; J1650; J1815; J1885; J1956; J2001; J2185; J2250; J2270; J2405; J2704; J2997; J3010; J3370; J3475; J3490; J7030; J7042; J7060; P9016; Q0092

== ENCOUNTER 2018-04-12 17:05 | Inpatient (IN) | payer OTHER ==
[~2018-04-12] VITALS: Ht 160 cm; Wt 100.7 kg
[~2018-04-12 17:05] MED LIST changes: -CANA300T PO; -GLIP10TA3 PO; +IBUP-1842 PO; +INSU100S10 SC; +LISI-420 PO; -LISI10TA11 PO; +METF1000 PO
--- NOTE | 2018-04-12 19:20 | NUR ---
PT ARRIVED VIA GURNEY ACCOMPANIED BY [facility]. PT CAME FROM [facility]. RECEIVED REPORT FROM ANGELA FARIA, WHOM OBTAINED REPORT FROM ANGELA LEMOS AT [facility]. PT A/OX4 ON ROOM AIR. PT IS ABLE TO MAKE NEEDS KNOWN, ABLE TO FOLLOW COMMANDS. PT IS ON BEDREST AND STATES THAT SHE HAS BEEN USING A WALKER TO AMBULATE WITH PT. PT HAS NO IV ACCESS. OBTAINED MRSA SWAB AND SENT TO LAB. VITAL SIGNS WITHIN NORMAL LIMITS. PT STABLE, DENIES HAVING ANY PAIN, NO SIGNS OF DISTRESS NOTED AT THIS TIME. PT POSITIONED FOR COMFORT. BED IN LOWEST POSITION, BED ALARM ON. WILL CONTINUE TO MONITOR.
[2018-04-12] MEDS ORDERED: HYDROcodone/APAP 5/325 MG 1 TAB TAB PO PRN (20:40)
[2018-04-12] MEDS ORDERED: DEXTROSE 50% 50 ML SYR IVP PRN (20:40)
--- NOTE | 2018-04-12 20:45 | NUR ---
DR WRIGHT HERE TO SEE PT.
[2018-04-12] MEDS ORDERED: IBUPROFEN 400 MG TAB PO SCH (20:55)
[2018-04-12 21:00] VITALS: BP 135/50
--- NOTE | 2018-04-12 21:11 | NUR ---
CALLED TO [facility] DR ANN AGAIN TO MAKE SURE HE GOT MY MESSAGE EARLIER. I WAS TOLD DR. ANN IS IN THIS HOSPITAL ALREADY.
[2018-04-12 21:23] LABS: BASOPHILS # (AUTO) 0.1 K/uL (0.00-0.22); BASOPHILS % (AUTO) 0.9 % (0.0-2.0); EOSINOPHILS # (AUTO) 0.8 K/uL (0-0.4); EOSINOPHILS % (AUTO) 5.3 % (0.0-4.0); HEMATOCRIT 28.5 % (36-48); HEMOGLOBIN 9.2 g/dL (12.0-16.0); LYMPHOCYTES % (AUTO) 19.1 % (20.5-51.1); MEAN CORPUSCULAR HEMOGLOBIN 26 pg (27-31); MEAN CORPUSCULAR HGB CONC 32 g/dL (33-37); MEAN CORPUSCULAR VOLUME 81.5 fL (80-94); MONOCYTES % (AUTO) 6.6 % (1.7-9.3); NEUTROPHILS # (AUTO) 10.5 K/uL (1.8-7.7); NEUTROPHILS % (AUTO) 68.1 % (42.2-75.2); PLATELET COUNT (AUTO) 430 K/uL (140-450); RED CELL DISTRIBUTION WIDTH 16.9 % (11.6-13.7); WHITE BLOOD COUNT (AUTO) 15.5 K/uL (4.8-10.8)
[2018-04-12] MEDS: INSULIN LISPRO SLIDING SCALE 100 UNITS/ML VIAL SUBQ PRN (21:33)
[2018-04-12] MEDS: BLOOD GLUCOSE MONITORING 1 DEV DEV FS SCH (21:34)
[2018-04-12 21:39] LABS: ANION GAP 8.3 (8-16); CARBON DIOXIDE 28.1 mmol/L (21-32); CREATININE 0.8 mg/dL (0.6-1.3); POTASSIUM 4.4 mmol/L (3.5-5.1)
[2018-04-12 21:52] LABS: PROTHROMBIN TIME 10.1 secs (10.8-13.4)
--- NOTE | 2018-04-12 22:05 | NUR ---
ASKED DR ANN IF I&D IS TO BE DONE TONIGHT OR TOMORROW. DR ANN AID "I HAVE TO SEE THE PT FIRST."
[2018-04-12] MEDS ORDERED: PNEUMOCOCCAL VACCINE 23 MCG/0.5 ML VIAL IMVAC SCH (23:05)
[2018-04-13] MEDS ORDERED: Z-GUARD PASTE TP ONE (01:45)
--- NOTE | 2018-04-13 02:30 | NUR ---
REPORT RECEIVED FROM TRACY MILLER NIGHTSHIFT NURSE DUE TO CHANGE IN ASSIGNMENT.
--- NOTE | 2018-04-13 06:15 | NUR ---
DR. WRIGHT PAGED REGARDING DIET ORDER. PT MADE NPO, HOWEVER SURGEON WONT BE ABLE TO PERFORM THE I AND D UNTIL LATE TOMORROW NIGHT.
[2018-04-13] MEDS: BLOOD GLUCOSE MONITORING 1 DEV DEV FS SCH ×4 (06:46→20:57)
--- NOTE | 2018-04-13 06:55 | NUR ---
DR WRIGHT CALLED BACK AND WAS MADE AWARE OF WHEN DR. ANN WILL BE PERFORMING SURGERY, .. LATE TOMORROW NIGHT. DR. WRIGHT ORDERED A [facility] DIET FOR PT AND ORDERED A NORCO TO BE GIVEN 45MINUTES BEFORE WOUND CARE. PT LAST V/S T 97.2 P 85 R 18 B/P 129/59 ;AST F/S 147.
--- NOTE | 2018-04-13 07:51 | NUR ---
REPORT GIVEN TO RADHA RN DAYSHIFT NURSE AT BEDSIDE FOR CONTINUITY OF CARE,PT IN STABLE CONDITION.
--- NOTE | 2018-04-13 07:52 | NUR ---
RECEIVED BEDSIDE REPORT FROM REGIONAL MERCHANDISING MANAGER NURSE. PATIENT IS AWAKE, ALERT AND ORIENTEDX4. NO SIGNS OF DISTRESS ON RA. PATIENT DOES NOT AMBULATE, BEDBOUND. FALL RISK PROTOCOL IN PLACE. SKIN HAS MULTIPLE SURGICAL WOUNDS, ABD, L INNER THIGH, PERINEAL AREA. ALL DRESSINGS ARE CLEAN, DRY AND INTACT. MED SURGE. IV ON R WRIST 24G SL. CLEAN, DRY AND INTACT. BED IN LOW POSITION. CALL LIGHT WITHIN REACH. WILL CONTINUE TO MONITOR THE PATIENT.
[2018-04-13 08:00] VITALS: BP 122/61
--- NOTE | 2018-04-13 08:15 | NUR ---
PATIENT HAS BEEN SCREENED AND CATEGORIZED HIGH NUTRITION RISK. PATIENT WILL BE SEEN WITHIN 1-2 DAYS OF ADMISSION. 04/13/18-04/14/[address]
[2018-04-13] MEDS: LISINOPRIL 20 MG TAB PO SCH (08:35)
[2018-04-13] MEDS: metFORMIN 500 MG TAB PO SCH ×2 (08:35→16:51)
[2018-04-13] MEDS: INSULIN NPH HUMAN ISOPHANE 100 UNIT/ML VIAL SUBQ SCH (08:39)
--- NOTE | 2018-04-13 08:40 | NUR ---
ADMINISTERED MEDS. PATIENT TOLERATED WELL. NO SIGNS OF DISTRESS. WILL CONTINUE TO MONITOR THE PATIENT
[2018-04-13] MEDS ORDERED: INSULIN NPH HUMAN ISOPHANE U SCH (09:00)
--- NOTE | 2018-04-13 10:00 | NUR ---
PATIENT LAYING IN BED WATCHING TV. NO SIGNS OF DISTRESS. WILL CONTINUE TO MONITOR THE PATIENT.
--- NOTE | 2018-04-13 11:30 | NUR ---
WOUND CARE EVALUATION NOTE: REASON FOR EVALUATION: MULTIPLE SURGICAL WOUNDS SKIN ASSESSMENT DONE THIS MORNING WITH THIS 63 Y/O FEMALE PT. 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 PAST MEDICAL HX INCLUDES UNCONTROLLED DM, CKD AND MORBID OBESITY. PT. WAS ADMITTED LAST TIME AT [facility] AND UNDER WENT SEVERAL SURGICAL PROCEDURES FOR WOUND CARE. PT IS AWAKE, ALERT X4. SKIN IS WARM AND DRY, BLE NO HAIR GROWTH, DORSAL PEDAL PULSES PRESENT. CAPILLARY REFILLED < 3 SEC. X 10 TOES[address] F/C IN PLACE, DEVONTE COLOR OF MODERATE AMOUNT URINE OUTPUT. PLAN OF CARE DISCUSSED WITH PRIMARY RN AND PT. PT VERBALIZES UNDERSTANDING. INTEGUMENTARY -ABDOMEN SURGICAL WOUNDS �Z� SHAPE WOUND [id number], WOUND BED 50% YELLOW SLOUGH AND 4O % GRANULATING TISSUE WITH MODERATE AMOUNT OF SEROSANGUINEOUS DRAINAGE, NO ODOR AND HELENA-WOUND SKIN INTACT. TUNNELING TO 12 O�CLOCK 3 CM AND 3 O'CLOCK 10 CM AND UNDERMINING IN BETWEEN 12-3 O�CLOCK AREAS -LEFT LABIA SURGICAL WOUND [id number], 100% GRANULATION TISSUE WITH MODERATE AMOUNT OF SEROSANGUINEOUS DRAINAGE, NO ODOR AND HELENA-WOUND SKIN INTACT. -LEFT PERINEUM/ ISCHIORECTAL SURGICAL WOUND [id number], 40 % YELLOW SLOUGH AND 60% GRANULATION TISSUE WITH MODERATE AMOUNT OF SEROSANGUINEOUS DRAINAGE, NO ODOR AND HELENA-WOUND SKIN TOWARD HELENA-ANAL AREA SKIN INTACT. -LEFT MEDIAL THIGH S/P I&D [id number] WOUND BED IS 100% YELLOW, MODERATE AMOUNT OF PURULENT DRAINAGE, MILD ODOR AND HELENA-WOUND SKIN INTACT. RECOMMENDATIONS: -SURGEON PENDING DEBRIDEMENT -CLEANSE LEFT LABIA, LEFT PERINEUM EXTENDED ISCHIORECTAL AND LEFT MEDIAL THIGH SURGICAL WOUNDS WITH NS, PAT DRY, PACK WOUNDS WITH 1/2" ELBA ROLL MOIST WITH NS, FILL THE BASE OF THE WOUND, COVER WITH ABD DRESSING AND SECURE WITH TAPE QD AND PRN IF SOILING. -TURN AND REPOSITION PATIENT Q 2H OFFLOAD LEFT AND RIGHT HIPS -ASSESS AND MONITOR SKIN CONDITION DURING POSITION CHANGE, PLEASE PAY ATTENTION TO FEET AND HEELS -OFFLOAD BILATERAL HEELS BY PLACING PILLOWS UNDER CALVES AT ALL TIMES, UNLESS OTHERWISE CONTRAINDICATED -PRESSURE REDISTRIBUTION SURFACE THERAPY -KEEP SKIN CLEAN AND DRY AT ALL TIMES. RECOMMENDATIONS DISCUSSED WITH PRIMARY RN WILL FOLLOW UP PATIENT Q7-10 DAYS AND PRN. PLEASE CONTACT WOUND CARE NURSE FOR ANY QUESTIONS AND CHANGES IN SKIN CONDITION.
--- NOTE | 2018-04-13 11:50 | NUR ---
04/13/18 RD INITIAL ASSESSMENT COMPLETED PLEASE REFER TO NUTRITION ASSESSMENT UNDER CARE ACTIVITY FOR ESTIMATED NUTRITIONAL NEEDS. 1. CONTINUE 60 GM CCHO DIET TOLERATED 2. RECOMMEND PENNY BID AND ENSURE MAX PROTEIN TID 3. RD ATTEMPTED DIABETES EDUCATION, PATIENT REFUSED 4. RD TO FOLLOW-UP 3-5 DAYS, MODERATE RISK FILIPE VARELA RD
--- NOTE | 2018-04-13 12:00 | NUR ---
PATIENT IN NO DISTRESS AT THIS TIME. PATIENT VERBALIZED UNDERSTANDING TO BE NPO IN CASE SURGERY HAPPENS TONIGHT.
[2018-04-13] MEDS ORDERED: IBUPROFEN 800 MG TAB PO PRN (14:40)
[2018-04-13] MEDS: HYDROcodone/APAP 10/325 MG 1 TAB TAB PO PRN (14:49)
--- NOTE | 2018-04-13 14:49 | NUR ---
DR WRIGHT SAID NO TO MORPHINE REQUEST BUT INCREASED THE NORCO DOSE. SHE AGREED TO HAVE PATIENT NPO IN CASE SURGERY OCCURS TONIGHT. ADDED D5 1/2NS AT 75 D/T DM PATIENT NPO.
[2018-04-13] MEDS: DEXT 5% / NACL 0.45% 1,000 ML IV SCH (14:51)
--- NOTE | 2018-04-13 15:20 | NUR ---
REMOVED OLD GALAVIZ. NEW GALAVIZ INSERTED. PATIENT TOLERATED WELL
[2018-04-13] MEDS ORDERED: Z-GUARD PASTE TP PRN (15:30)
[2018-04-13 16:00] VITALS: BP 110/52
--- NOTE | 2018-04-13 17:41 | NUR ---
Catering Truck Operator Note: Cecile Major from [facility] came to meet with patient. She stated [facility] can accommodate patient upon discharge. She told me their facility is able to provide wound vac if necessary.
--- NOTE | 2018-04-13 17:50 | NUR ---
BS 83
--- NOTE | 2018-04-13 18:00 | NUR ---
PATIENT PICKED UP FOR OR NURSE. PATIENT LEFT IN STABLE CONDITION
[2018-04-13] MEDS ORDERED: ONDANSETRON 4 MG/2 ML VIAL ONE (18:24)
[2018-04-13] MEDS ORDERED: PROPOFOL 200 MG/20 ML VIAL IV ONE (18:24)
[2018-04-13] MEDS ORDERED: DESFLURANE 240 ML BTL INH ONE (18:24)
[2018-04-13] MEDS ORDERED: fentaNYL 0.05 MG/ML VIAL ONE (18:26)
[2018-04-13] MEDS ORDERED: LIDOCAINE/EPI MPF 1%1:200000 30 ML VIAL INJ ONE (18:31)
[2018-04-13] MEDS ORDERED: BUPIVACAINE-MPF 0.25% 30 ML VIAL INJ ONE (18:32)
--- NOTE | 2018-04-13 20:50 | NUR ---
PAGED DR WRIGHT. PT STATES [facility] WILL NOT WORK FOR HER PAIN AND WANTS SOMETHING ELSE ALONG WITH SOMETHING FOR DIARRHEA.
--- NOTE | 2018-04-13 20:57 | NUR ---
PT BLOOD SUGAR IS 79, PT REFUSES TO EAT OR DRINK ANYTHING BECAUSE SHE "WILL GET DIARRHEA." WILL LET DR. WRIGHT KNOW WHEN SHE CALLS BACK.
[2018-04-13] MEDS: MORPHINE SULFATE 4 MG/ML SYR IVP PRN (21:54)
[2018-04-14] VITALS: BP 135/56
--- NOTE | 2018-04-14 | NUR ---
VITAL SIGNS WITHIN NORMAL LIMITS. PT STABLE, DENIES HAVING ANY PAIN, NO SIGNS OF DISTRESS NOTED AT THIS TIME. PT POSITIONED FOR COMFORT. BED IN LOWEST POSITION, BED ALARM ON. WILL CONTINUE TO MONITOR.
[2018-04-14] MEDS: NACL 0.9% IRR 250 ML BOTTLE IR SCH ×2 (01:11→12:02)
--- NOTE | 2018-04-14 02:15 | NUR ---
REMOVED IV TO LEFT HAND, PT C/O PAIN.
[2018-04-14] MEDS: MORPHINE SULFATE 4 MG/ML SYR IVP PRN ×2 (05:14→17:10)
--- NOTE | 2018-04-14 05:14 | NUR ---
ADMINISTERED MORPHINE FOR C/O 8/10 ABD PAIN. PT TOLERATED WELL.
[2018-04-14] MEDS: DEXT 5% / NACL 0.45% 1,000 ML IV SCH ×2 (05:19→17:15)
[2018-04-14] MEDS: BLOOD GLUCOSE MONITORING 1 DEV DEV FS SCH ×4 (06:17→21:02)
[2018-04-14] MEDS ORDERED: MEROPENEM 500 MG VIAL IV ONE (06:33)
[2018-04-14] MEDS ORDERED: MEROPENEM 1,000 MG in NACL 0.9% 100 ML IV SCH (07:00)
--- NOTE | 2018-04-14 07:11 | NUR ---
ENDORSED PT TO DAY SHIFT RN KAROLYN FOR CONTINUITY OF CARE. PT IN STABLE CONDITION.
--- NOTE | 2018-04-14 07:15 | NUR ---
RECEIVED BEDSIDE REPORT FROM LANGUAGES AND LITERATURE INSTRUCTOR NURSE. PATIENT IS AAOX4. NO SIGNS OF DISTRESS. NO C/O PAIN OR DISCOMFORT AT THIS TIME. SKIN NON-INTACT. MULTIPLE SURGICAL WOUNDS: ABD, L INNER THIGH, PERINEAL AREA. S/P ABD I&D 04/13. ALL DRESSINGS IN PLACE, C/D/I. GALAVIZ CATH IN PLACE, DRAINING URINE. PATIENT AWARE TO OF ORDER TO COLLECT STOOL/DIARRHEA SAMPLE AND UNDERSTANDS TO ASK FOR BEDPAN. PER LANGUAGES AND LITERATURE INSTRUCTOR RN, PT HAS HAD ONE EPISODE OF DIARRHEA SINCE ADMISSION. IV SITE PATENT AND ASYMPTOMATIC, INFUSING IVF PER MD ORDERS. ALL SAFETY PRECAUTIONS IN PLACE, WILL CONTINUE TO MONITOR.
[2018-04-14 07:38] LABS: BASOPHILS # (AUTO) 0.1 K/uL (0.00-0.22); BASOPHILS % (AUTO) 0.5 % (0.0-2.0); EOSINOPHILS # (AUTO) 0.8 K/uL (0-0.4); EOSINOPHILS % (AUTO) 5.4 % (0.0-4.0); HEMOGLOBIN 8.7 g/dL (12.0-16.0); LYMPHOCYTES % (AUTO) 13.9 % (20.5-51.1); MEAN CORPUSCULAR HEMOGLOBIN 26 pg (27-31); MEAN CORPUSCULAR HGB CONC 32 g/dL (33-37); MEAN CORPUSCULAR VOLUME 81.4 fL (80-94); MONOCYTES # (AUTO) 0.9 K/uL (0.8-1.0); MONOCYTES % (AUTO) 6.2 % (1.7-9.3); NEUTROPHILS # (AUTO) 10.4 K/uL (1.8-7.7); PLATELET COUNT (AUTO) 373 K/uL (140-450); RED BLOOD CELL COUNT(AUTO) 3.32 MIL/uL (4.20-5.40); WHITE BLOOD COUNT (AUTO) 14.1 K/uL (4.8-10.8)
[2018-04-14 07:54] LABS: ANION GAP 10.1 (8-16); CARBON DIOXIDE 24.1 mmol/L (21-32); CREATININE 0.8 mg/dL (0.6-1.3); POTASSIUM 4.2 mmol/L (3.5-5.1); TOTAL BILIRUBIN 0.6 mg/dL (0.0-1.0)
[2018-04-14 08:00] VITALS: BP 138/63
--- NOTE | 2018-04-14 08:19 | NUR ---
RECEIVED TORB ORDERS FROM DR. WRIGHT FOR MG2+ LEVEL OF 1.0 TODAY.
[2018-04-14] MEDS ORDERED: MAG SULF 2000 MG/WATER PREMIX 100 ML IV ONE (08:20)
[2018-04-14] MEDS ORDERED: MAGNESIUM SULFATE 4GM in STERILE WATER 100 ML PREMIX IV SCH (08:45)
[2018-04-14] MEDS: LISINOPRIL 20 MG TAB PO SCH (08:59)
[2018-04-14] MEDS: metFORMIN 500 MG TAB PO SCH ×2 (09:00→17:10)
[2018-04-14] MEDS: INSULIN NPH HUMAN ISOPHANE 100 UNIT/ML VIAL SUBQ SCH (09:34)
[2018-04-14] MEDS: MEROPENEM 1,000 MG in NACL 0.9% 100 ML IV SCH ×2 (14:00→22:16)
--- NOTE | 2018-04-14 14:29 | NUR ---
MERREM NOT ADMINISTERED DUE TO NO IV ACCESS AVAILABLE. UNABLE TO OBTAIN IV ACCESS. DR. WRIGHT IS AWARE AND ORDERED FOR PICC LINE PLACEMENT.
--- NOTE | 2018-04-14 14:38 | NUR ---
PICC LINE RN HAS CALLED BACK BUT INFORMED HIM THAT DR. WRIGHT HAS NOT FAXED BACK SIGNED CONSENT FOR PICC LINE YET. WILL CALL PICC RN WHEN CONSENT IS COMPLETE.
[2018-04-14 16:00] VITALS: BP 119/62
--- NOTE | 2018-04-14 16:44 | NUR ---
PICC LINE PLACEMENT COMPLETE. RIGHT UA DOUBLE LUMEN, VERIFIED BY XRAY.
--- NOTE | 2018-04-14 19:33 | NUR ---
ENDORSED POC TO SEAMLESS TUBE ROLLER RN. PT IN STABLE CONDITION. ENDORSED TO COLLECT AEROBIC WOUND CULTURE AND CDIFF CULTURE.
--- NOTE | 2018-04-14 19:34 | NUR ---
RECEIVED BEDSIDE REPORT FROM AM NURSE PATIENT IS AAOX4. NO SIGNS OF DISTRESS. NO C/O PAIN OR DISCOMFORT AT THIS TIME. SKIN NON-INTACT. MULTIPLE SURGICAL WOUNDS: ABD, L INNER THIGH, PERINEAL AREA. S/P ABD I&D 04/13. ALL DRESSINGS IN PLACE, C/D/I. GALAVIZ CATH IN PLACE, DRAINING URINE. R UA PICC LINE DOUBLE LUMEN PATENT AND ASYMPTOMATIC, INFUSING IVF PER MD ORDERS. ALL SAFETY PRECAUTIONS IN PLACE, WILL CONTINUE TO MONITOR.
--- NOTE | 2018-04-14 22:00 | NUR ---
PT HAD BOWEL MOVEMENT; SMEAR ONLY. NO D CIFF COLLECTED YET; DRESSED WOUND ON PERINEUM , TOOK SAMPLE FOR WOUND CULTURE ON LEFT PERINEAL/ISCHIORECTAL WOUND.
[2018-04-15] VITALS: BP 150/50
[2018-04-15] MEDS: NACL 0.9% IRR 250 ML BOTTLE IR SCH ×2 (01:00→14:20)
--- NOTE | 2018-04-15 03:00 | NUR ---
PT SLEEPING, NO COMPLAINTS AT THIS TIME. PT IN STABLE CONDITION
[2018-04-15] MEDS: MORPHINE SULFATE 4 MG/ML SYR IVP PRN ×4 (03:45→21:16)
--- NOTE | 2018-04-15 04:30 | NUR ---
PT HAD A LARGE BOWEL MOVEMENT, LOOSE,. CHANGED THE DRESSING.
[2018-04-15] MEDS: MEROPENEM 1,000 MG in NACL 0.9% 100 ML IV SCH ×3 (06:16→21:16)
[2018-04-15] MEDS: DEXT 5% / NACL 0.45% 1,000 ML IV SCH ×2 (06:35→14:23)
[2018-04-15] MEDS: BLOOD GLUCOSE MONITORING 1 DEV DEV FS SCH ×4 (06:43→21:33)
--- NOTE | 2018-04-15 07:20 | NUR ---
ENDORSED PT TO AM SHIFT FOR CONTINUITY OF CARE. PT IN STABLE CONDITION
[2018-04-15 07:22] LABS: ANION GAP 9.8 (8-16); CARBON DIOXIDE 25.2 mmol/L (21-32); CREATININE 0.7 mg/dL (0.6-1.3)
--- NOTE | 2018-04-15 07:24 | NUR ---
RECEIVED BEDSIDE REPORT FROM WATER PLANT PUMP OPERATOR NURSE. PATIENT IS AOX4. NO SIGNS OF DISTRESS. NO C/O PAIN OR DISCOMFORT AT THIS TIME. SKIN NON-INTACT. MULTIPLE SURGICAL WOUNDS: ABD, L INNER THIGH, PERINEAL AREA. S/P ABD I&D 04/13. ALL DRESSINGS IN PLACE, C/D/I. GALAVIZ CATH IN PLACE, DRAINING URINE. CDIFF SAMPLE HAS BEEN SENT TO LAB PER WATER PLANT PUMP OPERATOR RN. RT UA PICC DOUBLE LUMEN IN PLACE, PATENT AND ASYMPTOMATIC, INFUSING IVF PER MD ORDERS. DRESSING OVER PICC SITE C/D/I. ALL SAFETY PRECAUTIONS IN PLACE, WILL CONTINUE TO MONITOR.
[2018-04-15 08:00] VITALS: BP 138/78
[2018-04-15] MEDS: INSULIN NPH HUMAN ISOPHANE 100 UNIT/ML VIAL SUBQ SCH (08:29)
[2018-04-15] MEDS: metFORMIN 500 MG TAB PO SCH ×2 (08:31→17:05)
[2018-04-15] MEDS: LISINOPRIL 20 MG TAB PO SCH (08:32)
--- NOTE | 2018-04-15 12:11 | NUR ---
DR. ANN ORDERED FOR WOUND VAC. HYDROELECTRIC PLANT STRUCTURAL ENGINEER CARA TO EVALUATE PT BEFORE PLACEMENT OF WOUND VAC.
[2018-04-15] MEDS ORDERED: MAG SULF 2000 MG/WATER PREMIX 100 ML IV ONE (13:40)
--- NOTE | 2018-04-15 14:23 | NUR ---
UNDERMINING IN ABD WOUND FROM 1030 TO 2'OCLOCK POSITION. 6CM UNDERMINING LENGTH. NO TUNNELING SEEN.
[2018-04-15] MEDS: MAG SULF 2000 MG/WATER PREMIX 50 ML IV SCH ×2 (15:35→18:19)
[2018-04-15 16:00] VITALS: BP 124/53
[2018-04-15] MEDS: INSULIN LISPRO SLIDING SCALE 100 UNITS/ML VIAL SUBQ PRN ×2 (17:03→21:35)
--- NOTE | 2018-04-15 19:37 | NUR ---
ENDORSED POC TO PIPE BOWLS PAINT TRIMMER RN. PT IN STABLE CONDITION.
--- NOTE | 2018-04-15 19:38 | NUR ---
RECEIVED REPORT FROM LEILANI AT BEDSIDE FOR CONTINUITY OF CARE. PT AAOX4. PT IV NOTED PATY DOUBLE LUMEN D5 1/2 NS AT 75ML/HR. NO SOB NO S/S OF DISTRESS ON RA. BED LOWERED CALL LIGHT WITHIN REACH WILL CONTINUE TO MONITOR.
--- NOTE | 2018-04-15 21:00 | NUR ---
PT SWALLOWED MEDS FINE. NO SOB NO S/S OF DISTRESS. PLAN OF CARE WAS DISCUSSED. WILL DO DRESSING CHANGES AT A BETTER TIME.
[2018-04-16] VITALS: BP 122/67
--- NOTE | 2018-04-16 | NUR ---
REPOSITION. PAIN EVENT MANAGER. CHANGED DRESSING AND RE-INFORCEMENT OF LABIA. WILL CONTINUE TO MONITOR.
[2018-04-16] MEDS: HYDROcodone/APAP 10/325 MG 1 TAB TAB PO PRN (00:19)
[2018-04-16] MEDS: NACL 0.9% IRR 250 ML BOTTLE IR SCH ×2 (01:00→13:00)
[2018-04-16] MEDS: MORPHINE SULFATE 4 MG/ML SYR IVP PRN ×4 (03:33→20:57)
--- NOTE | 2018-04-16 04:00 | NUR ---
PT SLEEPING NO SOB NO S/S OF DISTRESS ON RA.
[2018-04-16] MEDS: MEROPENEM 1,000 MG in NACL 0.9% 100 ML IV SCH ×2 (05:36→14:45)
[2018-04-16 06:21] LABS: BASOPHILS # (AUTO) 0.1 K/uL (0.00-0.22); BASOPHILS % (AUTO) 0.6 % (0.0-2.0); EOSINOPHILS # (AUTO) 0.8 K/uL (0-0.4); EOSINOPHILS % (AUTO) 6.1 % (0.0-4.0); HEMATOCRIT 26.2 % (36-48); HEMOGLOBIN 8.3 g/dL (12.0-16.0); LYMPHOCYTES # (AUTO) 1.9 K/uL (2.5-16.5); LYMPHOCYTES % (AUTO) 14.7 % (20.5-51.1); MEAN CORPUSCULAR HEMOGLOBIN 26 pg (27-31); MEAN CORPUSCULAR HGB CONC 32 g/dL (33-37); MEAN CORPUSCULAR VOLUME 81.5 fL (80-94); MONOCYTES # (AUTO) 1.1 K/uL (0.8-1.0); MONOCYTES % (AUTO) 8.4 % (1.7-9.3); NEUTROPHILS # (AUTO) 9.1 K/uL (1.8-7.7); NEUTROPHILS % (AUTO) 70.2 % (42.2-75.2); PLATELET COUNT (AUTO) 341 K/uL (140-450); RED BLOOD CELL COUNT(AUTO) 3.22 MIL/uL (4.20-5.40); RED CELL DISTRIBUTION WIDTH 17.2 % (11.6-13.7)
[2018-04-16] MEDS: BLOOD GLUCOSE MONITORING 1 DEV DEV FS SCH ×4 (06:38→20:39)
[2018-04-16 06:48] LABS: ANION GAP 9.2 (8-16); CARBON DIOXIDE 24.2 mmol/L (21-32); CREATININE 0.8 mg/dL (0.6-1.3); POTASSIUM 4.4 mmol/L (3.5-5.1)
--- NOTE | 2018-04-16 07:21 | NUR ---
ENDORSED REPORT TO DAYSHIFT NURSE AT BEDSIDE FOR CONTINUITY OF CARE.
--- NOTE | 2018-04-16 07:24 | NUR ---
RECEIVED BEDSIDE REPORT FROM GENERAL MEDICAL PRACTITIONER NURSE. PATIENT AAOX4. PATIENT ON ROOM AIR, NO DISTRESS NOTED. PATIENT ON MED SURGE AND STANDARD PRECAUTIONS IN PLACE. FALL RISK PROTOCOL IN PLACE. WOUNDS PRESENT ON LOWER ABDOMEN, L LABIA, INNER THIGH, AND BUTTOCKS. DRESSINGS CLEAN DRY AND INTACT. PATIENT ON WOUND CARE BED. PATIENT WITH GALAVIZ CATHETER. PATY PICC LINE INFUSING D5 NS AT 75. PICC LINE CLEAN DRY AND INTACT. BED IN LOW POSITION, CALL LIGHT WITHIN REACH. WILL CONTINUE TO MONITOR.
[2018-04-16 08:00] VITALS: BP 101/65
--- NOTE | 2018-04-16 08:56 | NUR ---
FAXED FACE SHEET TO [facility]. I CALLED LEONIDES, , AND INFORMED HIM.
[2018-04-16] MEDS: LISINOPRIL 20 MG TAB PO SCH (09:14)
[2018-04-16] MEDS: metFORMIN 500 MG TAB PO SCH ×3 (09:14→23:30)
[2018-04-16] MEDS: INSULIN NPH HUMAN ISOPHANE 100 UNIT/ML VIAL SUBQ SCH (09:16)
[2018-04-16] MEDS: DEXT 5% / NACL 0.45% 1,000 ML IV SCH ×2 (09:19→22:35)
--- NOTE | 2018-04-16 09:30 | NUR ---
ADMINISTERED SCHEDULED MEDS AND PRN MORPHINE FOR COMFORTABILITY DURING WOUND CARE LATER. PATIENT TOLERATED WELL. WILL CONTINUE TO MONITOR.
--- NOTE | 2018-04-16 11:12 | NUR ---
WOUND CARE RE-EVALUATION TO S/P DEBRIDEMENT TO 04/13/2018 ABDOMEN AND PERINEUM SURGICAL WOUNDS: INTEGUMENTARY -ABDOMEN SURGICAL WOUNDS �Z� SHAPE WOUND [id number], WOUND BED 40% YELLOW SLOUGH AND 60 % GRANULATING TISSUE WITH MODERATE AMOUNT OF SEROSANGUINEOUS DRAINAGE, NO ODOR AND HELENA-WOUND SKIN INTACT. UNDERMINING 9 TO 3 O�CLOCK 4 CM AND AT 3 O'CLOCK TUNNELING OF 6 CM. -LEFT LABIA SURGICAL WOUND [id number], 100% GRANULATION TISSUE WITH MODERATE AMOUNT OF SEROSANGUINEOUS DRAINAGE, NO ODOR AND HELENA-WOUND SKIN INTACT. -LEFT PERINEUM/ ISCHIORECTAL SURGICAL WOUND [id number], 20 % YELLOW SLOUGH AND 80% GRANULATION TISSUE WITH MODERATE AMOUNT OF SEROSANGUINEOUS DRAINAGE, NO ODOR AND HELENA-WOUND SKIN TOWARD HELENA-ANAL AREA SKIN INTACT. -LEFT MEDIAL THIGH S/P I&D [id number] WOUND BED IS 100% YELLOW, MODERATE AMOUNT OF PURULENT DRAINAGE, MILD ODOR AND HELENA-WOUND SKIN INTACT. RECOMMENDATIONS: -KCI VAC THERAPY TO ABDOMEN SURGICAL WOUND WITH LARGE GRANUFOAM DRESSING FOLLOW V.A.C THERAPY CLINICAL GUIDELINES. SET THERAPY ON CONTINUOUS THERAPY AT 125 MMHG. CHANGE DRESSING Q72 HOURS AND PRN IS DISLODGED. -CLEANSE LEFT MEDIA THIGH, LEFT LABIA AND LEFT PERINEUM SURGICAL WOUNDS WITH NS, PAT DRY, PACK WOUNDS WITH 1/2" ELBA ROLL MOIST WITH NS, FILL THE BASE OF THE WOUND, COVER WITH ABD DRESSING AND SECURE WITH TAPE QD AND PRN IF SOILING.
--- NOTE | 2018-04-16 11:55 | NUR ---
RECEIVED A CALL FROM LEONIDES FROM [facility].- THEY CANNOT ACCEPT THE PATIENT DUE TO INSURANCE.
--- NOTE | 2018-04-16 14:27 | NUR ---
WOUND CARE PLAN DISCUSSION WITH DR. WRIGHT, WOUND VAC APPLY, PT. TOLERATED PROCEDURES, WOUND VAC MACHINE FUNCTIONING.
[2018-04-16] MEDS: PHARMACY COMMENTS MC SCH ×2 (18:00→23:56)
[2018-04-16] MEDS: VANCOMYCIN 500 MG VIAL PO SCH ×4 (18:00→23:54)
--- NOTE | 2018-04-16 19:30 | NUR ---
RECEIVED BEDSIDE REPORT FROM DAY SHIFT RN, PATIENT ON CONTACT PRECAUTIONS FOR C-DIFF, PATIENT ON WOUND BED, ON RA, NO SIGNS OF ACUTE DISTRESS, C/O PAIN 8/10 ON ABDOMEN WOUND, BP 120/60 HR 99 RR 16 EVEN AND NON-LABORED. WILL MEDICATE WITH MORPHINE ACCORDING TO ORDER. BG 132 NO COVERAGE NEEDED. NOTED RIGHT DOUBLE LUMEN PICC LINE INFUSING D5/1/2 NS AT 75 ML/HR, NOTED WOUND VAC, 50 ML LIGHT BROWN OUTPUT FROM DAY SHIFT. GALAVIZ CATH IN PLACE DRAINING 400 ML CLEAR YELLOW URINE. NOTED LEFT ABDOMINAL WOUND, LEFT LABIA WOUND, DRESSING CLEAN AND INTACT. PATIENT SCHEDULED FOR I&D ON 04/18/18, CONSENT SIGNED AND IN CHART. WILL DUE PRE OP CHECKLIST. SCD NOT ON, PATIENT STATED SHE WANTED A BREAK FROM WEARING THEM.
--- NOTE | 2018-04-16 20:00 | NUR ---
ALL DUE MEDICATIONS GIVEN FROM DAY SHIFT NURSE.
--- NOTE | 2018-04-16 20:57 | NUR ---
ADMINISTERED MORPHINE FOR 8/ PAIN. DUE MEROPENEM GIVEN.
--- NOTE | 2018-04-16 23:00 | NUR ---
PATIENT REPOSITIONED FOR COMFORT, REQUESTED TO SLEEP. WILL CONTINUE TO MONITOR.
[2018-04-17] VITALS (8 sets, daily range): BP systolic 108–148; BP diastolic 50–69
[2018-04-17] MEDS: NACL 0.9% IRR 250 ML BOTTLE IR SCH ×2 (00:04→13:00)
--- NOTE | 2018-04-17 00:15 | NUR ---
DUE VANCO GIVEN PATIENT TOLERATED WELL. STARTED NEW BAG OF IVF, D5/1/2 NS INFUSING IN RIGHT PICC AT 75 ML/HR, IVF TUBING CHANGED. V/S TAKEN ALL WITHIN BASELINE, PATIENT DENIES PAIN. PRE-OP QUESTIONS ASKED PATIENT WAS ABLE TO ANSWER QUESTIONS, PATIENT HAS BEEN NPO SINCE MIDNIGHT, ALLERGY BAND APPLIED.
[2018-04-17] MEDS: MORPHINE SULFATE 4 MG/ML SYR IVP PRN ×6 (01:14→20:42)
--- NOTE | 2018-04-17 01:30 | NUR ---
PATIENT C/O PAIN 8/10 IN ABDOMINAL WOUND. MEDICATED WITH MORPHINE ACCORDING TO MD ORDER. PATIENT REPOSITIONED FOR COMFORT, SMALL LOOSE BM NOTED.
--- NOTE | 2018-04-17 01:36 | NUR ---
WOUND ASSESSMENT COMPLETED, DRESSING BY WOUND CARE NURSE DRY AND INTACT, PATIENT REQUESTED TO LEAVE IT ALONE IF DRESSING CLEAN. EXPLAINED THERE IS NO TIME FOR I&D SURGERY YET.
[2018-04-17] MEDS: PHARMACY COMMENTS MC SCH ×3 (01:38→17:40)
[2018-04-17] MEDS: VANCOMYCIN 500 MG VIAL PO SCH ×3 (01:39→17:40)
--- NOTE | 2018-04-17 04:15 | NUR ---
PATIENT ASLEEP IN BED NO SIGNS OF DISTRESS. WILL CONTINUE TO MONITOR.
--- NOTE | 2018-04-17 04:36 | NUR ---
HELD SCHEDULED PO VANCO DUE TO ORDER PATIENT IS NPO. PATIENT NOT ON BIG BOARD, UNABLE TO COMPLETE PRE-OP CHECKLIST AT THIS TIME.
--- NOTE | 2018-04-17 04:51 | NUR ---
NOTED WOUND VAC DRAINAGE LIGHT RED/PINK IN COLOR.
--- NOTE | 2018-04-17 05:20 | NUR ---
PATIENT C/O PAIN MEDICATED WITH MORPHINE, PATEINT C/O NAUSEA CALLED DR WRIGHT FOR ORDER FOR ZOFRAN. BG 134.
--- NOTE | 2018-04-17 05:55 | NUR ---
CALL BACK FROM DR WRIGHT, WILL PUT ON ORDER FOR ZOFRAN 4 MG Q6H PRN.
[2018-04-17] MEDS: ONDANSETRON 4 MG/2 ML VIAL IVP PRN (06:12)
[2018-04-17 06:22] LABS: BASOPHILS # (AUTO) 0.1 K/uL (0.00-0.22); BASOPHILS % (AUTO) 0.6 % (0.0-2.0); EOSINOPHILS # (AUTO) 0.7 K/uL (0-0.4); EOSINOPHILS % (AUTO) 5.4 % (0.0-4.0); HEMATOCRIT 24.1 % (36-48); HEMOGLOBIN 7.7 g/dL (12.0-16.0); LYMPHOCYTES # (AUTO) 2.1 K/uL (2.5-16.5); LYMPHOCYTES % (AUTO) 15.2 % (20.5-51.1); MEAN CORPUSCULAR HEMOGLOBIN 26 pg (27-31); MEAN CORPUSCULAR HGB CONC 32 g/dL (33-37); MEAN CORPUSCULAR VOLUME 81.4 fL (80-94); NEUTROPHILS # (AUTO) 9.7 K/uL (1.8-7.7); NEUTROPHILS % (AUTO) 71.8 % (42.2-75.2); PLATELET COUNT (AUTO) 324 K/uL (140-450); RED BLOOD CELL COUNT(AUTO) 2.96 MIL/uL (4.20-5.40); WHITE BLOOD COUNT (AUTO) 13.5 K/uL (4.8-10.8)
[2018-04-17] MEDS: BLOOD GLUCOSE MONITORING 1 DEV DEV FS SCH ×4 (06:41→20:33)
--- NOTE | 2018-04-17 07:26 | NUR ---
ENDORSED PATIENT TO DAY SHIFT NURSE, PATIENT STABLE.
--- NOTE | 2018-04-17 07:27 | NUR ---
GOT REPORT FROM APARTMENT MAINTENANCE TECHNICIAN NURSE. PATIENT AAOX4. PATIENT ON ROOM AIR, NO DISTRESS NOTED. PATIENT WITH WOUND VAC. WOUND VAC IN PLACE. DRESSINGS ON L LABIA AND THIGH CLEAN DRY AND INTACT. PATIENT UNABLE TO AMBULATE AND IS CONTINENT. PATIENT ON WOUND CARE BED. PATY PICC LINE DOUBLE LUMEN INFUSING D5 1/2 NS AT 75. PICC LINE DRESSING INTACT. CONTACT ISOLATION IN PLACE POSITIVE FOR C DIFF. FALL RISK PROTOCOL IN PLACE. BED IN LOW POSITION, CALL LIGHT WITHIN REACH.
[2018-04-17 07:29] LABS: ALBUMIN 1.6 g/dL (3.4-5.0); ANION GAP 10.5 (8-16); CARBON DIOXIDE 22.5 mmol/L (21-32); CREATININE 0.8 mg/dL (0.6-1.3); TOTAL BILIRUBIN 0.3 mg/dL (0.0-1.0)
[2018-04-17] MEDS: metFORMIN 500 MG TAB PO SCH ×2 (08:00→17:39)
[2018-04-17] MEDS: LISINOPRIL 20 MG TAB PO SCH (08:05)
--- NOTE | 2018-04-17 08:23 | NUR ---
Key Bed Installer Note: Late entry for 04/16/18: requested an update on [facility] evaluation. I told her [facility] is unable to accept patient due to lack of secondary health insurance. She told me to please check patient's [facility] application status. Per , she is anticipating for patient to be medically stable tomorrow 04/17/18 or the following day 04/18/18. I told her I will obtain a status from [facility] renewals representative from [employer] [facility] and informed her [facility] is able to accept patient. Per eBrtram, patient provided him with her bank statements, but they do not have a beginning and ending balance that may be an issue. He stated he is waiting to hear back from the [facility] and is anticipating hearing back from [facility] in 2 weeks. I called and spoke with Naima at [facility] , she stated they can accommodate patient with C-Diff. I met with patient at bedside and relayed the above information to her. Per patient, she is still in agreement with being transfer to [facility] upon discharge.
[2018-04-17] MEDS: NACL 0.9% 1,000 ML IV SCH ×2 (08:55→20:42)
[2018-04-17] MEDS ORDERED: INSULIN NPH HUM/REG INSULIN HM 100 UNIT/ML 10 ML VIAL SUBQ SCH (08:58)
[2018-04-17] MEDS ORDERED: INSULIN REGULAR, HUMAN 100 UNIT/ML VIAL SUBQ SCH (08:58)
[2018-04-17] MEDS: INSULIN NPH HUMAN ISOPHANE 100 UNIT/ML VIAL SUBQ SCH (09:17)
[2018-04-17] MEDS: INSULIN LISPRO SLIDING SCALE 100 UNITS/ML VIAL SUBQ PRN (09:18)
--- NOTE | 2018-04-17 10:02 | NUR ---
NOTIFIED DR. WRIGHT OF BLOOD SUGAR 409. DR. WRIGHT ORDERED 12 UNITS NPH, NS AT 75, AND 5 UNITS OF REGULAR INSULIN NOW. PATIENT TOLERATED WELL, IN STABLE CONDITION. WILL RECHECK BLOOD SUGAR.
--- NOTE | 2018-04-17 10:52 | NUR ---
STARTED BLOOD TRANSFUSION. CONSENT SIGNED AND COPY IN CHART. VERIFIED BLOOD PRODUCT WITH ANOTHER RN. DR. ANN MADE AWARE OF H&H 7.7 AND 24.1 AND STATED HE WANTS THE PRBCS GIVEN TO PATIENT. VITAL SIGNS STABLE PRE-TRANSFUSION. WILL CONTINUE TO MONITOR PATIENT.
[2018-04-17] MEDS: DEXT 5% / NACL 0.45% 1,000 ML IV SCH (11:55)
--- NOTE | 2018-04-17 12:40 | NUR ---
Devops Developer Note: Per , patient will not be discharge today. I called and spoke with Ceclie at [facility] , I informed her patient will not be discharge today. Per Cecile, they will keep reserving patient's bed.
[2018-04-17] MEDS ORDERED: DEXT 5% /NACL 0.9% 1,000 ML IV SCH (12:55)
--- NOTE | 2018-04-17 13:50 | NUR ---
BLOOD TRANSFUSION COMPLETE. VITALS STABLE, NO REACTION DRUING OR AFTER PROCEDURE. PATIENT TOLERATED WELL. WILL CONTINUE TO MONITOR.
[2018-04-17] MEDS: LIDOCAINE/EPI MPF 1%1:200000 30 ML VIAL INJ ONE ×2 (14:49→15:55)
[2018-04-17] MEDS: BUPIVACAINE-MPF 0.25% 30 ML VIAL INJ ONE ×2 (14:49→15:55)
--- NOTE | 2018-04-17 15:07 | NUR ---
PATIENT PICKED UP FOR SURGERY VIA GURNEY. DC'D WOUND VAC PER SURGERY NURSE. I&D OF LOWER ABDOMEN AND L LABIA.
[2018-04-17] MEDS ORDERED: ONDANSETRON 4 MG/2 ML VIAL ONE (15:08)
[2018-04-17] MEDS ORDERED: DESFLURANE 240 ML BTL INH ONE (15:08)
[2018-04-17] MEDS ORDERED: PROPOFOL 200 MG/20 ML VIAL IV ONE (15:08)
[2018-04-17] MEDS ORDERED: fentaNYL 0.05 MG/ML VIAL ONE (15:16)
[2018-04-17] MEDS ORDERED: MORPHINE SULFATE 4 MG/ML SYR ONE (16:37)
--- NOTE | 2018-04-17 16:47 | NUR ---
PATIENT RETURNED FROM SURGERY. VITALS STABLE. PATIENT REQUESTED WARM BLANKET. GAVE PATIENT WARM BLANKET. WILL CONTINUE TO MONITOR.
--- NOTE | 2018-04-17 17:45 | NUR ---
ADMINISTERED SCHEDULED MEDS. PATIENT TOLERATED WELL. FAMILY AT BEDSIDE. WILL CONTINUE TO MONITOR.
--- NOTE | 2018-04-17 18:40 | NUR ---
NOTIFIED [facility] PATIENTS REQUEST FOR DINNER TRAY CCHO 60 GM DIET. STATED WILL BRING PATIENT A DINNER TRAY.
--- NOTE | 2018-04-17 18:50 | NUR ---
PATIENT NOW WITH DINNER TRAY. PATIENT SITTING UP IN BED AND WATCHING TV. WILL CONTINUE TO MONITOR.
--- NOTE | 2018-04-17 18:52 | NUR ---
WILL GIVE REPORT TO EDGE BASTER NURSE. PATIENT IN STABLE CONDITION. FAMILY AT BEDSIDE.
--- NOTE | 2018-04-17 19:30 | NUR ---
RECEIVED BEDSIDE REPORT FROM DAY SHIFT RN, PATIENT IN BED, EATING DINNER, ON D5 AND NS INFUSING INTO PICC. DRESSING INTACT, GALAVIZ IN PLACE, ABDOMINAL DRESSING INTACT NO SIGNS OF BLEEDING. PATIENT C/O PAIN WILL MEDICATE. BG 124 NO COVERAGE NEEDED.
--- NOTE | 2018-04-17 19:45 | NUR ---
DAY SHIFT NURSE EXPLAINED THAT PT HAD 1 U BLOOD AND LABS WILL BE DRAWN IN MORNING.
--- NOTE | 2018-04-17 20:42 | NUR ---
PATIENT C/O PAIN MEDICATED WITH MORPHINE.
[2018-04-18] VITALS: BP 148/64
--- NOTE | 2018-04-18 | NUR ---
V/S TAKEN ALL WITHIN BASELINE.
[2018-04-18] MEDS: NACL 0.9% IRR 250 ML BOTTLE IR SCH ×2 (01:00→13:00)
[2018-04-18] MEDS: ONDANSETRON 4 MG/2 ML VIAL IVP PRN ×2 (01:01→05:40)
[2018-04-18] MEDS: MORPHINE SULFATE 4 MG/ML SYR IVP PRN ×5 (01:01→20:25)
[2018-04-18] MEDS: DEXT 5% / NACL 0.45% 1,000 ML IV SCH ×2 (01:01→14:35)
--- NOTE | 2018-04-18 01:01 | NUR ---
PATIENT C/O PAIN MEDICATED WITH MORPHINE. PATIENT C/O FEEL NAUSEOUS WHEN GETTING PO VANCO. MEDICATED WITH ZOFRAN, PATIENT RECEIVED PO VANCO.
[2018-04-18] MEDS: PHARMACY COMMENTS MC SCH ×4 (05:40→18:00)
[2018-04-18] MEDS: VANCOMYCIN 500 MG VIAL PO SCH ×4 (05:40→19:47)
--- NOTE | 2018-04-18 05:40 | NUR ---
MEDICATED WITH MORPHINE FOR PAIN, GAVE ZOSYN FOR VANCO.
[2018-04-18 06:19] LABS: BASOPHILS # (AUTO) 0.1 K/uL (0.00-0.22); BASOPHILS % (AUTO) 0.6 % (0.0-2.0); EOSINOPHILS # (AUTO) 0.6 K/uL (0-0.4); EOSINOPHILS % (AUTO) 4.4 % (0.0-4.0); HEMOGLOBIN 8.5 g/dL (12.0-16.0); LYMPHOCYTES # (AUTO) 1.8 K/uL (2.5-16.5); LYMPHOCYTES % (AUTO) 13.3 % (20.5-51.1); MEAN CORPUSCULAR HEMOGLOBIN 27 pg (27-31); MEAN CORPUSCULAR HGB CONC 33 g/dL (33-37); MEAN CORPUSCULAR VOLUME 81.5 fL (80-94); MONOCYTES % (AUTO) 7.1 % (1.7-9.3); NEUTROPHILS # (AUTO) 10.2 K/uL (1.8-7.7); NEUTROPHILS % (AUTO) 74.6 % (42.2-75.2); PLATELET COUNT (AUTO) 332 K/uL (140-450); RED BLOOD CELL COUNT(AUTO) 3.19 MIL/uL (4.20-5.40); RED CELL DISTRIBUTION WIDTH 16.7 % (11.6-13.7); WHITE BLOOD COUNT (AUTO) 13.7 K/uL (4.8-10.8)
[2018-04-18] MEDS: BLOOD GLUCOSE MONITORING 1 DEV DEV FS SCH ×4 (06:21→20:26)
[2018-04-18 06:44] LABS: ANION GAP 8.8 (8-16); CARBON DIOXIDE 24.9 mmol/L (21-32); CREATININE 0.6 mg/dL (0.6-1.3); POTASSIUM 4.7 mmol/L (3.5-5.1)
--- NOTE | 2018-04-18 07:37 | NUR ---
ENDORSED PATIENT TO DAY SHIFTY NURSE PATIENT STABLE
--- NOTE | 2018-04-18 07:38 | NUR ---
RECEIVED REPORT FROM ORTHOTIC PRACTITIONER NURSE. PT IN STABLE CONDITION. RESPIRATIONS EVEN AND UNLABORED. PICC LINE DOUBLE LUMEN INTACT AND PATENT. SAFETY MEASURES IN PLACE. BED IN LOW POSITION. CALL LIGHT AT BEDSIDE. WILL CONTINUE TO MONITOR.
[2018-04-18 08:00] VITALS: BP 132/57
[2018-04-18] MEDS: metFORMIN 500 MG TAB PO SCH ×2 (08:40→19:47)
[2018-04-18] MEDS: LISINOPRIL 20 MG TAB PO SCH (08:41)
[2018-04-18] MEDS: INSULIN NPH HUMAN ISOPHANE 100 UNIT/ML VIAL SUBQ SCH (08:42)
--- NOTE | 2018-04-18 09:00 | NUR ---
GAVE ORDERED DUE MEDICATIONS AT THIS TIME. PT TOLERATED WELL WILL CONTINUE TO MONITOR.
--- NOTE | 2018-04-18 11:00 | NUR ---
ASSISTED WITH CHANGING PT SHEETS AND GOWN. PT TOLERATED WELL. WILL CONTINUE TO MONITOR.
[2018-04-18] MEDS: NACL 0.9% 1,000 ML IV SCH (13:09)
[2018-04-18] MEDS: HYDROcodone/APAP 10/325 MG 1 TAB TAB PO PRN (13:45)
--- NOTE | 2018-04-18 14:15 | NUR ---
ASSISTED WOUND CARE NURSE WITH DRESSING CHANGE. PT TOLERATED WELL. BED IN LOW POSITION. WILL CONTINUE TO MONITOR.
--- NOTE | 2018-04-18 14:29 | NUR ---
04/18/18 RD FOLLOW UP COMPLETED PLEASE REFER TO NUTRITION ASSESSMENT UNDER CARE ACTIVITY FOR ESTIMATED NUTRITIONAL NEEDS. 1. CONTINUE CCHO 60 GM DIET WITH ENSURE MAX TID AND PENNY BID TOLERATED 2. RD TO FOLLOW-UP 5-7 DAYS, LOW RISK FILIPE VARELA, RD
--- NOTE | 2018-04-18 14:45 | NUR ---
PER DR. WRIGHT REQUEST DRESSING CHANGED TO ABD, LEFT MEDIAL THIGH, LEFT LABIA AND LEFT ISCHIUM PERINEUM WOUNDS, AND MOIST TO DRY DRESSING APPLY COVER WITH ABDOMINAL DRESSING AND SECURE WITH TAPE. WILL RESUMED WOUND VAC TOMORROW. S/P I&D 04/17/2018 TO LEFT MEDIAL THIGH SURGICAL WOUND 1.5X5X4 CM WOUND BED IS 100% GRANULATING TISSUE, MODERATE AMOUNT OF SEROSANGUINEOUS DRAINAGE, NO ODOR AND HELENA-WOUND SKIN INTACT.
--- NOTE | 2018-04-18 15:38 | NUR ---
Digital Color Press Operator Note: Per , patient will not be discharge today. I notified Cecile at [facility] , I informed her patient will not be discharge today. Per Cecile, they will keep reserving patient's bed.
--- NOTE | 2018-04-18 15:45 | NUR ---
ASSISTED PT WITH BED PEREZ. NO STOOL AT THIS TIME. WILL CONTINUE TO MONITOR
[2018-04-18 16:00] VITALS: BP 128/59
--- NOTE | 2018-04-18 19:18 | NUR ---
GAVE REPORT TO MUNICIPAL COURT JUDGE NURSE FOR CONTINUITY OF CARE. PT IN STABLE CONDITION.
[2018-04-19] VITALS: BP 122/57
[2018-04-19] MEDS: VANCOMYCIN 500 MG VIAL PO SCH ×5 (01:07→18:23)
[2018-04-19] MEDS: NACL 0.9% 1,000 ML IV SCH ×2 (01:10→15:22)
[2018-04-19] MEDS: NACL 0.9% IRR 250 ML BOTTLE IR SCH ×2 (01:11→13:17)
[2018-04-19] MEDS: MORPHINE SULFATE 4 MG/ML SYR IVP PRN ×4 (01:12→20:28)
[2018-04-19] MEDS: DEXT 5% / NACL 0.45% 1,000 ML IV SCH ×2 (03:55→17:15)
--- NOTE | 2018-04-19 03:55 | NUR ---
PT DOES NOT WANT HER MAIN IVF TO BE CHANGED TO D55 .45 NACL. PT'S BLOOD GLUCOSE IS 86MG/DL. WNL. PT IS EATING WELL, AND SHE SAID LAST NIGHT SHE SAID SHE HAD HYPERGLYCEMIA LAST NIGHT AND THEY TREATED HER FOR THAT.
--- NOTE | 2018-04-19 04:34 | NUR ---
WILL ENDORSE TO NEXT SHIFT REGARDING THE MAIN IVF OF D5% .45 NACL. PT IS STILL INFUSING THE LAST ORDER OF .9NACL AT 75ML/HR
[2018-04-19] MEDS: PHARMACY COMMENTS MC SCH ×4 (06:00→17:44)
--- NOTE | 2018-04-19 07:18 | NUR ---
ENDORSED PT WITH STABLE VITAL SIGNS. NO COMPLAINTS OF SOB. NOR PAIN
--- NOTE | 2018-04-19 07:20 | NUR ---
RECEIVED REPORT FROM LASER SPECIALIST NURSE FOR CONTINUITY OF CARE. PT IN STABLE CONDITION. IV INTACT AND PATENT. RESPIRATIONS EVEN AND UNLABORED. SAFETY MEASURES IN PLACE. CALL LIGHT AT BEDSIDE. BED IN LOW POSITION. WILL CONTINUE TO MONITOR.
[2018-04-19] MEDS: BLOOD GLUCOSE MONITORING 1 DEV DEV FS SCH ×4 (07:42→21:00)
[2018-04-19 08:00] VITALS: BP 139/58
[2018-04-19] MEDS: LISINOPRIL 20 MG TAB PO SCH (08:58)
[2018-04-19] MEDS: metFORMIN 500 MG TAB PO SCH ×2 (08:58→18:22)
[2018-04-19] MEDS: INSULIN NPH HUMAN ISOPHANE 100 UNIT/ML VIAL SUBQ SCH (08:59)
--- NOTE | 2018-04-19 10:37 | NUR ---
GAVE MORPHINE TO REDUCE PAIN PER PT REQUEST. PT IN STABLE CONDITION. BED IN LOW POSITION. BED ALARM ON. CALL LIGHT AT BEDSIDE. WILL CONTINUE TO MONITOR.
--- NOTE | 2018-04-19 11:30 | NUR ---
ASSISTED IN CHANGING AND CLEANING AFTER BM. REMOVED SOILED PACKED DRESSING AT PERINEUM AREA AND REPACKED. PT TOLERATED WELL. BED IN LOW POSITION. BED ALARM ON. CALL LIGHT AT BEDSIDE. WILL CONTINUE TO MONITOR.
--- NOTE | 2018-04-19 12:06 | NUR ---
PAGED DR. QUINONES Y. TO FOLLOW UP WITH THE CONSULT. GERSON FROM [facility] CALLED BACK STATED DR. QUINONES IS WITH A PROCEDURE RIGHT NOW, MESSAGE LEFT TO LIBRADO REGARDING THE CONSULT, STATED HE WILL TELL DR. QUINONES.
--- NOTE | 2018-04-19 13:00 | NUR ---
GAVE ORDERED DUE MEDICATIONS AND HUNG IV MEDICATION. PT TOLERATED WELL. WILL CONTINUE TO MONITOR.
--- NOTE | 2018-04-19 15:43 | NUR ---
Cyber Defense Forensics Analyst Note: I notified Cecile at [facility] , I informed her patient will not be discharge today. Per Cecile, they will keep reserving patient's bed.
[2018-04-19 16:00] VITALS: BP 136/59
--- NOTE | 2018-04-19 17:06 | NUR ---
ASSISTED PT ON TO BED PEREZ AT THIS TIME. PT TOLERATED WELL.
--- NOTE | 2018-04-19 18:16 | NUR ---
SPOKE WITH DR. ANN REGARDING PT'S WOUND VAC IF IT NEEDS TO BE RESUMED, DR. ANN STATED IT IS OKAY TO WAIT UNTIL PT IS DISCHARGE TO [facility]. Addendum: 04/19/18 at 1823 by Luzma Cabrera RN DISREGARD ABOVE NOTES, INCOMPLETE DOCUMENTATION.
--- NOTE | 2018-04-19 18:21 | NUR ---
SPOKE WITH DR. ANN REGARDING PT'S WOUND VAC IF IT NEEDS TO BE RESUMED SINCE PT IS STILL HERE, DR. ANN STATED IT IS OKAY TO WAIT UNTIL PT IS DISCHARGE TO [facility] AND THEY CAN START WOUND VAC IN [facility].
--- NOTE | 2018-04-19 19:20 | NUR ---
GAVE REPORT TO CASH APPLICATIONS REPRESENTATIVE NURSE FOR CONTINUITY OF CARE. PT IN STABLE CONDITION
--- NOTE | 2018-04-19 19:25 | NUR ---
RECEIVED REPORT FROM DAY SHIFT NURSE. PT LYING IN BED. AAOX4. NO C/O PAIN AT THIS TIME. NO RESP DISTRESS NOTED. ON ROOM AIR. PT HAS MULTIPLE WOUNDS WITH DRESSING, CLEAN, DRY AND INTACT. PT HAS PICC LINE TO RIGHT UPPER ARM, 2 LUMENS. DISCUSSED PLAN OF CARE, PT VERBALZIED UNDERSTANDING. SAFETY PRECAUTION IN PLACE. CALL LIGHT WITHIN REACH.
[2018-04-19 20:00] VITALS: BP 128/58
--- NOTE | 2018-04-19 20:15 | NUR ---
DR. QUINONES IN THE ROOM TO SEE PT. NO ACUTE DISTRESS NOTED.
--- NOTE | 2018-04-19 22:50 | NUR ---
PT SLEEPING BUT EASILY AROUSABLE. NO S/S OF PAIN. NO S/S OF SOB. SAFETY PRECAUTION IN PLACE. CALL LIGHT WITHIN REACH.
[2018-04-20] VITALS: BP 119/59
[2018-04-20] MEDS: MORPHINE SULFATE 4 MG/ML SYR IVP PRN ×2 (00:35→08:52)
[2018-04-20] MEDS: VANCOMYCIN 500 MG VIAL PO SCH ×3 (00:36→12:48)
[2018-04-20] MEDS: PHARMACY COMMENTS MC SCH ×3 (00:36→12:00)
--- NOTE | 2018-04-20 01:00 | NUR ---
WOUND DRESSINGS CHANGED. PT TOLERATED PROCEDURE WELL. PT KEPT CLEAN, CRY AND COMFORTABLE.
[2018-04-20] MEDS: NACL 0.9% IRR 250 ML BOTTLE IR SCH ×2 (01:02→13:00)
--- NOTE | 2018-04-20 03:30 | NUR ---
PT SLEEPING. RESP EVEN AND UNLABORED. NO S/S OF PAIN OR DISCOMFORT.
[2018-04-20] MEDS: NACL 0.9% 1,000 ML IV SCH (03:36)
[2018-04-20 04:00] VITALS: BP 130/58
--- NOTE | 2018-04-20 05:00 | NUR ---
PT RESTING IN BED WITH EYES CLOSED. NO S/S OF PAIN. NO S/S OF RESP DISTRESS.
--- NOTE | 2018-04-20 06:00 | NUR ---
BLOOD SUGAR CHECKED 147. NO INSULIN COVERAGE. NO C/O PAIN AT THIS TIME.
[2018-04-20] MEDS: DEXT 5% / NACL 0.45% 1,000 ML IV SCH (06:35)
[2018-04-20] MEDS: BLOOD GLUCOSE MONITORING 1 DEV DEV FS SCH ×2 (06:40→11:30)
--- NOTE | 2018-04-20 07:20 | NUR ---
ENDORSED PT TO DAY SHIFT NURSE. PT IN STABLE CONDITION.
--- NOTE | 2018-04-20 07:21 | NUR ---
RECEIVED REPORT FROM SERVER SECURITY ADMINISTRATOR NURSE. PT LYING IN BED. AAOX4. PT COMPLAINS OF 6/10 PAIN. WILL MEDICATE. NO RESP DISTRESS NOTED. ON ROOM AIR. PT HAS MULTIPLE WOUNDS WITH DRESSING, CLEAN, DRY AND INTACT. PT HAS PICC LINE TO RIGHT UPPER ARM, 2 LUMENS. DISCUSSED PLAN OF CARE, PT VERBALIZED UNDERSTANDING. SAFETY PRECAUTION IN PLACE. CALL LIGHT WITHIN REACH. BED IN LOW POSITION.
[2018-04-20 08:00] VITALS: BP 140/61
[2018-04-20] MEDS: LISINOPRIL 20 MG TAB PO SCH (08:53)
[2018-04-20] MEDS: metFORMIN 500 MG TAB PO SCH (08:53)
--- NOTE | 2018-04-20 08:59 | NUR ---
ADMINISTERED SCHEDULED MEDS TO PT. PT TOLERATED MEDS WELL. PT ALSO GIVEN MORPHINE DOSE FOR 7/10 PAIN. WILL REASSESS FOR PAIN MED EFFECTIVENESS. BED IN LOW POSITION, CALL LIGHT WITHIN REACH. ALL NEEDS MET AT THIS TIME.
[2018-04-20] MEDS: INSULIN NPH HUMAN ISOPHANE 100 UNIT/ML VIAL SUBQ SCH (09:01)
--- NOTE | 2018-04-20 10:19 | NUR ---
Parts Finisher Note: Per Naima at [facility] , patient may go to room 106 bed 1 at their facility today, accepting physician is , protective services case worker Cady dunne aware. Addendum: 04/20/18 at 1024 by Carolyn Rose SS Naima stated there is already a wound vac in patient's room at [facility].
--- NOTE | 2018-04-20 10:40 | NUR ---
CALLED [facility] AND SPOKE WITH DIVYA. GAVE TRANSPORT INFORMATION TO STEPHAN ALONZO. SET UP [facility] FOR 2P.M. DANIELLE WEST NURSE. Addendum: 04/20/18 at 1555 by Cady Romo CM PHONE [phone] OR [phone] FOR [facility].
--- NOTE | 2018-04-20 10:47 | NUR ---
PT'S WOUND CARE DONE PRN FOR SOILING. PT TOLERATED CHANGE WELL. PAIN MEDICATION ADMINISTERED AT 0900. VERY LITTLE DISCOMFORT REPORTED FROM PT. ALL OTHER NEEDS MET AT THIS TIME. WILL CONTINUE TO ROUND FREQUENTLY AND CHECK PT FOR PRN WOUND DRESSING CHANGES.
[2018-04-20 12:00] VITALS: BP 136/54
--- NOTE | 2018-04-20 12:48 | NUR ---
ADMINISTERED DOSE OF VANCOMYCIN PO TO PT. PT TOLERATED WELL. ALL NEEDS MET AT THIS TIME. BED IN LOW POSITION, CALL LIGHT WITHIN REACH.
--- NOTE | 2018-04-20 15:52 | NUR ---
PT SLEEPING IN BED. NO SIGNS OF PAIN OR DISTRESS NOTED AT THIS TIME. CALL LIGHT WITHIN REACH, BED IN LOW POSITION.
[2018-04-20] MEDS: HYDROcodone/APAP 10/325 MG 1 TAB TAB PO PRN (15:56)
--- NOTE | 2018-04-20 16:17 | NUR ---
CALLED [facility] AND GAVE REPORT TO QI. AWAITING TRANSPORT VEHICLE FOR PT.
--- NOTE | 2018-04-20 16:35 | NUR ---
PT DISCHARGED TO [facility] FOR CONTINUITY OF CARE. PT DISCHARGE PAPERWORK GIVEN TO TRANSPORT TEAM FOR HANDOFF TO FACILITY UPON ARRIVAL. PT DISCHARGE PAPERWORK SIGNED BY PATIENT. PATIENT EDUCATION GIVEN. PT VERBALIZED UNDERSTANDING OF TEACHING. PT WRIST BAND REMOVED. PT GALAVIZ CATHETER AND PICC LINE LEFT IN PER 'S ORDERS. PT BELONGINGS TAKEN WITH HER. PT LEFT IN STABLE CONDITION.
== END 2018-04-20 16:35 | DRG 853 ==
LOC: MTU 19:20
PROVIDERS: ADMIT Internal Medicine Geriatric Medicine; ATTEND Internal Medicine Geriatric Medicine
PROC: 0JB80ZZ Excision of Abdomen Subcutaneous Tissue and Fascia, Open Approach (ICD-10-PCS; principal; 2018-04-13 18:00)
PROC: 02HV33Z Insertion of Infusion Device into Superior Vena Cava, Percutaneous Approach (ICD-10-PCS; 2018-04-14)
PROC: B548ZZA Ultrasonography of Superior Vena Cava, Guidance (ICD-10-PCS; 2018-04-14)
PROC: 30233N1 Transfusion of Nonautologous Red Blood Cells into Peripheral Vein, Percutaneous Approach (ICD-10-PCS; 2018-04-17)
DX: A41.9 Sepsis, unspecified organism (principal); M72.6 Necrotizing fasciitis; E43 Unspecified severe protein-calorie malnutrition; A04.72 Enterocolitis due to Clostridium difficile, not specified as recurrent; E11.22 Type 2 diabetes mellitus with diabetic chronic kidney disease; N18.9 Chronic kidney disease, unspecified; D64.9 Anemia, unspecified; E66.01 Morbid (severe) obesity due to excess calories; E78.1 Pure hyperglyceridemia; M47.816 Spondylosis without myelopathy or radiculopathy, lumbar region; E11.65 Type 2 diabetes mellitus with hyperglycemia; I13.10 Hypertensive heart and chronic kidney disease without heart failure, with stage 1 through stage 4 chronic kidney disease, or unspecified chronic kidney disease; E78.5 Hyperlipidemia, unspecified; M94.0 Chondrocostal junction syndrome [Tietze]; E83.42 Hypomagnesemia; Z82.49 Family history of ischemic heart disease and other diseases of the circulatory system; M19.90 Unspecified osteoarthritis, unspecified site; Z68.39 Body mass index [BMI] 39.0-39.9, adult; Z91.19 Patient's noncompliance with other medical treatment and regimen; Z79.899 Other long term (current) drug therapy; Z79.84 Long term (current) use of oral hypoglycemic drugs; Z87.39 Personal history of other diseases of the musculoskeletal system and connective tissue; Z90.710 Acquired absence of both cervix and uterus; Z88.6 Allergy status to analgesic agent; Z88.1 Allergy status to other antibiotic agents; Z88.0 Allergy status to penicillin; Z88.2 Allergy status to sulfonamides; Z83.3 Family history of diabetes mellitus
CPT/HCPCS: 36415; 71045; 80048; 80053; 82306; 82948; 83036; 83735; 84134; 84484; 85025; 85610; 86886; 86900; 86901; 86920; 87070; 87075; 87081; 87186; 87205; 88304; 93005; 97110; 97116; 97530; C1751; J1815; J2001; J2185; J2270; J2405; J2704; J3010; J3370; J3475; J3490; J7030; J7042; P9016; Q0092

== ENCOUNTER 2018-08-22 20:44 | Inpatient (IN) | payer OTHER, MEDICARE ==
[~2018-08-22] VITALS: Ht 162.6 cm; Wt 92.5 kg
--- NOTE | 2018-08-22 21:23 | NUR ---
RECEIVED FROM [facility] FEMALE PT. WITH DX. OF RECURRENT ABDOMINAL ABSCESS. GALAVIZ CATHETER IN PLACE DRAINING WELL WITH DEVONTE COLORED URINE. PT. VERBALIZING WELL WITH FRIENDS THAT IS VISITING HER. A/O X 4. ROM X 4. CALL LIGHT WITH IN REACH AT ALL TIMES. BED ALARM ON.
--- NOTE | 2018-08-22 22:30 | NUR ---
MD WRIGHT CALLED AND GAVE ORDERS TO CONTINUE MEDICATIONS OF PT. FROM [facility]. NPO MIDNIGHT ORDERED.
--- NOTE | 2018-08-22 23:00 | NUR ---
LEFT BUTTOCK OPEN WOUND CLEANSED WITH NS , PAT DRY AND LEFT OPEN TO AIR, LEFT GROIN OPEN WOUND CLEANSED WITH NS ,PAT DRY AND COVERED WITH COMPOSITE DRESSING. FOR WOUND CONSULT.
[2018-08-22] MEDS ORDERED: LISI-420 PO (23:20)
[2018-08-22] MEDS ORDERED: GABA-636 PO (23:20)
[2018-08-22] MEDS ORDERED: BISA5ECT43 RC (23:20)
[2018-08-22] MEDS ORDERED: ASCO-5 PO (23:20)
[2018-08-22] MEDS ORDERED: NA P133E RC (23:20)
[2018-08-22] MEDS ORDERED: ZIN220 PO (23:20)
[2018-08-22] MEDS ORDERED: IBUP-1842 PO (23:20)
[2018-08-22] MEDS ORDERED: ACET-5629 PO (23:20)
[2018-08-22] MEDS ORDERED: GLIM2TAB PO (23:20)
[2018-08-22] MEDS ORDERED: GLU1I INJ (23:20)
[2018-08-22] MEDS ORDERED: MELA3TAB PO (23:20)
[2018-08-22] MEDS ORDERED: MAGN400S60 PO (23:20)
[2018-08-22] MEDS ORDERED: HYDR-5122 PO (23:20)
[2018-08-22] MEDS ORDERED: SODIUM PHOSPHATE 118 ML ENEM RC SCH (23:25)
[2018-08-22] MEDS ORDERED: GLUCAGON 1 MG VIAL IM PRN (23:25)
[2018-08-22] MEDS ORDERED: HYDROcodone/APAP 5/325 MG 1 TAB TAB PO PRN (23:25)
[2018-08-22] MEDS ORDERED: IBUPROFEN 400 MG TAB PO SCH (23:25)
[2018-08-22] MEDS ORDERED: MAGNESIUM HYDROXIDE 2400 MG/30 ML UDC PO PRN (23:25)
[2018-08-22] MEDS ORDERED: IBUPROFEN 400 MG TAB PO PRN (23:25)
[2018-08-22] MEDS ORDERED: BISACODYL 10 MG RC SCH (23:25)
--- NOTE | 2018-08-22 23:30 | NUR ---
PT. WOUND TO ABDOMEN UNABLE TO OPEN DRESSING AND TAKE PICTURE RT WITH WOUND VACUUM. FOR WOUND CONSULT . PT. ABLE TO TURN SELF . ENCOURAGED TO TURN TO SIDE AND STY ON SIDE TURNED. PILLOW SUPPORT TO PRESSURE AREAS. CALL LIGHT WITH IN REACH.
[2018-08-22] MEDS ORDERED: TEMAZEPAM 15 MG CAP PO PRN (23:50)
[2018-08-23] MEDS ORDERED: TEMAZEPAM 15 MG CAP ONE (00:06)
--- NOTE | 2018-08-23 00:20 | NUR ---
Rafael CASTILLO CALLED AND ASKED INFORMATION ABOUT PT. MADE AWARE THAT PT. IS ALREADY IN HERE. NO ORDERS GIVEN. SAID HE WILL PUT IN HIS ORDERS.
--- NOTE | 2018-08-23 03:50 | NUR ---
SLEEPING AT THIS TIME. NO COMPLAINTS OF PAIN AT THIS TIME. CALL LIGHT WITH IN REACH.
--- NOTE | 2018-08-23 06:13 | NUR ---
PT. FOR I AN D AND DEBRIDEMENT TOODAY. NPO SINCE MIDNIGHT . A/O X 4. CONSENT SIGNED. IVF SITE TO RIGHT HAND #22 INSERTED BY CHARGE NURSE. TOLERATED WELL. GOOD BLOOD RETURN.
[2018-08-23 07:11] LABS: BASOPHILS # (AUTO) 0.1 K/uL (0.00-0.22); BASOPHILS % (AUTO) 0.7 % (0.0-2.0); EOSINOPHILS # (AUTO) 0.4 K/uL (0-0.4); HEMATOCRIT 27.9 % (36-48); HEMOGLOBIN 8.9 g/dL (12.0-16.0); LYMPHOCYTES # (AUTO) 2.5 K/uL (2.5-16.5); LYMPHOCYTES % (AUTO) 22.2 % (20.5-51.1); MEAN CORPUSCULAR HEMOGLOBIN 24 pg (27-31); MEAN CORPUSCULAR HGB CONC 32 g/dL (33-37); MEAN CORPUSCULAR VOLUME 76.3 fL (80-94); MONOCYTES # (AUTO) 0.7 K/uL (0.8-1.0); MONOCYTES % (AUTO) 5.9 % (1.7-9.3); NEUTROPHILS # (AUTO) 7.5 K/uL (1.8-7.7); NEUTROPHILS % (AUTO) 67.2 % (42.2-75.2); PLATELET COUNT (AUTO) 373 K/uL (140-450); RED BLOOD CELL COUNT(AUTO) 3.66 MIL/uL (4.20-5.40); WHITE BLOOD COUNT (AUTO) 11.1 K/uL (4.8-10.8)
--- NOTE | 2018-08-23 07:20 | NUR ---
REPORT RECEIVED FROM BOBBIN DRIER NURSE, PT AWAKE ALERT, RESP EVEN UNLABORED, SKIN WARM DRY COLOR WNL, PT DENIES ANY PAIN OR DISCOMFORT, POC REVIEWED, ALL SAFETY MEASURES IN PLACE, WILL CONTINUE TO MONITOR.
[2018-08-23 07:21] LABS: ALBUMIN 2.6 g/dL (3.4-5.0); ANION GAP 14.8 (8-16); CARBON DIOXIDE 22.4 mmol/L (21-32); POTASSIUM 4.2 mmol/L (3.5-5.1); TOTAL BILIRUBIN 0.2 mg/dL (0.0-1.0)
[2018-08-23] MEDS ORDERED: GLIMEPIRIDE 2 MG TAB PO SCH (07:30)
[2018-08-23] MEDS ORDERED: BISACODYL 10 MG SUPP RC PRN (07:35)
--- NOTE | 2018-08-23 07:50 | NUR ---
DR WRIGHT AT BEDSIDE.
--- NOTE | 2018-08-23 07:51 | NUR ---
PATIENT HAS BEEN SCREENED AND CATEGORIZED HIGH NUTRITION RISK. PATIENT WILL BE SEEN WITHIN 1-2 DAYS OF ADMISSION. 08/23/18-08/24/[address]
[2018-08-23 08:00] VITALS: BP 110/41
[2018-08-23] MEDS: ZINC SULF 220 MG CAP PO SCH (08:25)
[2018-08-23] MEDS: ASCORBIC ACID 500 MG TAB PO SCH (08:25)
[2018-08-23] MEDS: LISINOPRIL 20 MG TAB PO SCH (08:25)
[2018-08-23] MEDS: POTASSIUM CHL 20 MEQ/NACL 0.9% 1,000 ML IV SCH ×2 (08:50→21:30)
--- NOTE | 2018-08-23 08:50 | NUR ---
IVF STARTED, IV SITE WNL.
[2018-08-23] MEDS: GABAPENTIN 100 MG CAP PO SCH ×2 (09:00→21:35)
[2018-08-23] MEDS ORDERED: NON-FORMULARY ITEM (Oxycodone HCl/Acetaminophen (Percocet 5-325 mg Tablet) 1 TAB) PO SCH (09:00)
[2018-08-23] MEDS ORDERED: metFORMIN 500 MG TAB PO SCH (09:00)
--- NOTE | 2018-08-23 09:30 | NUR ---
PT CLEANED AND CHANGED, PERICARE DONE, GALAVIZ CARE DONE.
--- NOTE | 2018-08-23 09:30 | NUR ---
LOW TRANSVERSE ABDOMINAL WOUND WITH WOUND VAC ATTACHED, LEFT INNER THIGH WOUND COVERED WITH ISLAND DRESSING, BUTTOCK WOUND AND LABIAL WOUND.
--- NOTE | 2018-08-23 09:55 | NUR ---
PT TAKEN TO OR
[2018-08-23] MEDS ORDERED: SEVOFLURANE 250 ML BTL INH ONE (10:11)
[2018-08-23] MEDS ORDERED: KETOROLAC 30 MG/ML VIAL ONE (10:11)
[2018-08-23] MEDS ORDERED: DEXAMETHASONE 4 MG/ML VIAL ONE (10:11)
[2018-08-23] MEDS ORDERED: PROPOFOL 200 MG/20 ML VIAL IV ONE (10:11)
[2018-08-23] MEDS ORDERED: ONDANSETRON 4 MG/2 ML VIAL ONE (10:11)
[2018-08-23] MEDS ORDERED: LEVOFLOXACIN 500 MG/D5W PREMIX 100 ML IV ONE (10:12)
[2018-08-23] MEDS ORDERED: BUPIVACAINE-MPF/EPI 0.25% 30 ML VIAL INJ ONE (10:15)
[2018-08-23] MEDS ORDERED: MEPERIDINE 50 MG/ML SYR ONE (10:28)
[2018-08-23] MEDS ORDERED: MIDAZOLAM 2 MG/2 ML VIAL ONE (10:28)
[2018-08-23] MEDS ORDERED: fentaNYL 0.05 MG/ML VIAL ONE (10:28)
[2018-08-23] MEDS ORDERED: TEMAZEPAM 15 MG CAP PO PRN (10:42)
[2018-08-23] MEDS ORDERED: diphenhydrAMINE 50 MG/ML VIAL IVP PRN (10:45)
[2018-08-23] MEDS ORDERED: MEPERIDINE 25 MG/ML SYR IVP PRN (10:45)
[2018-08-23] MEDS: NACL 0.9% 1,000 ML IV SCH ×2 (10:45→19:05)
[2018-08-23] MEDS ORDERED: ONDANSETRON 4 MG/2 ML VIAL IVP PRN (10:45)
[2018-08-23] MEDS ORDERED: BLOOD GLUCOSE MONITORING 1 DEV DEV FS SCH (10:45)
[2018-08-23] MEDS ORDERED: HYDROmorphone 1 MG/ML AMP IVP PRN (10:45)
[2018-08-23 10:47] LABS: PROTHROMBIN TIME 10.4 secs (10.8-13.4)
--- NOTE | 2018-08-23 11:15 | NUR ---
UNABLE TO DO SCREEN AT THIS TIME, PATIENT IS OFF THE UNIT IN OR FOR A PROCEDURE.
[2018-08-23 12:00] VITALS: BP 101/62
--- NOTE | 2018-08-23 12:00 | NUR ---
PT BACK FROM OR, BULKY ABD DRESSING CLEAN DRY INTACT, PT AWAKE ALERT, DENIES N/V, DENIES PAIN, VITALS STABLE,
--- NOTE | 2018-08-23 12:53 | NUR ---
PT SITTING UP RESTING, FAMILY AT BEDSIDE, DENIES ANY IMMEDIATE NEEDS, PT STATES SHE DOES NOT FEEL HUNGRY, LUNCH AT BEDSIDE, WILL TRY LATER.
--- NOTE | 2018-08-23 15:06 | NUR ---
08/23/18 RD INITIAL ASSESSMENT COMPLETED PLEASE REFER TO NUTRITION ASSESSMENT UNDER CARE ACTIVITY FOR ESTIMATED NUTRITIONAL NEEDS. 1. RECOMMEND CCHO 60 GM AND CARDIAC DIET TOLERATED 2. ENCOURAGE INCREASING PO INTAKE 3. DIET HEALTH SHAKES TID WILL BE PROVIDED BY [facility] 4. RD TO FOLLOW-UP 3-5 DAYS, MODERATE RISK FILIPE VARELA RD
[2018-08-23] MEDS ORDERED: DEXTROSE 50% 50 ML SYR IVP PRN (15:25)
[2018-08-23] MEDS ORDERED: NON-FORMULARY ITEM (Oxycodone HCl/Acetaminophen (Percocet 5-325 mg Tablet) 1 TAB) PO PRN (15:50)
[2018-08-23 16:00] VITALS: BP 102/70
--- NOTE | 2018-08-23 16:08 | NUR ---
BLOOD SUGAR CHECKED 175, WILL MEDICATE PER ORDER.
[2018-08-23] MEDS: MORPHINE SULFATE 2 MG/ML SYR IVP PRN (16:15)
[2018-08-23] MEDS: GLIMEPIRIDE 2 MG TAB PO SCH (16:30)
[2018-08-23] MEDS: BLOOD GLUCOSE MONITORING 1 DEV DEV FS SCH ×2 (16:30→21:18)
--- NOTE | 2018-08-23 16:45 | NUR ---
PER NURSE AT [facility], PT DOES NOT TAKE ANY PO MEDS FOR DIABETES, GLIMEPERIDE HELD, SHE WILL FAX US THE MED LIST.
--- NOTE | 2018-08-23 17:35 | NUR ---
2U INSULIN GIVEN PER SLIDING SCALE FOR [id number]. PT STATES SHE DOES NOT HAVE AN APPETITE BUT WILL EAT DINNER.
[2018-08-23] MEDS: INSULIN LISPRO SLIDING SCALE 100 UNITS/ML VIAL SUBQ PRN ×2 (17:36→21:19)
--- NOTE | 2018-08-23 19:30 | NUR ---
REPORT GIVEN TO LIQUOR RUNNER NURSE, PT IN STABLE CONDITION.
--- NOTE | 2018-08-23 19:31 | NUR ---
RECD. RESTING IN BED, AWAKE, A/OX4. RESPIRATION EVEN AND UNLABORED. IV OF NS +20 MEQ KCL INFUSING AT 75 ML/HR. INCISION IN THE ABDOMEN COVERED WITH DRESSING DRY AND INTACT. WOUND IN THE LEFT INNER THIGH AND BUTTOCKS WITH DRESSING, DRY AND INTACT. F/C PATENT DRAINING CLEAR YELLOW URINE. PLAN OF CARE FOR THE SHIFT DISCUSSED. VERBALIZED UNDERSTANDING. DENIES PAIN 0/10.
[2018-08-23 20:00] VITALS: BP 108/62
[2018-08-23] MEDS ORDERED: NON-FORMULARY ITEM (Melatonin 3 MG) PO SCH (21:00)
--- NOTE | 2018-08-23 21:12 | NUR ---
SPOKE WITH DR. WRIGHT, PATIENT IS REQUESTING FOR 1 DOSE OF AMARYL TONIGHT, NOT TAKEN TODAY DUE TO NPO. INFORMED BS - 162, JUST GIVE INSULIN COVERAGE AND START AMARYL TOMORROW AND DISCONTINUE METFORMIN.
--- NOTE | 2018-08-23 21:20 | NUR ---
SNACK FOR THE NIGHT GIVEN. DR. ABDI CAME AND CHECKED PATIENT, WILL FOLLOW UP WITH ANY NEW ORDER.
[2018-08-23] MEDS: MELATONIN 3 MG TAB PO PRN (21:35)
--- NOTE | 2018-08-23 21:35 | NUR ---
CHANGED HER MIND REGARDING MORPHINE TO BE GIVEN AT 2200 REQUESTED, STATED I'M NOT IN PAIN, REQUESTED MELATONIN FOR SLEEP INSTEAD.
[2018-08-23] MEDS ORDERED: VANCOMYCIN PER PHARMACY MC PRN (21:40)
[2018-08-23] MEDS ORDERED: VANCOMYCIN 1GM/DEXT 5% PREMIX 200 ML IV STA (22:05)
--- NOTE | 2018-08-23 22:35 | NUR ---
SLEEPING COMFORTABLY IN BED.
[2018-08-23] MEDS ORDERED: VANCOMYCIN 1,000 MG VIAL ONE (23:11)
--- NOTE | 2018-08-23 23:42 | NUR ---
VANCOMYCIN STARTED BY ANGELA WRIGHT PER MD ORDER. PATIENT RESTING COMFORTABLY IN BED.
[2018-08-24] VITALS: BP 103/62
--- NOTE | 2018-08-24 | NUR ---
RESTING IN BED, NO COMPLAINT OF PAIN 0/10.
--- NOTE | 2018-08-24 02:15 | NUR ---
RESTING IN BED, STATED SHE JUST WOKE UP, "I'M A LIGHT SLEEPER." NO COMPLAINT OF PAIN 0/10.
[2018-08-24 04:00] VITALS: BP 102/61
[2018-08-24] MEDS: NACL 0.9% 1,000 ML IV SCH (04:01)
--- NOTE | 2018-08-24 04:30 | NUR ---
AWAKE, RESTING IN BED. DENIES PAIN 0/10.
[2018-08-24] MEDS: BLOOD GLUCOSE MONITORING 1 DEV DEV FS SCH ×4 (05:47→20:55)
[2018-08-24] MEDS: GLIMEPIRIDE 2 MG TAB PO SCH ×2 (07:06→17:01)
--- NOTE | 2018-08-24 07:10 | NUR ---
ENDORSED TO AM SHIFT NURSE FOR CONTINUITY OF CARE.
--- NOTE | 2018-08-24 07:11 | NUR ---
RECEIVED BEDSIDE REPORT FROM CRYSTAL. PATIENT ON TELE AND STANDARD PRECAUTIONS IN PLACE. PATIENT ON ROOM AIR WITH NO DISTRESS NOTED, WITH ABDOMINAL WOUND ABSCESS, WOUND ON L INNER THIGH AND L BUTTOCKS. FALL RISK PROTOCOL IN PLACE. IV ON L FA 22G INFUSING NS AT 120, IV ASYMPTOMATIC PATENT AND INTACT. GALAVIZ CATHETER IN PLACE. BED IN LOW POSITION, CALL LIGHT WITHIN REACH, SIDE RAILS X2 UP
[2018-08-24 08:00] VITALS: BP 116/40
[2018-08-24 08:10] LABS: ANION GAP 15.4 (8-16); CARBON DIOXIDE 20.7 mmol/L (21-32); CREATININE 1.1 mg/dL (0.6-1.3); POTASSIUM 5.1 mmol/L (3.5-5.1)
--- NOTE | 2018-08-24 09:19 | NUR ---
MANUEL FROM NUCLEAR MEDICINE INFORMED ME THAT A BONE SCAN MUST BE DONE 6 MONTHS AFTER DEBRIDEMENT, OTHERWISE RESULTS WILL ONLY COME BACK POSITIVE. BONE SCAN ORDER FROM DR. ABDI, AND WILL NOTIFY HIM
[2018-08-24] MEDS: LISINOPRIL 20 MG TAB PO SCH (09:30)
[2018-08-24] MEDS: ZINC SULF 220 MG CAP PO SCH (09:30)
[2018-08-24] MEDS: ASCORBIC ACID 500 MG TAB PO SCH (09:30)
[2018-08-24] MEDS: GABAPENTIN 100 MG CAP PO SCH ×2 (09:31→20:40)
--- NOTE | 2018-08-24 09:33 | NUR ---
ADMINISTERED SCHEDULED MEDS. PATIENT TOLERATED WELL
[2018-08-24] MEDS: MORPHINE SULFATE 2 MG/ML SYR IVP PRN (10:08)
--- NOTE | 2018-08-24 10:15 | NUR ---
CARA WOUND CARE NURSE STATED PATIENT NOT CANDIDATE FOR WOUND VAC SINCE PATIENT HAS FISTULA AND TUNNELING OF WOUNDS
--- NOTE | 2018-08-24 10:16 | NUR ---
ADMINISTERED MORPHINE FOR 7/10 PAIN BEFORE WOUND CARE
[2018-08-24] MEDS: oxyCODONE/APAP 5/325 MG 1 TAB TAB PO PRN (11:21)
[2018-08-24 12:00] VITALS: BP 111/45
--- NOTE | 2018-08-24 12:57 | NUR ---
WOUND CARE EVALUATION NOTE: REASON FOR EVALUATION: S/P I&D ABDOMINAL SURGICAL WOUNDS SKIN ASSESSMENT DONE WITH THIS 63 Y/O FEMALE PT. ADMITTED FROM [facility] TO [facility] WITH INITIAL DX OF INFECTED SURGICAL ABDOMINAL WOUNDS. PAST MEDICAL HX INCLUDES UNCONTROLLED DM, CKD AND MORBID OBESITY. PT. HAS WOUND VAC TREATMENT FOR LAST FEW MONTHS WITH WOUND CARE TEAM FOR WOUND CARE AT [facility], TILL LAST FEW DAYS WITH LOT OF PURULENT DRAINAGE OBSERVED AND WAS ADVISED TO COME BACK TO [facility] FOR FURTHER EVALUATION. PER PT. SHE EXPLAINED PER SURGEON FOUND FISTULA AND POSSIBLE BONE INFECTION. PT IS AWAKE, ALERT X4. SKIN IS WARM AND DRY, BLE NO HAIR GROWTH, DORSAL PEDAL PULSES PRESENT. CAPILLARY REFILLED < 2SEC. X [address] TOES[address] F/C IN PLACE, DEVONTE COLOR OF MODERATE AMOUNT CLEAR URINE OUTPUT. PLAN OF CARE DISCUSSED WITH PRIMARY RN AND PT. PT VERBALIZES UNDERSTANDING. WHILE PACKING THE WOUND, I CAN FEEL THE PELVIC BONE TO 11-12 O�CLOCK AND FISTULA TOWARD 8� O�CLOCK DIRECTION, UNDERMINING TO 4-5 O�CLOCK, BUT I CAN�T VISUALIZE THE WOUND BED. ADVICE PT. NO WOUND VAC TREATMENT AT THIS TIME TILL FURTHER NOTICE. PT. WAS INFORMED TO BRING THE WOUND VAC BACK TO FACILITY. PT AGREEABLE WITH PLAN. INTEGUMENTARY -ABDOMEN SURGICAL WOUNDS �T� SHAPE WOUND [id number], WOUND BED 100% GRANULATING TISSUE WITH MODERATE AMOUNT OF SEROSANGUINEOUS DRAINAGE, MILD FOUL ODOR PRESENT AFTER WOUND CLEANSED WITH NS.AND HELENA-WOUND SKIN INTACT. -LEFT MEDIAL THIGH S/P I&D SURGICAL WOUND 3X1X2.5CM WOUND BED IS 100% GRANULATING TISSUE WITH MODERATE AMOUNT OF PURULENT DRAINAGE, MILD FOLD ODOR PRESENT AFTER WOUND CLEANSED WITH NS. AND HELENA-WOUND SKIN INTACT. RECOMMENDATIONS: -PELVIC BONE SCAN/ X-RAY TO R/O OSTEOMYELITIS -MEDICATED FOR PAIN PRIO DRESSING CHANGE AND SOAKED OLD DRESSING WITH NS, BEFORE REMOVE IT. -CLEANSE ABDOMINAL AND LEFT MEDIAL THIGH SURGICAL WOUNDS WITH NS, PAT DRY, PACK WOUNDS WITH KERLIX BULKEE ROLL AND FILL THE BASE OF THE WOUND, COVER WITH ABD DRESSING AND SECURE WITH TAPE QD AND PRN IF SOILING. -TURN AND REPOSITION PATIENT Q 2H OFFLOAD LEFT AND RIGHT HIPS -ASSESS AND MONITOR SKIN CONDITION DURING POSITION CHANGE, PLEASE PAY ATTENTION TO FEET AND HEELS -OFFLOAD BILATERAL HEELS BY PLACING PILLOWS UNDER CALVES AT ALL TIMES, UNLESS OTHERWISE CONTRAINDICATED -PRESSURE REDISTRIBUTION SURFACE THERAPY BY POSITIONING WITH PILLOWS -KEEP SKIN CLEAN AND DRY AT ALL TIMES. RECOMMENDATIONS DISCUSSED WITH PRIMARY RN WILL FOLLOW UP PATIENT Q7-10 DAYS AND PRN. PLEASE CONTACT WOUND CARE NURSE FOR ANY QUESTIONS AND CHANGES IN SKIN CONDITION.
--- NOTE | 2018-08-24 13:41 | NUR ---
PATIENT LYING IN BED, WATCHING TV, ON ROOM AIR, NO DISTRESS NOTED
[2018-08-24 16:00] VITALS: BP 109/50
--- NOTE | 2018-08-24 16:48 | NUR ---
PATIENT LYING IN BED WATCHING TV, ON ROOM AIR, NO DISTRESS NOTED
--- NOTE | 2018-08-24 17:07 | NUR ---
DR. WRIGHT AT [facility] Addendum: 08/24/18 at 1708 by Alem Joseph RN DR. WRIGHT ORDERED TO DC NS KCL, RUN THE REST OF THE NS BAG, THEN HEP LOCK. SHE ORDERED INCENTIVE SPIROMETER FOR PATIENT AND CCHO DIET
[2018-08-24] MEDS: VANCOMYCIN 1,250 MG in DEXTROSE 5% 250 ML IV SCH (17:49)
--- NOTE | 2018-08-24 19:24 | NUR ---
BEDSIDE REPORT GIVEN TO ANGELA OSCAR. PATIENT ENDORSED IN STABLE CONDITION
--- NOTE | 2018-08-24 19:25 | NUR ---
RECEIVED REPORT FROM DARCI MILLER DAYSHIFT NURSE AT BEDSIDE FOR CONTINUITY OF CARE, PT IN STABLE CONDITION.
[2018-08-24 20:00] VITALS: BP 109/61
--- NOTE | 2018-08-24 20:00 | NUR ---
PT IN BED, AOX4 WITH ALL FALLS PRECAUTIONS IN PLACE. IV SITE ON LEFT HAND 22G INTACT AND RUNNING VANCOMYCIN AT THIS TIME. PT C/O OF SOME DISCOMFORT IN LINE , HOWEVER SHE SAID THAT SHE WAS A HARD STICK AND THAT AT THIS TIME SHE DIDN'T WANT IT CHANGED. PT LEFT HAND WAS ELEVATED. NO REDNESS NOTED AROUND SITE. PT ALSO C/O OF SOME DISCOMFORT IN ABD AREA. WOUND DRESSING DRY AND INTACT AT THIS TIME. PT SAID SHE HAD SOME DISCOMFORT BUT DIDN'T WANT TO TAKE ANY PAIN MEDS THROUGH IV AND DECLINED ANY OF HER ORAL PRN MEDICATION FOR PAIN. V/S FOLLOWS T 98.6 P 82 R 18 B/P 109/61 02 99% ON ROOM AIR. WILL CONTINUE TO MONITOR FOR SAFETY AND PAIN.
[2018-08-24] MEDS: INSULIN LISPRO SLIDING SCALE 100 UNITS/ML VIAL SUBQ PRN (20:46)
--- NOTE | 2018-08-24 21:00 | NUR ---
RT AT BEDSIDE MONITORING AND ENCOURAGING PT WITH INCENTIVE SPIROMETER.
--- NOTE | 2018-08-24 21:20 | NUR ---
PT FINGERSTICK IS 163, 2 UNITS OF HUMALOG COVERAGE GIVEN PER PROTOCOL. PT ALSO GIVEN NEURONTIN 200MG DUE AT THIS TIME FOR NERVE PAIN. VANCOMYCIN COMPLETED. PT REQUESTING TO ASK HER PRIMARY KYLE, FOR A CENTRAL LINE DUE TO DISCOMFORT IN LEFT HAND IV SITE AND PT BEING HARD STICK. PT HAD A CENTRAL LINE IN PREVIOUS ADMISSIONS AND HAS VANCOMYCIN ORDERED UNTIL 2018. DR. WRIGHT PAGED AT THIS TIME.
--- NOTE | 2018-08-24 22:11 | NUR ---
NO CALL BACK RECEIVED FORM DR. WRIGHT, DR. WRIGHT PAGED AGAIN AT THIS TIME.
--- NOTE | 2018-08-24 22:30 | NUR ---
DR. JOHNSON AT BEDSIDE FOR CONSULT.
--- NOTE | 2018-08-24 23:49 | NUR ---
DR. JEAN-BAPTISTE IN FOR CONSULTATION. PT SAID THAT HE AGREED REGARDING PT NEED FOR A PICC LINE. WILL CHECK FOR ANY NEW ORDERS. PT C/O LEFT HAND IV SITE IS CAUSING HER PAIN AND NUMBNESS. IV SITE REMOVED. PT REQUESTED PAIN MEDS , BUT DECLINED ANY ORAL PAIN MEDS AT THIS TIME. OFFERED TO TRY AND CONTACT KYLE FOR A CHANGE IN PAIN MEDICATIONS ( SUCH MORPHINE IM SHOT, PT DECLINED). DRESSING DRY AND INTACT A SMALL AREA OF DRESSING IS SOILED. PT SAID THAT SHE DOESN'T WANT HER DRESSINGS CHANGED UNLESS SHE CAN HAVE IV ACCESS SO SHE CAN HAVE THE MORPHINE VIA IV. PT ALSO DECLINED TO BE TURNED SHE SAID THAT SHE CAN TURN HERSELF, GALAVIZ CATHETER CARE PROVIDED. V/S FOLLOWS T 99.1 P 83 R 18 B/P 119/51 02 98% WITH ROOM AIR. PT ALSO DECLINED ANY COOLING MEASURES FOR TEMP OF 99.1.
[2018-08-25] VITALS: BP 119/51
--- NOTE | 2018-08-25 01:15 | NUR ---
DR. WRIGHT PAGED AGAIN . AWAITING RESPONSE.
--- NOTE | 2018-08-25 03:00 | NUR ---
PT IN BED ALL FALLS PRECAUTIONS IN PLACE. PT SAYS SHE HAS SOME PAIN BUT DECLINES ANY PO/PRN MEDS SAYING THEY ARE INEFFECTIVE. PT DECLINES TO BE TURNED SAYING SHE CAN TURN HERSELF.
--- NOTE | 2018-08-25 05:54 | NUR ---
ER NURSE MAURO RN AT BEDSIDE ATTEMPTING IV SITE INSERTION. ATTEMPTED BLOOD DRAW X2 UNABLE TO OBTAIN, PT SAID THAT SHE WOULD RATHER WAIT UNTIL 0730 FOR AM BLOOD DRAW.
--- NOTE | 2018-08-25 06:30 | NUR ---
PT DIDNT WANT TO HAVE IV IN AC AREA AND RN MAURO UNABLE TO OBTAIN IV SITE. PT SAID THAT SHE JUST WANTS THE PICC LINE SO SHE CAN HAVE HER MORPHINE. UNABLE TO OBTAIN BLOOD FOR LAB. LAB AWARE TO TRY LATER AT 0730.
[2018-08-25] MEDS: BLOOD GLUCOSE MONITORING 1 DEV DEV FS SCH ×4 (06:41→21:50)
[2018-08-25] MEDS: GLIMEPIRIDE 2 MG TAB PO SCH ×2 (06:43→16:30)
--- NOTE | 2018-08-25 07:00 | NUR ---
LAST FINGERSTICK IS 73, PT DECLINED JUICE AT THIS TIME. SHE SAID IM OK.
--- NOTE | 2018-08-25 07:10 | NUR ---
ENDORSED CARE TO AM SHIFT AT BEDSIDE FOR CONTINUITY OF CARE, PT IN STABLE CONDITION.
--- NOTE | 2018-08-25 07:11 | NUR ---
RECEIVED BED SIDE REPORT FROM BAG MACHINE TENDER RN. PT AWAKE/ALERT/ORIENTED X4. NO IV ACCESS, PER BAG MACHINE TENDER RN, PT STATED THAT HER ARM WHERE THE IV WAS WAS HURTING AND FELT NUMB WHEN VANCO WAS RUNNING. BAG MACHINE TENDER RN DC IV. PER BAG MACHINE TENDER RN AND PER PT, PT IS INSISTING ON PICC LINE. BAG MACHINE TENDER RN TRIED PAGING 2X BUT PAGER NOT WORKING. CALLED HER CELL PHONE AND SHE SAID THAT SHE WILL BE HERE ON THE UNIT BEFORE 1300 TO SIGN THE PICC LINE CONSENT FORM. PT MADE AWARE. ABDOMINAL DRESSING AND WOUND PACKED, DOES NOT LOOK LIKE BLEEDING IS NOTED BUT SMALL SOILING ON THE OUTER EDGES. WOUND CARE TO BE DONE BY ME AROUND 1100. PER PT, JUNIOR TECHNICAL WRITER TAHT WORKS AT THIS HOSPITAL WILL BE HERE TO ASSIST ME WITH WOUND CARE. PT COMPLAINS OF 6/10 SHARP PAIN WHERE ABDOMINAL WOUND IS. OFFERED PO MEDS FOR THE MEAN TIME UNTIL PICC LINE INSERTED. PT REFUSED BECAUSE SHE SAYS THAT THE PAIN MEDS PO DON'T WORK. WILL CONTINUE TO MONITOR
[2018-08-25 08:00] VITALS: BP 110/53
--- NOTE | 2018-08-25 08:30 | NUR ---
TALKED TO AND SHE SAID TO CONVERT MORPHINE 2MG IVP PRN TO MORPHINE 2MG IM PRN FOR WOUND DRESSING CHANGE. PT MADE AWARE.
[2018-08-25] MEDS: ZINC SULF 220 MG CAP PO SCH (09:15)
[2018-08-25] MEDS: ASCORBIC ACID 500 MG TAB PO SCH (09:15)
[2018-08-25] MEDS: oxyCODONE/APAP 5/325 MG 1 TAB TAB PO PRN (09:15)
[2018-08-25] MEDS: GABAPENTIN 100 MG CAP PO SCH ×2 (09:15→21:47)
--- NOTE | 2018-08-25 09:15 | NUR ---
PT REQUESTED PERCOCET FOR PAIN. GAVE PAIN MEDICATION. LAST TIME GIVEN WAS 11HOURS AGO. WILL DO PAIN RE-ASSESSMENT SOON.
[2018-08-25] MEDS: LISINOPRIL 20 MG TAB PO SCH (09:16)
--- NOTE | 2018-08-25 10:30 | NUR ---
NO LAB ORDERS OR BLOOD DRAW DONE TODAY. WILL NOTIFY WHEN SHE ARRIVES
[2018-08-25 10:31] LABS: BASOPHILS # (AUTO) 0.1 K/uL (0.00-0.22); BASOPHILS % (AUTO) 0.6 % (0.0-2.0); EOSINOPHILS # (AUTO) 0.5 K/uL (0-0.4); EOSINOPHILS % (AUTO) 4.2 % (0.0-4.0); HEMOGLOBIN 8.5 g/dL (12.0-16.0); LYMPHOCYTES # (AUTO) 1.9 K/uL (2.5-16.5); LYMPHOCYTES % (AUTO) 15.9 % (20.5-51.1); MEAN CORPUSCULAR HEMOGLOBIN 24 pg (27-31); MEAN CORPUSCULAR HGB CONC 32 g/dL (33-37); MEAN CORPUSCULAR VOLUME 76.6 fL (80-94); MONOCYTES # (AUTO) 0.9 K/uL (0.8-1.0); MONOCYTES % (AUTO) 7.4 % (1.7-9.3); NEUTROPHILS # (AUTO) 8.4 K/uL (1.8-7.7); NEUTROPHILS % (AUTO) 71.9 % (42.2-75.2); PLATELET COUNT (AUTO) 330 K/uL (140-450); RED BLOOD CELL COUNT(AUTO) 3.52 MIL/uL (4.20-5.40); RED CELL DISTRIBUTION WIDTH 17.1 % (11.6-13.7); WHITE BLOOD COUNT (AUTO) 11.7 K/uL (4.8-10.8)
[2018-08-25 10:42] LABS: ANION GAP 14.2 (8-16); CARBON DIOXIDE 21.4 mmol/L (21-32); POTASSIUM 4.6 mmol/L (3.5-5.1)
--- NOTE | 2018-08-25 10:45 | NUR ---
CAME TO SEE PT TODAY. HAD HER SIGN CONSENT FORM FOR PICC LINE. PT MADE AWARE. PT SIGNED CONSENT FORM. PT A/O X4 AND REQUESTING TO HAVE A PICC LINE INSERTED. PICC LINE INSERTION ORDERED BY
[2018-08-25] MEDS: MORPHINE SULFATE 2 MG/ML SYR IM/IVP PRN ×3 (10:53→22:21)
--- NOTE | 2018-08-25 11:30 | NUR ---
CHANGED ABDOMINAL AND LEFT MEDIAL THIGH DRESSING. GAVE MORPHINE IM PRIOR TO DRESSING CHANGE. REMOVED OLD DRESSING. MINIMAL SEROUS DRAINAGE. CLEANED WITH LARGE AMOUNT OF NS. PACKED WITH KERLIX BULKEE ROLL. ALSO PACKED LEFT MEDIAL THIGH WOUND WITH KERLIX BULKEE ROLL. COVERED WITH 2 ABDOMINAL DRESSING WITH TAPE. SECURED DRESSING WITH PAPER TAPE. PT TOLERATED PROCEDURE WELL AND COMPLAINED OF MINIMAL PAIN. WELL CONTINUE TO MONITOR. EDUCATE PT ON THE NEED TO LET ME KNOW IF SEVERE PAIN OR DRAINAGE IS NOTED ON DRESSING PAD.
[2018-08-25] MEDS: VANCOMYCIN 1,250 MG in DEXTROSE 5% 250 ML IV SCH (12:00)
--- NOTE | 2018-08-25 12:00 | NUR ---
BLOOD SUGAR 66. NO SIGNS OF HYPOGLYCEMIA (TREMORS, HEADACHE, DIZZINESS). LUNCH TRAY AT BEDSIDE. EDUCATED PT ON THE IMPORTANCE OF EATING FOOD AT THIS TIME. PT AGREED. ALSO EDUCATED PT ON THE IMPORTANCE OF LETTING ME KNOW WHEN SHE FEELS TREMORS, SHAKING OR RAWLS. WILL CONTINUE TO MONITOR
--- NOTE | 2018-08-25 12:02 | NUR ---
PICC RN CALLED AND LEFT MESSAGE.
--- NOTE | 2018-08-25 13:27 | NUR ---
PICC LINE KIT AT BEDSIDE. CONSENT FORM FOR PICC LINE IN CHART. WILL CONTINUE TO MONITOR FAMILY AT BEDSIDE. PT SEEN EATING LUNCH
--- NOTE | 2018-08-25 15:00 | NUR ---
PICC LINE RN HERE. CURRENTLY INSERTING PICC ON R CHEST. WILL CONTINUE TO MONITOR
--- NOTE | 2018-08-25 17:51 | NUR ---
GAVE PT TORSTEN BARRAZA D/T NO IV ACCESS. HELD GLIMEPERIDE D/T PT'S SUGAR 77. PT CURRENTLY EATING DINNER
[2018-08-25] MEDS ORDERED: DOCUSATE SODIUM 100 MG GELCAP PO PRN (19:20)
--- NOTE | 2018-08-25 19:25 | NUR ---
ENDORSED PT TO KNITTING MACHINE FIXER HEAD. GAVE BED SIDE REPORT, PT IN STABLE CONDITION
--- NOTE | 2018-08-25 19:25 | NUR ---
RECEIVED REPORT FORM JANNA MILLER DAYSHIFT NURSE AT BEDSIDE FOR CONTINUITY OF CARE, PT IN STABLE CONDITION.
[2018-08-25 20:00] VITALS: BP 124/53
--- NOTE | 2018-08-25 20:00 | NUR ---
PT IN BED AOX3-4, ALL FALLS PRECAUTIONS IN PLACE V/S FOLLOWS T 98.1 P 82 R 18 B/P 124/53 02 97% ON ROOM AIR. PT DRESSING ON ABDOMEN DRY AND INTACT, GALAVIZ CATHETER IN PLACE AND DRAINING LIGHT YELLOW URINE. PT DOUBLE LUMEN PICC LINE ON RIGHT UPPER ARM INTACT AND FLUSHED PATENT. GENE FROM LAB CALLED AND REPORT RESULTS OF WOUND CULTURE, POSITIVE FOR MRSA. WILL UPDATE PRIMARY MD KYLE.
--- NOTE | 2018-08-25 21:00 | NUR ---
DR. WRIGHT PAGED AND SHE RETURNED THE CALL, MD WRIGHT UPDATED REGARDING WOUND CULTURE POSITIVE FOR MRSA. PT IS ON VANCOMYCIN, NO NEW ORDERS NOTED AT THIS TIME. PT GIVEN ORDERED NEURONTIN AND SENOKOT, MEDICATION EDUCATION PROVIDED. ALL FALLS PRECAUTIONS IN PLACE.
[2018-08-25] MEDS: SENNA 8.6 MG TAB PO SCH (21:47)
--- NOTE | 2018-08-25 22:22 | NUR ---
PT C/O OD SEVERE PAIN IN WOUND AND WAS GIVEN PRN/IVP MORPHINE FOR SEVERE PAIN. PT FLUIDS OF N/S REPLACED AND HUNG AND IS RUNNING ORDERED.WILL MONITOR FOR PAIN RELIEF ALL FALLS PRECAUTIONS IN PLACE. Addendum: 08/25/18 at 2225 by Stephanie Quiñones RN FALLS AND CONTACT PRECAUTIONS IN PLACE.
--- NOTE | 2018-08-26 | NUR ---
PT IN BED NO C/O VOICED AT THIS TIME. GALAVIZ CATHETER INTACT AND DRAINING YELLOW URINE. PICC LINE INTACT AND RUNNING NORMAL SALINE ORDERED. PT DECLINED TO BE TURNED AT THIS TIME. V/S FOLLOWS T 98.0 P 81 R 18 B/P 117/50 02 96% ON ROOM AIR. ALL FALLS AND CONTACT PRECAUTIONS IN PLACE.
--- NOTE | 2018-08-26 00:15 | NUR ---
PT STILL TRYING TO HAVE A BOWEL MOVEMENT, REPOSITIONED HERSELF TO THE SUPINE POSITION. V/S FOLLOWS T 97.7 P 77 R 18 B/P 116/53 02 94% ON ROOM AIR.
[2018-08-26 04:00] VITALS: BP 126/56
--- NOTE | 2018-08-26 04:00 | NUR ---
PT TURNED AND REPOSITIONED, V/S FOLLOWS T 97.8 P 80 R 18 B/P 126/56 02 98% ON ROOM AIR.
--- NOTE | 2018-08-26 05:00 | NUR ---
CAMERONO THROUGH WELL AM ORDERED LABS DRAWN VIA PICC LINE, LINE FLUSHED PATENT.
--- NOTE | 2018-08-26 06:30 | NUR ---
PT GIVEN ORDERED GLIPIZIDE FOR BLOOD SUGAR, FINGERSTICK IS 81, NO HUMALOG COVERAGE NEED, PT OFFERED JUICE BUT DECLINED. TORSTEN HUNG AND RUNNING ORDERED.
[2018-08-26] MEDS: VANCOMYCIN 1,250 MG in DEXTROSE 5% 250 ML IV SCH (06:33)
[2018-08-26] MEDS: GLIMEPIRIDE 2 MG TAB PO SCH ×2 (06:38→16:34)
[2018-08-26] MEDS: BLOOD GLUCOSE MONITORING 1 DEV DEV FS SCH ×4 (06:41→21:38)
--- NOTE | 2018-08-26 07:20 | NUR ---
CARE ENDORSED TO ALEJANDRO RN DAYSHIFT NURSE AT BEDSIDE FOR CONTINUITY OF CARE, PT IN STABLE CONDITION.
--- NOTE | 2018-08-26 07:21 | NUR ---
Received report from pm nurse Stephanie. Pt asleep, arousable by auditory stimuli, no signs of distress. Right upper arm PICC intact with ongoing Vanco @ 125ml/hr. Call light within reach.
[2018-08-26 08:00] VITALS: BP 117/63
[2018-08-26 08:20] LABS: BASOPHILS # (AUTO) 0.1 K/uL (0.00-0.22); BASOPHILS % (AUTO) 0.6 % (0.0-2.0); EOSINOPHILS # (AUTO) 0.5 K/uL (0-0.4); EOSINOPHILS % (AUTO) 4.5 % (0.0-4.0); LYMPHOCYTES # (AUTO) 2.5 K/uL (2.5-16.5); LYMPHOCYTES % (AUTO) 22.9 % (20.5-51.1); MEAN CORPUSCULAR HEMOGLOBIN 25 pg (27-31); MEAN CORPUSCULAR HGB CONC 32 g/dL (33-37); MEAN CORPUSCULAR VOLUME 77.6 fL (80-94); MONOCYTES % (AUTO) 8.9 % (1.7-9.3); NEUTROPHILS # (AUTO) 6.9 K/uL (1.8-7.7); NEUTROPHILS % (AUTO) 63.1 % (42.2-75.2); PLATELET COUNT (AUTO) 273 K/uL (140-450); RED BLOOD CELL COUNT(AUTO) 3.23 MIL/uL (4.20-5.40)
--- NOTE | 2018-08-26 08:25 | NUR ---
Received vancomycin trough result from laboratory administrative director. Pharmacist Bertin notified. Per Bertin, next vancomycin dose will be adjusted accordingly.
[2018-08-26 09:00] LABS: ANION GAP 14.3 (8-16); CARBON DIOXIDE 20.2 mmol/L (21-32); POTASSIUM 4.5 mmol/L (3.5-5.1)
[2018-08-26] MEDS: ASCORBIC ACID 500 MG TAB PO SCH (09:12)
[2018-08-26] MEDS: SENNA 8.6 MG TAB PO SCH ×2 (09:12→21:39)
[2018-08-26] MEDS: ZINC SULF 220 MG CAP PO SCH (09:12)
[2018-08-26] MEDS: LISINOPRIL 20 MG TAB PO SCH (09:12)
[2018-08-26] MEDS: GABAPENTIN 100 MG CAP PO SCH ×2 (09:12→21:39)
[2018-08-26] MEDS: ENOXAPARIN 40 MG/0.4 ML SYR SUBQ SCH (09:18)
--- NOTE | 2018-08-26 10:30 | NUR ---
Reported by GUSSET STITCHER that pt refused hygiene care & repositioning. Spoke to pt re: concern. Pt states that wants it done right after wound care d/t pain r/t mobility. Explained risks of prolonged pressure & benefits of good hygiene. Pt verbalized understanding, but cont to refuse. States she will do it after lunch. No signs of distress at this time. Respirations even & nonlabored. Right upper arm PICC intact with ongoing NS @ 120ml/hr. Call light within reach.
[2018-08-26] MEDS: oxyCODONE/APAP 5/325 MG 1 TAB TAB PO PRN (11:27)
--- NOTE | 2018-08-26 13:00 | NUR ---
Dr. Trejo at bedside assessing pt. Per Dr. Trejo ok to do bone scan even with wound. Will notify radiology. Addendum: 08/26/18 at 1919 by Cheryl Gray RN Addendum: per Dr. Trejo, f/u with Dr. Velazquez re: bone scan. Will notify Dr. Velazquez during his visit with pt.
[2018-08-26] MEDS: MORPHINE SULFATE 2 MG/ML SYR IM/IVP PRN ×3 (14:34→22:36)
--- NOTE | 2018-08-26 14:50 | NUR ---
Wound care & hygiene care completed at this time. Pt c/o 06/20 pain but states it is tolerable. No signs of distress. Right upper PICC intact with ongoing NS @ 120ml/hr. Call light within reach.
[2018-08-26 16:00] VITALS: BP 117/62
--- NOTE | 2018-08-26 19:13 | NUR ---
Report given to nurse Stephanie.
--- NOTE | 2018-08-26 19:14 | NUR ---
RECEIVED ENDORSEMENT FROM ALEJANDRO RN DAYSHIFT NURSE AT BEDSIDE FOR CONTINUITY OF CARE, PT IN STABLE CONDITION.
--- NOTE | 2018-08-26 20:00 | NUR ---
PT IN BED ALL FALLS PRECAUTIONS IN PLACE, SHE IS AOX4 GALAVIZ CATHETER IN PLACE DRAINING YELLOW URINE. DRESSING TO ABDOMEN AND THIGH INTACT WITH NO DRAINAGE NOTED. PT STATES PAIN IS 4/10 AND SHE HAS A HEADACHE, HOWEVER SHE DOESN'T WANT A PAIN PILL BUT WOULD RATHER WAIT UNTIL MORPHINE IS DUE. PT DECLINES TO TURN AT THIS TIME. V/S FOLLOWS T 97.9 P 78 R 18 B/P 104/59 02 99% ON ROOM AIR.
--- NOTE | 2018-08-26 21:00 | NUR ---
PT IN BED ALL FALLS PRECAUTIONS IN PLACE AND CALL YANES IN REACH. PT GIVEN DUE MEDS OF NEURONTIN AND SENOKOT . PT FINGERSTICK IS 89 NO HUMALOG COVERAGE NEEDED. DR. ABDI AT BEDSIDE FOR CONSULT. DR. TOURE WANTS BONE SCAN TO BE DONE TOMORROW TO CHECK FOR OSTEOMYELITIS.
[2018-08-26] MEDS: MELATONIN 3 MG TAB PO PRN (21:41)
--- NOTE | 2018-08-26 22:36 | NUR ---
PT GIVEN PRN/IVP MORPHINE FOR PAIN OF 8/10 IN ABDOMEN. WILL MONITOR FOR PAIN RELIEF.
--- NOTE | 2018-08-26 23:00 | NUR ---
PT IN BED , SHE WAS REPOSITION TO LEFT SIDE AND GIVEN DULCOLAX SUPPOSITORY FOR CONSTIPATION. SMALL AMOUNT OF LOOSE STOOL NOTED FECAL MATTER FELT AT ANAL OPENING WHILE INSERTING SUPPOSITORY.
[2018-08-27] VITALS: BP 116/53
[2018-08-27] MEDS: ONDANSETRON 4 MG/2 ML VIAL IVP PRN ×2 (02:04→09:27)
--- NOTE | 2018-08-27 02:05 | NUR ---
PT C/O OF NAUSEA, NO PRN NOTED. DR. WRIGHT PAGED AND OBTAINED A PRN ORDER FOR ZOFRAN. ZOFRAN GIVEN ORDERED FOR C/O OF NAUSEA.
[2018-08-27] MEDS: MORPHINE SULFATE 2 MG/ML SYR IM/IVP PRN ×4 (02:45→18:59)
[2018-08-27] MEDS: GLIMEPIRIDE 2 MG TAB PO SCH ×2 (06:34→17:04)
[2018-08-27] MEDS: BLOOD GLUCOSE MONITORING 1 DEV DEV FS SCH ×4 (06:37→20:06)
--- NOTE | 2018-08-27 06:43 | NUR ---
PT TURNED AND REPOSITIONED, F/S IS 82 NO COVERAGE NEEDED GIVEN AM AMARYL.
--- NOTE | 2018-08-27 07:20 | NUR ---
CARE ENDORSED TO AM SHIFT, PT IN STABLE CONDITION.
--- NOTE | 2018-08-27 07:23 | NUR ---
RECEIVED BEDSIDE REPORT FROM SUPPLY CHAIN TECHNICIAN RN. PT [id number]. PICC IN THE RIGHT UPPER ARM. ABDOMINAL DRESSING AND WOUND PACKED WITH DRESSING DRY AND INTACT. WOUND CARE TO BE DONE WITH CARA WOUND CARE NURSE. PT COMPLAINS OF 6/10 SHARP PAIN WHERE ABDOMINAL WOUND IS. PT WILL BE GIVEN MORPHINE FOR THE PAIN. DISCUSSED POC WITH PT, PT VERBALIZED UNDERSTANDING. WILL ROUND FREQUENTLY ON PT.
[2018-08-27 08:00] VITALS: BP 123/57
[2018-08-27] MEDS ORDERED: VANCOMYCIN 1,250 MG in DEXTROSE 5% 250 ML IV SCH (09:00)
[2018-08-27] MEDS: ENOXAPARIN 40 MG/0.4 ML SYR SUBQ SCH (09:15)
[2018-08-27] MEDS: ASCORBIC ACID 500 MG TAB PO SCH (09:16)
[2018-08-27] MEDS: SENNA 8.6 MG TAB PO SCH ×2 (09:16→20:58)
[2018-08-27] MEDS: GABAPENTIN 100 MG CAP PO SCH ×2 (09:20→20:57)
[2018-08-27] MEDS: ZINC SULF 220 MG CAP PO SCH (09:20)
[2018-08-27] MEDS: LISINOPRIL 20 MG TAB PO SCH (09:21)
--- NOTE | 2018-08-27 09:28 | NUR ---
ADMINISTERED MORNING MEDS TO PT. PT TOLERATED THEM WELL. PT ALSO REQUESTED MEDICATION FOR NAUSEA. ZOFRAN WAS GIVEN. ALL OTHER NEEDS MET AT THIS TIME. WILL CONTINUE TO ROUND FREQUENTLY ON PT.
--- NOTE | 2018-08-27 11:36 | NUR ---
PT RESTING IN BED WATCHING TV. NO COMPLAINTS OF PAIN OR DISTRESS. BED IN LOW POSITION, CALL LIGHT WITHIN REACH.
--- NOTE | 2018-08-27 11:43 | NUR ---
GAVE PT MORPHINE PER MD ORDERS BEFORE WOUND DRESSING CHANGE. TOLD MD THAT PT RECEIVED MORPHINE AT 0916. DR SAID OK TO GIVE AGAIN NOW. AWAITING WOUND CARE NURSE FOR DRESSING CHANGE.
--- NOTE | 2018-08-27 12:12 | NUR ---
DRESSING CHANGE DONE ON PT. PT TOLERATED DRESSING CHANGE WELL. ALL OTHER PT NEEDS DONE. WILL CONTINUE TO ROUND FREQUENTLY ON PT.
--- NOTE | 2018-08-27 13:42 | NUR ---
PT RESTING IN BED. NO SIGNS OF PAIN OR DISTRESS AT THIS TIME. WILL CONTINUE TO ROUND FREQUENTLY ON PT.
[2018-08-27] MEDS: Z-GUARD PASTE TP SCH (14:04)
[2018-08-27 16:00] VITALS: BP 123/51
--- NOTE | 2018-08-27 19:25 | NUR ---
ENDORSED PT TO AUTO ENGINE MECHANIC FOR CONTINUITY OF CARE. PT IN STABLE CONDITION AT THIS TIME.
--- NOTE | 2018-08-27 19:26 | NUR ---
RECEIVED BEDSIDE REPORT FROM LEVI MILLER. PT AAOX4. PICC IN THE RIGHT UPPER ARM DRESSING C/D/I. IVF INFUSING PER ORDERS. ABDOMINAL DRESSING AND WOUND PACKED WITH DRESSING DRY AND INTACT WAS DONE TODAY WITH CARA WOUND CARE NURSE. GALAVIZ CATH IN PLACE DRAINING CLEAR YELLOW URINE. ON CONTACT PRECAUTIONS FOR MRSA/ESBL/MDRO OF WOUND. DISCUSSED POC WITH PT, PT VERBALIZED UNDERSTANDING. WILL ROUND FREQUENTLY ON PT.
[2018-08-27] MEDS ORDERED: GENTAMICIN PER PHARMACY MC PRN (19:30)
[2018-08-27] MEDS ORDERED: GENTAMICIN 240 MG in DEXTROSE 5% 100 ML IV ONE (20:00)
[2018-08-27] MEDS ORDERED: GENTAMICIN 80 MG/2 ML VIAL ONE (20:59)
--- NOTE | 2018-08-27 20:59 | NUR ---
SCHEDULED MEDICATION GIVEN. FIRST DOSE OF GENTAMYCIN NOW. WILL ORDER RANDOM GENT FOR 08/28 AT 0600 PER PHARMACY.
[2018-08-27] MEDS: CLINDAMYCIN 600 MG in DEXTROSE 5% 50 ML IV SCH (22:02)
[2018-08-27] MEDS ORDERED: CLINDAMYCIN 600 MG/4 ML VIAL ONE (22:07)
[2018-08-27 23:11] VITALS: BP 120/55
--- NOTE | 2018-08-28 | NUR ---
VITAL SIGNS ARE WITHIN NORMAL LIMITS. NO S/S OF DISTRESS. CALL LIGHT WITHIN REACH. WILL CONTINUE TO MONITOR.
[2018-08-28] MEDS: MORPHINE SULFATE 2 MG/ML SYR IM/IVP PRN ×5 (00:26→20:45)
[2018-08-28] MEDS: Z-GUARD PASTE TP SCH ×2 (00:45→13:55)
--- NOTE | 2018-08-28 02:33 | NUR ---
PT IS SLEEPING COMFORTABLY IN BED. RESPIRATIONS ARE EQUAL AND UNLABORED. CALL LIGHT IS WITHIN REACH.
--- NOTE | 2018-08-28 04:00 | NUR ---
PT SLEEPING COMFORTABLY IN BED. RESPIRATIONS ARE EQUAL AND UNLABORED. CALL LIGHT WITHIN REACH.
[2018-08-28] MEDS: CLINDAMYCIN 600 MG in DEXTROSE 5% 50 ML IV SCH (05:31)
[2018-08-28] MEDS ORDERED: CLINDAMYCIN 600 MG/4 ML VIAL ONE (05:34)
[2018-08-28] MEDS: BLOOD GLUCOSE MONITORING 1 DEV DEV FS SCH ×4 (05:36→20:27)
[2018-08-28] MEDS: GLIMEPIRIDE 2 MG TAB PO SCH ×2 (06:31→16:30)
--- NOTE | 2018-08-28 07:10 | NUR ---
RECEIVED BED SIDE REPORT FROM SUPERVISOR CONCRETE BLOCK PLANT RN. PT SLEEPING COMFORTABLY IN BED. ON RA IN NO RESPIRATORY DISTRESS AND APPEARS IN NO PAIN. ON CONTACT ISO D/T ESBL,MRS, MRDO PER ABD WOUND CULTURES. PICC LINE R UPPER ARM RUNNING AT TKO 10ML/HR. GALAVIZ CATH ALREADY INSERTED DRAINING WELL. ABDOMINAL DRESSING DRIED AND NO DRAINAGE NOTED, WILL CONTINUE TO MONITOR
--- NOTE | 2018-08-28 07:26 | NUR ---
GAVE BEDSIDE REPORT TO DAY SHIFT RN. PT ENDORSED IN STABLE CONDITION.
[2018-08-28 08:00] VITALS: BP 117/61
[2018-08-28 08:33] LABS: ANION GAP 14.4 (8-16); CARBON DIOXIDE 22.1 mmol/L (21-32); CREATININE 0.9 mg/dL (0.6-1.3); POTASSIUM 4.5 mmol/L (3.5-5.1)
--- NOTE | 2018-08-28 08:40 | NUR ---
GOT A CRITICAL LAB VALUE: GENTAMYCIN RANDOM 4.5. CALLED OFFICE. DID NOT TRANSFER ME TO . WILL TRY AGAIN SOON.
[2018-08-28] MEDS: ZINC SULF 220 MG CAP PO SCH (09:02)
[2018-08-28] MEDS: SENNA 8.6 MG TAB PO SCH ×2 (09:02→20:44)
[2018-08-28] MEDS: metroNIDAZOLE 500 MG TAB PO SCH ×3 (09:03→16:01)
[2018-08-28] MEDS: GABAPENTIN 100 MG CAP PO SCH ×2 (09:03→20:44)
[2018-08-28] MEDS: LISINOPRIL 20 MG TAB PO SCH (09:03)
[2018-08-28] MEDS: ASCORBIC ACID 500 MG TAB PO SCH (09:03)
[2018-08-28] MEDS: ENOXAPARIN 40 MG/0.4 ML SYR SUBQ SCH (09:07)
--- NOTE | 2018-08-28 09:49 | NUR ---
CALLED ME BACK. NOTIFIED HER ABOUT GENTAMYCIN RANDOM 4.5. NO CHANGE IN ORDERS
--- NOTE | 2018-08-28 11:56 | NUR ---
GAVE PT MORPHINE 2MG PER MD ORDER PRN FOR WOUND DRESSING. WILL START WOUND DRESSING IN 20 MIN
--- NOTE | 2018-08-28 11:57 | NUR ---
CALLED RADIOLOGY AND SAID THAT PT NEEDS TO HAVE BONE SCAN. PUT IN BONE SCAN ORDERS ON MONDAY. PER MOHSEN JACKSON, SHE WILL TALK TO THE DOCTOR TO SEE IF THEY ARE WILLING TO DO BONE SCAN BECAUSE PT HAS OPEN WOUND AND NEEDS TO HAVE CONTRAST PUT IN. BREA SAID SHE WILL CALL ME BACK FOR ANSWER. WILL CONTINUE TO MONITOR
--- NOTE | 2018-08-28 11:59 | NUR ---
BLOOD SUGAR 63. GAVE APPLE JUICE. WILL RE-CHECK BLOOD SUGAR AGAIN SOON
[2018-08-28] MEDS: CLINDAMYCIN PHOS 600MG/D5W PM 50 ML IV SCH ×2 (13:07→21:29)
[2018-08-28] MEDS: ONDANSETRON 4 MG/2 ML VIAL IVP PRN (13:14)
--- NOTE | 2018-08-28 13:30 | NUR ---
CALLED NM ABOUT PT'S PENDING BONE SCAN. PER BREA JACKSON, WHO IS THE HEAD RADIOLOGIST SAID THAT HE DOES NOT WANT TO DO BONE SCAN BECAUSE PT HAS OPEN WOUND AND CONTRAST IS NEEDED FOR THIS SCAN AND IF WE INSTILL CONTRAST, THE RESULT WILL BE A FALSE POSITIVE. WILL PAGE . LET TELEPHONIC NURSE CASE MANAGER AWARE OF SITUATION.
--- NOTE | 2018-08-28 13:49 | NUR ---
JUST PERFORMED WOUND CARE. MEDICATED WITH MORPHINE PRN PER MD ORDER AND ZOFRAN BECAUSE PT COMPLAINED OF NAUSEA. RINSED OLD WOUND WITH NS AND CLEANED SITE WITH NS. PACKED WOUND BASE AND SMALL MEDIAL LEFT THIGH WOUND WITH KERLIX ROLL. APPLIED 2 ABDOMINAL PAD AND SECURED WITH TAPE. PT TOLERATED PROCEDURE WELL. WOUND HAS SMALL AMOUNT OF PURULENT DRAINAGE WITH FOUL ODOR. WOUND BASE RED. NO BLEEDING NOTED. EDUCATED PT ON THE IMPORTANCE OF PREVENT SPREAD OF INFECTION AND TO PROPERLY CLEAN WOUND. HUNG CLINDAMYCIN PER MD ORDER. WILL CONTINUE TO MONITOR
--- NOTE | 2018-08-28 14:00 | NUR ---
BLOOD SUGAR 99, WILL CONTINUE TO MONITOR
[2018-08-28] MEDS ORDERED: LACTOBACILLUS RHAMNOSUS GG 1 EACH CAP PO SCH ×2 (15:30→17:00)
[2018-08-28 16:00] VITALS: BP 117/58
--- NOTE | 2018-08-28 16:17 | NUR ---
08/28/18 RD FOLLOW UP COMPLETED PLEASE REFER TO NUTRITION ASSESSMENT UNDER CARE ACTIVITY FOR ESTIMATED NUTRITIONAL NEEDS. 1. CONTINUE CCHO 60 GM DIET TOLERATED 2. RECOMMEND GLUCERNA TID 3. RD TO FOLLOW-UP 3-5 DAYS, MODERATE RISK FILIPE VARELA, RD
--- NOTE | 2018-08-28 16:30 | NUR ---
BLOOD SUGAR 67. WILL HOLD AMARYL. WILL GIVE PT APPLE JUICE
--- NOTE | 2018-08-28 17:30 | NUR ---
PAGED ABOUT HEAD RADIOLOGIST NOT WANTING TO DO BONE SCAN ON PT. WILL WAIT FOR HIS CALL
--- NOTE | 2018-08-28 18:30 | NUR ---
CALLED ME BACK AND SAID THAT HE WANTS PT TO BE TRANSFERRED TO ANOTHER FACILITY TO DO BONE SCAN
--- NOTE | 2018-08-28 19:30 | NUR ---
RECEIVED BEDSIDE REPORT FROM JANNA MILLER. PT AAOX4. PICC IN THE RIGHT UPPER ARM DRESSING C/D/I. IVF INFUSING PER ORDERS. ABDOMINAL DRESSING AND WOUND PACKED WITH DRESSING DRY AND INTACT WAS DONE TODAY. GALAVIZ CATH IN PLACE DRAINING CLEAR YELLOW URINE. ON CONTACT PRECAUTIONS FOR MRSA/ESBL/MDRO OF WOUND. DISCUSSED POC WITH PT, PT VERBALIZED UNDERSTANDING. WILL ROUND FREQUENTLY ON PT.
--- NOTE | 2018-08-28 20:27 | NUR ---
SCHEDULED MEDICATIONS GIVEN. TURNED AND CLEANED PT AND APPLIED Z GUARD. ALL NEEDS MET AT THIS TIME. CALL LIGHT WITHIN REACH. WILL CONTINUE TO MONITOR.
--- NOTE | 2018-08-28 20:45 | NUR ---
SPOKE WITH DR ABDI REGARDING RADIOLOGIST INFORMED DAY SHIFT RN HE CANNOT PERFORM BONE SCAN DUE TO NUCLEAR MEDICINE CANNOT BE USED IF THERE IS AN OPEN WOUND. PER DR ABDI PT WILL NEED TO BE TRANSFERRED TO A DIFFERENT FACILITY WERE A BONE SCAN CAN BE DONE. WILL INFORM DR WRIGHT.
[2018-08-28] MEDS: GENTAMICIN 120 MG in DEXTROSE 5% 100 ML IV SCH (20:47)
[2018-08-28] MEDS ORDERED: GENTAMICIN 80 MG/2 ML VIAL ONE (20:48)
--- NOTE | 2018-08-28 21:00 | NUR ---
SPOKE WITH DR WRIGHT REGARDING DR ABDI RECOMMENDATION TO TRANSFER PT TO FACILITY WERE A BONE SCAN CAN BE DONE. PER DR WRIGHT ORDER CT OF ABDOMEN AND PELVIS WITH AND WITHOUT CONTRAST. AFTER RESULTS SHE WILL LOOK FOR RADIOLOGIST TO PERFORM BONE SCAN.
[2018-08-28] MEDS: SIMETHICONE 80 MG TAB.CHEW PO PRN (21:29)
[2018-08-28 23:39] VITALS: BP 112/57
--- NOTE | 2018-08-28 23:40 | NUR ---
VITAL SIGNS ARE WITHIN NORMAL LIMITS. NO S/S OF DISTRESS. WILL CONTINUE TO MONITOR.
[2018-08-29] MEDS: Z-GUARD PASTE TP SCH ×2 (00:34→12:52)
[2018-08-29] MEDS: MORPHINE SULFATE 2 MG/ML SYR IM/IVP PRN ×5 (00:55→20:43)
--- NOTE | 2018-08-29 02:30 | NUR ---
PT IS SLEEPING COMFORTABLY IN BED. NO S/S OF DISTRESS. CALL LIGHT IS WITHIN REACH.
--- NOTE | 2018-08-29 04:00 | NUR ---
PT IS RESTING COMFORTABLY IN BED. RESPIRATIONS ARE EQUAL AND UNLABORED. CALL LIGHT IS WITHIN REACH.
--- NOTE | 2018-08-29 05:33 | NUR ---
PATIENT WAS CLEANED AND REPOSITION FOR COMFORT. BLOOD GLUCOSE 74 NO COVERAGE NEEDED AND GLIMEPRIDE HELD.
[2018-08-29] MEDS: CLINDAMYCIN PHOS 600MG/D5W PM 50 ML IV SCH ×3 (05:36→20:46)
[2018-08-29] MEDS: BLOOD GLUCOSE MONITORING 1 DEV DEV FS SCH ×4 (05:39→20:37)
[2018-08-29] MEDS: GLIMEPIRIDE 2 MG TAB PO SCH ×2 (05:40→16:28)
[2018-08-29 07:06] LABS: ANION GAP 13.4 (8-16); CARBON DIOXIDE 21.4 mmol/L (21-32); POTASSIUM 4.8 mmol/L (3.5-5.1)
--- NOTE | 2018-08-29 07:20 | NUR ---
GAVE BEDSIDE REPORT TO DAY SHIFT RN. PT ENDORSED IN STABLE CONDITION.
[2018-08-29 08:00] VITALS: BP 109/55
[2018-08-29] MEDS: LACTOBACILLUS RHAMNOSUS GG 1 EACH CAP PO SCH (08:59)
[2018-08-29] MEDS: GABAPENTIN 100 MG CAP PO SCH ×2 (08:59→20:45)
[2018-08-29] MEDS: SENNA 8.6 MG TAB PO SCH ×2 (08:59→20:45)
[2018-08-29] MEDS: metroNIDAZOLE 500 MG TAB PO SCH ×3 (08:59→16:14)
[2018-08-29] MEDS: ZINC SULF 220 MG CAP PO SCH (09:00)
[2018-08-29] MEDS: LISINOPRIL 20 MG TAB PO SCH (09:00)
[2018-08-29] MEDS: ASCORBIC ACID 500 MG TAB PO SCH (09:00)
[2018-08-29] MEDS: ENOXAPARIN 40 MG/0.4 ML SYR SUBQ SCH (09:10)
[2018-08-29] MEDS: ONDANSETRON 4 MG/2 ML VIAL IVP PRN (09:16)
--- NOTE | 2018-08-29 10:15 | NUR ---
GOT A CALL FROM [place] AT [place] FROM [facility] AND SHE SAID THAT THEY WILL COME TO [facility] TO PERFORM BONE SCAN ON PT AT 0900 TOMORROW. NOTIFIED AND SHE SAID OKAY AND TO CALL HER BACK WITH THE IMAGING RESULTS FROM CT OF ABD/PELVIS
--- NOTE | 2018-08-29 12:00 | NUR ---
MEDICATED PT WITH MORPHINE PRIOR TO DRESSING CHANGE. RINSED WOUND WITH NS, PAT DRY, REMOVED OLD WOUND AND PACKED WITH KERLIX ROLL. PT HAS SHARP SEVERE PAIN ON THE EDGES OF WOUND. PT TOLERATED PROCEDURE WELL. SHEETS AND PADS CHANGED. HUNG CLINDAMYCIN AND GAVE COLACE PRN BECAUSE PT HAS NOT HAD SIGNIFICANT BOWEL MOVEMENT YET. SHE REFUSED TO WORK WITH PT. WILL CONTINUE TO MONITOR
--- NOTE | 2018-08-29 13:00 | NUR ---
P.T. NOTES PATIENT REFUSED TO PARTICIPATE WITH P.T. SERVICES AFTER SEVERAL ATTEMPTS WERE MADE STATING SHE WAS TOO TIRED FROM A RECENT TEST AND IN SO MUCH PAIN AT THIS TIME AFTER WOUND CARE. HER NURSE JANNA WAS MADE AWARE. PLAN: WE'LL FOLLOW UP AGAIN TOMORROW.
[2018-08-29 16:00] VITALS: BP 105/61
[2018-08-29] MEDS: GENTAMICIN 120 MG in DEXTROSE 5% 100 ML IV SCH (16:25)
--- NOTE | 2018-08-29 16:25 | NUR ---
HUNG GENTAMYCIN NOW. CALLED PHARMACY TO CONFIRM IF THEY WANTED ME TO HANG GENTAMYCIN EVEN IF THE TROUGH WAS 1.6. PHARMACY SAID THEY WILL CALL ME BACK. CALLED ME BACK AND TOLD ME TO HANG ABX AND THAT THEY WILL ADJUST TIME SO PEAK LEVEL CAN BE TAKE 30 MIN AFTER STARTING. SUGAR 112. PATIENT EATING TUNA SANDWICH
--- NOTE | 2018-08-29 17:42 | NUR ---
GENTAMYCIN PEAK DRAWN FROM PICC LINE BY ME. PT A/O X4, DINNER AT BEDSIDE.
--- NOTE | 2018-08-29 19:36 | NUR ---
ENDORSED PT TO OBSTETRICIAN AND GYNAECOLOGIST RN. PT IN STABLE CONDITION
--- NOTE | 2018-08-29 20:46 | NUR ---
SCHEDULED MEDICATIONS GIVEN. PT TOLERATED WELL. NO S/S OF DISTRESS. ALL NEEDS MET AT THIS TIME. WILL CONTINUE TO MONITOR.
[2018-08-29] MEDS: NACL 0.9% 1,000 ML IV SCH (21:08)
[2018-08-29] MEDS: SIMETHICONE 80 MG TAB.CHEW PO PRN (21:09)
[2018-08-29 23:53] VITALS: BP 116/64
--- NOTE | 2018-08-29 23:55 | NUR ---
VITAL SIGNS ARE WITHIN NORMAL LIMITS. DENIES ANY PAIN OR SOB. ALL NEEDS MET AT THIS TIME. WILL CONTINUE TO MONITOR.
[2018-08-30] MEDS: Z-GUARD PASTE TP SCH ×2 (00:36→13:48)
[2018-08-30] MEDS: MORPHINE SULFATE 2 MG/ML SYR IM/IVP PRN ×5 (00:47→20:24)
--- NOTE | 2018-08-30 01:16 | NUR ---
PT IS SLEEPING COMFORTABLY IN BED. NO S/S OF DISTRESS. CALL LIGHT IS WITHIN REACH.
--- NOTE | 2018-08-30 03:20 | NUR ---
PT IS SLEEPING COMFORTABLY IN BED. NO S/S OF DISTRESS. CALL LIGHT IS WITHIN REACH.
[2018-08-30] MEDS: CLINDAMYCIN PHOS 600MG/D5W PM 50 ML IV SCH ×3 (05:47→20:16)
--- NOTE | 2018-08-30 05:47 | NUR ---
CLINDAMYCIN NOW INFUSING PER ORDERS. BLOOD SUGAR 104 NO COVERAGE NEEDED AND AMARYL HELD. CALL LIGHT IS WITHIN REACH. WILL CONTINUE TO MONITOR
[2018-08-30] MEDS: GLIMEPIRIDE 2 MG TAB PO SCH ×2 (05:53→16:41)
[2018-08-30] MEDS: BLOOD GLUCOSE MONITORING 1 DEV DEV FS SCH ×4 (05:53→20:21)
--- NOTE | 2018-08-30 06:55 | NUR ---
PT OFF TO RADIOLOGY FOR THE FIRST STEP OF THE BONE SCAN. PER NURSE IT WILL TAKE 45 MIN. SINCE PATIENT IS DIABETIC WILL NEED TO WAIT ABOUT 6 HRS FOR NEXT PART OF BONE SCAN WILL BE BACK IN THE AFTERNOON.
[2018-08-30 07:13] LABS: ANION GAP 12.6 (8-16); CARBON DIOXIDE 21.9 mmol/L (21-32); POTASSIUM 4.5 mmol/L (3.5-5.1)
--- NOTE | 2018-08-30 07:27 | NUR ---
GAVE BEDSIDE REPORT TO DAY SHIFT RN. PT ENDORSED IN STABLE CONDITION.
--- NOTE | 2018-08-30 07:28 | NUR ---
RECEIVED ENDORSEMENT FROM RECRUITER COORDINATOR NURSE. PATIENT NOT IN ROOM, IN RADIOLOGY. AWAITING RETURN.
--- NOTE | 2018-08-30 07:40 | NUR ---
PATIENT RETURNED FROM RADIOLOGY. PATIENT IS AAOX4, AMHARIC SPEAKING. RESPIRATIONS ARE EVEN AND UNLABORED ON ROOM AIR. PATIENT DENIES ANY PAIN AT THIS TIME. RIGHT UPPER ARM PICC INTACT, PATENT, AND SL. F/C INTACT AND DRAINING CLEAR YELLOW URINE. PLAN OF CARE WAS REVIEWED WITH PATIENT. PATIENT VERBALIZED UNDERSTANDING. SAFETY MEASURES IN PLACE, CALL LIGHT WITHIN REACH.
[2018-08-30] MEDS: NACL 0.9% 1,000 ML IV SCH ×2 (07:50→12:24)
[2018-08-30 08:00] VITALS: BP 126/58
[2018-08-30] MEDS: ONDANSETRON 4 MG/2 ML VIAL IVP PRN (08:54)
[2018-08-30] MEDS: ZINC SULF 220 MG CAP PO SCH (08:54)
[2018-08-30] MEDS: LACTOBACILLUS RHAMNOSUS GG 1 EACH CAP PO SCH (08:54)
[2018-08-30] MEDS: LISINOPRIL 20 MG TAB PO SCH (08:55)
[2018-08-30] MEDS: SENNA 8.6 MG TAB PO SCH ×2 (08:55→20:16)
[2018-08-30] MEDS: ASCORBIC ACID 500 MG TAB PO SCH (08:55)
[2018-08-30] MEDS: metroNIDAZOLE 500 MG TAB PO SCH ×3 (08:55→16:35)
[2018-08-30] MEDS: GABAPENTIN 100 MG CAP PO SCH ×2 (08:55→20:16)
[2018-08-30] MEDS: ENOXAPARIN 40 MG/0.4 ML SYR SUBQ SCH ×2 (09:00→09:59)
--- NOTE | 2018-08-30 09:23 | NUR ---
DID NOT ADMINISTER ENOXAPARIN. NO PLATELET RESULT SINCE 08/26/18. WILL REPORT TO
--- NOTE | 2018-08-30 09:26 | NUR ---
PER DR. WRIGHT, ENOXAPARIN OK TO GIVE.
--- NOTE | 2018-08-30 10:30 | NUR ---
DRSG WAS CHANGE. PRN MORPHINE IVP GIVEN PRIOR. PATIENT TOLERATED PROCEDURE WELL.
--- NOTE | 2018-08-30 12:15 | NUR ---
PATIENT RESTING IN BED. DENIES ANY PAIN. NO OTHER NEEDS AT THIS TIME.
--- NOTE | 2018-08-30 13:50 | NUR ---
ADMINISTERED SCHEDULED MEDICATIONS. PATIENT DENIES ANY PAIN AT THIS TIME. NO OTHER NEEDS AT THIS TIME.
--- NOTE | 2018-08-30 15:21 | NUR ---
PATIENT PICKED UP BY RADIOLOGY. WILL CONTINUE TO MONITOR UPON RETURN.
--- NOTE | 2018-08-30 15:41 | NUR ---
DC PLANNING: WAITING FOR THE BONE SCAN TO BE DONE AND WILL FOLLOW UP.
[2018-08-30 16:00] VITALS: BP 131/56
--- NOTE | 2018-08-30 16:15 | NUR ---
PATIENT RETURNED FROM RADIOLOGY. VS WERE TAKEN. DENIES ANY PAIN. NO OTHER NEEDS AT THIS TIME.
[2018-08-30] MEDS: METOCLOPRAMIDE 10 MG/2 ML INJ VIAL IVP SCH (16:35)
[2018-08-30] MEDS: GENTAMICIN 120 MG in DEXTROSE 5% 100 ML IV SCH (16:35)
[2018-08-30] MEDS: SIMETHICONE 80 MG TAB.CHEW PO PRN (16:36)
[2018-08-30] MEDS: INSULIN LISPRO SLIDING SCALE 100 UNITS/ML VIAL SUBQ PRN (16:53)
--- NOTE | 2018-08-30 17:05 | NUR ---
ADMINISTERED SCHEDULED MEDICATIONS. PATIENT DENIES ANY PAIN. NO OTHER NEEDS AT THIS TIME.
--- NOTE | 2018-08-30 19:23 | NUR ---
ENDORSED TO MIRROR MAKER NURSE ROB FOR CONTINUITY OF CARE. PATIENT IS STABLE AT THIS TIME.
--- NOTE | 2018-08-30 19:24 | NUR ---
REPORT RECEIVED FROM AM NURSE AT BEDSIDE. PT IN STABLE CONDITION. AAOX4. INTRODUCED SELF TO PT. BOARD UPDATED. PT HAS COMPLAINTS OF PAIN. WILL MEDICATE. NO SOB. AFEBRILE. IV SITE R UA PICC LINE DOUBLE LUMEN RUNNING NS@75ML/HR PATENT AND INTACT. SKIN WARM, DRY, AND NOT INTACT DUE TO SURGICAL ABDOMINAL WOUND. PT HAS GALAVIZ IN PLACE SINCE 08/22/18. BED LOCKED IN LOW POSITION. CALL YANES WITHIN REACH. SAFETY PRECAUTION IN PLACE. ALL NEEDS MET AT THIS TIME.
--- NOTE | 2018-08-30 20:16 | NUR ---
NEURONTIN AND SENNA GIVEN PO. CLINDAMYCIN HUNG AND RUNNING. BS 125. NO INSULIN COVERAGE NEEDED. PT TOLERATED WELL.
--- NOTE | 2018-08-30 20:24 | NUR ---
MORPHINE GIVEN FOR 8/10 ABDOMINAL PAIN. PT TOLERATED WELL.
--- NOTE | 2018-08-30 22:00 | NUR ---
PT AWAKE AND ALERT LAYING IN BED ON HER PHONE. NO S/S OF DISTRESS NOTED. WILL CONTINUE TO MONITOR.
[2018-08-31] VITALS: BP 145/68
[2018-08-31] MEDS: Z-GUARD PASTE TP SCH ×2 (00:12→12:37)
--- NOTE | 2018-08-31 00:12 | NUR ---
ZGUARD APPLIED TO SACRAL AREA. MORPHINE GIVEN FOR 8/10 ABDOMINAL PAIN. PT TOLERATED WELL.
[2018-08-31] MEDS: MORPHINE SULFATE 2 MG/ML SYR IM/IVP PRN ×5 (00:13→18:44)
--- NOTE | 2018-08-31 02:35 | NUR ---
PT SLEEPING COMFORTABLY BUT AROUSABLE. NO S/S OF DISTRESS NOTED. NO COMPLAINTS OF PAIN. NO SOB. AFEBRILE. WILL CONTINUE TO MONITOR.
[2018-08-31] MEDS: CLINDAMYCIN PHOS 600MG/D5W PM 50 ML IV SCH ×2 (04:31→12:37)
--- NOTE | 2018-08-31 04:31 | NUR ---
CLINDAMYCIN HUNG AND RUNNING. PT TOLERATING WELL.
[2018-08-31] MEDS: NACL 0.9% 1,000 ML IV SCH (04:34)
[2018-08-31] MEDS: BLOOD GLUCOSE MONITORING 1 DEV DEV FS SCH ×3 (05:51→16:16)
--- NOTE | 2018-08-31 05:51 | NUR ---
BLOOD DRAWN THROUGH PICC LINE. BS 95. NO INSULIN COVERAGE REQUIRED.
[2018-08-31 06:14] LABS: CARBON DIOXIDE 21.3 mmol/L (21-32); POTASSIUM 4.3 mmol/L (3.5-5.1)
[2018-08-31] MEDS: METOCLOPRAMIDE 10 MG/2 ML INJ VIAL IVP SCH ×3 (06:33→16:14)
--- NOTE | 2018-08-31 06:33 | NUR ---
REGLAN GIVEN IVP. PT TOLERATED WELL. AMARYL NOT GIVEN DUE TO DECREASED GLUCOSE OF 95.
[2018-08-31] MEDS: GLIMEPIRIDE 2 MG TAB PO SCH ×2 (06:34→16:14)
[2018-08-31 06:35] LABS: BASOPHILS # (AUTO) 0.1 K/uL (0.00-0.22); BASOPHILS % (AUTO) 0.6 % (0.0-2.0); EOSINOPHILS # (AUTO) 0.4 K/uL (0-0.4); EOSINOPHILS % (AUTO) 3.7 % (0.0-4.0); HEMATOCRIT 24.2 % (36-48); HEMOGLOBIN 7.7 g/dL (12.0-16.0); LYMPHOCYTES # (AUTO) 2.1 K/uL (2.5-16.5); LYMPHOCYTES % (AUTO) 19.7 % (20.5-51.1); MEAN CORPUSCULAR HEMOGLOBIN 25 pg (27-31); MEAN CORPUSCULAR HGB CONC 32 g/dL (33-37); MEAN CORPUSCULAR VOLUME 76.9 fL (80-94); MONOCYTES # (AUTO) 0.8 K/uL (0.8-1.0); MONOCYTES % (AUTO) 7.3 % (1.7-9.3); NEUTROPHILS # (AUTO) 7.3 K/uL (1.8-7.7); NEUTROPHILS % (AUTO) 68.7 % (42.2-75.2); PLATELET COUNT (AUTO) 349 K/uL (140-450); RED BLOOD CELL COUNT(AUTO) 3.14 MIL/uL (4.20-5.40); RED CELL DISTRIBUTION WIDTH 16.8 % (11.6-13.7); WHITE BLOOD COUNT (AUTO) 10.6 K/uL (4.8-10.8)
--- NOTE | 2018-08-31 07:24 | NUR ---
RECEIVED BEDSIDE REPORT FROM ANGELA RIVAS. PT STABLE, AWAKE, ALERT AND ORIENTED X4. DENIES PAIN OR SOB. NO SIGNS OF DISTRESS NOTED. NO REDNESS, SWELLING, OR INFLAMMATION NOTED ON IV SITE. CALL YANES WITHIN REACH. BED IN LOWEST POSITION, BED ALARM ON. SAFETY MEASURES IN PLACE. PLAN OF CARE REVIEWED.
--- NOTE | 2018-08-31 07:25 | NUR ---
REPORT GIVEN TO AM NURSE AT BEDSIDE. PT IN STABLE CONDITION.
[2018-08-31 08:00] VITALS: BP 130/62
[2018-08-31] MEDS: ENOXAPARIN 40 MG/0.4 ML SYR SUBQ SCH (09:45)
[2018-08-31] MEDS: metroNIDAZOLE 500 MG TAB PO SCH ×3 (09:50→16:14)
[2018-08-31] MEDS: LACTOBACILLUS RHAMNOSUS GG 1 EACH CAP PO SCH (09:50)
[2018-08-31] MEDS: GABAPENTIN 100 MG CAP PO SCH (09:50)
[2018-08-31] MEDS: ASCORBIC ACID 500 MG TAB PO SCH (09:50)
[2018-08-31] MEDS: ZINC SULF 220 MG CAP PO SCH (09:51)
[2018-08-31] MEDS: SENNA 8.6 MG TAB PO SCH (09:52)
[2018-08-31] MEDS: LISINOPRIL 20 MG TAB PO SCH (09:52)
--- NOTE | 2018-08-31 09:58 | NUR ---
ADMINISTERED SCHEDULED MEDICATIONS AND PRN MORPHINE FOR 10/10 ABD PAIN. PT TOLERATED WELL. WILL CONTINUE TO MONITOR.
--- NOTE | 2018-08-31 10:23 | NUR ---
WOUND ASSESSMENT AND WOUND CARE DONE. DRESSING CHANGED. PT TOLERATED WELL. NO OTHER NEEDS AT THIS TIME.
--- NOTE | 2018-08-31 10:31 | NUR ---
SPOKE WITH DR WRIGHT REGARDING D/C PLAN AND THE BONE SCAN RESULT IS IN . PER DR KYLE ANN IS ON VACATION HE CAN NOT SEE HER UNTIL MONDAY. HOWEVER IF DR JEAN IS OK WITH DISCHARGE BACK TO SNF WITH ABX. CALLED DR JEAN UPDATED THE BONE SCAN RESULT AND DR JEAN STATED PATIENT CAN GO BACK WITH IV ANTIBIOTICS FOR 6 WEEKS CLINDAMYCIN 600MG Q8HRS, GENTAMICIN 120MG Q24HRS
--- NOTE | 2018-08-31 12:05 | NUR ---
SPOKE WITH PT'S SISTER DELFIN REGARDING PT'S PLAN OF CARE. INFORMED BY TRISTEN MONTELONGO THAT DR WRIGHT AND DR ABDI ALREADY COMMUNICATED WITH EACH OTHER REGARDING PT'S DISCHARGE TO [facility] TODAY. MADE PT AWARE.
--- NOTE | 2018-08-31 12:43 | NUR ---
ADMINISTERED SCHEDULED MEDICATIONS, PT TOLERATED WELL. FAMILY AT THE BEDSIDE. NO OTHER NEEDS AT THIS TIME.
--- NOTE | 2018-08-31 13:09 | NUR ---
FAXED ALL THE REQUEST TO [facility] [phone] AND SPOKE WITH LEONIDES [phone] WILL COME AND EVALUATE PATIENT TODAY
--- NOTE | 2018-08-31 14:45 | NUR ---
ADMINISTERED PRN MORPHINE FOR 10/10 ABDOMINAL PAIN. PT TOLERATED WELL. FAMILY AT THE BEDSIDE.
--- NOTE | 2018-08-31 15:44 | NUR ---
Medicare Appeal Received a notification from [employer] ID # [id number] about patient appealing d/c. Mechanical Intern reported the patient wanted to cancel the appeal and move forward with the d/c plan. Pt was instructed to contact [employer] to cancel the appeal. 3:42pm - Left a voicemail for [employer] to confirm patient called to cancel appealed. SW/CM will continue following up. Panchito Orozco, Ext [phone]
[2018-08-31 16:00] VITALS: BP 123/66
[2018-08-31] MEDS: GENTAMICIN 120 MG in DEXTROSE 5% 100 ML IV SCH (16:17)
--- NOTE | 2018-08-31 16:20 | NUR ---
VITAL SIGNS TAKEN, PT STABLE. BG CHECKED, 123, NO COVERAGE NEEDED. ADMINISTERED SCHEDULED MEDICATIONS, PT TOLERATED WELL. NO OTHER NEEDS AT THIS TIME.
--- NOTE | 2018-08-31 17:30 | NUR ---
RECEIVED CALL FROM LEONIDES FROM [facility] REGARDING PT'S TRANSFER TODAY. PER LEONIDES, THEY HAVE A BED AVAILABLE FOR PT IN [address]. MADE MARCO FARIA AWARE.
--- NOTE | 2018-08-31 18:03 | NUR ---
TRANSPORTATION TO [facility] ARRANGED WITH [facility] ([facility]) SALESMAN/OWNER AT 1930.
[2018-08-31] MEDS ORDERED: [UNRECOGNIZED DRUG - OTHER] (18:38)
[2018-08-31] MEDS ORDERED: [UNRECOGNIZED DRUG - CODE] IV (18:45)
[2018-08-31] MEDS ORDERED: CLINDAMYCIN IV (18:46)
--- NOTE | 2018-08-31 18:52 | NUR ---
GAVE REPORT TO KELIN FROM [facility].
--- NOTE | 2018-08-31 19:00 | NUR ---
D/C INSTRUCTIONS AND PAPERWORK GIVEN. PT VERBALIZED UNDERSTANDING. QUESTIONS AND CONCERNS WERE ADDRESSED. PT STABLE, AAOX4, NO SIGNS OF DISTRESS NOTED. RIGHT UA PICC LINE KEPT IN PLACE FOR IV ANTIBIOTICS TO BE GIVEN AT [facility]. GALAVIZ CATHETER IN PLACE. DISCHARGE PHOTOGRAPHS TAKEN, PNEUMONIA VACCINE RECEIVED IN DEC 2016. PT HAS ALL BELONGINGS. PT WILL BE PICKED UP BY [facility] AT 1930.
--- NOTE | 2018-08-31 19:15 | NUR ---
ENDORSED PT TO RN ASAEL FOR CONTINUITY OF CARE. PT STABLE.
--- NOTE | 2018-08-31 19:16 | NUR ---
RECEIVED BEDSIDE REPORT FROM DAY SHIFT NURSE. PATIENT IS AWAKE, ALERT, AND COOPERATIVE. SKIN IS WARM AND DRY. RESPIRATION EVEN UNLABORED ON ROOM AIR. ABDOMINAL WOUND NOTED. RIGHT UPPER ARM PICC LINE PATENT AND INTACT. GALAVIZ CATHETER NOTED DRAINING YELLOW URINE. PLAN OF CARE WAS DISCUSSED. AWAITING FOR FORKLIFT DRIVER TO BE TRANSFER. ALL SAFETY MEASURES IN PLACE. BED IS AT LOW POSITION. CALL LIGHT WITHIN REACH. WILL CONTINUE TO MONITOR.
--- NOTE | 2018-08-31 19:40 | NUR ---
PATIENT LEFT THE FACILITY VIA GURNEY WITH TWO PERSONNEL FROM [facility] TRANSFERRING TO [facility]. PATIENT CONDITION STABLE.
== END 2018-08-31 19:40 | DRG 579 ==
LOC: MTU 21:17
PROVIDERS: ADMIT Internal Medicine Geriatric Medicine; ATTEND Internal Medicine Geriatric Medicine
PROC: 0W9F0ZZ Drainage of Abdominal Wall, Open Approach (ICD-10-PCS; principal; 2018-08-23 11:05)
PROC: 02HV33Z Insertion of Infusion Device into Superior Vena Cava, Percutaneous Approach (ICD-10-PCS; 2018-08-25)
PROC: B54MZZA Ultrasonography of Right Upper Extremity Veins, Guidance (ICD-10-PCS; 2018-08-25)
DX: L02.211 Cutaneous abscess of abdominal wall (principal); E43 Unspecified severe protein-calorie malnutrition; M86.18 Other acute osteomyelitis, other site; E11.69 Type 2 diabetes mellitus with other specified complication; E66.01 Morbid (severe) obesity due to excess calories; E11.22 Type 2 diabetes mellitus with diabetic chronic kidney disease; E78.5 Hyperlipidemia, unspecified; E78.1 Pure hyperglyceridemia; E55.9 Vitamin D deficiency, unspecified; I12.9 Hypertensive chronic kidney disease with stage 1 through stage 4 chronic kidney disease, or unspecified chronic kidney disease; Z68.32 Body mass index [BMI] 32.0-32.9, adult; D64.9 Anemia, unspecified; G89.4 Chronic pain syndrome; I25.10 Atherosclerotic heart disease of native coronary artery without angina pectoris; K76.9 Liver disease, unspecified; M17.12 Unilateral primary osteoarthritis, left knee; M19.042 Primary osteoarthritis, left hand; M47.816 Spondylosis without myelopathy or radiculopathy, lumbar region; B95.62 Methicillin resistant Staphylococcus aureus infection as the cause of diseases classified elsewhere; B96.4 Proteus (mirabilis) (morganii) as the cause of diseases classified elsewhere; N18.9 Chronic kidney disease, unspecified; Z79.84 Long term (current) use of oral hypoglycemic drugs; Z83.3 Family history of diabetes mellitus; Z88.0 Allergy status to penicillin; Z88.2 Allergy status to sulfonamides; Z90.49 Acquired absence of other specified parts of digestive tract; Z90.710 Acquired absence of both cervix and uterus
CPT/HCPCS: 36415; 71045; 78315; 80048; 80053; 80170; 80202; 82948; 83036; 85025; 85610; 85651; 86140; 87070; 87075; 87081; 87186; 87205; 88304; 93005; 97110; 97116; 97530; C1751; J1100; J1580; J1650; J1815; J1885; J1956; J2175; J2250; J2270; J2405; J2704; J2765; J3010; J3370; J3490; J7030; J7060; Q0092; Q9967

== ENCOUNTER 2018-12-27 11:11 | Inpatient (IN) | payer OTHER, MEDICARE ==
[~2018-12-27] VITALS: Ht 162.6 cm; Wt 80.7 kg
[~2018-12-27 11:11] MED LIST changes: +ACET-5629 PO; +ASCO-5 PO; +BISA-188 RC; +CLINDAMYCIN IV; +GABA-636 PO; +GLIM2TAB PO; +GLUC1VIA INJ; +HYDR-5122 PO; +MAGN400S60 PO; +MELA3TAB56 PO; +NA P133E RC; +ZINC220T4 PO; +[UNRECOGNIZED DRUG - CODE] IV
[2018-12-27 11:21] VITALS: BP 136/48
--- NOTE | 2018-12-27 11:22 | NUR ---
Patient transferred to bed 8 via personal wheelchair. RN evaluating patient at bedside.
--- NOTE | 2018-12-27 11:37 | NUR ---
Dr. Mejia evaluating patient at bedside.
[2018-12-27] MEDS ORDERED: VANCOMYCIN 1,000 MG in DEXTROSE 5% 250 ML IV ONE (11:45)
[2018-12-27] MEDS ORDERED: NACL 0.9% 2,000 ML IV SCH (11:45)
--- NOTE | 2018-12-27 11:50 | NUR ---
PATIENT PRESENTS TO ED WITH WOUND TO PELVIC REGION, C/O FOUL ODOR X 1 WEEK. DENIES N/V/D; SKIN IS PINK/WARM/DRY; AAOX4 WITH EVEN AND STEADY GAIT; LUNGS CLEAR BL; HR EVEN AND REGULAR; PT DENIES ANY FEVER, CP, SOB, OR COUGH AT THIS TIME; PATIENT STATES PAIN OF 2/10 AT THIS TIME; VSS; PATIENT POSITIONED FOR COMFORT; HOB ELEVATED; BEDRAILS UP X2; BED DOWN. ER MD MADE AWARE OF PT STATUS.
--- NOTE | 2018-12-27 12:04 | NUR ---
HISTORIOGRAPHY TEACHER AT BEDSIDE.
[2018-12-27 12:19] LABS: BASOPHILS # (AUTO) 0.1 K/uL (0.00-0.22); BASOPHILS % (AUTO) 0.6 % (0.0-2.0); EOSINOPHILS # (AUTO) 0.1 K/uL (0-0.4); EOSINOPHILS % (AUTO) 1.6 % (0.0-4.0); LYMPHOCYTES # (AUTO) 2.4 K/uL (2.5-16.5); LYMPHOCYTES % (AUTO) 25.7 % (20.5-51.1); MEAN CORPUSCULAR HEMOGLOBIN 28 pg (27-31); MEAN CORPUSCULAR HGB CONC 32 g/dL (33-37); MEAN CORPUSCULAR VOLUME 85.3 fL (80-94); MONOCYTES # (AUTO) 0.6 K/uL (0.8-1.0); MONOCYTES % (AUTO) 6.6 % (1.7-9.3); NEUTROPHILS # (AUTO) 6.1 K/uL (1.8-7.7); NEUTROPHILS % (AUTO) 65.5 % (42.2-75.2); PLATELET COUNT (AUTO) 297 K/uL (140-450); RED BLOOD CELL COUNT(AUTO) 3.99 MIL/uL (4.20-5.40); RED CELL DISTRIBUTION WIDTH 15.1 % (11.6-13.7); WHITE BLOOD COUNT (AUTO) 9.3 K/uL (4.8-10.8)
[2018-12-27] MEDS ORDERED: VANCOMYCIN 1,000 MG VIAL ONE (12:24)
--- NOTE | 2018-12-27 12:25 | NUR ---
TO CT VIA W/C.
[2018-12-27 12:44] LABS: C-REACTIVE PROTEIN QUANT < 0.2 mg/dL (0.0-0.9)
[2018-12-27 12:45] LABS: ACETONE, SERUM NEGATIVE (NEGATIVE)
[2018-12-27 13:02] LABS: ANION GAP 14.6 (8-16); CARBON DIOXIDE 24.6 mmol/L (21-32); POTASSIUM 4.2 mmol/L (3.5-5.1)
[2018-12-27 13:03] LABS: ALBUMIN 2.8 g/dL (3.4-5.0); CREATININE 0.8 mg/dL (0.6-1.3); TOTAL BILIRUBIN 0.5 mg/dL (0.0-1.0)
[2018-12-27 13:05] LABS: LIPASE 97 U/L (73-393); MAGNESIUM 1.2 mg/dL (1.8-2.4)
--- NOTE | 2018-12-27 13:16 | NUR ---
APPLIED NEW DRESSING TO LOWER MIDDLE ABD.
[2018-12-27] MEDS ORDERED: GLIP5TAB4 PO (13:39)
[2018-12-27] MEDS ORDERED: GABA100C PO (13:42)
[2018-12-27] MEDS ORDERED: LISI-420 PO (13:42)
--- NOTE | 2018-12-27 14:59 | NUR ---
Patient will be admitted to care of DR. ALONZO. Admited to MED/SURGE Will go to room 117 Belongings list completed. Report to DONALD
[2018-12-27 15:00] VITALS: BP 118/50
--- NOTE | 2018-12-27 15:00 | NUR ---
REPORT RECEIVED FROM ER NURSE. PATIENT IS ALERT, AWAKE, ORIENTED X4. RESPIRATION EVEN AND UNLABORED. ABDOMINAL WOUND DRESSING IN PLACE. IV INTACT AND PATENT TO LEFT ANTECUBITAL 22G. NO ACUTE DISTRESS NOTED.
[2018-12-27] MEDS ORDERED: ONDANSETRON 4 MG/2 ML VIAL IM/IVP PRN (15:10)
[2018-12-27] MEDS ORDERED: ACETAMINOPHEN 325 MG TAB PO PRN (15:10)
[2018-12-27] MEDS ORDERED: MORPHINE SULFATE 2 MG/ML SYR IVP PRN (15:10)
[2018-12-27] MEDS ORDERED: LORazepam 2 MG/ML VIAL IM/IVP PRN (15:10)
[2018-12-27] MEDS ORDERED: DOCUSATE SODIUM 100 MG GELCAP PO PRN (15:10)
[2018-12-27] MEDS ORDERED: NACL 0.9% IRR 250 ML BOTTLE IR PRN (15:45)
[2018-12-27] MEDS ORDERED: MILD SOAP AND WATER TP PRN (15:45)
[2018-12-27] MEDS ORDERED: INTERDRY CLOTH TP PRN (15:45)
[2018-12-27] MEDS ORDERED: NON ADHERENT DRESSING TP PRN (15:45)
[2018-12-27] MEDS ORDERED: SKINTEGRITY HYDROGEL TP PRN (15:45)
[2018-12-27] MEDS ORDERED: VANCOMYCIN PER PHARMACY MC PRN (16:10)
[2018-12-27] MEDS ORDERED: MAG SULF 2000 MG/WATER PREMIX 50 ML IV SCH (16:30)
[2018-12-27] MEDS ORDERED: GABA300C PO ×2 (17:01→17:04)
[2018-12-27] MEDS ORDERED: LISI5TAB18 PO ×3 (17:01→17:09)
[2018-12-27] MEDS ORDERED: LACTULOSE 20 GM/30 ML UDC PO SCH (17:01)
[2018-12-27 17:21] LABS: CHOL/HDL RATIO 5.3 (1-4.5)
[2018-12-27] MEDS: NACL 0.9% 1,000 ML IV SCH (17:32)
[2018-12-27] MEDS ORDERED: GLUCAGON 1 MG VIAL IVP PRN (17:40)
[2018-12-27] MEDS ORDERED: DEXTROSE 50% 50 ML SYR IVP PRN (17:40)
[2018-12-27] MEDS ORDERED: INSULIN LISPRO SLIDING SCALE 100 UNITS/ML VIAL SUBQ PRN (17:40)
[2018-12-27] MEDS ORDERED: MEDICATION REC. PHARMACY CONS. 1 EA MISC MC PRN (17:45)
[2018-12-27] MEDS ORDERED: MELATONIN 3 MG TAB PO PRN (17:45)
[2018-12-27] MEDS ORDERED: GENTAMICIN PER PHARMACY MC PRN (17:55)
[2018-12-27 18:24] LABS: FREE T4 (FREE THYROXINE) 0.87 ng/dL (0.76-1.46); THYROID STIMULATING HORMONE 2.17 uIU/mL (0.34-3.74)
--- NOTE | 2018-12-27 18:26 | NUR ---
DR. ANN AT BEDSIDE.
--- NOTE | 2018-12-27 19:30 | NUR ---
RECEIVED ENDORSEMENT AT BEDSIDE FORM AM RN NURSE AT BEDSIDE FOR CONTINUITY OF CARE, PT IN STABLE CONDITION. PT IS AOX4 WITH DRY INTACT DRESSING COVERING LOWER ABDOMEN WOUND. IV SITE ON LEFT 22G INTACT AND RUNNING N/S AT 120 INTACT AND ASYMPTOMATIC. PT DENIES PAIN AND ALL FALLS PRECAUTIONS IN PLACE.
--- NOTE | 2018-12-27 20:00 | NUR ---
PT IN BED ALL FALLS PRECAUTIONS IN PLACE. PT C/O THAT IV SITE IS HURTING. SOME FIRMNESS NOTED AROUND SITE AND FLUIDS STOPPED AT THIS TIME. PT V/S FOLLOWS T 97 P 63 R 18 B/P 132/45 02 97% ON ROOM AIR. PT FINGERSTICK IS 132, NO HUMALOG COVERAGE NEEDED. PT SHE IS NPO AND HUNGRY, WILL SPEAK TO RESIDENT MD'S REGARDING DIET ORDER. BEDSIDE COMMODE PLACED AT BEDSIDE., AND ALL FALLS PRECAUTIONS IN PLACE.
[2018-12-27] MEDS: BLOOD GLUCOSE MONITORING 1 DEV DEV FS SCH (21:00)
[2018-12-27 21:18] LABS: APPEARANCE,URINE HAZY (CLEAR); BILIRUBIN,URINE NEGATIVE (NEGATIVE); BLOOD, URINE 2+ (NEGATIVE); COLOR,URINE YELLOW (YELLOW); LEUKOCYTE ESTERASE ,URINE NEGATIVE (NEGATIVE); NITRITE, URINE POSITIVE (NEGATIVE); PH,URINE 8.5 (5.0-9.0); UGLUCOSE NEGATIVE (NEGATIVE)
--- NOTE | 2018-12-27 21:30 | NUR ---
SPOKE WITH RESIDENT MD DOCTOR IBRAHIM, DIET ORDER CHANGED TO CCHO-60, BUT WILL BE CHANGED BACK TO NPO AFTER MIDNIGHT DUE TO SURGICAL CONSULT AND POSSIBLE I AND D TOMORROW. BROUGHT PT SANDWICH AND SNACK AND TOLD HER THAT SHE WILL BE NPO AFTER MIDNIGHT, PT VERBALIZED UNDERSTANDING. WILL PROVIDE NEW IV SITE FOR IV ABT'S.
--- NOTE | 2018-12-27 21:45 | NUR ---
NEW IV SITE DONE BY CHARGE NURSE YAMILKA. NEW SITE ON LEFT F/A 24GUAGE. IV ABT GENTAMYCIN HUNG AND IS RUINING AT 200MLS/HR ORDERED.
--- NOTE | 2018-12-27 22:20 | NUR ---
IV ABT FLAGYL HUNG AND RUNNING AT 100MLS/HR ORDERED. ALL FALLS PRECAUTIONS IN PLACE, PT DENIES PAIN AT THIS TIME.
[2018-12-27] MEDS: GABAPENTIN 300 MG CAP PO SCH (22:32)
[2018-12-27 23:09] LABS: RBC,URINE 0-5 /HPF (0-5); WBC,URINE 0-5 /HPF (0-5)
[2018-12-27 23:41] VITALS: BP 130/51
[2018-12-28] MEDS: GENTAMICIN 120 MG in DEXTROSE 5% 100 ML IV SCH ×3 (00:16→21:39)
--- NOTE | 2018-12-28 00:30 | NUR ---
PT IN BED ALL FALLS PRECAUTIONS IN PLACE AND V/S FOLLOWS T 97 P 68 R 18 B/P 130/51 02 98% ON ROOM AIR, IV SITE INTACT AND RUNNING N/S AT 120 ORDERED. ALL FALLS PRECAUTIONS IN PLACE.
[2018-12-28] MEDS: metroNIDAZOLE 500 MG/NS PREMIX 100 ML IV SCH ×4 (01:01→23:03)
[2018-12-28] MEDS: NACL 0.9% 1,000 ML IV SCH ×3 (01:05→17:37)
[2018-12-28] MEDS: VANCOMYCIN 1,250 MG in NACL 0.9% 250 ML IV SCH (06:00)
--- NOTE | 2018-12-28 06:20 | NUR ---
CALLED PICC LINE NURSE AND LEFT MESSAGE REGARDING PT'S NEED FOR PICC LINE.
[2018-12-28] MEDS: BLOOD GLUCOSE MONITORING 1 DEV DEV FS SCH ×4 (06:47→21:38)
--- NOTE | 2018-12-28 07:15 | NUR ---
RECIEVED REPORT FROM FIELD AGRONOMIST RN. PATIENT IS DNR, ALLERGIES TO PENICILLIN. AAOX4 AND ON ROOM AIR. PATIENT IS CURRENTLY NPO FOR POSSIBLE SX, PENDING DR ANN. PICC LINE CONSENT PRINTED AND SIGNATURE WILL BE OBTAINED. NIGHT RN STATED THAT PATIENT DENIES BLOOD SUGAR COVERAGE. WILL CONTINUE WITH PLAN OF CARE.
[2018-12-28 07:34] LABS: BASOPHILS # (AUTO) 0.1 K/uL (0.00-0.22); BASOPHILS % (AUTO) 0.7 % (0.0-2.0); EOSINOPHILS # (AUTO) 0.2 K/uL (0-0.4); EOSINOPHILS % (AUTO) 2.2 % (0.0-4.0); HEMATOCRIT 32.9 % (36-48); HEMOGLOBIN 10.8 g/dL (12.0-16.0); LYMPHOCYTES # (AUTO) 1.9 K/uL (2.5-16.5); MEAN CORPUSCULAR HEMOGLOBIN 28 pg (27-31); MEAN CORPUSCULAR HGB CONC 33 g/dL (33-37); MEAN CORPUSCULAR VOLUME 85.8 fL (80-94); MONOCYTES # (AUTO) 0.5 K/uL (0.8-1.0); MONOCYTES % (AUTO) 6.7 % (1.7-9.3); NEUTROPHILS # (AUTO) 5.5 K/uL (1.8-7.7); NEUTROPHILS % (AUTO) 67.4 % (42.2-75.2); PLATELET COUNT (AUTO) 274 K/uL (140-450); RED BLOOD CELL COUNT(AUTO) 3.83 MIL/uL (4.20-5.40); RED CELL DISTRIBUTION WIDTH 14.7 % (11.6-13.7); WHITE BLOOD COUNT (AUTO) 8.2 K/uL (4.8-10.8)
[2018-12-28 07:41] VITALS: BP 136/51
--- NOTE | 2018-12-28 08:11 | NUR ---
PICC LINE CONSENT FORM SIGNED BY PATIENT. STATED SHE HAD NO QUESTIONS AND THAT SHE HAS DONE IT 3X ALREADY. CONSENT LEFT IN PATIENTS CHART
[2018-12-28 08:17] LABS: MAGNESIUM 1.5 mg/dL (1.8-2.4); PHOSPHORUS 3.7 mg/dL (2.5-4.9)
[2018-12-28 08:18] LABS: ANION GAP 13.2 (8-16); CARBON DIOXIDE 23.9 mmol/L (21-32); CREATININE 0.8 mg/dL (0.6-1.3); POTASSIUM 4.1 mmol/L (3.5-5.1)
--- NOTE | 2018-12-28 08:34 | NUR ---
PATIENT HAS BEEN SCREENED AND CATEGORIZED HIGH NUTRITION RISK. PATIENT WILL BE SEEN WITHIN 1-2 DAYS OF ADMISSION. 12/28/18-12/29/[address]
[2018-12-28] MEDS ORDERED: THERAHONEY WOUND DRESSING TP PRN (08:50)
[2018-12-28] MEDS: GABAPENTIN 300 MG CAP PO SCH ×2 (08:56→21:50)
[2018-12-28] MEDS: LACTOBACILLUS RHAMNOSUS GG 1 EACH CAP PO SCH (08:56)
[2018-12-28] MEDS: THERAHONEY WOUND DRESSING TP SCH (09:00)
[2018-12-28] MEDS: LISINOPRIL 5 MG TAB PO SCH (09:00)
[2018-12-28] MEDS ORDERED: MAG SULF 2000 MG/WATER PREMIX 50 ML IV SCH (09:00)
--- NOTE | 2018-12-28 10:49 | NUR ---
WOUND CARE EVALUATION NOTE: REASON FOR EVALUATION: ABDOMINAL SURGICAL WOUND SKIN ASSESSMENT DONE WITH THIS 63 Y/O FEMALE PT. ADMITTED FROM HOME TO [facility] WITH INITIAL DX OF ABDOMINAL SURGICAL WOUND AND SWELLING FEET X 1 WEEK. PAST MEDICAL HX INCLUDES DM, CKD AND MORBID OBESITY. PT. HAS CHRONIC WOUNDS WITH WOUND CARE AT SNF TILL LAST 2 WEEKS AND DISCHARGED HOME. ALL ABOVE INFORMATION OBTAINED FROM ADMISSION H&P AND PT. PT IS AWAKE, ALERT X4. SKIN IS WARM AND DRY, BLE NO HAIR GROWTH, DORSAL PEDAL PULSES PRESENT. CAPILLARY REFILLED < 2 SEC. X 10 TOES. PLAN OF CARE DISCUSSED WITH PRIMARY RN AND PT. PT VERBALIZES UNDERSTANDING. RECOMMENDATIONS DISCUSSED WITH DR. BLACK. INTEGUMENTARY -LOWER ABDOMEN TO SUPRAPUBIC SURGICAL WOUNDS T SHAPE WOUND, [id number] CM, WOUND BED 100% GRANULATING TISSUE WITH SMALL AMOUNT OF SEROUS DRAINAGE, NO ODOR PRESENT AFTER WOUND CLEANSED WITH NS, NO TUNNELING, NO UNDERMINING, HELENA-WOUND SKIN INTACT WITH REDNESS IRRITATION FROM TAPE. -MULTIPLE HEALED SCARS TO LOWER ABDOMINAL, PERINEUM AND INNER THIGHS RECOMMENDATIONS: -CLEANSE ABDOMINAL SURGICAL WOUNDS WITH NS, PAT DRY, PACK WOUNDS WITH THEROHONEY DRESSING SHEET, COVER WITH ABD DRESSING AND SECURE WITH TAPE EVERY M-W-F AND PRN IF SOILING. -TURN AND REPOSITION PATIENT Q 2H OFFLOAD LEFT AND RIGHT HIPS -ASSESS AND MONITOR SKIN CONDITION DURING POSITION CHANGE, PLEASE PAY ATTENTION TO FEET AND HEELS -OFFLOAD BILATERAL HEELS BY PLACING PILLOWS UNDER CALVES AT ALL TIMES, UNLESS OTHERWISE CONTRAINDICATED -PRESSURE REDISTRIBUTION SURFACE THERAPY BY POSITIONING WITH PILLOWS -KEEP SKIN CLEAN AND DRY AT ALL TIMES. RECOMMENDATIONS DISCUSSED WITH PRIMARY RN WILL FOLLOW UP PATIENT Q7-10 DAYS AND PRN. PLEASE CONTACT WOUND CARE NURSE FOR ANY QUESTIONS AND CHANGES IN SKIN CONDITION.
--- NOTE | 2018-12-28 11:45 | NUR ---
MAGNESIUM INFUSION HUNG. PATIENT C/O OF BURNING. DECREASED RATE OF INFUSION. WILL CONTINUE TO MONITOR
[2018-12-28] MEDS ORDERED: BUPIVACAINE-MPF/EPI 0.5% 30 ML VIAL INJ ONE (14:35)
--- NOTE | 2018-12-28 14:38 | NUR ---
12/28/18 RD INITIAL ASSESSMENT COMPLETED PLEASE REFER TO NUTRITION ASSESSMENT UNDER CARE ACTIVITY FOR ESTIMATED NUTRITIONAL NEEDS. 1. CONTINUE NPO DIET TOLERATED 2. ADVANCE DIET PER SWALLOW EVAL RECOMMENDATION. 3. RECOMMEND VITAMIN C BID AND GLUCERNA BID. 4. NUTRITION EDUCATION ON DIABETIC DIET WAS GIVEN TO PATIENT. 5. RD TO FOLLOW-UP 2-3 DAYS, HIGH RISK FILIPE VARELA, RD
--- NOTE | 2018-12-28 14:45 | NUR ---
REMOVED 24G IV LINE, CANNULA INTACT.
--- NOTE | 2018-12-28 15:14 | NUR ---
DID NOT ADMIN FLAGYL D/T INFILTRATION OF 24G IV AND UPON INSERTION OF NEW IV, PATIENT IS BEING TAKEN TO OR FOR DEBRIDEMENT. CONSENT HAS BEEN SIGNED.
[2018-12-28] MEDS ORDERED: ePHEDrine 50 MG/ML VIAL ONE (15:16)
[2018-12-28] MEDS ORDERED: SEVOFLURANE 250 ML BTL INH ONE (15:16)
[2018-12-28] MEDS ORDERED: PROPOFOL 200 MG/20 ML VIAL IV ONE (15:16)
[2018-12-28] MEDS ORDERED: LIDOCAINE 2% 100 MG/5 ML SYR IVP ONE (15:16)
--- NOTE | 2018-12-28 15:22 | NUR ---
PATIENT IS BEING TRANSPORTED OFF UNIT TO OR FOR DEBRIDEMENT. DID NOT DO WOUND CARE TODAY D/T THE ANTICIPATION OF HAVING
[2018-12-28] MEDS ORDERED: MIDAZOLAM 2 MG/2 ML VIAL ONE (15:28)
[2018-12-28] MEDS ORDERED: fentaNYL 0.05 MG/ML VIAL ONE (15:28)
[2018-12-28] MEDS ORDERED: ONDANSETRON 4 MG/2 ML VIAL IVP PRN (15:45)
[2018-12-28] MEDS ORDERED: BLOOD GLUCOSE MONITORING 1 DEV DEV FS ONE (15:45)
[2018-12-28] MEDS ORDERED: HYDROmorphone 1 MG/ML AMP IVP PRN (15:45)
--- NOTE | 2018-12-28 15:50 | NUR ---
SPOKE TO PICC LINE NURSE AND WAS TOLD THAT HE IS NOW HEADING TO [facility] AND WILL BE AT THIS FACILITY AT NIGHT TO DO PICC LINE FOR PATIENT. PICC LINE NURSE DID NOT SPECIFY A TIME.
[2018-12-28 16:00] VITALS: BP 111/54
--- NOTE | 2018-12-28 16:19 | NUR ---
[employer]ting [employer]ing Machine Operator Note: I went to patient's room to conduct assessment. However, patient is currently in OR.
--- NOTE | 2018-12-28 16:50 | NUR ---
PATIENT IS BACK ON UNIT FROM OR. VITAL SIGNS ARE T 96.7, BP 111/54, O2 94%, MA 82. PATIENT IS RESTING QUIETLY IN BED, NO DISTRESS NOTED. WILL CONTINUE TO DO POST OP VITALS Q15MIN PER PROTOCOL.
[2018-12-28] MEDS: HYDROcodone/APAP 7.5/325 MG 1 TAB PO PRN (18:59)
--- NOTE | 2018-12-28 19:01 | NUR ---
ADMINISTERED PAIN MEDICATION FOR SHARP PAIN IN UPPER ABDOMEN
--- NOTE | 2018-12-28 19:10 | NUR ---
PT CARE ENDORSED AT BEDSIDE FROM DAY TIME RN NURSE, PT IN STABLE CONDITION.
--- NOTE | 2018-12-28 20:00 | NUR ---
PT IN BED 22GUAGE IV SITE INTACT AND RUNNING N/S AT 100MLS/HR. PT AOX4 PT SAID SHE HAS PAIN RELIEF FORM NORCO. ALL REQUESTED NEEDS ATTENDED. V/S FOLLOWS T 97.2 P 75 R 18 B/P 138/68 02 98% ON ROOM AIR. ALL FALLS PRECAUTIONS IN PLACE.
[2018-12-28] MEDS: ASCORBIC ACID 500 MG TAB PO SCH (21:50)
--- NOTE | 2018-12-28 23:45 | NUR ---
SHYANNE PIC NURSE CALLED AND WILL BE HERE TO INSERT PICC LINE. CONSENT ALREADY SIGNED.
[2018-12-29] VITALS: BP 129/61
--- NOTE | 2018-12-29 00:30 | NUR ---
PICC LINE INSERTED, STAT X RAY DONE , POSITIVE FOR PLACEMENT. V/S FOLLOWS T 97.9 P 71 R 18 B/P 129/61 02 99% ON ROOM AIR. PT ASSISTED IN BED TO TURN AND BE CHANGED. ALL FALLS PRECAUTIONS IN PLACE AND DRESSING INTACT.
[2018-12-29] MEDS: VANCOMYCIN 1,250 MG in NACL 0.9% 250 ML IV SCH ×2 (01:35→18:17)
[2018-12-29] MEDS: NACL 0.9% 1,000 ML IV SCH ×3 (01:42→17:57)
[2018-12-29] MEDS: metroNIDAZOLE 500 MG/NS PREMIX 100 ML IV SCH ×3 (05:39→22:11)
[2018-12-29] MEDS: BLOOD GLUCOSE MONITORING 1 DEV DEV FS SCH ×4 (05:54→21:00)
--- NOTE | 2018-12-29 06:16 | NUR ---
ALL SCHEDULED IV ABT GIVEN ORDERED. NO ADVERSE EFFECTS NOTED. FINGERSTICK IS 108, NO COVERAGE NEEDED. ALL FALLS PRECAUTIONS IN PLACE.
--- NOTE | 2018-12-29 07:25 | NUR ---
RECEIVED REPORT FROM BENCH ASSEMBLY INSPECTOR NURSE. PATIENT LYING DOWN IN BED WATCHING TV. NO DISTRESS NOTED. DENIES ANY PAIN. AAOX4, CALM, COOPERATIVE, SKIN COLOR APPROPRIATE TO ETHNICITY, WARM TO TOUCH. HAS LOWER ABD WOUND S/P I&D YESTERDAY. DRESSING IS DRY AND INTACT. IV SITE INTACT, PATENT, AND INFUSING IVF PER MD ORDERS. REVIEWED PLAN OF CARE WITH PATIENT. PATIENT VERBALIZED UNDERSTANDING. SAFETY MEASURES IN PLACE, CALL LIGHT WITHIN REACH. WILL CONTINUE TO MONITOR.
[2018-12-29 07:38] LABS: BASOPHILS # (AUTO) 0.1 K/uL (0.00-0.22); BASOPHILS % (AUTO) 0.7 % (0.0-2.0); EOSINOPHILS # (AUTO) 0.2 K/uL (0-0.4); EOSINOPHILS % (AUTO) 2.5 % (0.0-4.0); HEMATOCRIT 30.3 % (36-48); HEMOGLOBIN 9.9 g/dL (12.0-16.0); LYMPHOCYTES # (AUTO) 2.1 K/uL (2.5-16.5); LYMPHOCYTES % (AUTO) 26.9 % (20.5-51.1); MEAN CORPUSCULAR HEMOGLOBIN 28 pg (27-31); MEAN CORPUSCULAR HGB CONC 33 g/dL (33-37); MEAN CORPUSCULAR VOLUME 86.1 fL (80-94); MONOCYTES # (AUTO) 0.6 K/uL (0.8-1.0); MONOCYTES % (AUTO) 7.6 % (1.7-9.3); NEUTROPHILS % (AUTO) 62.3 % (42.2-75.2); PLATELET COUNT (AUTO) 265 K/uL (140-450); RED BLOOD CELL COUNT(AUTO) 3.52 MIL/uL (4.20-5.40); RED CELL DISTRIBUTION WIDTH 14.5 % (11.6-13.7)
[2018-12-29 08:00] VITALS: BP 143/64
[2018-12-29 08:17] LABS: MAGNESIUM 1.4 mg/dL (1.8-2.4); PHOSPHORUS 3.9 mg/dL (2.5-4.9)
[2018-12-29] MEDS: GENTAMICIN 120 MG in DEXTROSE 5% 100 ML IV SCH ×2 (08:57→21:24)
[2018-12-29] MEDS: LISINOPRIL 5 MG TAB PO SCH (08:58)
[2018-12-29] MEDS: LACTOBACILLUS RHAMNOSUS GG 1 EACH CAP PO SCH (08:58)
[2018-12-29] MEDS: ASCORBIC ACID 500 MG TAB PO SCH ×2 (08:58→21:29)
[2018-12-29] MEDS: GABAPENTIN 300 MG CAP PO SCH ×2 (08:58→21:28)
--- NOTE | 2018-12-29 09:04 | NUR ---
PATIENT SITTING IN BED WITH BREAKFAST TRAY IN FRONT. NO DISTRESS NOTED. DENIES ANY PAIN. SCHEDULED MEDICATIONS DUE GIVEN. WILL CONTINUE TO MONITOR.
[2018-12-29] MEDS ORDERED: MAG SULF 2000 MG/WATER PREMIX 50 ML IV SCH ×2 (11:00→16:00)
--- NOTE | 2018-12-29 11:00 | NUR ---
PATIENT SITTING IN BED WATCHING TV. NO DISTRESS NOTED. CONDITION UNCHANGED. WILL CONTINUE TO MONITOR.
[2018-12-29 11:32] LABS: ANION GAP 13.1 (8-16); CARBON DIOXIDE 24.1 mmol/L (21-32); POTASSIUM 4.2 mmol/L (3.5-5.1)
[2018-12-29 11:33] LABS: CREATININE 0.7 mg/dL (0.6-1.3)
--- NOTE | 2018-12-29 12:43 | NUR ---
SCHEDULED MEDICATIONS DUE GIVEN. CONDITION UNCHANGED. WILL CONTINUE TO MONITOR.
--- NOTE | 2018-12-29 15:00 | NUR ---
MANAGEMENT TRAINEE GIVING PATIENT A SPONGE BATH. WILL CONTINUE TO MONITOR.
[2018-12-29] MEDS: glipiZIDE 5 MG TAB PO SCH (15:44)
[2018-12-29 16:00] VITALS: BP 150/76
[2018-12-29] MEDS: HYDROcodone/APAP 7.5/325 MG 1 TAB PO PRN (17:16)
--- NOTE | 2018-12-29 18:11 | NUR ---
WOUND DRESSING CHANGED PER MD ORDERS. PATIENT TOLERATED WELL. WILL CONTINUE TO MONITOR.
--- NOTE | 2018-12-29 19:10 | NUR ---
GAVE REPORT TO REINSURANCE ACCOUNTANT NURSE FOR CONTINUITY OF CARE. PATIENT IN STABLE CONDITION.
--- NOTE | 2018-12-29 19:17 | NUR ---
RECEIVED CRITICAL VALUE OF URINALYSIS RESULT. URINE HAS MRDO IN URINE. SENSITIVITY OF ABT'S REPORT TO FOLLOW. SPOKE WITH PRIMARY RESIDENT DR. PALMER, NO NEW ORDERS NOTED.
--- NOTE | 2018-12-29 19:20 | NUR ---
RECEIVED REPORT AT BEDSIDE FORM MAYRA MILLER DAYSHIFT NURSE AT BEDSIDE FOR CONTINUITY OF CARE, PT IN STABLE CONDITION.
--- NOTE | 2018-12-29 20:00 | NUR ---
PT IN BED AOX4, NO C/O VOICED. PICC LINE INTACT AND RUNNING NS AT 120MLS/HR. DRESSINGS DRY AND INTACT ON LOWER ABDOMEN. PT DENIES PAIN. V/S FOLLOWS T 97.1 P 77 R 18 B/P 141/67 02 99% ON ROOM AIR. ALL FALLS PRECAUTIONS IN PLACE AND COMMODE AT BEDSIDE.
--- NOTE | 2018-12-29 21:20 | NUR ---
PT IN BED PICC LINE INTACT AND RUNNING NS AT 120. PT GIVEN SCHEDULED MEDS OF GENTAMICIN IV ABT, WELL NEURONTIN 300MG AND VITAMIN C 500MG. MEDICATION EDUCATION DISCUSSED AT BEDSIDE. FINGERSTICK IS 115, NO HUMALOG COVERAGE NEEDED. AND ALL REQUESTED NEEDS ATTENDED. ALL FALLS PRECAUTIONS IN PLACE.
--- NOTE | 2018-12-29 21:45 | NUR ---
COURTNEY FLANNERY AND RUNNING ORDERED.
[2018-12-30] VITALS: BP 151/61
--- NOTE | 2018-12-30 00:10 | NUR ---
PT IN BED RESTING BUT AROUSABLE TO NAME AND LIGHT TOUCH. V/S FOLLOWS T 98.0P 78 R 18 B/P 151/61 R 18 02 98% ON ROOM AIR. ALL FALLS AND CONTACT PRECAUTIONS IN PLACE.
[2018-12-30] MEDS: NACL 0.9% 1,000 ML IV SCH ×4 (01:59→22:25)
--- NOTE | 2018-12-30 06:15 | NUR ---
PT IN BED GIVEN ALL SCHEDULED MEDS NO S/S OF PAIN OR DISTRESS FINGERSTICK IS 115 NO COVERAGE NEEDED. PT IN STABLE CONDITION.
[2018-12-30] MEDS: metroNIDAZOLE 500 MG/NS PREMIX 100 ML IV SCH ×3 (06:32→22:25)
[2018-12-30] MEDS: glipiZIDE 5 MG TAB PO SCH ×2 (06:38→17:19)
[2018-12-30] MEDS: BLOOD GLUCOSE MONITORING 1 DEV DEV FS SCH ×4 (06:40→21:00)
--- NOTE | 2018-12-30 07:40 | NUR ---
RECEIVED REPORT FROM GARMENT FITTER NURSE. PT IS AROUSABLE TO NAME, ORIENTED X4, NO C/O PAIN AT THIS TIME. NOTED RT UPPER ARM PICC LINE RUNNING IVF PER ORDER, DRESSING CLEAN, DRY AND INTACT. RESPIRATIONS EVEN AND UNLABORED ON RA. ABD SOFT, ACTIVE BS. NOTED DRESSING TO ABD, CLEAN, DRY AND INTACT. PT IS ON FALL RISK PRECAUTIONS, SAFETY MEASURES IN PLACE, CALL LIGHT WITHIN REACH. REVIEWED POC WITH PT, PT VERBALIZES UNDERSTANDING.
[2018-12-30 08:00] VITALS: BP 140/62
[2018-12-30] MEDS: GABAPENTIN 300 MG CAP PO SCH ×2 (08:10→22:29)
[2018-12-30] MEDS: LACTOBACILLUS RHAMNOSUS GG 1 EACH CAP PO SCH (08:10)
[2018-12-30] MEDS: GENTAMICIN 120 MG in DEXTROSE 5% 100 ML IV SCH ×2 (08:10→22:24)
[2018-12-30] MEDS: ASCORBIC ACID 500 MG TAB PO SCH ×2 (08:10→22:29)
[2018-12-30] MEDS: LISINOPRIL 5 MG TAB PO SCH (08:11)
--- NOTE | 2018-12-30 08:11 | NUR ---
ADMINISTERED MEDICATIONS PER ORDER, PT IS AWARE OF INDICATIONS AND POTENTIAL SIDE EFFECTS. NO SIGNS OF DISTRESS AT THIS TIME.
[2018-12-30] MEDS ORDERED: HYDROCOLLOID DRESSING TP SCH (09:00)
--- NOTE | 2018-12-30 11:00 | NUR ---
PT GIVEN WHEELCHAIR, SPONGE BATH SUPPLIES, AND ASSISTED TO RESTROOM. LINENS CHANGED AT THIS TIME. PT HAS NO C/O PAIN OR SIGNS OF DISTRESS.
--- NOTE | 2018-12-30 11:15 | NUR ---
BLOOD SUGAR CHECKED AT 88, NO INSULIN TO BE GIVEN PER SLIDING SCALE. NO S/S OF HYPOGLYCEMIA. WILL CONTINUE TO MONITOR.
[2018-12-30] MEDS: VANCOMYCIN 1,250 MG in NACL 0.9% 250 ML IV SCH (11:49)
--- NOTE | 2018-12-30 13:20 | NUR ---
PT STATES, "I DON'T EAT THAT MUCH". WILL CONTINUE TO MONITOR BLOOD SUGAR LEVELS.
[2018-12-30] MEDS: HYDROcodone/APAP 7.5/325 MG 1 TAB PO PRN (14:31)
[2018-12-30 16:00] VITALS: BP 97/60
--- NOTE | 2018-12-30 16:51 | NUR ---
BLOOD SUGAR CHECKED AT 79, NO INSULIN COVERAGE PER SLIDING SCALE.
[2018-12-30] MEDS ORDERED: MAG SULF 2000 MG/WATER PREMIX 100 ML IV ONE (18:15)
--- NOTE | 2018-12-30 18:54 | NUR ---
IV MAGNESIUM ADMINISTERED D/T MAG LEVEL OF 1.5. VISITORS AT BEDSIDE.
--- NOTE | 2018-12-30 19:35 | NUR ---
ENDORSED PT TO VICE PRESIDENT SUPPLY CHAIN NURSE. PT HAS NO SIGNS OF DISTRESS AT THIS TIME.
--- NOTE | 2018-12-30 19:40 | NUR ---
RECEIVED REPORT FROM FOUZIA THOMPSON @ BEDSIDE. Pt. AAOX4, SKIN W/D TO TOUCH, CALM, AND PLEASANT DEMEANOR. SKIN W/D TO TOUCH. OOB TO BSC. GAIT SLOW, STEADY W/O ASSIST. NAD NOTED WILL CONT . L UPPER ARM DUAL POWER PORT WITH IVF 0.9 NS INFUSING AT 120 ML/HR. WILL CONT. TO MONITOR.
[2018-12-30 20:50] VITALS: BP 166/69
--- NOTE | 2018-12-30 23:45 | NUR ---
MED PAS AND BLOOD GLUCOSE DONE. BS 72 MG/DL, NO COV. NEEDED. PT RESTING IN BED VOICES NO C/O PAIN OR DISCOMFORT. MID ABD DSG DRY AND INTACT. NAD NOTED.
[2018-12-31] MEDS: THERAHONEY WOUND DRESSING TP SCH (01:00)
--- NOTE | 2018-12-31 01:00 | NUR ---
WOUND CARE PICTURE TAKEN, WOUND CLEANSED W/ NS, DSG CHANGE DONE PER ORDERS. Pt. TOLERATED WELL. IVF INFUSING VIA L UPPER HAND, SITE REMAINS INTACT W/O S/S OF INFILTRATION. NAD NOTED. Pt. RETURNED TO SLEEP. CALL LIGHT WITHIN REACH.
[2018-12-31] MEDS: metroNIDAZOLE 500 MG/NS PREMIX 100 ML IV SCH ×2 (06:51→14:01)
[2018-12-31] MEDS: VANCOMYCIN 1,250 MG in NACL 0.9% 250 ML IV SCH (06:52)
[2018-12-31] MEDS: BLOOD GLUCOSE MONITORING 1 DEV DEV FS SCH ×4 (07:00→20:45)
--- NOTE | 2018-12-31 07:16 | NUR ---
RECEIVED REPORT FROM RETAIL RECEIVING CLERK NURSE. PT IS AOX4, NO C/O PAIN. RESPIRATIONS EVEN AND UNLABORED ON RA. IV ON RT UA PICC LINE RUNNING IVF PER ORDER, DRESSING CLEAN, DRY AND INTACT. ABD SOFT, ACTIVE BS. PT ABD DRESSING CLEAN, DRY AND INTACT. PT ON FALL RISK PRECAUTIONS, SAFETY MEASURES IN PLACE, CALL LIGHT WITHIN REACH. REVIEWED POC WITH PT, PT VERBALIZED UNDERSTANDING.
--- NOTE | 2018-12-31 07:20 | NUR ---
MED PASS DONE. PT OOB TO BSC. END OF SHIFT REPORT TO AM RN AT BEDSIDE.
[2018-12-31 07:43] LABS: BASOPHILS % (AUTO) 0.5 % (0.0-2.0); EOSINOPHILS # (AUTO) 0.2 K/uL (0-0.4); EOSINOPHILS % (AUTO) 3.2 % (0.0-4.0); HEMATOCRIT 30.1 % (36-48); HEMOGLOBIN 9.8 g/dL (12.0-16.0); LYMPHOCYTES # (AUTO) 1.8 K/uL (2.5-16.5); MEAN CORPUSCULAR HEMOGLOBIN 28 pg (27-31); MEAN CORPUSCULAR HGB CONC 33 g/dL (33-37); MEAN CORPUSCULAR VOLUME 86.2 fL (80-94); MONOCYTES # (AUTO) 0.5 K/uL (0.8-1.0); MONOCYTES % (AUTO) 6.8 % (1.7-9.3); NEUTROPHILS # (AUTO) 5.1 K/uL (1.8-7.7); NEUTROPHILS % (AUTO) 66.5 % (42.2-75.2); PLATELET COUNT (AUTO) 254 K/uL (140-450); RED BLOOD CELL COUNT(AUTO) 3.49 MIL/uL (4.20-5.40); RED CELL DISTRIBUTION WIDTH 14.8 % (11.6-13.7); WHITE BLOOD COUNT (AUTO) 7.7 K/uL (4.8-10.8)
[2018-12-31 08:00] VITALS: BP 148/69
[2018-12-31 08:04] LABS: CARBON DIOXIDE 24.1 mmol/L (21-32); CREATININE 0.8 mg/dL (0.6-1.3); POTASSIUM 4.1 mmol/L (3.5-5.1)
[2018-12-31 08:08] LABS: MAGNESIUM 1.5 mg/dL (1.8-2.4); PHOSPHORUS 5.5 mg/dL (2.5-4.9)
[2018-12-31] MEDS: LISINOPRIL 5 MG TAB PO SCH (08:20)
[2018-12-31] MEDS: LACTOBACILLUS RHAMNOSUS GG 1 EACH CAP PO SCH (08:20)
[2018-12-31] MEDS: glipiZIDE 5 MG TAB PO SCH ×2 (08:20→16:58)
[2018-12-31] MEDS: ASCORBIC ACID 500 MG TAB PO SCH ×2 (08:20→20:47)
[2018-12-31] MEDS: GABAPENTIN 300 MG CAP PO SCH ×2 (08:20→20:46)
--- NOTE | 2018-12-31 08:20 | NUR ---
ADMINISTERED MEDICATIONS PER ORDER, PT IS AWARE OF INDICATIONS AND POTENTIAL SIDE EFFECTS.
[2018-12-31] MEDS: GENTAMICIN 120 MG in DEXTROSE 5% 100 ML IV SCH ×2 (08:21→20:44)
--- NOTE | 2018-12-31 10:01 | NUR ---
DISCHARGE PLANNING: RECEIVED AN ORDER FOR SNF EVALUATION FOR WOUND CARE, PT AND IV ANTIBIOTICS. MET WITH THE PATIENT AT THE BEDSIDE TO DISCUSS DC PLAN, SHE STATED SHE PREFERS TO GO HOME BUT IF IN CASE SHE LIKES TO GO BACK TO [facility]. DR. BLACK MADE AWARE. Addendum: 12/31/18 at 1005 by Brielle Chacon CM REFERRAL FAXED TO [facility]. TO FOLLOW UP IF NEEDED. Addendum: 12/31/18 at 1037 by Brielle Chacon CM RECEIVED A CALL FROM LEAH OF [facility], SHE STATED SHE WILL DISCUSS THE CASE WITH HER TEAM AND WILL GIVE ME A CALL BACK.
[2018-12-31] MEDS: NACL 0.9% 1,000 ML IV SCH ×2 (11:19→20:45)
--- NOTE | 2018-12-31 11:30 | NUR ---
HIGH SCHOOL MUSIC DIRECTOR note 11:30. HIGH SCHOOL MUSIC DIRECTOR came to attempt to provide bedside swallow evaluation; however, per RN (Candy) report, pt swallowing well on regular textures/thin liquids and only has some poor appetite (pt has been documented by nursing to be eating 25-50% of her meals since 12/29/2018.) Per RN, pt does not need swallow evaluation at this time and RN will follow-up with physician (Dr. Keyla Andino) to have order cancelled. HIGH SCHOOL MUSIC DIRECTOR will await physician to reorder bedside swallow evaluation if concerns arise/persist, as appropriate.
--- NOTE | 2018-12-31 11:32 | NUR ---
BLOOD SUGAR CHECKED AT 93. PT IS RESTING IN BED, RESPIRATIONS EVEN AND UNLABORED.
[2018-12-31] MEDS ORDERED: THERAHONEY WOUND DRESSING TP PRN (13:00)
--- NOTE | 2018-12-31 13:00 | NUR ---
PER PT, CARA WAS ABLE TO ASSESS WOUND. DRESSING CLEAN, DRY AND INTACT AT THIS TIME.
[2018-12-31] MEDS ORDERED: MAG SULF 2000 MG/WATER PREMIX 50 ML IV SCH (14:00)
--- NOTE | 2018-12-31 14:47 | NUR ---
12/31/18 RD FOLLOW UP COMPLETED PLEASE REFER TO NUTRITION ASSESSMENT UNDER CARE ACTIVITY FOR ESTIMATED NUTRITIONAL NEEDS. 1. CONTINUE 60G CCHO DIET TOLERATED 2. RECOMMEND GLUCERNA BID 3. RD TO FOLLOW-UP 2-3 DAYS, HIGH RISK FILIPE VARELA, RD
--- NOTE | 2018-12-31 15:00 | NUR ---
PT IS RESTING IN BED AT THIS TIME. NO C/O PAIN. NOTIFIED PT THAT BLOOD CULTURES ARE STILL PENDING.
[2018-12-31 16:00] VITALS: BP 145/63
--- NOTE | 2018-12-31 16:59 | NUR ---
BLOOD SUGAR CHECKED AT 71, NO S/S OF HYPOGLYCEMIA. WILL CONTINUE TO MONITOR.
--- NOTE | 2018-12-31 19:30 | NUR ---
RECEIVED PATIENT REPORT AT BEDSIDE. PATIENT IS AWAKE, ALERT AND ORIENTED. NO S/S OF DISTRESS. PATIENT ON ROOM AIR. PT DENIES DISCOMFORT. WOUND DRESSING NOTED TO THE LOWER ABD. DRESSING CLEAN, DRY AND INTACT. BED LOWERED WITH CALL LIGHT WITHIN REACH. PATIENT VERBALIZED UNDERSTANDING ON USING THE CALL LIGHT WHEN IN NEED OF ASSISTANCE. WILL CONTINUE TO MONITOR.
--- NOTE | 2018-12-31 19:30 | NUR ---
ENDORSED PT TO COMMAND AND CONTROL OFFICER NURSE. PT HAS NO SIGNS OF DISTRESS AT THIS TIME.
[2018-12-31 20:00] VITALS: BP 138/58
--- NOTE | 2018-12-31 20:40 | NUR ---
PATIENT VOIDED AND HAD A DM IN THE BEDSIDE COMMODE. STOOL FORMED AND MODERATE IN AMOUNT.
--- NOTE | 2018-12-31 20:46 | NUR ---
ADMINISTERED DUE MEDICATIONS. PT TOLERATED WELL
[2018-12-31] MEDS: MEROPENEM 1,000 MG in NACL 0.9% 100 ML IV SCH (21:53)
--- NOTE | 2019-01-01 02:42 | NUR ---
PT ASLEEP IN BED AT THIS TIME
[2019-01-01] MEDS: NACL 0.9% 1,000 ML IV SCH ×3 (05:07→20:02)
[2019-01-01] MEDS: MEROPENEM 1,000 MG in NACL 0.9% 100 ML IV SCH ×3 (05:07→21:14)
[2019-01-01] MEDS: BLOOD GLUCOSE MONITORING 1 DEV DEV FS SCH ×4 (06:28→19:46)
[2019-01-01] MEDS: glipiZIDE 5 MG TAB PO SCH ×2 (06:51→18:09)
[2019-01-01 07:12] LABS: BASOPHILS % (AUTO) 0.6 % (0.0-2.0); EOSINOPHILS # (AUTO) 0.2 K/uL (0-0.4); EOSINOPHILS % (AUTO) 2.9 % (0.0-4.0); HEMATOCRIT 29.5 % (36-48); HEMOGLOBIN 9.6 g/dL (12.0-16.0); LYMPHOCYTES # (AUTO) 1.6 K/uL (2.5-16.5); LYMPHOCYTES % (AUTO) 21.1 % (20.5-51.1); MEAN CORPUSCULAR HEMOGLOBIN 28 pg (27-31); MEAN CORPUSCULAR HGB CONC 33 g/dL (33-37); MEAN CORPUSCULAR VOLUME 86.3 fL (80-94); MONOCYTES # (AUTO) 0.5 K/uL (0.8-1.0); MONOCYTES % (AUTO) 7.3 % (1.7-9.3); NEUTROPHILS # (AUTO) 5.1 K/uL (1.8-7.7); NEUTROPHILS % (AUTO) 68.1 % (42.2-75.2); PLATELET COUNT (AUTO) 239 K/uL (140-450); RED BLOOD CELL COUNT(AUTO) 3.42 MIL/uL (4.20-5.40); WHITE BLOOD COUNT (AUTO) 7.5 K/uL (4.8-10.8)
--- NOTE | 2019-01-01 07:28 | NUR ---
RECEIVED REPORT FROM NIGHT RN. PT RESTING IN BED. AAOX4. NO S/S OF ACUTE DISTRESS. PT DENIES PAIN. RIGHT UPPER ARM PICC PATENT AND INTACT. PT'S DRESSING DRY AND INTACT. CALL LIGHT WITHIN REACH. SAFETY MEASURES ENSURED. WILL CONTINUE TO MONITOR.
--- NOTE | 2019-01-01 07:33 | NUR ---
PATIENT REPORT GIVEN AT BEDSIDE. PATIENT ENDORSED IN STABLE CONDITION
[2019-01-01 07:35] LABS: ANION GAP 13.1 (8-16); CARBON DIOXIDE 23.1 mmol/L (21-32); CREATININE 0.9 mg/dL (0.6-1.3); POTASSIUM 4.2 mmol/L (3.5-5.1)
[2019-01-01 07:40] LABS: MAGNESIUM 1.7 mg/dL (1.8-2.4); PHOSPHORUS 3.9 mg/dL (2.5-4.9)
[2019-01-01] MEDS: LACTOBACILLUS RHAMNOSUS GG 1 EACH CAP PO SCH (08:50)
[2019-01-01] MEDS: LISINOPRIL 5 MG TAB PO SCH (08:51)
[2019-01-01] MEDS: ASCORBIC ACID 500 MG TAB PO SCH ×2 (08:51→20:09)
[2019-01-01] MEDS: GABAPENTIN 300 MG CAP PO SCH ×2 (08:51→20:09)
[2019-01-01 11:04] VITALS: BP 155/62
--- NOTE | 2019-01-01 12:06 | NUR ---
PT RESTING IN BED. NO S/S OF ACUTE DISTRESS.PT DENIES PAIN. IV SITE PATENT AND INTACT. CALL LIGHT WITHIN REACH. SAFETY MEASURES ENSURED. WILL CONTINUE TO MONITOR.
[2019-01-01 16:00] VITALS: BP 148/63
--- NOTE | 2019-01-01 16:48 | NUR ---
PATIENT RESTING IN BED. AAOX4. NO S/S OF ACUTE DISTRESS. PT DENIES PAIN. CALL LIGHT WITHIN REACH. SAFETY MEASURES ENSURED. WILL CONTINUE TO MONITOR.
[2019-01-01] MEDS ORDERED: MAGNESIUM OXIDE 400 MG TAB PO SCH (18:00)
--- NOTE | 2019-01-01 19:30 | NUR ---
RECEIVED BEDSIDE REPORT FROM DAY RN. PT IS AAOX4 ON RA. NO RESPIRATORY DISTRESS. PT ON CONTACT ISO. PT WITH PATY PICC LINE NS AT 120M/H. PT WITH ABD WOUND DRESSING WAS REINFORCED.DRESSING CHANGE ON MWF. PT ABLE TO USE WHEELCHAIR AND WALKER TO USE BATHROOM. PT IS DNR. POC DISCUSSED WITH PT. CALL LIGHT IS WITHIN REACH. WILL ROUND FREQUENTLY.
[2019-01-01 20:00] VITALS: BP 149/61
[2019-01-01] MEDS: GENTAMICIN 120 MG in DEXTROSE 5% 100 ML IV SCH (20:09)
--- NOTE | 2019-01-01 20:09 | NUR ---
VITAL SIGNS ARE WITHIN NORMAL LIMITS. BLOOD SUGAR 155 PT JUST FINISHED EATING. WILL RECHECK IN AM. ADMINISTERED ROBERTO MEDICATIONS. PT TOLERATED WELL. ALL NEEDS MET AT THIS TIME. CALL LIGHT IS WITHIN REACH.
--- NOTE | 2019-01-01 21:14 | NUR ---
ROBERTO MERREM NOW INFUSING PER ORDERS. WILL CONTINUE TO MONITOR.
--- NOTE | 2019-01-02 | NUR ---
VITAL SIGNS ARE WITHIN NORMAL LIMITS. ALL NEEDS MET AT THIS TIME. CALL LIGHT IS WITHIN REACH. WILL CONTINUE TO MONITOR.
--- NOTE | 2019-01-02 02:00 | NUR ---
PATIENT IS SLEEPING COMFORTABLY IN BED. CHEST RISE AND FALL. CALL LIGHT IS WITHIN REACH. WILL CONTINUE TO MONITOR.
[2019-01-02] MEDS: NACL 0.9% 1,000 ML IV SCH ×3 (04:01→20:25)
--- NOTE | 2019-01-02 04:15 | NUR ---
PATIENT IS SLEEPING COMFORTABLY IN BED. CHEST RISE AND FALL. CALL LIGHT IS WITHIN REACH. WILL CONTINUE TO MONITOR.
[2019-01-02] MEDS: MEROPENEM 1,000 MG in NACL 0.9% 100 ML IV SCH ×3 (05:05→20:16)
--- NOTE | 2019-01-02 05:05 | NUR ---
MERREM NOW INFUSING PER ORDERS. ALL SAFETY MEASURES ARE IN PLACE. WILL CONTINUE TO MONITOR.
[2019-01-02] MEDS: glipiZIDE 5 MG TAB PO SCH ×2 (06:35→17:30)
[2019-01-02] MEDS: BLOOD GLUCOSE MONITORING 1 DEV DEV FS SCH ×4 (06:36→19:50)
[2019-01-02 07:25] LABS: BASOPHILS # (AUTO) 0.1 K/uL (0.00-0.22); BASOPHILS % (AUTO) 0.8 % (0.0-2.0); EOSINOPHILS # (AUTO) 0.2 K/uL (0-0.4); EOSINOPHILS % (AUTO) 2.6 % (0.0-4.0); HEMATOCRIT 30.8 % (36-48); HEMOGLOBIN 9.9 g/dL (12.0-16.0); LYMPHOCYTES # (AUTO) 1.7 K/uL (2.5-16.5); LYMPHOCYTES % (AUTO) 23.5 % (20.5-51.1); MEAN CORPUSCULAR HEMOGLOBIN 28 pg (27-31); MEAN CORPUSCULAR HGB CONC 32 g/dL (33-37); MEAN CORPUSCULAR VOLUME 86.5 fL (80-94); MONOCYTES # (AUTO) 0.6 K/uL (0.8-1.0); MONOCYTES % (AUTO) 8.2 % (1.7-9.3); NEUTROPHILS # (AUTO) 4.8 K/uL (1.8-7.7); NEUTROPHILS % (AUTO) 64.9 % (42.2-75.2); PLATELET COUNT (AUTO) 251 K/uL (140-450); RED BLOOD CELL COUNT(AUTO) 3.56 MIL/uL (4.20-5.40); RED CELL DISTRIBUTION WIDTH 14.7 % (11.6-13.7); WHITE BLOOD COUNT (AUTO) 7.3 K/uL (4.8-10.8)
[2019-01-02 07:30] LABS: ANION GAP 14.2 (8-16); CARBON DIOXIDE 23.3 mmol/L (21-32); CREATININE 0.9 mg/dL (0.6-1.3); POTASSIUM 4.5 mmol/L (3.5-5.1)
--- NOTE | 2019-01-02 07:30 | NUR ---
RECEIVED BEDSIDE REPORT FROM NIGHT NURSE. PT IN STABLE CONDITION AAOX4. RESPIRATIONS EVEN AND UNLABORED ON ROOM AIR. R UA PICC LINE INFUSING PER ORDER. SKIN WARM AND DRY WITH INFECTED ABD WOUND. SAFETY MEASURES IN PLACE. BED IN LOW POSITION. WILL CONTINUE TO MONITOR.
--- NOTE | 2019-01-02 07:30 | NUR ---
GAVE BEDSIDE REPORT TO DAY RN. PT ENDORSED IN STABLE CONDITION.
[2019-01-02 07:40] LABS: MAGNESIUM 1.5 mg/dL (1.8-2.4); PHOSPHORUS 3.6 mg/dL (2.5-4.9)
[2019-01-02 08:00] VITALS: BP 137/62
--- NOTE | 2019-01-02 08:42 | NUR ---
MEDICATIONS ADMINISTERED PER ORDER. PT TOLERATED WELL. WILL CONTINUE TO MONITOR.
[2019-01-02] MEDS: ASCORBIC ACID 500 MG TAB PO SCH ×2 (08:46→20:16)
[2019-01-02] MEDS: LISINOPRIL 5 MG TAB PO SCH (08:47)
[2019-01-02] MEDS: GABAPENTIN 300 MG CAP PO SCH ×2 (08:47→20:16)
[2019-01-02] MEDS ORDERED: MAG SULF 2000 MG/WATER PREMIX 50 ML IV SCH (10:30)
[2019-01-02] MEDS ORDERED: MAGNESIUM OXIDE 400 MG TAB PO SCH (10:30)
[2019-01-02] MEDS: LACTOBACILLUS RHAMNOSUS GG 1 EACH CAP PO SCH (10:49)
--- NOTE | 2019-01-02 11:02 | NUR ---
MEDICATIONS ADMINISTERED PER ORDER. PT TOLERATED WELL. WILL CONTINUE TO MONITOR.
[2019-01-02] MEDS: THERAHONEY WOUND DRESSING TP SCH (13:00)
--- NOTE | 2019-01-02 13:48 | NUR ---
MEDICATIONS ADMINISTERED PER ORDER. PT TOLERATED WELL. WILL CONTINUE TO MONITOR.
--- NOTE | 2019-01-02 15:48 | NUR ---
DRESSING CHANGE DONE AT THIS TIME WITH WOUND CARE NURSE. WOUND CLEANSED WITH NS, PACKED WITH THERAHONEY AND COVERED WITH 4X4 GAUZE AND ABD DRESSING. NO DISTRESS NOTED BY PT.
[2019-01-02 16:00] VITALS: BP 165/69
--- NOTE | 2019-01-02 17:24 | NUR ---
MEDICATIONS ADMINSITERED PER ORDER. PT TOLERATED WELL. WILL CONTINUE TO MONITOR.
--- NOTE | 2019-01-02 19:12 | NUR ---
BEDSIDE REPORT GIVEN TO NIGHT NURSE FOR CONTINUITY OF CARE.
--- NOTE | 2019-01-02 19:13 | NUR ---
RECEIVED BEDSIDE REPORT FROM DAY RN. PT IS AAOX4 ON RA. NO RESPIRATORY DISTRESS. PT ON CONTACT ISO. PT WITH PATY PICC LINE NS AT 120M/H. PT WITH ABD WOUND DRESSING WAS REINFORCED DRESSING C/D/I. DRESSING CHANGE ON MWF CHANGED TODAY ON 01/02. PT ABLE TO USE WHEELCHAIR AND WALKER TO USE BATHROOM. PT IS DNR. POC DISCUSSED WITH PT. CALL LIGHT IS WITHIN REACH. WILL ROUND FREQUENTLY.
--- NOTE | 2019-01-02 20:16 | NUR ---
ROBERTO MEDICATIONS GIVEN PER ORDERS. ALL NEEDS MET AT THIS TIME. BLOOD SUGAR 149. SNACK AT BEDSIDE. CALL LIGHT IS WITHIN REACH. WILL CONTINUE TO MONITOR.
[2019-01-02] MEDS: HYDROcodone/APAP 7.5/325 MG 1 TAB PO PRN (20:25)
--- NOTE | 2019-01-02 22:00 | NUR ---
PATIENT IS RESTING COMFORTABLY IN BED. CHEST RISE AND FALL. CALL LIGHT IS WITHIN REACH.
[2019-01-02 23:13] VITALS: BP 141/63
--- NOTE | 2019-01-02 23:18 | NUR ---
VITAL SIGNS ARE WITHIN NORMAL LIMITS. ALL NEEDS MET AT THIS TIME. WILL CONTINUE TO MONITOR.
--- NOTE | 2019-01-03 01:00 | NUR ---
ABD DRESSING REMAINS C/D/I. DRESSING WAS CHANGED ON 01/02. ORDERS TO CHANGE ON M,W,F OR WHEN SOILED. EDUCATED PT. ALL NEEDS MET. CALL LIGHT IS WITHIN REACH. WILL CONTINUE TO MONITOR.
--- NOTE | 2019-01-03 02:20 | NUR ---
PATIENT IS SLEEPING COMFORTABLY IN BED WITH EYES CLOSED. RESPIRATIONS ARE EQUAL AND UNLABORED. SAFETY MEASURES ARE IN PLACE. CALL LIGHT IS WITHIN REACH. WILL CONTINUE TO MONITOR.
--- NOTE | 2019-01-03 04:22 | NUR ---
PT IS LAYING COMFORTABLY IN BED. NO S/S OF DISTRESS. CALL LIGHT IS WITHIN REACH
[2019-01-03] MEDS: MEROPENEM 1,000 MG in NACL 0.9% 100 ML IV SCH ×3 (04:46→21:26)
[2019-01-03] MEDS: NACL 0.9% 1,000 ML IV SCH ×3 (04:49→23:18)
[2019-01-03] MEDS: glipiZIDE 5 MG TAB PO SCH ×2 (06:36→16:43)
[2019-01-03] MEDS: BLOOD GLUCOSE MONITORING 1 DEV DEV FS SCH ×4 (06:36→21:24)
[2019-01-03] MEDS ORDERED: INFLUENZA VACCINE QUAD 0.5 ML SYR IMVAC PRN (06:40)
[2019-01-03 06:51] LABS: BASOPHILS % (AUTO) 0.4 % (0.0-2.0); EOSINOPHILS # (AUTO) 0.3 K/uL (0-0.4); EOSINOPHILS % (AUTO) 2.8 % (0.0-4.0); HEMATOCRIT 30.3 % (36-48); HEMOGLOBIN 9.9 g/dL (12.0-16.0); LYMPHOCYTES % (AUTO) 21.5 % (20.5-51.1); MEAN CORPUSCULAR HEMOGLOBIN 28 pg (27-31); MEAN CORPUSCULAR HGB CONC 33 g/dL (33-37); MEAN CORPUSCULAR VOLUME 86.9 fL (80-94); MONOCYTES # (AUTO) 0.8 K/uL (0.8-1.0); MONOCYTES % (AUTO) 8.1 % (1.7-9.3); NEUTROPHILS # (AUTO) 6.3 K/uL (1.8-7.7); NEUTROPHILS % (AUTO) 67.2 % (42.2-75.2); PLATELET COUNT (AUTO) 277 K/uL (140-450); RED BLOOD CELL COUNT(AUTO) 3.49 MIL/uL (4.20-5.40); RED CELL DISTRIBUTION WIDTH 14.9 % (11.6-13.7); WHITE BLOOD COUNT (AUTO) 9.4 K/uL (4.8-10.8)
[2019-01-03 07:20] LABS: CARBON DIOXIDE 22.5 mmol/L (21-32); CREATININE 0.9 mg/dL (0.6-1.3); POTASSIUM 4.5 mmol/L (3.5-5.1)
[2019-01-03 07:22] LABS: MAGNESIUM 1.9 mg/dL (1.8-2.4); PHOSPHORUS 3.5 mg/dL (2.5-4.9)
--- NOTE | 2019-01-03 07:25 | NUR ---
GAVE BEDSIDE REPORT TO DAY RN. PT ENDORSED IN STABLE CONDITION.
--- NOTE | 2019-01-03 07:26 | NUR ---
RECEIVED BEDSIDE REPORT FROM LACQUER SPRAYER NURSE. PATIENT IS AWAKE, ALERT AND ORIENTEDX4. NO SIGNS OF DISTRESS ON RA. SKIN HAS ABD WOUND, DRESSING IS CLEAN AND DRY. PICC LINE ON PATY INFUSING NS AT 120. CLEAN, DRY AND INTACT. BEDSIDE COMMODE AVAILABLE, FALL RISK PROTOCOL IN PLACE. AMBULATE W ASSIST. ABLE TO MAKE NEEDS KNOWN. BED IN LOW POSITION. CALL LIGHT WITHIN REACH. WILL CONTINUE TO MONITOR THE PATIENT
[2019-01-03 08:00] VITALS: BP 150/57
--- NOTE | 2019-01-03 09:00 | NUR ---
PATIENT IN NO DISTRESS. WILL CONTINUE TO MONITOR THE PATIENT
[2019-01-03] MEDS: GABAPENTIN 300 MG CAP PO SCH ×2 (10:32→21:27)
[2019-01-03] MEDS: LACTOBACILLUS RHAMNOSUS GG 1 EACH CAP PO SCH (10:32)
[2019-01-03] MEDS: ASCORBIC ACID 500 MG TAB PO SCH ×2 (10:32→21:27)
[2019-01-03] MEDS: LISINOPRIL 5 MG TAB PO SCH (10:33)
--- NOTE | 2019-01-03 10:35 | NUR ---
ADMINISTERED MEDS. EDUCATED ON SIDE EFFECTS. PATIENT TOLERATED WELL. WILL CONTINUE TO MONITOR THE PATIENT.
--- NOTE | 2019-01-03 10:53 | NUR ---
Bottom Sander Note: I met with patient at bedside to discuss discharge plan. Patient is in agreement with home health services for abx iv and wound care. She does not have a home health or home infusion pharmacy company preference. 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 She told me she and her son's (Nick) girlfriend are also able to do wound care. I faxed referral to [facility] and [facility]. Per Monique from [facility] , they cannot accept referral because wound care requires extensive care and they do not have nursing staff available. I faxed referral to [facility]. Per Curtis from [facility] / , they are able to accept referral and will send a nurse to patient's home between 24-48 hours post discharge. I verified patient's home address [address] [place] [address]. Per Lexi from [facility] , they will deliver medication to patient's home upon discharge. Lexi spoke with patient regarding co-pay and patient is willing to pay co-pay, I confirmed this with patient. Lexi is aware [facility] will provide nursing staff.
--- NOTE | 2019-01-03 12:00 | NUR ---
PATIENT IN NO DISTRESS. WILL CONTINUE TO MONITOR
--- NOTE | 2019-01-03 13:11 | NUR ---
ADMINISTERED MEDS. PATIENT TOLERATED WELL. EDUCATED ON SIDE EFFECTS. WILL CONTINUE TO MONITOR THE PATIENT
--- NOTE | 2019-01-03 14:17 | NUR ---
01/03/19 RD FOLLOW UP COMPLETED PLEASE REFER TO NUTRITION ASSESSMENT UNDER CARE ACTIVITY FOR ESTIMATED NUTRITIONAL NEEDS. 1. CONTINUE 60GM CCHO DIET TOLERATED 2. CONTINUE GLUCERNA BID 3. CONTINUE VITAMIN C FOR WOUND HEALING 4. RD TO FOLLOW-UP 5-7 DAYS, LOW RISK FILIPE VARELA, RD
--- NOTE | 2019-01-03 15:00 | NUR ---
PATIENT RELAXING IN BED. NO SIGNS OF DISTRESS
[2019-01-03 16:00] VITALS: BP 135/57
--- NOTE | 2019-01-03 17:30 | NUR ---
PATIENT IN NO DISTRESS. WILL CONTINUE TO MONITOR
--- NOTE | 2019-01-03 19:24 | NUR ---
GAVE BEDSIDE REPORT TO MEN'S LEATHER DRESS BELT MAKER NURSE. PATIENT ENDORSED IN STABLE CONDITION
--- NOTE | 2019-01-03 19:26 | NUR ---
RECEIVED BEDSIDE REPORT FROM AM SHIFT NURSE. PATIENT IS AWAKE, ALERT AND ORIENTEDX 4. NO SIGNS OF DISTRESS ON RA. SKIN HAS ABDOMINAL WOUND, DRESSING IS CLEAN AND DRY. WITH PICC LINE ON PATY INFUSING NS AT 120. CLEAN, DRY AND INTACT. BEDSIDE COMMODE AVAILABLE, FALL RISK PROTOCOL IN PLACE. AMBULATE W ASSIST. ABLE TO MAKE NEEDS KNOWN. BED IN LOW POSITION. CALL LIGHT WITHIN REACH. WILL CONTINUE TO MONITOR THE PATIENT
--- NOTE | 2019-01-03 20:52 | NUR ---
LAB CALLED, RE: GENTAMYCIN FOR TROUGH 1929 AND PEAK 2099 EXTACTION, INFORMED DR. IBRAHIM, DR. AKBAR WILL CHECK AND INFORM
--- NOTE | 2019-01-03 21:11 | NUR ---
AGAIN CONFORMED WITH DR. FOY HE VERBALLY SAID THAT HE CANCELLED THE ORDER FEW MINS FROM NOW. THE LAB CALLED, KAYLEEN SAID THAT SHE IS NOT SEEING THAT IT IS CANCELLED. DR. IBRAHIM SAID HE JUST CANCELLED IT. Addendum: 01/03/19 at 2112 by Siomara Gonsales RN DR. IBRAHIM CANCEL PEAK AND TROUGH
[2019-01-04] VITALS: BP 138/58
--- NOTE | 2019-01-04 01:58 | NUR ---
SLEEPING, NO COMPLAINTS AT THIS TIME, WILL CONTINUE TO MONITOR
--- NOTE | 2019-01-04 03:27 | NUR ---
CHECKED ON PT , NO COMPLAINTS AT THIS TIME. NO PAIN WILL CONTINUE TO MONITOR
[2019-01-04] MEDS: MEROPENEM 1,000 MG in NACL 0.9% 100 ML IV SCH ×3 (04:41→20:14)
[2019-01-04] MEDS: BLOOD GLUCOSE MONITORING 1 DEV DEV FS SCH ×4 (05:38→20:22)
[2019-01-04 06:50] LABS: BASOPHILS # (AUTO) 0.1 K/uL (0.00-0.22); BASOPHILS % (AUTO) 0.8 % (0.0-2.0); EOSINOPHILS # (AUTO) 0.3 K/uL (0-0.4); EOSINOPHILS % (AUTO) 3.5 % (0.0-4.0); LYMPHOCYTES % (AUTO) 23.6 % (20.5-51.1); MEAN CORPUSCULAR HEMOGLOBIN 28 pg (27-31); MEAN CORPUSCULAR HGB CONC 32 g/dL (33-37); MEAN CORPUSCULAR VOLUME 87.9 fL (80-94); MONOCYTES # (AUTO) 0.6 K/uL (0.8-1.0); MONOCYTES % (AUTO) 7.4 % (1.7-9.3); NEUTROPHILS # (AUTO) 5.5 K/uL (1.8-7.7); NEUTROPHILS % (AUTO) 64.7 % (42.2-75.2); PLATELET COUNT (AUTO) 256 K/uL (140-450); RED BLOOD CELL COUNT(AUTO) 3.53 MIL/uL (4.20-5.40); RED CELL DISTRIBUTION WIDTH 14.7 % (11.6-13.7); WHITE BLOOD COUNT (AUTO) 8.4 K/uL (4.8-10.8)
--- NOTE | 2019-01-04 06:58 | NUR ---
AWAKE, ALERT ORIENTED X 4, ENDORSED TO NEXT SHIFT , PT IN STABLE CONDITION AT THIS TIME. ENDORSED TO NEXT SHIFT
[2019-01-04] MEDS: NACL 0.9% 1,000 ML IV SCH ×3 (06:59→19:40)
[2019-01-04 07:01] LABS: ANION GAP 14.5 (8-16); CARBON DIOXIDE 21.4 mmol/L (21-32); CREATININE 0.8 mg/dL (0.6-1.3); POTASSIUM 4.9 mmol/L (3.5-5.1)
[2019-01-04 07:13] LABS: MAGNESIUM 1.7 mg/dL (1.8-2.4); PHOSPHORUS 4.3 mg/dL (2.5-4.9)
--- NOTE | 2019-01-04 07:29 | NUR ---
RECEIVED REPORT FROM REPAIRER ENGINE PRODUCTION RN. PATIENT IS SLEEPING IN BED, VISIBLE CHEST RISE AND FALL. ON ROOM AIR, DNR, MULTIPLE DRUG ALLERGIES. PATIENT HAS A PICC LINE TO RIGHT UA DOUBLE LUMEN, AAOX4. PT IS AMBULATORY TO BEDSIDE COMMODE. PLAN IS TO DISCHARGE TO HOME WITH HOME HEALTH FRIDAY 01/05. WILL CONTINUE WITH CURRENT PLAN OF THE DAY.
[2019-01-04 08:00] VITALS: BP 144/60
[2019-01-04] MEDS: GABAPENTIN 300 MG CAP PO SCH ×2 (08:14→20:13)
[2019-01-04] MEDS: LACTOBACILLUS RHAMNOSUS GG 1 EACH CAP PO SCH (08:15)
[2019-01-04] MEDS: glipiZIDE 5 MG TAB PO SCH ×2 (08:16→16:56)
[2019-01-04] MEDS: ASCORBIC ACID 500 MG TAB PO SCH ×2 (08:16→20:14)
[2019-01-04] MEDS: LISINOPRIL 5 MG TAB PO SCH (08:16)
--- NOTE | 2019-01-04 08:30 | NUR ---
ADMINISTERED MORNING MEDICATION. VITAL SIGNS WNL. NO COMPLAINTS AT THIS TIME. PATIENT IS RESTING QUIETLY IN BED
[2019-01-04] MEDS: THERAHONEY WOUND DRESSING TP SCH (09:00)
--- NOTE | 2019-01-04 11:30 | NUR ---
SPOKE TO YUE IN PHARMACY REGARDING THERAHONEY WOUND DRESSING, WAS INFORMED THAT HE WOULD BRING IT TO MED ROOM SOON HE CAN.
[2019-01-04] MEDS ORDERED: MAGNESIUM OXIDE 400 MG TAB PO SCH (12:00)
--- NOTE | 2019-01-04 12:19 | NUR ---
WENT TO PATIENTS ROOM TO DO WOUND CARE DRESSING. PATIENT HAS A VISITOR AND ASKED ME TO RETURN AT A LATER TIME. ADMINISTERED MAG OXIDE 800MG FOR MAG LEVEL OF 1.7
--- NOTE | 2019-01-04 13:30 | NUR ---
DID WOUND CARE DRESSING TO PATIENTS LOWER ABDOMINAL WOUND. CLEANSED SITE WITH NS AND APPLIED THERAHONEY DRESSING, NEW GAUZE AND AN ABDOMINAL PAD. PATIENT TOLERATED WELL. NO PAIN.
--- NOTE | 2019-01-04 15:10 | NUR ---
Conditioning Machine Operator Note: Per Curtis from [facility] / , they will send a nurse to patient's home on Monday01/06/19. I faxed updated new MD's order for home health (wound care and abx iv) to [facility]. I faxed updated new MD's order for home health (wound care and abx iv) to [facility]. Per Lexi from [facility] , they will deliver medication to patient's home today. Lexi spoke with patient regarding co-pay and patient is willing to pay co-pay.
[2019-01-04 16:00] VITALS: BP 143/74
--- NOTE | 2019-01-04 19:20 | NUR ---
RECIEVED PT AAOX4 , NID , IV SITE INTACT AND PATENT , DENIES ANY PAIN AT THIS TIME , WITH INFECTED WOUND ON ABD - NEWLY WOUND CARE / DRESSED BY AM NOD. - V/S WNL , AFEBRILE , PLAN OF CARE DISCUSSED AND VERBALIZE UNDERSTANDING . CALL LIGHT WITHIN REACH , WITH BEDSIDE COMMODE AT BEDSIDE , REMINDS THE USE OF CALL LIGHT - ON SAFETY PRECAUTION PROTOCOL - REMINDS TO CALL FOR ASSISTANCE WHEN SHE NEEDED . WILL CONT. TO MONITOR.
--- NOTE | 2019-01-04 22:00 | NUR ---
MADE ROUNDS . NO COMPLAIN MADE AT THIS TIME , CALL LIGHT WITHIN REACH.
[2019-01-05] VITALS: BP 140/70
--- NOTE | 2019-01-05 | NUR ---
MADE ROUNDS . NO COMPLAIN MADE AT THIS TIME , VOIDED FREELY PER BEDSIDE COMMODE. CALL LIGHT WITHIN REACH
--- NOTE | 2019-01-05 04:00 | NUR ---
MADE ROUNDS NO COMPLAIN MADE AT THIS TIME .CALL LIGHT WITHIN REACH.
[2019-01-05] MEDS: MEROPENEM 1,000 MG in NACL 0.9% 100 ML IV SCH ×2 (04:19→12:46)
[2019-01-05] MEDS: NACL 0.9% 1,000 ML IV SCH (04:20)
--- NOTE | 2019-01-05 06:00 | NUR ---
LATEST HGT 78 - GLUCOTROL P.O WILL ENDORSE TO AM SHIFT NURSE - PREFER TO BE GIVEN CLOSE TO BREAKFAST .
[2019-01-05] MEDS: BLOOD GLUCOSE MONITORING 1 DEV DEV FS SCH ×2 (06:12→11:30)
--- NOTE | 2019-01-05 07:22 | NUR ---
ENDORSED TO TO AM SHIFT NURSE - TOLD TO MAYRA THE PT. REQUESTING IF EVER SHE WILL GO HOME TODAY SHE WANTS GO HOME AT 12NN.- ENDORSED TO MAYRA ABOUT THE ANTISQUEAK CHALKER'S NOTE ABOUT HOME HEALTH SERVICE.
--- NOTE | 2019-01-05 07:23 | NUR ---
RECEIVED REPORT FROM FARM SERVICE CONSULTANT NURSE. PATIENT LYING DOWN IN BED COMFORTABLY. NO DISTRESS NOTED. DENIES ANY PAIN. AAOX4, CALM, COOPERATIVE, SKIN COLOR APPROPRIATE TO ETHNICITY, WARM TO TOUCH. HAS LOW ABD WOUND S/P I&D. RIGHT UPPER ARM PICC LINE NOTED, INFUSING IVF PER MD ORDERS. RESPIRATIONS EVEN, UNLABORED, ON ROOM AIR. REVIEWED PLAN OF CARE WITH PATIENT. PATIENT VERBALIZED UNDERSTANDING. SAFETY MEASURES IN PLACE, CALL LIGHT WITHIN REACH. WILL CONTINUE TO MONITOR.
[2019-01-05 08:00] VITALS: BP 128/71
[2019-01-05] MEDS: glipiZIDE 5 MG TAB PO SCH (08:31)
[2019-01-05] MEDS: LISINOPRIL 5 MG TAB PO SCH (08:32)
[2019-01-05] MEDS: ASCORBIC ACID 500 MG TAB PO SCH (08:32)
[2019-01-05] MEDS: LACTOBACILLUS RHAMNOSUS GG 1 EACH CAP PO SCH (08:32)
[2019-01-05] MEDS: GABAPENTIN 300 MG CAP PO SCH (08:32)
--- NOTE | 2019-01-05 08:34 | NUR ---
SCHEDULED MEDICATIONS DUE GIVEN. NO DISTRESS NOTED. CONDITION UNCHANGED. WILL CONTINUE TO MONITOR.
--- NOTE | 2019-01-05 11:00 | NUR ---
PATIENT SITTING DOWN IN BED WATCHING TV. NO DISTRESS NOTED. DENIES ANY PAIN. WILL CONTINUE TO MONITOR.
--- NOTE | 2019-01-05 12:46 | NUR ---
PATIENT SITTING ES IN BED WITH LUNCH TRAY IN FRONT. NO DISTRESS NOTED. DENIES ANY PAIN. SCHEDULED MEDICATIONS DUE GIVEN. WILL CONTINUE TO MONITOR.
[2019-01-05] MEDS ORDERED: THERAHONEY WOUND DRESSING TP (13:23)
[2019-01-05] MEDS ORDERED: GLUC-805 FS (13:23)
[2019-01-05] MEDS ORDERED: VITC500 PO (13:23)
[2019-01-05] MEDS ORDERED: LACT10CA PO (13:23)
[2019-01-05] MEDS ORDERED: MERO1PDS2 IV (13:29)
[2019-01-05] MEDS ORDERED: LACT10CA1 PO (13:36)
[2019-01-05] MEDS ORDERED: MAGNESIUM OXIDE 400 MG TAB PO SCH (14:00)
--- NOTE | 2019-01-05 14:45 | NUR ---
DISCHARGE INSTRUCTIONS PROVIDED TO PATIENT IN PREFERRED LANGUAGE OF ECUADOREAN. INSTRUCTIONS ON WOUND CARE MANAGEMENT, DIET REGIMEN, NEW/CHANGED MEDICATION REGIMEN AND SIDE EFFECTS, HOME HEALTH CARE THAT IS FOLLOWING UP, AND FOLLOW-UP APPOINTMENT WITH PCP DR. SANCHEZ. ANSWERED ALL OF PATIENT'S QUESTIONS REGARDING DISCHARGE TO HOME WITH HOME HEALTH. PATIENT VERBALIZED COMPLETE UNDERSTANDING. ALL BELONGINGS WITH PATIENT. PATIENT ALL DRESSED UP. AWAITING FOR SON TO ARRIVE TO TAKE PATIENT HOME. WILL CONTINUE TO MONITOR.
--- NOTE | 2019-01-05 16:00 | NUR ---
PATIENT'S SON ON UNIT. ID BANDS REMOVED. ESCORTED PATIENT DOWN TO LOBBY VIA WHEELCHAIR. PATIENT DISCHARGED AT THIS TIME TO HOME WITH HOME HEALTH WITH PRIVATE VEHICLE IN STABLE CONDITION.
== END 2019-01-05 16:00 | disposition home health service (06) | DRG 856 ==
LOC: MED 11:11 → MTU 15:06
PROVIDERS: ADMIT General Practice; ATTEND General Practice
PROC: 02HV33Z Insertion of Infusion Device into Superior Vena Cava, Percutaneous Approach (ICD-10-PCS; 2018-12-28)
PROC: B548ZZA Ultrasonography of Superior Vena Cava, Guidance (ICD-10-PCS; 2018-12-28)
PROC: 0JBB0ZZ Excision of Perineum Subcutaneous Tissue and Fascia, Open Approach (ICD-10-PCS; principal; 2018-12-28 15:00)
DX: T81.41XA Infection following a procedure, superficial incisional surgical site, initial encounter (principal); M72.6 Necrotizing fasciitis; E43 Unspecified severe protein-calorie malnutrition; N17.0 Acute kidney failure with tubular necrosis; N39.0 Urinary tract infection, site not specified; E72.20 Disorder of urea cycle metabolism, unspecified; M86.9 Osteomyelitis, unspecified; Y83.8 Other surgical procedures as the cause of abnormal reaction of the patient, or of later complication, without mention of misadventure at the time of the procedure; E11.69 Type 2 diabetes mellitus with other specified complication; E66.9 Obesity, unspecified; E78.00 Pure hypercholesterolemia, unspecified; I10 Essential (primary) hypertension; K57.90 Diverticulosis of intestine, part unspecified, without perforation or abscess without bleeding; M19.90 Unspecified osteoarthritis, unspecified site; B96.4 Proteus (mirabilis) (morganii) as the cause of diseases classified elsewhere; E11.65 Type 2 diabetes mellitus with hyperglycemia; Z66 Do not resuscitate; E11.40 Type 2 diabetes mellitus with diabetic neuropathy, unspecified; E83.42 Hypomagnesemia; Z68.30 Body mass index [BMI] 30.0-30.9, adult; Y92.89 Other specified places as the place of occurrence of the external cause; Z88.0 Allergy status to penicillin; Z88.2 Allergy status to sulfonamides; Z90.49 Acquired absence of other specified parts of digestive tract; Z90.710 Acquired absence of both cervix and uterus; Z88.1 Allergy status to other antibiotic agents
CPT/HCPCS: 36415; 71045; 76770; 80048; 80053; 80170; 80202; 81001; 82009; 82040; 82140; 82150; 82550; 82553; 82948; 83036; 83605; 83615; 83690; 83735; 83874; 83880; 84100; 84439; 84443; 84484; 85025; 85379; 85610; 85730; 86140; 87040; 87070; 87075; 87081; 87086; 87186; 87205; 88304; 93005; 96365; 96366; 97116; 97530; 99285; C1751; J1580; J1815; J2001; J2185; J2250; J2704; J3010; J3370; J3475; J3490; J7030; J7060; Q0092

== ENCOUNTER 2019-01-13 12:40 | Emergency (ER) | payer OTHER ==
[~2019-01-13] VITALS: Ht 162.6 cm; Wt 76.2 kg
[~2019-01-13 12:40] MED LIST changes: -ACET-5629 PO; -ASCO-5 PO; -BISA-188 RC; -CLINDAMYCIN IV; -GABA-636 PO; +GABA300C PO; -GLIM2TAB PO; +GLIP5TAB4 PO; +GLUC-805 FS; -GLUC1VIA INJ; -HYDR-5122 PO; -IBUP-1842 PO; -INSU100S10 SC; +LACT10CA1 PO; -LISI-420 PO; +LISI5TAB18 PO; -MAGN400S60 PO; -MELA3TAB56 PO; +MERO1PDS2 IV; -METF1000 PO; -NA P133E RC; +THERAHONEY WOUND DRESSING TP; +VITC500 PO; -ZINC220T4 PO; -[UNRECOGNIZED DRUG - CODE] IV
[2019-01-13 13:03] VITALS: BP 149/77
--- NOTE | 2019-01-13 13:12 | NUR ---
WAIT AT LOBBY
== END 2019-01-13 16:00 | disposition left against medical advice (07) ==
LOC: MED 12:40
DX: Z45.2 Encounter for adjustment and management of vascular access device (principal); Z53.21 Procedure and treatment not carried out due to patient leaving prior to being seen by health care provider

== ENCOUNTER 2019-04-23 12:13 | Outpatient (CLI) | payer OTHER ==
[2019-04-23 12:58] LABS: BASOPHILS # (AUTO) 0.1 K/uL (0.00-0.22); BASOPHILS % (AUTO) 0.6 % (0.0-2.0); EOSINOPHILS # (AUTO) 0.2 K/uL (0-0.4); EOSINOPHILS % (AUTO) 2.2 % (0.0-4.0); HEMATOCRIT 36.1 % (36-48); HEMOGLOBIN 11.6 g/dL (12.0-16.0); LYMPHOCYTES # (AUTO) 2.5 K/uL (2.5-16.5); LYMPHOCYTES % (AUTO) 27.9 % (20.5-51.1); MEAN CORPUSCULAR HEMOGLOBIN 26 pg (27-31); MEAN CORPUSCULAR HGB CONC 32 g/dL (33-37); MEAN CORPUSCULAR VOLUME 82.2 fL (80-94); MONOCYTES # (AUTO) 0.5 K/uL (0.8-1.0); MONOCYTES % (AUTO) 5.8 % (1.7-9.3); NEUTROPHILS # (AUTO) 5.8 K/uL (1.8-7.7); NEUTROPHILS % (AUTO) 63.5 % (42.2-75.2); PLATELET COUNT (AUTO) 253 K/uL (140-450); RED BLOOD CELL COUNT(AUTO) 4.39 MIL/uL (4.20-5.40); RED CELL DISTRIBUTION WIDTH 14.8 % (11.6-13.7); WHITE BLOOD COUNT (AUTO) 9.1 K/uL (4.8-10.8)
[2019-04-23 13:46] LABS: ALBUMIN 3.2 g/dL (3.4-5.0); ANION GAP 14.8 (8-16); CARBON DIOXIDE 24.4 mmol/L (21-32); CHOL/HDL RATIO 4.5 (1-4.5); CREATININE 0.9 mg/dL (0.6-1.3); POTASSIUM 5.2 mmol/L (3.5-5.1); THYROID STIMULATING HORMONE 2.17 uIU/mL (0.34-3.74); TOTAL BILIRUBIN 0.6 mg/dL (0.0-1.0)
[2019-04-24 09:10] LABS: MICROALBUMIN, UR RANDOM 382.7 ug/mL (Not Estab.)
== END 2019-04-23 20:12 | disposition home or self-care (01) ==
LOC: MLB 12:13
PROVIDERS: ATTEND Internal Medicine Geriatric Medicine
DX: I10 Essential (primary) hypertension (principal); E11.9 Type 2 diabetes mellitus without complications; E78.5 Hyperlipidemia, unspecified; E55.9 Vitamin D deficiency, unspecified
CPT/HCPCS: 36415; 80053; 82043; 82306; 83036; 84443; 85025

== ENCOUNTER 2019-08-23 12:39 | Outpatient (CLI) | payer OTHER ==
[2019-08-23 13:12] LABS: BASOPHILS # (AUTO) 0.1 K/uL (0.00-0.22); BASOPHILS % (AUTO) 0.6 % (0.0-2.0); EOSINOPHILS # (AUTO) 0.2 K/uL (0-0.4); EOSINOPHILS % (AUTO) 1.8 % (0.0-4.0); HEMATOCRIT 34.6 % (36-48); HEMOGLOBIN 11.5 g/dL (12.0-16.0); LYMPHOCYTES # (AUTO) 2.3 K/uL (2.5-16.5); LYMPHOCYTES % (AUTO) 21.9 % (20.5-51.1); MEAN CORPUSCULAR HEMOGLOBIN 28 pg (27-31); MEAN CORPUSCULAR HGB CONC 33 g/dL (33-37); MEAN CORPUSCULAR VOLUME 83.8 fL (80-94); MONOCYTES # (AUTO) 0.6 K/uL (0.8-1.0); MONOCYTES % (AUTO) 5.8 % (1.7-9.3); NEUTROPHILS # (AUTO) 7.3 K/uL (1.8-7.7); NEUTROPHILS % (AUTO) 69.9 % (42.2-75.2); PLATELET COUNT (AUTO) 268 K/uL (140-450); RED BLOOD CELL COUNT(AUTO) 4.13 MIL/uL (4.20-5.40); RED CELL DISTRIBUTION WIDTH 14.9 % (11.6-13.7); WHITE BLOOD COUNT (AUTO) 10.5 K/uL (4.8-10.8)
[2019-08-23 13:31] LABS: ALBUMIN 3.2 g/dL (3.4-5.0); ANION GAP 11.4 (8-16); CARBON DIOXIDE 26.2 mmol/L (21-32); CHOL/HDL RATIO 6.2 (1-4.5); POTASSIUM 4.6 mmol/L (3.5-5.1); TOTAL BILIRUBIN 0.4 mg/dL (0.0-1.0)
== END 2019-08-23 23:04 | disposition home or self-care (01) ==
LOC: MLB 12:39
PROVIDERS: ATTEND Internal Medicine Geriatric Medicine
DX: E11.9 Type 2 diabetes mellitus without complications (principal); E78.5 Hyperlipidemia, unspecified
CPT/HCPCS: 36415; 80053; 82306; 83036; 85025

== ENCOUNTER 2019-11-21 11:37 | Outpatient (CLI) | payer OTHER ==
[~2019-11-21 11:37] MED LIST changes: -MERO1PDS2 IV; +MERO1VIA15 IV
[2019-11-21 12:53] LABS: BASOPHILS # (AUTO) 0.1 K/uL (0.00-0.22); BASOPHILS % (AUTO) 0.6 % (0.0-2.0); EOSINOPHILS # (AUTO) 0.2 K/uL (0-0.4); EOSINOPHILS % (AUTO) 1.5 % (0.0-4.0); HEMOGLOBIN 12.1 g/dL (12.0-16.0); LYMPHOCYTES # (AUTO) 2.5 K/uL (2.5-16.5); LYMPHOCYTES % (AUTO) 20.2 % (20.5-51.1); MEAN CORPUSCULAR HEMOGLOBIN 28 pg (27-31); MEAN CORPUSCULAR HGB CONC 33 g/dL (33-37); MEAN CORPUSCULAR VOLUME 84.5 fL (80-94); MONOCYTES # (AUTO) 0.7 K/uL (0.8-1.0); MONOCYTES % (AUTO) 5.5 % (1.7-9.3); NEUTROPHILS # (AUTO) 8.9 K/uL (1.8-7.7); NEUTROPHILS % (AUTO) 72.2 % (42.2-75.2); PLATELET COUNT (AUTO) 281 K/uL (140-450); RED BLOOD CELL COUNT(AUTO) 4.38 MIL/uL (4.20-5.40); RED CELL DISTRIBUTION WIDTH 14.5 % (11.6-13.7); WHITE BLOOD COUNT (AUTO) 12.4 K/uL (4.8-10.8)
[2019-11-21 13:18] LABS: ALBUMIN 3.7 g/dL (3.4-5.0); ANION GAP 22.1 (8-16); CARBON DIOXIDE 13.8 mmol/L (21-32); CREATININE 1.7 mg/dL (0.6-1.3); POTASSIUM 4.9 mmol/L (3.5-5.1); TOTAL BILIRUBIN 0.3 mg/dL (0.0-1.0)
[2019-11-22 08:11] LABS: FOLIC ACID 8.2 ng/mL (>3.0)
== END 2019-11-21 22:28 | disposition home or self-care (01) ==
LOC: MLB 11:37
PROVIDERS: ATTEND Internal Medicine Geriatric Medicine
DX: E78.5 Hyperlipidemia, unspecified (principal); E11.9 Type 2 diabetes mellitus without complications; E55.9 Vitamin D deficiency, unspecified; D64.9 Anemia, unspecified
CPT/HCPCS: 36415; 80053; 82306; 82607; 82728; 82746; 83036; 83540; 85025

== ENCOUNTER 2020-05-16 11:09 | Outpatient (CLI) | payer OTHER ==
[~2020-05-16 11:09] MED LIST changes: +GLIP5TAB14 PO; -GLIP5TAB4 PO
[2020-05-16 11:27] LABS: BASOPHILS # (AUTO) 0.2 K/uL (0.00-0.22); BASOPHILS % (AUTO) 1.2 % (0.0-2.0); EOSINOPHILS # (AUTO) 0.2 K/uL (0-0.4); EOSINOPHILS % (AUTO) 1.7 % (0.0-4.0); HEMATOCRIT 35.7 % (36-48); HEMOGLOBIN 11.7 g/dL (12.0-16.0); LYMPHOCYTES # (AUTO) 3.1 K/uL (2.5-16.5); LYMPHOCYTES % (AUTO) 22.8 % (20.5-51.1); MEAN CORPUSCULAR HEMOGLOBIN 28 pg (27-31); MEAN CORPUSCULAR HGB CONC 33 g/dL (33-37); MEAN CORPUSCULAR VOLUME 84.2 fL (80-94); MONOCYTES # (AUTO) 0.8 K/uL (0.8-1.0); MONOCYTES % (AUTO) 5.7 % (1.7-9.3); NEUTROPHILS # (AUTO) 9.3 K/uL (1.8-7.7); NEUTROPHILS % (AUTO) 68.6 % (42.2-75.2); PLATELET COUNT (AUTO) 294 K/uL (140-450); RED BLOOD CELL COUNT(AUTO) 4.24 MIL/uL (4.20-5.40); RED CELL DISTRIBUTION WIDTH 14.2 % (11.6-13.7); WHITE BLOOD COUNT (AUTO) 13.5 K/uL (4.8-10.8)
[2020-05-16 11:39] LABS: ALBUMIN 3.6 g/dL (3.4-5.0); CHOL/HDL RATIO 3.1 (1-4.5); CREATININE 1.1 mg/dL (0.6-1.3); TOTAL BILIRUBIN 0.4 mg/dL (0.0-1.0)
[2020-05-17 08:06] LABS: MICROALBUMIN, UR RANDOM 618.9 ug/mL (Not Estab.)
== END 2020-05-16 20:15 | disposition home or self-care (01) ==
LOC: MLB 11:09
PROVIDERS: ATTEND Internal Medicine Geriatric Medicine
DX: E11.69 Type 2 diabetes mellitus with other specified complication (principal); E78.5 Hyperlipidemia, unspecified
CPT/HCPCS: 36415; 80053; 82043; 83036; 85025

== ENCOUNTER 2020-09-20 12:12 | Emergency (ER) | payer OTHER ==
[~2020-09-20] VITALS: Ht 162.6 cm; Wt 105.2 kg
[2020-09-20 12:21] VITALS: BP 189/94
--- NOTE | 2020-09-20 12:21 | NUR ---
PT AMBULATED WITH WALKER TO BED 10
--- NOTE | 2020-09-20 12:30 | NUR ---
65 Y/O FEMALE, DROPPED LARGE CAN FROM HIGH SHELF TO LT FOOT ONE WEEK AGO, CAUSED 4 CM ABRASION TO LEFT DORSAL ASPECT OF LEFT FOOT, SCATTERED BRUISING TO TOES, SWELLING EXTENDS FROM FOOT TO MID CALF. PEDAL PULSE PALPABLE, BRISK CAP REFILL TO TOES, UNABLE TO MOVE LEFT TOES, DESCRIBES TOES "FEEL FROZEN" NO MEDICAL INTERVENTION FOR THIS INJURY PRIOR TO NOW. PATIENT IS AWAKE ALERT, SKIN IS WARM AND DRY, RESP EVEN AND UNLABORED, ABD SOFT AND NON DISTENDED. IN BED WITH LEFT FOOT ELEVATED, SIDE RAIL UP. HX OF DIABETES AND HTN, NECROTIZING FACIITIS.
--- NOTE | 2020-09-20 12:56 | NUR ---
RAD AT BEDSIDE
--- NOTE | 2020-09-20 14:30 | NUR ---
DR ROBERTSON AT BEDSIDE EVALUATING PT
--- NOTE | 2020-09-20 14:46 | NUR ---
ULTRASOUND AT BEDSIDE
--- NOTE | 2020-09-20 14:59 | NUR ---
LAB AT BEDSIDE FOR BLOOD DRAW
[2020-09-20 15:25] LABS: BASOPHILS % (AUTO) 0.5 % (0.0-2.0); EOSINOPHILS # (AUTO) 0.2 K/uL (0-0.4); EOSINOPHILS % (AUTO) 1.9 % (0.0-4.0); HEMATOCRIT 37.4 % (36-48); HEMOGLOBIN 12.2 g/dL (12.0-16.0); LYMPHOCYTES # (AUTO) 2.1 K/uL (2.5-16.5); LYMPHOCYTES % (AUTO) 20.8 % (20.5-51.1); MEAN CORPUSCULAR HEMOGLOBIN 28 pg (27-31); MEAN CORPUSCULAR HGB CONC 33 g/dL (33-37); MEAN CORPUSCULAR VOLUME 86.2 fL (80-94); MONOCYTES # (AUTO) 0.6 K/uL (0.8-1.0); MONOCYTES % (AUTO) 5.4 % (1.7-9.3); NEUTROPHILS # (AUTO) 7.3 K/uL (1.8-7.7); NEUTROPHILS % (AUTO) 71.4 % (42.2-75.2); PLATELET COUNT (AUTO) 245 K/uL (140-450); RED BLOOD CELL COUNT(AUTO) 4.33 MIL/uL (4.20-5.40); RED CELL DISTRIBUTION WIDTH 13.8 % (11.6-13.7); WHITE BLOOD COUNT (AUTO) 10.3 K/uL (4.8-10.8)
[2020-09-20 15:42] LABS: ANION GAP 13.6 (8-16); CREATININE 1.1 mg/dL (0.6-1.3); POTASSIUM 4.6 mmol/L (3.5-5.1); TOTAL BILIRUBIN 0.7 mg/dL (0.0-1.0)
[2020-09-20] MEDS ORDERED: ceFAZolin 1,000 MG VIAL ONE (16:10)
--- NOTE | 2020-09-20 16:10 | NUR ---
RESTING QUIETLY WITH LEFT FOOT ELEVATED, SNACK PROVIDED, COMFORTABLE AT THIS TIME WHILE AWAITING RESULTS AND PLAN OF CARE.
[2020-09-20] MEDS ORDERED: IBUP-2213 PO (16:41)
[2020-09-20] MEDS ORDERED: CLIN-223 PO (16:41)
[2020-09-20] MEDS ORDERED: CEPH-588 PO (16:41)
[2020-09-20] MEDS ORDERED: KETOROLAC 15 MG/ML VIAL IVP ONE (16:50)
[2020-09-20] MEDS ORDERED: KETOROLAC 60 MG/2 ML VIAL IM ONE (16:51)
[2020-09-20 17:09] VITALS: BP 168/82
--- NOTE | 2020-09-20 17:10 | NUR ---
Patient discharged with v/s stable. Written and verbal after care instructionsRELATED TO LEFT FOOT CELLULITIS given and explained. Patient alert, oriented and verbalized understanding of instructions. Ambulatory with steady gait. All questions addressed prior to discharge. ID band removed. Patient advised to follow up with PMD. Rx of CEPHALEXIN, CLINDAMYCIN HCL, IBUPROFEN given. Patient educated on indication of medication including possible reaction and side effects. Opportunity to ask questions provided and answered.
[2020-10-09] MEDS ORDERED: LISI-487 PO (18:23)
[2020-10-09] MEDS ORDERED: GABA300C PO (18:23)
[2020-10-09] MEDS ORDERED: GLIP10TA3 PO (18:23)
[2020-10-09] MEDS ORDERED: CLON0.1T46 PO (18:23)
[2020-10-14] MEDS ORDERED: LEVO500T98 PO (11:07)
[2020-10-14] MEDS ORDERED: CLIN150C1 PO (11:08)
[2020-10-14] MEDS ORDERED: ACET-9525 PO (12:10)
== END 2020-09-20 17:10 | disposition home or self-care (01) ==
LOC: MED 12:12
DX: L03.116 Cellulitis of left lower limb (principal); E11.9 Type 2 diabetes mellitus without complications; I10 Essential (primary) hypertension; Z88.0 Allergy status to penicillin; Z88.2 Allergy status to sulfonamides; Z88.8 Allergy status to other drugs, medicaments and biological substances
CPT/HCPCS: 36415; 73630; 80053; 83605; 85025; 85651; 86140; 87040; 93971; 96365; 96375; 99285; J0690; J1885

== ENCOUNTER 2020-10-19 12:57 | Outpatient (CLI) | payer OTHER ==
[~2020-10-19 12:57] MED LIST changes: +ACET-9525 PO; +CLIN150C1 PO; +CLON0.1T46 PO; +IBUP-2213 PO; +LEVO500T98 PO; +LISI-487 PO; -LISI5TAB18 PO; -MERO1VIA15 IV
== END 2020-10-19 20:19 | disposition home or self-care (01) ==
LOC: MLB 12:57 → MRD 20:19
PROVIDERS: ATTEND Podiatrist Foot & Ankle Surgery
DX: M19.072 Primary osteoarthritis, left ankle and foot (principal)
CPT/HCPCS: 73630

== ENCOUNTER 2020-10-19 16:16 | Inpatient (IN) | payer OTHER ==
[~2020-10-19] VITALS: Ht 162.6 cm; Wt 111.6 kg
[2020-10-19 16:26] VITALS: BP 192/90
[2020-10-19] MEDS ORDERED: metroNIDAZOLE 500 MG/NS PREMIX 100 ML IV ONE (16:45)
[2020-10-19] MEDS ORDERED: VANCOMYCIN HCL 1,000 MG in DEXTROSE 5% 250 ML IV SCH (16:45)
[2020-10-19 17:09] LABS: BASOPHILS # (AUTO) 0.1 K/uL (0.00-0.22); BASOPHILS % (AUTO) 0.6 % (0.0-2.0); EOSINOPHILS # (AUTO) 0.2 K/uL (0-0.4); EOSINOPHILS % (AUTO) 1.2 % (0.0-4.0); HEMATOCRIT 36.2 % (36-48); HEMOGLOBIN 11.7 g/dL (12.0-16.0); LYMPHOCYTES # (AUTO) 2.4 K/uL (2.5-16.5); LYMPHOCYTES % (AUTO) 17.9 % (20.5-51.1); MEAN CORPUSCULAR HEMOGLOBIN 28 pg (27-31); MEAN CORPUSCULAR HGB CONC 32 g/dL (33-37); MONOCYTES # (AUTO) 0.8 K/uL (0.8-1.0); MONOCYTES % (AUTO) 5.7 % (1.7-9.3); NEUTROPHILS # (AUTO) 10.1 K/uL (1.8-7.7); NEUTROPHILS % (AUTO) 74.6 % (42.2-75.2); PLATELET COUNT (AUTO) 354 K/uL (140-450); RED BLOOD CELL COUNT(AUTO) 4.21 MIL/uL (4.20-5.40); RED CELL DISTRIBUTION WIDTH 13.7 % (11.6-13.7); WHITE BLOOD COUNT (AUTO) 13.6 K/uL (4.8-10.8)
[2020-10-19 17:34] LABS: ALBUMIN 3.2 g/dL (3.4-5.0); ANION GAP 15.2 (8-16); CARBON DIOXIDE 24.9 mmol/L (21-32); CREATININE 1.4 mg/dL (0.6-1.3); POTASSIUM 5.1 mmol/L (3.5-5.1); TOTAL BILIRUBIN 0.3 mg/dL (0.0-1.0)
--- NOTE | 2020-10-19 17:51 | NUR ---
REFERRED FROM CLINIC [facility], PUS FROM LEFT FOOT X TODAY. DISCHARGE FROM [facility] 5 DAYS AGO. COVID TESTED NEGATIVE 10/10/20. PMH: DM, HTN, GALL BLADDER REMOVAL, HYSTERECTOMY , LEFT FOOT SUGERY 10/10/20,
--- NOTE | 2020-10-19 17:51 | NUR ---
PT TAKEN TO BED 14
[2020-10-19] MEDS ORDERED: cefTRIAXone 1,000 MG VIAL ONE (18:47)
[2020-10-19] MEDS ORDERED: VANCOMYCIN 1,000 MG VIAL ONE (20:04)
--- NOTE | 2020-10-19 22:00 | NUR ---
TRANSFERED FROM WALL 14 TO BED 7
--- NOTE | 2020-10-19 22:00 | NUR ---
MOVED TO ER BED 7
[2020-10-19] MEDS ORDERED: MORPHINE SULFATE 4 MG/ML SYR IVP ONE (22:15)
[2020-10-19] MEDS ORDERED: VANCOMYCIN PER PHARMACY MC PRN (22:20)
[2020-10-19] MEDS ORDERED: HYDROcodone/APAP 5/325 MG 1 TAB TAB PO PRN (22:20)
[2020-10-19] MEDS: NACL 0.9% 1,000 ML IV SCH (22:20)
[2020-10-19] MEDS ORDERED: ACETAMINOPHEN 325 MG TAB PO PRN (22:20)
[2020-10-19] MEDS ORDERED: DEXTROSE 50% 50 ML SYR IVP PRN (22:30)
--- NOTE | 2020-10-20 02:25 | NUR ---
C/O PAIN. MEDICATED ORDERED
--- NOTE | 2020-10-20 03:20 | NUR ---
mbulated to br
--- NOTE | 2020-10-20 07:13 | NUR ---
REPORT RECEIVED FROM ANGELA LEROY. TRANSFER OF CARE RECEIVED
[2020-10-20 07:29] LABS: BASOPHILS # (AUTO) 0.1 K/uL (0.00-0.22); BASOPHILS % (AUTO) 0.8 % (0.0-2.0); EOSINOPHILS # (AUTO) 0.2 K/uL (0-0.4); EOSINOPHILS % (AUTO) 1.9 % (0.0-4.0); HEMATOCRIT 34.9 % (36-48); HEMOGLOBIN 11.4 g/dL (12.0-16.0); LYMPHOCYTES # (AUTO) 2.4 K/uL (2.5-16.5); MEAN CORPUSCULAR HEMOGLOBIN 28 pg (27-31); MEAN CORPUSCULAR HGB CONC 33 g/dL (33-37); MEAN CORPUSCULAR VOLUME 85.3 fL (80-94); MONOCYTES # (AUTO) 0.8 K/uL (0.8-1.0); MONOCYTES % (AUTO) 6.9 % (1.7-9.3); NEUTROPHILS # (AUTO) 7.7 K/uL (1.8-7.7); NEUTROPHILS % (AUTO) 69.4 % (42.2-75.2); PLATELET COUNT (AUTO) 286 K/uL (140-450); RED BLOOD CELL COUNT(AUTO) 4.09 MIL/uL (4.20-5.40); RED CELL DISTRIBUTION WIDTH 13.8 % (11.6-13.7); WHITE BLOOD COUNT (AUTO) 11.2 K/uL (4.8-10.8)
[2020-10-20 07:45] LABS: ANION GAP 13.7 (8-16); CARBON DIOXIDE 21.9 mmol/L (21-32); CREATININE 1.2 mg/dL (0.6-1.3); POTASSIUM 4.6 mmol/L (3.5-5.1); TOTAL BILIRUBIN 0.4 mg/dL (0.0-1.0)
[2020-10-20] MEDS: BLOOD GLUCOSE MONITORING 1 DEV DEV FS SCH ×4 (08:03→20:59)
[2020-10-20] MEDS: INSULIN LISPRO SLIDING SCALE 100 UNITS/ML VIAL SUBQ PRN ×4 (08:04→21:50)
[2020-10-20] MEDS: MORPHINE SULFATE 4 MG/ML SYR IVP PRN ×2 (08:21→21:46)
--- NOTE | 2020-10-20 09:00 | NUR ---
PT PROVIDED BREAKFAST TRAY BEDSIDE
[2020-10-20] MEDS ORDERED: AZTREONAM 1,000 MG VIAL ONE (09:07)
[2020-10-20] MEDS: AZTREONAM 1,000 MG in DEXTROSE 5% 50 ML IV SCH ×2 (09:20→20:58)
[2020-10-20] MEDS: ENOXAPARIN 40 MG/0.4 ML SYR SUBQ SCH (09:22)
--- NOTE | 2020-10-20 09:47 | NUR ---
pt currently resting beside speaking on her phone. vital signs stable. bed in lowest position with siderail x2 up[facility] currently denies any pain
--- NOTE | 2020-10-20 10:24 | NUR ---
pt ambulated to restroom. gait steady
--- NOTE | 2020-10-20 10:28 | NUR ---
pt ambulated to bed 6. gait steady
[2020-10-20] MEDS: NACL 0.9% 1,000 ML IV SCH (11:43)
--- NOTE | 2020-10-20 11:45 | NUR ---
Patient will be admitted to care of DR. SEFERINO REDDY. Admited to [facility]. Will go to room 104B. Belongings list completed. Report to ANGELA MCCLAIN.
--- NOTE | 2020-10-20 11:59 | NUR ---
RECEIVED PT FROM ER PATIENT ALERT, ORIENTED X4, SKIN WARM TO TOUCH RESP. EVEN AND UNLABORED, ON ROOM AIR, NO SHORTNESS OF BREATH NOTED, DRESSING INTACT ON LEFT FOOT, PER PT DRESSING WAS CHANGED AROUND 0900 BY RESIDENT DOCTOR, CALL LIGHT WITHIN EASY REACH, ORIENT TO ROOM.
[2020-10-20 12:05] VITALS: BP 161/75
--- NOTE | 2020-10-20 12:30 | NUR ---
NURSE REPORT Report obtained from charge nurse Ashley and this nurse assume care of patient at 1230. Received patient awakde during noon time No sxs of pain or discomfort. VSS. Afeb.
--- NOTE | 2020-10-20 12:30 | NUR ---
ENDORSED TO PATRICIA, LEFT FOOT ELEVATED ON PILLOWS
[2020-10-20 16:00] VITALS: BP 130/50
[2020-10-20] MEDS: VANCOMYCIN HCL 1.25 GM in NACL 0.9% 250 ML IV SCH (17:46)
--- NOTE | 2020-10-20 19:25 | NUR ---
RECEIVED REPORT OF PT IN STABLE CONDITION.A,A&O.RESP UNLABORED.CALL LIGHT WITHIN REACH.IVF INFUSING WELL.WILL CONT.MONITORING.
[2020-10-20 20:00] VITALS: BP 142/68
[2020-10-21] MEDS: NACL 0.9% 1,000 ML IV SCH (01:00)
--- NOTE | 2020-10-21 01:00 | NUR ---
SLEEPING.NO DISTRESS NOTED.
[2020-10-21 04:00] VITALS: BP 150/65
--- NOTE | 2020-10-21 06:37 | NUR ---
IK=510.NO COVERAGE NEEDED.CONDITION STABLE.
--- NOTE | 2020-10-21 07:25 | NUR ---
ENDORSED TO AM RN IN STABLE CONDITION.
--- NOTE | 2020-10-21 07:27 | NUR ---
RECEIVED REPORT FROM NIGHT NURSE BARBARA PATIENT IS AAOX 4 ON ROOM AIR, AMBULATORY ON CCHO 60 GRAMS DIET LAST BLOOD SUGAR 149 MG/DL NO INSULIN COVERAGE, IV INTACT ON THE RIGHT AC RUNNING NS AT 75 MLS/HR, ON IV ANTIBIOTICS AND WOUND CONSULT FOR DR LINDO. SAFETY MEASURES IN PLACE AND CALL LIGHT WITHIN REACH. WILL CONTINUE TO MONITOR.
[2020-10-21] MEDS: BLOOD GLUCOSE MONITORING 1 DEV DEV FS SCH ×4 (07:30→21:50)
[2020-10-21 08:00] VITALS: BP 152/86
--- NOTE | 2020-10-21 08:43 | NUR ---
PATIENT HAS BEEN SCREENED AND CATEGORIZED HIGH NUTRITION RISK. PATIENT WILL BE SEEN WITHIN 1-2 DAYS OF ADMISSION. 10/21/20 FNS CONSULT RECEIVED FOR WOUNDS/PRESSURE INJURIES FILIPE VARELA RD
--- NOTE | 2020-10-21 08:49 | NUR ---
Wound consult not done, pt. seen / treated and follow up by in house podiatry team.
[2020-10-21] MEDS: ONDANSETRON 4 MG/2 ML VIAL IVP PRN ×2 (09:16→15:06)
[2020-10-21] MEDS: MORPHINE SULFATE 4 MG/ML SYR IVP PRN ×3 (09:17→22:12)
[2020-10-21] MEDS: AZTREONAM 1,000 MG in DEXTROSE 5% 50 ML IV SCH ×2 (09:17→21:49)
--- NOTE | 2020-10-21 09:17 | NUR ---
ADMINISTERED SCHEDULED MEDICATION AND PATIENT FEELS NAUSEOUS AND PAIN IN THE LEFT FOOT 10/20 CHECK VITAL SIGNS BP 155/83 NH 86 PAIN MEDICATIONS GIVEN. WILL CONTINUE TO MONITOR.
[2020-10-21] MEDS: ENOXAPARIN 40 MG/0.4 ML SYR SUBQ SCH (09:19)
--- NOTE | 2020-10-21 09:30 | NUR ---
PATIENT IS FOR SURGERY TOMORROW FOR INCISION AND DRAINAGE REMOVE ALL DEVITALIZED SOFT TISSUE ABD. BONE WITH POSSIBLE BONE BIOPSY AT THE LEFT FOOT AND LEG. PATIENT SIGNED THE CONSENT AND DR BA WAS ABLE TO EXPLAIN THE PROCEDURE AND THE RISK OF SURGERY, PAT AGREED. ATTENDING SURGEON IS DR LINDO. WILL CONTINUE TO MONITOR.
--- NOTE | 2020-10-21 10:25 | NUR ---
PATIENT NEGATIVE FOR COVID 19 ANTHONY.
[2020-10-21 10:47] LABS: BASOPHILS # (AUTO) 0.1 K/uL (0.00-0.22); BASOPHILS % (AUTO) 0.8 % (0.0-2.0); EOSINOPHILS # (AUTO) 0.3 K/uL (0-0.4); EOSINOPHILS % (AUTO) 2.4 % (0.0-4.0); HEMATOCRIT 36.4 % (36-48); HEMOGLOBIN 11.8 g/dL (12.0-16.0); LYMPHOCYTES # (AUTO) 1.9 K/uL (2.5-16.5); LYMPHOCYTES % (AUTO) 18.1 % (20.5-51.1); MEAN CORPUSCULAR HEMOGLOBIN 28 pg (27-31); MEAN CORPUSCULAR HGB CONC 32 g/dL (33-37); MEAN CORPUSCULAR VOLUME 86.3 fL (80-94); MONOCYTES # (AUTO) 0.6 K/uL (0.8-1.0); MONOCYTES % (AUTO) 5.7 % (1.7-9.3); NEUTROPHILS # (AUTO) 7.8 K/uL (1.8-7.7); PLATELET COUNT (AUTO) 331 K/uL (140-450); RED BLOOD CELL COUNT(AUTO) 4.22 MIL/uL (4.20-5.40); RED CELL DISTRIBUTION WIDTH 13.8 % (11.6-13.7); WHITE BLOOD COUNT (AUTO) 10.7 K/uL (4.8-10.8)
[2020-10-21] MEDS: INSULIN LISPRO SLIDING SCALE 100 UNITS/ML VIAL SUBQ PRN ×2 (11:24→16:31)
--- NOTE | 2020-10-21 11:25 | NUR ---
BLOOD SUGAR 198 MG/DL INSULIN COVERAGE 2 UNITS GIVEN. WILL CONTINUE TO MONITOR.
--- NOTE | 2020-10-21 12:42 | NUR ---
PATIENT SIGNED CONSENT FOR PICC LINE INSERTION, DR REDDY DISCUSSED THE RISK AND ADVANTAGES OF THE PICC LINE.
--- NOTE | 2020-10-21 15:06 | NUR ---
PATIENT COMPLAINS OF PAIN IN THE LEFT FOOT 8/10 PAIN MEDICATION GIVEN
--- NOTE | 2020-10-21 15:47 | NUR ---
10/21/20 RD INITIAL ASSESSMENT COMPLETED PLEASE REFER TO NUTRITION ASSESSMENT UNDER CARE ACTIVITY FOR ESTIMATED NUTRITIONAL NEEDS. 1. CONTINUE CCHO, 60 GMS DIET TOLERATED 2. RECOMMEND PENNY BID FOR WOUND HEALING 3. RD TO FOLLOW-UP 3-5 DAYS, MODERATE RISK FILIPE VARELA, BEATRIZ
[2020-10-21 16:00] VITALS: BP 148/72
[2020-10-21] MEDS: VANCOMYCIN HCL 1.25 GM in NACL 0.9% 250 ML IV SCH (16:32)
--- NOTE | 2020-10-21 16:36 | NUR ---
ADMINISTERED SCHEDULED MEDICATION VANCOMYCIN AND BLOOD SUGAR 181 MG/DL INSULIN COVERAGE GIVEN 2 UNITS.
--- NOTE | 2020-10-21 19:23 | NUR ---
ENDORSED TO NIGHT NURSE FOR CONTINUITY OF CARE. PT IS STABLE
--- NOTE | 2020-10-21 19:30 | NUR ---
RECEIVED REPORT FROM RN DAYSHIFT NURSE AT BEDSIDE FOR CONTINUITY OF CARE, PT IN STABLE CONDITION.
[2020-10-21 20:00] VITALS: BP 152/75
--- NOTE | 2020-10-21 20:00 | NUR ---
PT SITTING UP IN BED AOX4 WITH LEFT FOOT WRAPPED IN EMILIANA BANDAGE WHICH IS DRY AND INTACT. PT HAS DOUBLE LUMEN RIGHT UPPER ARM PICC LINE WHICH IS RUNNING TO KVO V/S FOLLOWS: R 97.6 P 77 R 18 B/P 152/72 02 95% ON ROOM AIR.
--- NOTE | 2020-10-21 21:00 | NUR ---
PT FINGERSTICK IS 168, PT DECLINED ANY HUMALOG COVERAGE, PT IS AWARE OF NPO AFTER MIDNIGHT STATUS DUE TO PENDING FOOT SURGERY.
--- NOTE | 2020-10-21 21:35 | NUR ---
IV AZACTAM IV ABT HUNG AND RUNNING AT 100MLS/HR ORDERED. EDUCATION REGARDING MEDICATION AND PURPOSES PROVIDED AT BEDSIDE, PT VERBALIZED UNDERSTANDING. PT ALSO REQUESTED TO BE MOVED TO BED B SO THAT IT IS EASIER TO AMBULATE TO THE TOILET. SPOKE WITH CHARGE AND TELEMONITOR, PT OK TO MOVE TO BED B.
--- NOTE | 2020-10-21 22:30 | NUR ---
PT MOVED TO BED B. SHE ALSO C/O OF SEVERE PAIN IN LEFT FOOT AND WAS GIVEN PRN/IVP MORPHINE. WILL MONITOR FOR EFFECT. ALL FALLS PRECAUTIONS IN PLACE.
--- NOTE | 2020-10-22 01:00 | NUR ---
PT IN BED ASLEEP ALL UNIVERSAL FALLS PRECAUTIONS IN PLACE.
[2020-10-22] MEDS: MORPHINE SULFATE 4 MG/ML SYR IVP PRN ×3 (03:13→22:32)
--- NOTE | 2020-10-22 03:30 | NUR ---
PT AWAKE, AMBULATE TO TOILET AND BACK WITH A STEADY GAIT, GIVEN IVP MORPHINE FOR C/O OF SEVERE PAIN . ALL ORDERED PRECAUTIONS IN PLACE.
[2020-10-22 04:00] VITALS: BP 151/57
--- NOTE | 2020-10-22 04:35 | NUR ---
PT IN BED V/S FOLLOWS: T 97.6 P 79 R 18 B/P 151/57 02 96% ON ROOM AIR.
--- NOTE | 2020-10-22 06:30 | NUR ---
FINGERSTICK IS 164, PT DECLINED HUMALOG COVERAGE.
[2020-10-22] MEDS: BLOOD GLUCOSE MONITORING 1 DEV DEV FS SCH ×5 (06:36→21:16)
--- NOTE | 2020-10-22 07:30 | NUR ---
Received report from night nurse. first initial contact with pt. introduced myself as day nurse. Safety precautions are in place. Call light is within reach. Will continue plan of care.
[2020-10-22 08:00] VITALS: BP 99/68
[2020-10-22] MEDS: ENOXAPARIN 40 MG/0.4 ML SYR SUBQ SCH (09:17)
[2020-10-22] MEDS: AZTREONAM 1,000 MG in DEXTROSE 5% 50 ML IV SCH ×2 (09:18→22:24)
--- NOTE | 2020-10-22 09:24 | NUR ---
ADMINISTER SCHEDULED MEDICATIONS PER MD ORDER. EDUCATED PT ON MEDICATIONS MOA AND SIDE EFFECT. LAB CAME IN TO DRAW BLOOD BUT PT HAS PICC LINE SO I ATTEMPTED TO DRAW BLOOD AND BLOOD DRAWN WAS UNSUCCESSFUL DUE TO BLOOD NOT COMING OUT FAST ENOUGH. OIL WELL SERVICES SUPERINTENDENT DID A BLOOD DRAW. PT VERBALIZED UNDERSTANDING AND HAD NO QUESTIONS. PRE OP CHECKLIST HAS BEEN DONE AND CONSENT HAS BEEN SIGNED. CALL LIGHT IS WITHIN REACH. SAFETY PRECAUTIONS ARE IN PLACE. WILL CONTINUE TO MONITOR.
[2020-10-22] MEDS ORDERED: HYDROGEN PEROXIDE 3% 240 ML BTL TP ONE (09:28)
[2020-10-22 09:35] LABS: ANION GAP 12.2 (8-16); CARBON DIOXIDE 22.8 mmol/L (21-32); CREATININE 1.1 mg/dL (0.6-1.3)
--- NOTE | 2020-10-22 09:35 | NUR ---
PT LEFT TO OR FOR D AND I.
[2020-10-22] MEDS ORDERED: LIDOCAINE 1% 500 MG/50 ML VIAL ONE (09:56)
[2020-10-22] MEDS ORDERED: BUPIVACAINE-MPF 0.5% 30 ML VIAL INJ ONE (09:56)
[2020-10-22] MEDS ORDERED: fentaNYL citrate 0.05 MG/ML VIAL ONE (10:00)
[2020-10-22] MEDS ORDERED: SEVOFLURANE 250 ML BTL INH ONE (10:07)
[2020-10-22] MEDS ORDERED: ONDANSETRON 4 MG/2 ML VIAL IVP PRN (10:45)
[2020-10-22] MEDS: LACTATED RINGERS 1,000 ML IV SCH ×2 (10:45→19:05)
[2020-10-22] MEDS ORDERED: diphenhydrAMINE 50 MG/ML VIAL IVP PRN (10:45)
[2020-10-22] MEDS ORDERED: MEPERIDINE 25 MG/ML SYR IVP PRN (10:45)
[2020-10-22] MEDS ORDERED: ETOMIDATE 20 MG/10 ML VIAL IVP ONE (10:48)
[2020-10-22] MEDS ORDERED: LIDOCAINE MPF 2% 100 MG/5 ML VIAL INJ ONE (10:48)
[2020-10-22] MEDS ORDERED: ROCURONIUM 50 MG/5 ML VIAL IV ONE (10:48)
[2020-10-22] MEDS ORDERED: PROPOFOL 200 MG/20 ML VIAL IV ONE (10:48)
[2020-10-22] MEDS ORDERED: KETOROLAC 30 MG/ML VIAL ONE (10:49)
[2020-10-22] MEDS ORDERED: METOCLOPRAMIDE 10 MG/2 ML INJ VIAL ONE (10:49)
[2020-10-22] MEDS ORDERED: NEOSTIGMINE 1:1000 10 MG/10 ML VIAL ONE (10:49)
[2020-10-22] MEDS ORDERED: SUCCINYLCHOLINE CHLORIDE 200 MG/10 ML VIAL IVP ONE (10:49)
[2020-10-22] MEDS ORDERED: ONDANSETRON 4 MG/2 ML VIAL ONE (10:49)
[2020-10-22] MEDS ORDERED: GLYCOPYRROLATE 0.2 MG/ML VIAL ONE (10:49)
[2020-10-22] MEDS: fentaNYL citrate 0.05 MG/ML VIAL IVP PRN ×2 (11:17→11:27)
--- NOTE | 2020-10-22 12:01 | NUR ---
PT RETURNED FROM OR WITH A I AND D ON LEFT FOOT WHICH DRESSING WRAPPING. PT IS AWAKE AND ALERT. INITIAL VS ARE BP: 179/79,CO:74, TEMP 97.9 RR:17 AND PAIN IS LEVEL OF 2. PT DID NOT WANT PAIN MEDICATIONS. PT SHOWS NO SIGNS OF ACUTE DISTRESS. WILL CONTINUE TO MONITOR VS PER FACILITY PROTOCOL.
--- NOTE | 2020-10-22 12:21 | NUR ---
NOTIFIED DR. REDDY OF PT'S HIGH BP OF 172/79 [place]:74. DR REDDY REPLIED WITH NOT TO GIVE BP MEDS AND STOP FLUIDS.
--- NOTE | 2020-10-22 12:39 | NUR ---
ASSESSED BG AND IT WAS 154MG/DL. PT REUSED INSULIN COVERAGE DUE TO COVERAGE ONLY BEING ONE UNIT. PT WAS EDUCATED ON THE POTENTIAL SIDE EFFECTS OF REFUSING INSULIN COVERAGE AND WAS ALSO EDUCATED ON THE BENEFITS OF HAVING INSULIN COVERAGE. PT REFUSED. PT IS NOT UNDER APPARENT DISTRESS. WILL CONTINUE TO MONITOR.
--- NOTE | 2020-10-22 13:50 | NUR ---
DC PLANNING: PATIENT GOING TO SURGERY FOR I&D OF LEFT FOOT AND LEG. ON IV ABX X 2. CM WILL FOLLOW FOR NEEDS. Addendum: 10/22/20 at 1605 by Kyleigh Quinonez CM DC PLANNING: CM SPOKE WITH PATIENT AT BEDSIDE S/P I&D OF LEFT FOOT. PATIENT LIVES IN A SINGLE STORY HOUSE WITH HER SON CECIL. CONFIRMED ADDRESS AND PHONE NUMBER PER FACE SHEET. PATIENT HAS DME OF FWW, WC AND SHOWER BENCH, GLUCOMETER HAS BEEN BROKEN FOR THE PAST MONTH. WHEN PATIENT HAS A GLUCOMETER SHE CHECKS HER BS'S 3XDAY, AND IS ON GLYPIZIDE. PATIENT STATES THAT SHE'S COMPLIANT WITH [employer] DIET. PATIENT IS NORMALLY INDEPENDENT IN ALL ACTIVITIES. HAS HOME HEALTH IN THE PAST ABOUT 1.5 YEARS AGO, CAN'T REMEMBER THE NAME OF THE AGENCY. PATIENT STATES THAT THE ATTENDING MAY DC HER TOMORROW, CM ENDORSED THAT HOME HEALTH WILL BE SET UP FOR WOUND CARE AND OTHER NEEDS PER [facility] CONTRACTED AGENCIES. NO OTHER NEEDS IDENTIFIED, CM WILL CONTINUE TO FOLLOW. Addendum: 10/23/20 at 1326 by Kyleigh Quinonez CM DC PLANNING: TRISTEN SPOKE WITH DR LINDO REGARDING WOUND CARE ORDERS FOR PATIENT ONCE SHE IS DISCHARGED. DR LINDO STATES THAT PATIENT CAN DC ON PO ABX AND NEEDS TO F/U WITH HIM WITHIN 1-2 DAYS OF BEING DC'D FROM HOSPITAL. HE ALSO STATED THAT HE WOULD LIKE PATIENTS WBC TO BE BELOW 9 PRIOR TO DC. TRISTEN ALSO SPOKE WITH THE PATIENT AT BEDSIDE, SHE IS IN AGREEMENT WITH BEING REFERRED TO [facility]. CLINICALS AND WOUND CARE ORDERS SENT TO [facility], PHONE [phone] FAX [phone]. WOUND CARE SUPPLIES TO 2 DRESSING CHANGES NEED TO BE SENT WITH THE PATIENT UPON DISCHARGE. TRISTEN WILL FOLLOW FOR NEEDS. Addendum: 11/03/20 at 1128 by Kyleigh Quinonez CM DC PLANNING: PATIENT S/P CLOSURE OF WOUND WITH GRAFT ON 11/02. POSSIBLE DC TO HOME WITH HOME HEALTH, WILL OBTAIN WOUND CARE ORDERS.' FOLLOW UP APPOINTMENT MADE FOR PATIENT WITH DR. LINDO ON 11/10 AT 11:30 AM. INFORMATION ON FOLLOW UP APPOINTMENT GIVEN TO PATIENT. CM WILL SPEAK WITH [facility] ONCE WOUND CARE ORDERS ARE CLARIFIED, AND WILL FOLLOW FOR NEEDS. Addendum: 11/03/20 at 1143 by Kyleigh Quinonez CM DC PLANNING: TRISTEN SPOKE WITH THE PATIENT AT BEDSIDE, SHE STATES THAT DR LINDO WILL BE UNWRAPPING HER FOOT TOMORROW AND THAT HER WOUND CARE AFTER DC WILL BE DETERMINED THEN. ENDORSED THAT [facility] WILL BE FOLLOWING HER, AND SHE CONFIRMED THAT SHE WILL CONTINUE ON PO ABX AFTER DC PER MD. CASTILLO NOTIFIED OF POTENTIAL DC IN 24-48 HRS, TRISTEN WILL CONTINUE TO FOLLOW FOR NEEDS. Addendum: 11/03/20 at 1617 by Kyleigh Quinonez CM DC PLANNING: DC ORDER RECEIVED, TRISTEN SPOKE WITH DR ENGLAND TO ASK ABOUT WOUND ARE ORDERS, MD STATES TO DISREGARD DC ORDER HE JUST FOUND OUT THAT DR LINDO WILL BE PROVIDING WOUND CARE IN AM. TRISTEN WILL FOLLOW FOR NEEDS.
--- NOTE | 2020-10-22 15:12 | NUR ---
PT COMPLAINED OF LEFT FOOT PAIN RATED AT 7/10 WHICH IS A BURNING PAIN AND IT STARTED TODAY AFTER SURGERY. WILL CONTINUE WITH PAIN MEDICATIONS.
--- NOTE | 2020-10-22 15:25 | NUR ---
ADMINISTERED 4MG OF MORPHINE SULFATE IVP FOR PAIN 7/10 ON LEFT FOOT WHICH IS DESCRIBED A BURNING SENSATION. BP:189/83 CA: 71 EDUCATED PT ON MEDICATION MOA AND SIDE EFFECTS. PT VERBALIZED UNDERSTANDING. WILL REASSESS PAIN IN 30 MINUTES. PT IS NOT UNDER ACUTE DISTRESS. CALL LIGHT IW WITHIN REACH. WILL CONTINUE TO MONITOR.
--- NOTE | 2020-10-22 15:25 | NUR ---
ASSESSED MIDLINE AND IT WAS BLOODY. IV INFUSION WAS LEAKING. MIDLINE WAS PATENT AND NO RESISTANCE WAS MET WHEN FLUSHING LINE. STOPPED ABX . PT REQUESTED TO GET MIDLINE PLACED ON LEFT SIDE SINCE SHE IS A HARD STICK AND DOES NOT WANT TO BE POKED MULTIPLE TIMES. I NOTIFIED DR. REDDY AND HE SAID ANOTHER MIDDLINE PLACEMENT WAS NOT NEEDED. WILL ATTEMPT IV ACCESS.
--- NOTE | 2020-10-22 16:00 | NUR ---
REASSESS PAIN AND PAIN WENT DOWN TO 4 FROM 09/19. PAIN INTERVENTION WAS EFFECTIVE.
[2020-10-22] MEDS: VANCOMYCIN HCL 1.25 GM in NACL 0.9% 250 ML IV SCH (17:18)
--- NOTE | 2020-10-22 17:19 | NUR ---
ADMINISTERED SCHEDULED MEDICATIONS PER MD ORDER. PT VERBALIZED UNDERSTANDING OF MEDICATIONS. PT IS NOT IN ACUTE DISTRESS WILL CONTINUE TO MONITOR.
--- NOTE | 2020-10-22 19:30 | NUR ---
ENDORSED PT TO NIGHT NURSE FOR CONTINUITY OF CARE. PT IS STABLE.
--- NOTE | 2020-10-22 19:31 | NUR ---
RECEIVED BEDSIDE ENDORSEMENT FROM AM SHIFT RN. PATIENT IS AAOX4, ON ROOM AIR, DENIES PAIN, W/ PATY MIDLINE, AM NURSE SAID THE MIDLINE IS LEAKING, DR. REDDY IS AWARE PER ENDORSED AND SAID TO STOP THE IVF. ALSO AM NURSE SAID THAT IS AWARE OF PT'S BP AND NO NEW ORDER. SAFETY MEASURES IN PLACE, PLAN OF CARE DISCUSSED, WILL CONTINUE TO MONITOR, CALL LIGHT WITHIN REACH.
[2020-10-22 20:00] VITALS: BP 150/72
--- NOTE | 2020-10-22 21:19 | NUR ---
BLOOD SUGAR CHECKED 146, NO COVERAGE NEEDED, WILL TRY TO RE-INSERT IV CATH, MIDLINE IS LEAKING.
--- NOTE | 2020-10-22 22:20 | NUR ---
RE-INSERTED IV CATH, ATTEMPTED X1 TO RH 22 G, W/ GOOD BLOOD RETURN, AZACTAM IV GIVEN ORDERED, MORPHINE IVP GIVEN PRN BECAUSE PT C/O 8/10 PAIN ON LEFT FOOT. WILL MONITOR, CALL LIGHT WITHIN REACH.
[2020-10-22] MEDS ORDERED: cefTRIAXone 1,000 MG VIAL ONE (22:59)
--- NOTE | 2020-10-22 23:39 | NUR ---
NO RECEPHIN IV ORDER, DID NOT ADMINISTER MED.
--- NOTE | 2020-10-23 02:02 | NUR ---
CHECKED PATIENT, NO SOB, RESPIRATION EVEN AND UNLABORED, CALL LIGHT WITHIN REACH.
[2020-10-23] MEDS: MORPHINE SULFATE 4 MG/ML SYR IVP PRN ×5 (02:46→21:33)
[2020-10-23] MEDS: LACTATED RINGERS 1,000 ML IV SCH ×2 (03:25→09:08)
[2020-10-23 04:00] VITALS: BP 150/69
--- NOTE | 2020-10-23 06:07 | NUR ---
MANUFACTURING BUSINESS ANALYST CAME IN AND DO THE DRESSING CHANGE, PT IS IN SO MUCH PAIN. SAID THAT IT'S OK TO GIVE THE MORPHINE NOW BECAUSE HE'S DOING THE DRESSING CHANGE. MORPHINE 4MG IVP GIVEN, PATIENT APPRECIATED.
[2020-10-23] MEDS: BLOOD GLUCOSE MONITORING 1 DEV DEV FS SCH ×4 (06:25→21:00)
--- NOTE | 2020-10-23 07:30 | NUR ---
PATIENT STABLE, ALL NEEDS ATTENDED, ENDORSED AT BEDSIDE TO AM SHIFT RN.
--- NOTE | 2020-10-23 07:30 | NUR ---
RECEIVED REPORT FROM NIGHT NURSE FOR CONTINUITY OF CARE. WILL CONTINUE POC.
[2020-10-23] MEDS: AZTREONAM 1,000 MG in DEXTROSE 5% 50 ML IV SCH ×2 (09:04→21:32)
[2020-10-23] MEDS: ENOXAPARIN 40 MG/0.4 ML SYR SUBQ SCH (09:06)
--- NOTE | 2020-10-23 09:22 | NUR ---
ADMINISTERED SCHEDULED MEDICATIONS PER MD ORDER. EDUCATED PT ON MEDICATIONS MOA AND SIDE EFFECTS. PT VERBALIZED UNDERSTANDING OF MEDICATION TEACHING. ASSESSED IV PATENCY AND IV SITE WAS INTACT. CONDUCTED A FOCUSED ASSESSMENT. PT IS NOT IN PAIN. PT IS NOT IN ACUTE DISTRESS. IV FLUIDS ARE RUNNING WELL. SAFETY PRECAUTIONS ARE IN PLACE. CALL LIGHT IS WITHIN REACH. WILL CONTINUE TO MONITOR.
[2020-10-23] MEDS: INSULIN LISPRO SLIDING SCALE 100 UNITS/ML VIAL SUBQ PRN ×3 (11:48→22:23)
--- NOTE | 2020-10-23 11:55 | NUR ---
ADMINISTER 2 UNITS OF HUMALOG FOR BG OF 186 MG/DL AND 4MG OF MORPHINE FOR PAIN 7/10 WHICH IS DESCRIBED BURNING. PT WAS EDUCATED ON MEDICATIONS SIDE EFFECTS AND MOA. PT VERBALIZED UNDERSTANDING. SAFETY PRECAUTIONS ARE IN PLACE. CALL LIGHT IS WITHIN REACH. WILL CONTINUE TO MONITOR. BP WAS 156/76 GA:77.
[2020-10-23 12:00] VITALS: BP 163/68
--- NOTE | 2020-10-23 12:30 | NUR ---
RE ASSESSED PAIN AND IT WENT DOWN TO 4/10 PAIN MEDICATIONS AND INTERVENTIONS WAS EFFECTIVE. WILL CONTINUE TO MONITOR.
--- NOTE | 2020-10-23 14:00 | NUR ---
ROUNDED ON PT. ROSIBEL IS NOT UNDER NO ACUTE DISTRESS. PT IS WATCHING TELEVISION. WILL CONTINUE TO MONITOR.
[2020-10-23 14:58] LABS: ALBUMIN 2.4 g/dL (3.4-5.0); ANION GAP 7.5 (8-16); CARBON DIOXIDE 26.2 mmol/L (21-32); POTASSIUM 4.7 mmol/L (3.5-5.1); TOTAL BILIRUBIN 0.3 mg/dL (0.0-1.0)
[2020-10-23] MEDS: VANCOMYCIN HCL 1.25 GM in NACL 0.9% 250 ML IV SCH (16:21)
--- NOTE | 2020-10-23 16:35 | NUR ---
ADMINISTERED SCHEDULED MEDICATIONS PER MD ORDER. ADMINISTERED MORPHINE IVP FOR PAIN RATED A 7/10. BP WAS 161/77 WI 74. EDUCATED PPT ON MEDICATIONS MOA AND SIDE EFFECTS. PT VERBALIZED UNDERSTANDING. INFUSION IS RUNNING WELL. PT IS REQUESTING FOR MIDDLINE TO BE DC'D DUE TO NOT BEING PATENT. ASKED CHARGE NURSE JACE IF I COULD DC LINE AND SHE SAID IT WAS OKAY. WILL CONTINUE PLAN OF CARE.
--- NOTE | 2020-10-23 17:01 | NUR ---
pt was complaining of pain of midline. midline was not patent. pt requested midline to be dc'd. i asked charge nurse roselia if it was okay to dc. michele said it was okay and i did not need md order. Pt tolerated middline dc well. middline catheter was intact. applied 2x2 gauze. applied pressure for 10 minutes. pt felt relief went middline was dc'd. will continue to monitor.
--- NOTE | 2020-10-23 17:30 | NUR ---
RE ASSESSED PT FOR PAIN AND PAIN WENT DOWN TO 3/10 FROM 09/19 . PAIN INTERVENTION WITH MEDICATION WAS EFFECTIVE. WILL CONTINUE POC.
--- NOTE | 2020-10-23 19:30 | NUR ---
ENDORSED PT TO NIGHT NURSE FOR CONTINUITY OF CARE.PT IS STABLE.
[2020-10-23 20:12] VITALS: BP 155/74
--- NOTE | 2020-10-24 00:54 | NUR ---
I RECEIVED PT IN BED ALERT ORIENTED X4 , VSS , DENIES PAIN , ON IVF TKO SITE DEENA HAS A CARLOS MANUEL DREASSING ON LEFT FOOT. SHE IS ON RA CLEAR LUNGS , SHE IS NO SLEEPING .
[2020-10-24 04:38] VITALS: BP 155/78
[2020-10-24] MEDS: BLOOD GLUCOSE MONITORING 1 DEV DEV FS SCH ×4 (06:19→21:00)
--- NOTE | 2020-10-24 06:25 | NUR ---
PT SLEPT WELL AFTER CONTROLLING HER PAIN VSS.DENIES PAIN .
--- NOTE | 2020-10-24 07:30 | NUR ---
PT RECEIVED FROM FORMULA MAKER RN. PT RESTING IN BED EYES OPEN, BREATHING IS SYMMETRICAL AND UNLABORED. NO S/SX OF DISTRESS AT THIS TIME . DENIES PAIN. ALL SAFETY MEASURES ARE IN PLACE.
[2020-10-24 07:52] LABS: BASOPHILS # (AUTO) 0.1 K/uL (0.00-0.22); BASOPHILS % (AUTO) 0.7 % (0.0-2.0); EOSINOPHILS # (AUTO) 0.3 K/uL (0-0.4); EOSINOPHILS % (AUTO) 3.1 % (0.0-4.0); HEMOGLOBIN 10.6 g/dL (12.0-16.0); LYMPHOCYTES % (AUTO) 22.9 % (20.5-51.1); MEAN CORPUSCULAR HEMOGLOBIN 28 pg (27-31); MEAN CORPUSCULAR HGB CONC 33 g/dL (33-37); MONOCYTES # (AUTO) 0.8 K/uL (0.8-1.0); MONOCYTES % (AUTO) 9.1 % (1.7-9.3); NEUTROPHILS # (AUTO) 5.5 K/uL (1.8-7.7); NEUTROPHILS % (AUTO) 64.2 % (42.2-75.2); PLATELET COUNT (AUTO) 254 K/uL (140-450); RED BLOOD CELL COUNT(AUTO) 3.76 MIL/uL (4.20-5.40); RED CELL DISTRIBUTION WIDTH 13.6 % (11.6-13.7); WHITE BLOOD COUNT (AUTO) 8.6 K/uL (4.8-10.8)
--- NOTE | 2020-10-24 08:10 | NUR ---
BARREL LOADER AND CLEANER AT BEDSIDE
[2020-10-24] MEDS: AZTREONAM 1,000 MG in DEXTROSE 5% 50 ML IV SCH (08:15)
[2020-10-24] MEDS: MORPHINE SULFATE 4 MG/ML SYR IVP PRN ×3 (08:15→22:32)
[2020-10-24] MEDS: ENOXAPARIN 40 MG/0.4 ML SYR SUBQ SCH (08:16)
[2020-10-24] MEDS ORDERED: HYDROGEN PEROXIDE 3% 240 ML BTL TP ONE (08:25)
--- NOTE | 2020-10-24 08:40 | NUR ---
SUPPLIES PROVIDED TO EDM OPERATOR. PT EDUCATED AND VERBALIZED UNDERSTANDING
--- NOTE | 2020-10-24 08:45 | NUR ---
MEDICATIONS GIVEN PER MD ORDER. PT STATES SHE WILL BE IN PAIN FOR WOUND CLEANING , PRN MEDICATION GIVEN PER MD ORDER. PT EDUCATED AND VERBALIZED UNDERSTANDING
[2020-10-24] MEDS: LINEZOLID 600 MG TAB PO SCH ×2 (10:46→21:00)
--- NOTE | 2020-10-24 11:30 | NUR ---
BG 174 . PRN INSULIN PROVIDED
[2020-10-24 12:00] VITALS: BP 136/64
[2020-10-24] MEDS: INSULIN LISPRO SLIDING SCALE 100 UNITS/ML VIAL SUBQ PRN ×2 (12:24→23:28)
--- NOTE | 2020-10-24 12:29 | NUR ---
PATIENT COMPLAINS OF PAIN
--- NOTE | 2020-10-24 14:20 | NUR ---
PT RESTING IN BED, NO S/SX OF DISTRESS.
--- NOTE | 2020-10-24 16:30 | NUR ---
BG 165, PT REFUSES INSULIN. 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
--- NOTE | 2020-10-24 18:20 | NUR ---
AR GIVEN DINNER TOLERATED WELL DENIES N/V
--- NOTE | 2020-10-24 19:30 | NUR ---
PT ENDORSED TO CLARIFIER OPERATOR RN FOR CONTINUITY OF CARE
[2020-10-24 20:33] VITALS: BP 149/74
[2020-10-24] MEDS: CIPROFLOXACIN 250 MG TAB PO SCH (21:00)
[2020-10-25 05:31] VITALS: BP 140/74
[2020-10-25] MEDS: MORPHINE SULFATE 4 MG/ML SYR IVP PRN ×4 (05:42→22:32)
--- NOTE | 2020-10-25 07:00 | NUR ---
the doctor came and did wound care after i had given her morphine , she slept well vss
[2020-10-25] MEDS: BLOOD GLUCOSE MONITORING 1 DEV DEV FS SCH ×4 (07:07→21:00)
[2020-10-25] MEDS: INSULIN LISPRO SLIDING SCALE 100 UNITS/ML VIAL SUBQ PRN ×3 (07:08→16:43)
--- NOTE | 2020-10-25 07:36 | NUR ---
REPORT RECEIVED FROM FISH FRYER NURSE.
[2020-10-25 07:59] LABS: BASOPHILS # (AUTO) 0.1 K/uL (0.00-0.22); BASOPHILS % (AUTO) 0.9 % (0.0-2.0); EOSINOPHILS # (AUTO) 0.3 K/uL (0-0.4); EOSINOPHILS % (AUTO) 3.1 % (0.0-4.0); HEMATOCRIT 31.3 % (36-48); HEMOGLOBIN 10.5 g/dL (12.0-16.0); LYMPHOCYTES # (AUTO) 2.1 K/uL (2.5-16.5); LYMPHOCYTES % (AUTO) 23.5 % (20.5-51.1); MEAN CORPUSCULAR HEMOGLOBIN 28 pg (27-31); MEAN CORPUSCULAR HGB CONC 34 g/dL (33-37); MEAN CORPUSCULAR VOLUME 84.7 fL (80-94); MONOCYTES # (AUTO) 0.7 K/uL (0.8-1.0); MONOCYTES % (AUTO) 8.2 % (1.7-9.3); NEUTROPHILS # (AUTO) 5.8 K/uL (1.8-7.7); NEUTROPHILS % (AUTO) 64.3 % (42.2-75.2); PLATELET COUNT (AUTO) 247 K/uL (140-450); RED BLOOD CELL COUNT(AUTO) 3.69 MIL/uL (4.20-5.40); RED CELL DISTRIBUTION WIDTH 13.6 % (11.6-13.7); WHITE BLOOD COUNT (AUTO) 9.1 K/uL (4.8-10.8)
[2020-10-25] MEDS: LINEZOLID 600 MG TAB PO SCH ×2 (08:27→21:00)
[2020-10-25] MEDS: CIPROFLOXACIN 250 MG TAB PO SCH ×2 (08:27→21:00)
[2020-10-25] MEDS: ENOXAPARIN 40 MG/0.4 ML SYR SUBQ SCH (08:28)
--- NOTE | 2020-10-25 08:33 | NUR ---
MEDICATIONS GIVEN PER MD ORDER. PT EDUCATED AND VERBALIZED UNDERSTANDING. NO S/SX OF DISTRESS.
--- NOTE | 2020-10-25 11:46 | NUR ---
BG 204 , INSULIN GIVEN PER SLIDING SCALE NO S/SX OF DISTRESS.
[2020-10-25 12:00] VITALS: BP 127/68
--- NOTE | 2020-10-25 16:05 | NUR ---
BG ASSESSED 197
--- NOTE | 2020-10-25 18:25 | NUR ---
PT COMPLAINS OF PAIN . PRN MEDICATION WILL BE GIVEN 10/20
--- NOTE | 2020-10-25 19:24 | NUR ---
PT ENDORSED TO SENIOR INFORMATION SECURITY CONSULTANT RN . PT STABLE .
[2020-10-25 20:00] VITALS: BP 145/75
[2020-10-26] MEDS: MORPHINE SULFATE 4 MG/ML SYR IVP PRN ×4 (05:47→23:26)
[2020-10-26 05:49] VITALS: BP 130/74
--- NOTE | 2020-10-26 05:51 | NUR ---
PT SEPT WELL AFTER CONTROLLING HER PAIN , IN THE MORNINING SHE WAS GIVEN A BEDBATH AND LINEN CHANGED , TOLD ME TO GIVE HER HER MORPHINE THAT HE WAS ON HIS WAY TO COME AND CHANGE DRESSING SO WE ALSO TOOK PICTURE
--- NOTE | 2020-10-26 07:24 | NUR ---
PT HAS BEEN ENDORSED BY MACHINE ADJUSTER HELPER NURSE FOR CONTINUITY OF CARE, POC DISCUSSED. PT IS RESTING IN BED WITH NO ACUTE S/S OF DISTRESS, PT VERBALIZED SHE IS NOT IN BED. DR CAME IN AT 0630 TO DO DRESSING CHANGE, PHOTOS TAKEN AND IN CHART. RIGHT AC 22G SALINE LOCK. DISCHARGE ORDER IN PLACE FOR WHEN PATIENTS WBC IS BELOW 9, AM LAB RESULTED IN WBC OF 10. PT REPORTS ALL NEEDS ARE MET AT THIS TIME. ALL SAFETY MEASURES IN PLACE, CALL LIGHT WITHIN REACH. WILL CONTINUE TO MONITOR.
[2020-10-26 07:28] LABS: BASOPHILS # (AUTO) 0.1 K/uL (0.00-0.22); BASOPHILS % (AUTO) 0.7 % (0.0-2.0); EOSINOPHILS # (AUTO) 0.3 K/uL (0-0.4); EOSINOPHILS % (AUTO) 2.8 % (0.0-4.0); HEMATOCRIT 32.4 % (36-48); HEMOGLOBIN 10.7 g/dL (12.0-16.0); LYMPHOCYTES # (AUTO) 2.4 K/uL (2.5-16.5); LYMPHOCYTES % (AUTO) 23.6 % (20.5-51.1); MEAN CORPUSCULAR HEMOGLOBIN 28 pg (27-31); MEAN CORPUSCULAR HGB CONC 33 g/dL (33-37); MONOCYTES # (AUTO) 0.8 K/uL (0.8-1.0); MONOCYTES % (AUTO) 7.6 % (1.7-9.3); NEUTROPHILS # (AUTO) 6.5 K/uL (1.8-7.7); NEUTROPHILS % (AUTO) 65.3 % (42.2-75.2); PLATELET COUNT (AUTO) 261 K/uL (140-450); RED BLOOD CELL COUNT(AUTO) 3.82 MIL/uL (4.20-5.40); RED CELL DISTRIBUTION WIDTH 13.2 % (11.6-13.7)
[2020-10-26] MEDS: BLOOD GLUCOSE MONITORING 1 DEV DEV FS SCH ×4 (07:54→21:12)
[2020-10-26 08:00] VITALS: BP 127/62
[2020-10-26] MEDS: ENOXAPARIN 40 MG/0.4 ML SYR SUBQ SCH (09:00)
--- NOTE | 2020-10-26 09:58 | NUR ---
ROBERTO MEDICATION ADMINISTERED PER MD ORDER, ALL SAFETY MEASURES IN PLACE. CALL LIGHT WITHIN REACH, WILL CONTINUE TO MONITOR.
[2020-10-26] MEDS ORDERED: VANCOMYCIN PER PHARMACY MC PRN (10:05)
[2020-10-26] MEDS: CIPROFLOXACIN 250 MG TAB PO SCH ×2 (10:14→21:08)
[2020-10-26 10:42] LABS: ANION GAP 12.5 (8-16); CARBON DIOXIDE 24.8 mmol/L (21-32); CREATININE 1.4 mg/dL (0.6-1.3); POTASSIUM 5.3 mmol/L (3.5-5.1)
--- NOTE | 2020-10-26 11:08 | NUR ---
PRN PAIN MEDICATION ADMINISTERED PER MD ORDER. PT TOLERATED ADMINISTRATION, ALL SAFETY MEASURES IN PLACE, CALL LIGHT WITHIN REACH WILL CONTINUE TO MONITOR.
[2020-10-26] MEDS: INSULIN LISPRO SLIDING SCALE 100 UNITS/ML VIAL SUBQ PRN ×3 (11:43→21:18)
--- NOTE | 2020-10-26 11:55 | NUR ---
BLOOD GLUCOSE WAS 190, 2 UNITS OF INSULIN ADMINISTERED. PT VERBALIZED HER DESIRE TO GET A PICC LINE, NOTIFIED DR MATTHEW. DR STATED THAT HE DOESN'T NOT WANT HER TO GET A PICC LINE AT THIS TIME. INFORMED PT, PT VERBALIZED OKAY.
[2020-10-26 12:29] VITALS: BP 127/62
[2020-10-26] MEDS: VANCOMYCIN HCL 1.25 GM in DEXTROSE 5% 250 ML IV SCH (12:45)
--- NOTE | 2020-10-26 13:21 | NUR ---
ROBERTO MEDICATION ADMINISTERED PER MD ORDER, PT TOLERATED ADMINISTRATION. ALL NEEDS ARE MET AT THIS TIME. ALL SAFETY MEASURES IN PLACE, CALL LIGHT WITHIN REACH. WILL CONTINUE TO MONITOR.
--- NOTE | 2020-10-26 15:39 | NUR ---
PT VERBALIZED ALL NEEDS ARE MET AT THIS TIME. ALL SAFETY MEASURES IN PLACE, CALL LIGHT WITHIN REACH. WILL CONTINUE TO MONITOR
[2020-10-26 16:00] VITALS: BP 142/65
--- NOTE | 2020-10-26 16:54 | NUR ---
BLOOD GLUCOSE IS 162, 2 UNITS OF INSULIN ADMINISTERED. PT COMPLAINED OF PAIN, WILL MEDICATE PER MD ORDER. ALL SAFETY MEASURES IN PLACE. CALL LIGHT WITHIN REACH. WILL CONTINUE TO MONITOR.
--- NOTE | 2020-10-26 17:16 | NUR ---
10/26/20 RD FOLLOW UP COMPLETED PLEASE REFER TO NUTRITION ASSESSMENT UNDER CARE ACTIVITY FOR ESTIMATED NUTRITIONAL NEEDS. 1. CONTINUE CCHO, 60 GMS DIET TOLERATED 2. CONTINUE PENNY BID FOR WOUND HEALING 3. RD TO FOLLOW-UP 3-5 DAYS, MODERATE RISK FILIPE VARELA, RD
--- NOTE | 2020-10-26 18:13 | NUR ---
PRN PAIN MEDICATION ADMINISTERED PER MD ORDER. PT TOLERATED ADMINISTRATION. ALL SAFETY MEASURES IN PLACE, CALL LIGHT WITHIN REACH, WILL CONTINUE TO MONITOR.
--- NOTE | 2020-10-26 19:06 | NUR ---
ENDORSED TO UNIX CONSULTANT NURSE FOR CONTINUITY OF CARE. PATIENT IS AWAKE AND ALERT IN BED. NO SOB OR RESPIRATORY DISTRESS NOTED. ALL SAFETY MEASURES IN PLACE. CALL LIGHT IS WITHIN REACH.
--- NOTE | 2020-10-26 22:15 | NUR ---
Biometrics Specialist rounds to room. Patient request peripherally inserted central line. Education on refusal of order from MD at this time. Patient maintains it was only a carton counter feeder doctor that did not concur with order. Says IV site is too painful and was stuck 6 times in previous attempt. She says "I want morphine prior to right foot dressing change, but it stings in the IV site." Antwan Fitch RN
--- NOTE | 2020-10-26 23:05 | NUR ---
DISCUSSION WITH PATIENT ABOUT CALL TO MD PER REQUEST. MD DOES NOT CONCUR WITH ORDER FOR PICC LINE AT THIS TIME. PATIENT AGREES TO ATTEMPT WITH PERIPHERAL IV. PORTABLE CANTEEN OPERATOR WILL ATTEMPT NEW PERIPHERAL SITE. MDAALYN GARDNER RN
--- NOTE | 2020-10-26 23:25 | NUR ---
LEFT ARM 22 GAUGE INTRAVENOUS SALINE LOCK PLACEMENT. MADALYN GARDNER RN
[2020-10-27 01:15] VITALS: BP 139/56
[2020-10-27 05:11] VITALS: BP 132/63
[2020-10-27] MEDS: MORPHINE SULFATE 4 MG/ML SYR IVP PRN ×2 (06:05→11:22)
[2020-10-27] MEDS: BLOOD GLUCOSE MONITORING 1 DEV DEV FS SCH ×4 (06:52→21:00)
[2020-10-27] MEDS: INSULIN LISPRO SLIDING SCALE 100 UNITS/ML VIAL SUBQ PRN ×4 (07:04→21:02)
--- NOTE | 2020-10-27 07:35 | NUR ---
HANDOFF WITH ANGELA SORIA. MADALYN GARDNER RN
--- NOTE | 2020-10-27 07:39 | NUR ---
RECEIVED CHANGE OF SHIFT REPORT FROM NIGHT NURSE AT BEDSIDE FOR CONTINUITY OF CARE. REVIEWED AND WILL CONTINUE WITH POC. PT IS CURRENTLY SLEEPING. PT CONDITION IS STABLE. NIGHT NURSE REPORTS THAT PT IS AA&OX4. PT IS ON RA WITH UNLABORED BREATHING. PT HAS PATENT RIGHT FOREARM 22 G SALINE LOCK. NURSE REPORTS THAT PT HAS WOUND ON LEFT FOOT AND LAST DRESSING WAS CHANGED THIS MORNING BY . WILL CONTINUE TO MONITOR AND PERFORM FREQ ROUNDING.
[2020-10-27 08:00] VITALS: BP 155/53
[2020-10-27] MEDS: CIPROFLOXACIN 250 MG TAB PO SCH ×2 (08:32→21:00)
[2020-10-27] MEDS: ENOXAPARIN 40 MG/0.4 ML SYR SUBQ SCH (08:34)
--- NOTE | 2020-10-27 09:30 | NUR ---
PT IS ASLEEP. CHEST RISE AND FALL IS SYMMETRICAL. NO DISTRESS NOTED ON RA. IV IS PATENT AND IN PLACE. DRESSING ON LEFT FOOT IS DRY AND IN TACT. WILL CONTINUE TO MONITOR PT.
--- NOTE | 2020-10-27 11:12 | NUR ---
PT STATES SHE HAS PAIN AT A SCALE OF 8/10 ON HER LEFT FOOT. RECEIVED A VERBAL ORDER FROM DR. MATTHEW TO RESTART PAIN MEDICATION. MORPHINE 4 MG Q4H PRN SEVERE PAIN. NORCO 5 MG Q4H PRN MODERATE PAIN. ORDERS WERE PLACED, WILL WAIT TILL VERIFIED.
--- NOTE | 2020-10-27 11:22 | NUR ---
PT STATES SHE HAS PAIN AT A SCALE OF 8/10 IN THE LEFT FOOT. PT WAS GIVEN MORPHINE FOR PAIN. BP WAS 149/84 PRIOR TO ADMINISTRATION OF MEDICATION. WILL MONITOR PAIN.
[2020-10-27 11:25] LABS: BASOPHILS # (AUTO) 0.1 K/uL (0.00-0.22); BASOPHILS % (AUTO) 0.6 % (0.0-2.0); EOSINOPHILS # (AUTO) 0.3 K/uL (0-0.4); HEMATOCRIT 33.6 % (36-48); HEMOGLOBIN 11.1 g/dL (12.0-16.0); LYMPHOCYTES # (AUTO) 2.4 K/uL (2.5-16.5); LYMPHOCYTES % (AUTO) 26.6 % (20.5-51.1); MEAN CORPUSCULAR HEMOGLOBIN 28 pg (27-31); MEAN CORPUSCULAR HGB CONC 33 g/dL (33-37); MEAN CORPUSCULAR VOLUME 84.8 fL (80-94); MONOCYTES # (AUTO) 0.6 K/uL (0.8-1.0); MONOCYTES % (AUTO) 7.3 % (1.7-9.3); NEUTROPHILS # (AUTO) 5.5 K/uL (1.8-7.7); NEUTROPHILS % (AUTO) 62.5 % (42.2-75.2); PLATELET COUNT (AUTO) 280 K/uL (140-450); RED BLOOD CELL COUNT(AUTO) 3.96 MIL/uL (4.20-5.40); RED CELL DISTRIBUTION WIDTH 13.6 % (11.6-13.7); WHITE BLOOD COUNT (AUTO) 8.8 K/uL (4.8-10.8)
[2020-10-27 11:32] LABS: ANION GAP 10.7 (8-16); CARBON DIOXIDE 28.2 mmol/L (21-32); CREATININE 1.3 mg/dL (0.6-1.3); POTASSIUM 4.9 mmol/L (3.5-5.1)
[2020-10-27] MEDS: VANCOMYCIN HCL 1.25 GM in DEXTROSE 5% 250 ML IV SCH (12:26)
--- NOTE | 2020-10-27 12:29 | NUR ---
PT'S BS READING WAS 185. HUMALOG INSULIN, 2 UNITS, PER SLIDING SCALE. WILL MONITOR BS.
--- NOTE | 2020-10-27 14:30 | NUR ---
PT IS SLEEPING. NO RESPIRATORY DISTRESS NOTED ON RA. BREATHING IS UNLABORED. NO PAIN NOTED. DRESSING ON LEFT FOOT IS DRY AND INTACT. WILL MONITOR.
--- NOTE | 2020-10-27 15:45 | NUR ---
MESSAGED DR. MATTHEW AND ASKED HIM IF THE PLAN WAS TO INSERT A PICC LINE ON THE PT STATED IN DR. DOUGLAS'S NOTES. HE STATED TO ORDER PICC LINE INSERTION. ORDER WAS PLACED AND WILL NEED DOCTOR TO DISCUSS PICC LINE INSERTION WITH PT AND SIGN CONSENT PRIOR TO INSERTION.
[2020-10-27 16:00] VITALS: BP 134/47
--- NOTE | 2020-10-27 17:20 | NUR ---
BS READING IS 178 AND PT WAS GIVEN 2 UNITS HUMALOG INSULIN PER SLIDING SCALE. WILL MONITOR.
--- NOTE | 2020-10-27 18:00 | NUR ---
CONSENT WAS SIGNED FOR PICC LINE BY DR. MATTHEW AND PT. MESSAGED PICC LINE NURSE TO INFORM HIM OF THE PICC LINE ORDER. NO RESPONSE BACK YET.
--- NOTE | 2020-10-27 19:05 | NUR ---
ENDORSED PT TO LIFE INSURANCE SPECIALIST NURSE FOR CONTINUITY OF CARE. PT IS STABLE AT THIS TIME. PLAN OF CARE DISCUSSED. PICC LINE NURSE NEVER MESSAGED BACK ABOUT THE PICC LINE INSERTION. ENDORSED THAT INFO TO THE LIFE INSURANCE SPECIALIST NURSE.
[2020-10-28 00:07] VITALS: BP 142/60
--- NOTE | 2020-10-28 00:37 | NUR ---
LEFT MESSAGE TO CARMEN MADE AWARE OF THE ORDER
[2020-10-28] MEDS: HYDROcodone/APAP 5/325 MG 1 TAB TAB PO PRN ×2 (01:59→05:52)
[2020-10-28 04:29] VITALS: BP 106/56
[2020-10-28] MEDS: BLOOD GLUCOSE MONITORING 1 DEV DEV FS SCH ×4 (07:30→20:40)
[2020-10-28 07:38] LABS: BASOPHILS % (AUTO) 0.4 % (0.0-2.0); EOSINOPHILS # (AUTO) 0.2 K/uL (0-0.4); EOSINOPHILS % (AUTO) 1.8 % (0.0-4.0); HEMATOCRIT 34.1 % (36-48); HEMOGLOBIN 11.1 g/dL (12.0-16.0); LYMPHOCYTES # (AUTO) 2.2 K/uL (2.5-16.5); LYMPHOCYTES % (AUTO) 19.2 % (20.5-51.1); MEAN CORPUSCULAR HEMOGLOBIN 28 pg (27-31); MEAN CORPUSCULAR HGB CONC 33 g/dL (33-37); MEAN CORPUSCULAR VOLUME 85.5 fL (80-94); MONOCYTES # (AUTO) 0.7 K/uL (0.8-1.0); MONOCYTES % (AUTO) 6.3 % (1.7-9.3); NEUTROPHILS # (AUTO) 8.3 K/uL (1.8-7.7); NEUTROPHILS % (AUTO) 72.3 % (42.2-75.2); PLATELET COUNT (AUTO) 307 K/uL (140-450); RED CELL DISTRIBUTION WIDTH 13.4 % (11.6-13.7); WHITE BLOOD COUNT (AUTO) 11.4 K/uL (4.8-10.8)
--- NOTE | 2020-10-28 07:41 | NUR ---
report received from the night auditor, pt has left foot wound infection, 20 cherrie IV on right forearm pt has possible surgery tomorrow and foot debrivement tomorrow. will continue to follow plan of care.
--- NOTE | 2020-10-28 07:48 | NUR ---
HANDOFF WITH ANGELA GOMEZ. MADALYN GARDNER RN
[2020-10-28] MEDS: CIPROFLOXACIN 250 MG TAB PO SCH ×2 (09:04→21:14)
[2020-10-28] MEDS: ENOXAPARIN 40 MG/0.4 ML SYR SUBQ SCH (09:04)
[2020-10-28] MEDS: MORPHINE SULFATE 4 MG/ML SYR IVP PRN ×2 (09:04→23:20)
--- NOTE | 2020-10-28 09:04 | NUR ---
ADMINISTERED SCHEDULED MEDICATION CHECK VITAL SIGNS BP 146/74 RI 87 PATIENT COMPLAINS OF PAIN IN THE LEFT FOOT 8/10 PAIN MEDICATION GIVEN. WILL CONTINUE TO MONITOR.
[2020-10-28] MEDS ORDERED: VANCOMYCIN PER PHARMACY MC PRN (10:25)
--- NOTE | 2020-10-28 10:30 | NUR ---
CONSENT SIGNED BY PATIENT AND DOCTOR RISK AND ADVANTAGES WAS EXPLAINED BY TYHE DOCTOR AT THE BEDSIDE AND PT VERBALIZES UNDERSTANDING. WILL CONTINUE TO MONITOR.
--- NOTE | 2020-10-28 11:10 | NUR ---
PICC LINE INSERTED ON THE LEFT UPPER ARM AND READY TO USE.
--- NOTE | 2020-10-28 11:15 | NUR ---
PATIENT OUT IN HER ROOM FOR NUCLEAR MED BONE SCAN.
--- NOTE | 2020-10-28 11:50 | NUR ---
PATIENT BACK IN HER ROOM AND MOHSEN HERNANDEZ ENCOURAGED PATIENT TO DRINK 2-3 CUPS WATER BEFORE ANOTHER BONE SCAN.
[2020-10-28] MEDS: INSULIN LISPRO SLIDING SCALE 100 UNITS/ML VIAL SUBQ PRN ×3 (11:51→20:40)
--- NOTE | 2020-10-28 11:53 | NUR ---
blood glucose 191, 2 units of insulin administered per order. will continue to monitor for s/s of hypo/hyperglycemia.
[2020-10-28 13:13] LABS: ANION GAP 11.4 (8-16); CARBON DIOXIDE 25.4 mmol/L (21-32); CREATININE 1.2 mg/dL (0.6-1.3); POTASSIUM 4.8 mmol/L (3.5-5.1)
[2020-10-28] MEDS: VANCOMYCIN HCL 1.25 GM in DEXTROSE 5% 250 ML IV SCH (14:10)
--- NOTE | 2020-10-28 14:14 | NUR ---
ADMINISTERED SCHEDULED MEDICATION [id number] AT 1.25 GRAMS INFUSING WELL.
[2020-10-28 16:00] VITALS: BP 137/64
--- NOTE | 2020-10-28 16:41 | NUR ---
NUCLEAR MED BONE TRI PHASE TAKEN AND COMPLETE PT STABLE.
--- NOTE | 2020-10-28 17:06 | NUR ---
BLOOD GLUCOSE 230, 4 UNITS OF INSULIN GIVEN PER ORDER. NO S/S OF HYPER/HYPOGLYCEMIA NOTED. WILL CONTINUE TO OBSERVE THE PT
--- NOTE | 2020-10-28 19:29 | NUR ---
ENDORSE TO NIGHT NURSE FOR CONTINUITY OF CARE. PT STABLE
[2020-10-28 20:40] VITALS: BP 154/75
[2020-10-29 04:29] VITALS: BP 146/67
[2020-10-29] MEDS: MORPHINE SULFATE 4 MG/ML SYR IVP PRN ×3 (04:36→21:24)
[2020-10-29] MEDS: BLOOD GLUCOSE MONITORING 1 DEV DEV FS SCH ×4 (04:45→21:19)
[2020-10-29] MEDS: INSULIN LISPRO SLIDING SCALE 100 UNITS/ML VIAL SUBQ PRN ×3 (04:54→21:21)
--- NOTE | 2020-10-29 07:47 | NUR ---
RECEIVED REPORT FROM NIGHT NURSE PT IS AAOX4 ON ROOM AIR, SKIN NON INTACT WITH LEFT FOOT WOUND, AMBULATORY AND IV INTACT ON THE LEFT UPPER ARM PICC LINE.PT FOR SURGERY TODAY. SAFETY MEASURES IN PLACE AND CALL LIGHT WITHIN REACH. WILL CONTINUE TO MONITOR.
[2020-10-29 08:00] VITALS: BP 152/75
--- NOTE | 2020-10-29 08:17 | NUR ---
HANDOFF WITH ANGELA GOMEZ. MADALYN GARDNER RN
[2020-10-29 08:32] LABS: BASOPHILS % (AUTO) 0.3 % (0.0-2.0); EOSINOPHILS # (AUTO) 0.2 K/uL (0-0.4); EOSINOPHILS % (AUTO) 1.7 % (0.0-4.0); HEMATOCRIT 32.9 % (36-48); HEMOGLOBIN 10.6 g/dL (12.0-16.0); LYMPHOCYTES # (AUTO) 2.1 K/uL (2.5-16.5); LYMPHOCYTES % (AUTO) 16.9 % (20.5-51.1); MEAN CORPUSCULAR HEMOGLOBIN 28 pg (27-31); MEAN CORPUSCULAR HGB CONC 32 g/dL (33-37); MEAN CORPUSCULAR VOLUME 85.4 fL (80-94); MONOCYTES # (AUTO) 0.9 K/uL (0.8-1.0); MONOCYTES % (AUTO) 7.2 % (1.7-9.3); NEUTROPHILS # (AUTO) 9.3 K/uL (1.8-7.7); NEUTROPHILS % (AUTO) 73.9 % (42.2-75.2); PLATELET COUNT (AUTO) 284 K/uL (140-450); RED BLOOD CELL COUNT(AUTO) 3.85 MIL/uL (4.20-5.40); RED CELL DISTRIBUTION WIDTH 13.8 % (11.6-13.7); WHITE BLOOD COUNT (AUTO) 12.6 K/uL (4.8-10.8)
[2020-10-29] MEDS: CIPROFLOXACIN 250 MG TAB PO SCH ×2 (09:00→21:19)
[2020-10-29] MEDS: ENOXAPARIN 40 MG/0.4 ML SYR SUBQ SCH (09:00)
--- NOTE | 2020-10-29 09:48 | NUR ---
PATIENT MEDICATION HELD PT IS NPO AND GOING FOR SURGERY.
--- NOTE | 2020-10-29 11:10 | NUR ---
BLOOD SUGAR 183 MG/DL NO INSULIN COVERAGE PT IS GOING FOR A SURGERY AND NPO.WILL CONTINUE TO MONITOR.
[2020-10-29] MEDS: VANCOMYCIN HCL 1.25 GM in DEXTROSE 5% 250 ML IV SCH (13:12)
--- NOTE | 2020-10-29 13:33 | NUR ---
ADMINISTERED SCHEDULED MEDICATION AND PT COMPLAIN OF PAIN IN THE FOOT 09/19 PAIN MEDICATION GIVEN
[2020-10-29 16:00] VITALS: BP 143/64
--- NOTE | 2020-10-29 16:10 | NUR ---
BLOOD SUGAR 250 MG/DL INSULIN COVERAGE 4 UNITS. PT IS RESTING.
--- NOTE | 2020-10-29 19:10 | NUR ---
ENDORSED TO NIGHT NURSE FOR CONTINUITY OF CARE. PT IS STABLE.
[2020-10-29 21:26] VITALS: BP 141/66
[2020-10-30 04:41] VITALS: BP 119/54
[2020-10-30] MEDS: BLOOD GLUCOSE MONITORING 1 DEV DEV FS SCH ×4 (06:25→21:28)
[2020-10-30] MEDS: INSULIN LISPRO SLIDING SCALE 100 UNITS/ML VIAL SUBQ PRN ×4 (06:25→21:32)
[2020-10-30] MEDS: MORPHINE SULFATE 4 MG/ML SYR IVP PRN ×4 (06:59→21:26)
--- NOTE | 2020-10-30 07:05 | NUR ---
RECEIVED REPORT FROM BUSINESS ASST NURSE FOR CONTINUITY OF CARE. PT IS AWAKE AND ALERT. PT ON RA WITH UNLABORED BREATHING. SKIN IS WARM AND DRY. PICC LINE IN PLACE. LEFT LEG DRESSING IS DRY AND INTACT. REVIEW PLAN OF CARE WITH THE PT. NO DISTRESS NOTED. PT IS STABLE. SAFETY MEASURES IN PLACE. CALL LIGHT WITHIN REACH. WILL CONTINUE TO MONITOR.
--- NOTE | 2020-10-30 07:25 | NUR ---
HYDRAMATIC MECHANIC AT BEDSIDE CHANGING DRESSING ON LEFT FOOT.
[2020-10-30 07:44] LABS: ANION GAP 12.4 (8-16); BASOPHILS # (AUTO) 0.1 K/uL (0.00-0.22); BASOPHILS % (AUTO) 0.7 % (0.0-2.0); CARBON DIOXIDE 24.1 mmol/L (21-32); CREATININE 1.3 mg/dL (0.6-1.3); EOSINOPHILS # (AUTO) 0.2 K/uL (0-0.4); EOSINOPHILS % (AUTO) 1.5 % (0.0-4.0); HEMATOCRIT 32.3 % (36-48); HEMOGLOBIN 10.4 g/dL (12.0-16.0); LYMPHOCYTES # (AUTO) 1.8 K/uL (2.5-16.5); LYMPHOCYTES % (AUTO) 15.9 % (20.5-51.1); MEAN CORPUSCULAR HEMOGLOBIN 28 pg (27-31); MEAN CORPUSCULAR HGB CONC 32 g/dL (33-37); MEAN CORPUSCULAR VOLUME 86.1 fL (80-94); MONOCYTES # (AUTO) 1.1 K/uL (0.8-1.0); MONOCYTES % (AUTO) 9.6 % (1.7-9.3); NEUTROPHILS % (AUTO) 72.3 % (42.2-75.2); PLATELET COUNT (AUTO) 277 K/uL (140-450); POTASSIUM 4.5 mmol/L (3.5-5.1); RED BLOOD CELL COUNT(AUTO) 3.75 MIL/uL (4.20-5.40); WHITE BLOOD COUNT (AUTO) 11.1 K/uL (4.8-10.8)
--- NOTE | 2020-10-30 07:48 | NUR ---
HANDOFF WITH ANGELA CHICAS. MADALYN GARDNER RN
[2020-10-30 08:00] VITALS: BP 147/64
[2020-10-30] MEDS: CIPROFLOXACIN 250 MG TAB PO SCH ×2 (09:08→21:27)
[2020-10-30] MEDS: ENOXAPARIN 40 MG/0.4 ML SYR SUBQ SCH (09:10)
--- NOTE | 2020-10-30 09:10 | NUR ---
ADMINISTERED PRESCRIBED MEDICATION. PT TOLERATED WELL. MEDICATION EDUCATION PERFORMED. PT VERBALIZED UNDERSTANDING. SAFETY MEASURE IN PLACE AND WILL CONTINUE TO MONITOR.
--- NOTE | 2020-10-30 11:32 | NUR ---
PT STATES SHE HAS PAIN LEVEL 7/10 ON LEFT FOOT. ADMINISTERED PRN PAIN MEDICATION, MORPHINE.
--- NOTE | 2020-10-30 12:08 | NUR ---
PT BLOOD SUGAR IS 254. WILL COVER WITH PRESCRIBED INSULIN, 6 UNITS OF HUMALOG.
--- NOTE | 2020-10-30 14:10 | NUR ---
PT IS AWAKE AND ALERT. PT WATCHING TELEVISION. PT IN RA WITH UNLABORED BREATHING. NO DISTRESS NOTED. CALL LIGHT WITHIN REACH. SAFETY MEASURES IN PLACE. WILL CONTINUE TO MONITOR.
--- NOTE | 2020-10-30 15:46 | NUR ---
10/30/20 RD FOLLOW UP COMPLETED PLEASE REFER TO NUTRITION ASSESSMENT UNDER CARE ACTIVITY FOR ESTIMATED NUTRITIONAL NEEDS. 1. CONTINUE CCHO, 60 GMS DIET TOLERATED 2. CONTINUE PENNY BID FOR WOUND HEALING 3. RD TO FOLLOW-UP 5-7 DAYS, LOW RISK FILIPE VARELA, RD
--- NOTE | 2020-10-30 16:40 | NUR ---
PT IS SLEEPING WITH VISIBLE CHEST RISE AND FALL. NO DISTRESS NOTED. WILL CONTINUE TO MONITOR.
--- NOTE | 2020-10-30 17:11 | NUR ---
PT STATES PAIN LEVEL 7/10 ON LEFT FOOT. WILL ADMINISTER PRN PAIN MEDICATION. WILL CONTINUE TO MONITOR.
--- NOTE | 2020-10-30 18:40 | NUR ---
PT IS AWAKE AND ALERT. PT ON RA WITH UNLABORED BREATHING. PT STATES SHES FINE. SAFETY MEASURE IN PLACE AND WILL CONTINUE TO MONITOR.
--- NOTE | 2020-10-30 19:20 | NUR ---
ENDORSE TO HUMAN RESOURCES SUPERVISOR NURSE FOR CONTINUITY OF CARE. PT IS STABLE.
[2020-10-30 20:00] VITALS: BP 137/50
[2020-10-31 04:00] VITALS: BP 138/55
[2020-10-31] MEDS: BLOOD GLUCOSE MONITORING 1 DEV DEV FS SCH ×4 (06:43→20:04)
[2020-10-31] MEDS: INSULIN LISPRO SLIDING SCALE 100 UNITS/ML VIAL SUBQ PRN ×4 (06:47→20:03)
[2020-10-31] MEDS: MORPHINE SULFATE 4 MG/ML SYR IVP PRN ×4 (06:48→22:42)
--- NOTE | 2020-10-31 07:34 | NUR ---
HANDOFF WITH ANGELA MARIN. MADALYN GARDNER RN
--- NOTE | 2020-10-31 07:35 | NUR ---
RECEIVED REPORT FROM NIGHT NURSE. WILL CONTINUE PLAN OF CARE.
[2020-10-31] MEDS: ENOXAPARIN 40 MG/0.4 ML SYR SUBQ SCH (09:20)
--- NOTE | 2020-10-31 09:31 | NUR ---
ADMINISTERED SCHEDULED MEDICATIONS PER MD ORDER. EDUCATED PT ON MEDICATIONS MOA AND SIDE EFFECTS. PT VERBALIZED UNDERSTANDING PLT COUNT IS [id number]. CHANDRIKA BLOOD FROM PICC LINE FOR LAB. PICC LINE WAS PATENT AND MET NO RESISTANCE. PT IS RESTING COMFORTABLY AND COMPLAINING OF NO PAIN. WILL CONTINUE TO MONITOR.
[2020-10-31 10:15] LABS: BASOPHILS % (AUTO) 0.4 % (0.0-2.0); EOSINOPHILS # (AUTO) 0.2 K/uL (0-0.4); EOSINOPHILS % (AUTO) 2.1 % (0.0-4.0); HEMATOCRIT 31.9 % (36-48); HEMOGLOBIN 10.4 g/dL (12.0-16.0); LYMPHOCYTES # (AUTO) 2.1 K/uL (2.5-16.5); LYMPHOCYTES % (AUTO) 21.8 % (20.5-51.1); MEAN CORPUSCULAR HEMOGLOBIN 28 pg (27-31); MEAN CORPUSCULAR HGB CONC 33 g/dL (33-37); MEAN CORPUSCULAR VOLUME 84.5 fL (80-94); MONOCYTES # (AUTO) 0.8 K/uL (0.8-1.0); MONOCYTES % (AUTO) 8.8 % (1.7-9.3); NEUTROPHILS # (AUTO) 6.4 K/uL (1.8-7.7); NEUTROPHILS % (AUTO) 66.9 % (42.2-75.2); PLATELET COUNT (AUTO) 259 K/uL (140-450); RED BLOOD CELL COUNT(AUTO) 3.78 MIL/uL (4.20-5.40); RED CELL DISTRIBUTION WIDTH 13.6 % (11.6-13.7); WHITE BLOOD COUNT (AUTO) 9.6 K/uL (4.8-10.8)
[2020-10-31 12:00] VITALS: BP 144/53
--- NOTE | 2020-10-31 12:02 | NUR ---
ADMINISTERED SCHEDULED MEDICATIONS PER MD ORDER. BG WAS 212MG/DL. ADMINISTERED 4 UNITS OG HUMALOG. PT WAS COMPLAINING OF PAIN ON HER LEFT PAIN 7/10. ADMINISTERED 4MG OF PAIN IVP. BP WAS 164/69 NM:81. EDUCATED PT ON MEDICATIONS MOA AND SIDE EFFECTS. PT VERBALIZED UNDERSTANDING. WILL RE ASSESS PAIN IN 30 MINUTES. CALL LIGHT IS WITHIN REACH. WILL CONTINUE TO MONITOR.
--- NOTE | 2020-10-31 12:20 | NUR ---
LAB CALLED TO REPORT THAT PT'S BLOOD CULTURE SHOWED GRAM POSITIVE RODS. WILL NOTIFY
--- NOTE | 2020-10-31 16:18 | NUR ---
MD HORAN WAS NOTIFIED OF GRAM POSITIVE RODS IN BLOOD CULTURE. WILL AWAIT RESPONSE WITH CONTINUATION OF POC.
--- NOTE | 2020-10-31 16:40 | NUR ---
DR. ABDI ON ROUNDS, NOTIFIED REGARDING PT'S BLOOD CX RESULT (GRAM + RODS), DR. ABDI, STATED NO VANCOMYCIN AND NO NEW ORDERS, BLOOD IS CONTAMINATED.
--- NOTE | 2020-10-31 16:41 | NUR ---
ASSESSED BG AND IT WAS 196MG/DL. ADMINISTERED 2 UNITS OF HUMALOG INSULIN PER SLIDING SCALE PROTOCOL. ADMINISTERED 4MG OF MORPHINE FOR PAIN ON LEFT FOOT RATED A 8/10. PT HAS FACIAL GRIMACING. EDUCATED PT ON MEDICATIONS MOA AND SIDE EFFECTS. PT VERBALIZED UNDERSTANDING. PT IS ON HER PHONE. CALL LIGHT IS WITHIN REACH. SAFETY PRECAUTIONS ARE IN PLACE. WILL REASSESS PAIN IN 30 MINUTES.
--- NOTE | 2020-10-31 19:28 | NUR ---
ENDORSED PT TO NIGHT NURSE FOR CONTINUITY OF CARE. PT IS STABLE.
--- NOTE | 2020-10-31 19:41 | NUR ---
RECEIVED REPORT FROM DAYSHIFT NURSE FOR CONTINUITY OF CARE. PATIENT IN STABLE CONDITION
[2020-10-31 20:00] VITALS: BP 139/81
--- NOTE | 2020-10-31 21:00 | NUR ---
SCHEDULED BLOOD SUGAR CHECKED PERFORMED. 180 BS, GIVEN 2 UNIT OF INSULIN
--- NOTE | 2020-10-31 22:46 | NUR ---
PRN MORPHINE GIVEN FOR 8/10 PAIN SCALE. PT TOLERATED WELL.
--- NOTE | 2020-10-31 23:46 | NUR ---
PT ASLEEP, NO SIGNS OF DISTRESS, SAFETY MEASURES IMPLEMENTED, CALL LIGHT WITHIN REACH.
[2020-11-01 04:00] VITALS: BP 147/72
[2020-11-01] MEDS: MORPHINE SULFATE 4 MG/ML SYR IVP PRN ×4 (05:10→21:14)
--- NOTE | 2020-11-01 05:25 | NUR ---
GAVE PRN PAIN MEDS FOR 6/10 PAIN SCALE. PT TOLERATED WELL.
--- NOTE | 2020-11-01 05:40 | NUR ---
MAKE UP ARTIST CAME IN, CHANGED LEFT FOOT DRESSING.
--- NOTE | 2020-11-01 06:45 | NUR ---
CHECKED BS, IT WAS 180. GAVE 2 UNITS OF INSULIN.
[2020-11-01] MEDS: BLOOD GLUCOSE MONITORING 1 DEV DEV FS SCH ×4 (06:46→21:14)
[2020-11-01] MEDS: INSULIN LISPRO SLIDING SCALE 100 UNITS/ML VIAL SUBQ PRN ×4 (06:47→21:17)
--- NOTE | 2020-11-01 07:15 | NUR ---
ENDORSE PATIENT TO DAY SHIFT RN FOR CONTINUITY OF CARE. PATIENT IN STABLE CONDITION.
[2020-11-01 07:46] LABS: BASOPHILS % (AUTO) 0.4 % (0.0-2.0); EOSINOPHILS # (AUTO) 0.2 K/uL (0-0.4); EOSINOPHILS % (AUTO) 2.2 % (0.0-4.0); HEMATOCRIT 30.8 % (36-48); HEMOGLOBIN 10.2 g/dL (12.0-16.0); LYMPHOCYTES # (AUTO) 2.1 K/uL (2.5-16.5); MEAN CORPUSCULAR HEMOGLOBIN 28 pg (27-31); MEAN CORPUSCULAR HGB CONC 33 g/dL (33-37); MEAN CORPUSCULAR VOLUME 85.3 fL (80-94); MONOCYTES # (AUTO) 0.8 K/uL (0.8-1.0); MONOCYTES % (AUTO) 9.3 % (1.7-9.3); NEUTROPHILS # (AUTO) 5.3 K/uL (1.8-7.7); NEUTROPHILS % (AUTO) 63.1 % (42.2-75.2); PLATELET COUNT (AUTO) 278 K/uL (140-450); RED BLOOD CELL COUNT(AUTO) 3.62 MIL/uL (4.20-5.40); RED CELL DISTRIBUTION WIDTH 13.6 % (11.6-13.7); WHITE BLOOD COUNT (AUTO) 8.4 K/uL (4.8-10.8)
[2020-11-01 07:51] LABS: ANION GAP 12.4 (8-16); CARBON DIOXIDE 26.9 mmol/L (21-32); CREATININE 0.5 mg/dL (0.6-1.3); POTASSIUM 3.3 mmol/L (3.5-5.1)
[2020-11-01] MEDS: ENOXAPARIN 40 MG/0.4 ML SYR SUBQ SCH (09:28)
--- NOTE | 2020-11-01 09:30 | NUR ---
ADMINISTERED SCHEDULED MEDICATIONS PER MD ORDER. EDUCATED PT ON MEDICATION MOA AND SIDE EFFECTS. PT VERBALIZED UNDERSTANDING. PLT IS 259 WNL. SAFETY PRECAUTIONS ARE IN PLACE. CALL LIGHT IS WITHIN REACH. WILL CONTINUE TO MONITOR.
[2020-11-01 12:00] VITALS: BP 140/66
--- NOTE | 2020-11-01 12:06 | NUR ---
ADMINISTERED SCHEDULED MEDICATIONS PER MD ORDER. ADMINISTERED 4MG OF MORPHINE SULFATE FOR PAIN RATED A 8/10 ON LEFT FOOT WHICH IS DESCRIBED ACHING. BP WAS 149/69 MD 83, RR:20. BG WAS 209. 4 UNITS OF HUMALOG WERE ADMINISTERED. EDUCATED PT MEDICATIONS MOA AND SIDE EFFECT. PT VERBALIZED UNDERSTANDING. SAFETY PRECAUTIONS ARE IN PLACE. WILL REASSESS PAIN IN 40 MINUTES.
--- NOTE | 2020-11-01 16:39 | NUR ---
ADMINISTERED SCHEDULED MEDICATIONS PER MD ORDER. MORPHINE MH IVP FOR PAIN. BP WAS 122/60 SD 73 RR:19. ADMINISTERED 4 UNITS OF HUMALOG FORE BG OF 240. EDUCATED PT ON MEDICATIONS MOA AND SIDE EFFECTS. PT VERBALIZED UNDERSTANDING. WILL CONTINUE TO MONITOR AND REASSESS PAIN IN 1HOUR.
--- NOTE | 2020-11-01 19:30 | NUR ---
ENDORSED TO NIGHT NURSE FOR CONTINUITY OF CARE. PT IS STABLE
--- NOTE | 2020-11-01 19:31 | NUR ---
RECEIVED PT ON BED, AAOX4, ABLE TO MAKE NEEDS KNOWN, TOLERABLE PAIN AT THIS TIME, WILL MEDICATE PRN, LEFT FOOT DRESSING DRY AND INTACT, LEFT UA PICC LINE IN PLACE, DRESSING DRY AND INTACT, FOR SURGERY TOMORROW, AWARE OF NPO AFTER MIDNIGHT, PLAN OF CARE DISCUSSED, SAFETY MEASURES IN PLACE, CALL LIGHT WITHIN REACH.
[2020-11-01 20:00] VITALS: BP 147/62
--- NOTE | 2020-11-01 21:20 | NUR ---
BLOOD SUGAR CHECKED WITH 173 RESULT, COVERAGE GIVEN, SNACK PROVIDED, MEDICATED PRN FOR LT FOOT PAIN WITH MORPHINE IVP, ALL NEEDS ATTENDED.
--- NOTE | 2020-11-02 | NUR ---
ROUNDS MADE, SEEN PT SLEEPING, EASILY AROUSABLE, DENIES ANY PAIN, NPO AFTER MIDNIGHT, PT AWARE, MONITORED CLOSELY.
[2020-11-02] MEDS: MORPHINE SULFATE 4 MG/ML SYR IVP PRN ×3 (03:42→20:30)
--- NOTE | 2020-11-02 03:42 | NUR ---
PT IN PAIN, VITAL SIGNS STABLE, MEDICATED PRN WITH MORPHINE IVP, MONITORED CLOSELY.
[2020-11-02 04:00] VITALS: BP 142/69
--- NOTE | 2020-11-02 05:50 | NUR ---
BLOOD SUGAR CHECKED WITH 163 RESULT, HELD COVERAGE DUE FOR NPO STATUS, MONITORED CLOSELY.
[2020-11-02] MEDS: BLOOD GLUCOSE MONITORING 1 DEV DEV FS SCH ×5 (06:56→20:29)
[2020-11-02 06:58] LABS: BASOPHILS % (AUTO) 0.2 % (0.0-2.0); EOSINOPHILS # (AUTO) 0.1 K/uL (0-0.4); EOSINOPHILS % (AUTO) 1.7 % (0.0-4.0); HEMATOCRIT 30.1 % (36-48); HEMOGLOBIN 9.8 g/dL (12.0-16.0); LYMPHOCYTES # (AUTO) 2.1 K/uL (2.5-16.5); LYMPHOCYTES % (AUTO) 27.2 % (20.5-51.1); MEAN CORPUSCULAR HEMOGLOBIN 28 pg (27-31); MEAN CORPUSCULAR HGB CONC 33 g/dL (33-37); MEAN CORPUSCULAR VOLUME 84.6 fL (80-94); MONOCYTES # (AUTO) 0.7 K/uL (0.8-1.0); MONOCYTES % (AUTO) 8.8 % (1.7-9.3); NEUTROPHILS # (AUTO) 4.8 K/uL (1.8-7.7); NEUTROPHILS % (AUTO) 62.1 % (42.2-75.2); PLATELET COUNT (AUTO) 278 K/uL (140-450); RED BLOOD CELL COUNT(AUTO) 3.55 MIL/uL (4.20-5.40); RED CELL DISTRIBUTION WIDTH 13.6 % (11.6-13.7); WHITE BLOOD COUNT (AUTO) 7.7 K/uL (4.8-10.8)
--- NOTE | 2020-11-02 07:20 | NUR ---
PT AWAKE, NO SIGNS OF DISTRESS, REPORT GIVEN TO RN TEE FOR CONTINUITY OF CARE.
--- NOTE | 2020-11-02 07:30 | NUR ---
RECEIVED PT AAOX4. NO SOB NOTED. N0 C/O PAIN AT THIS TIME. WITH ANNETTE PICC PATENT AND INTACT. CHEST CLEAR. ABOMEN SOFT, BOWEL SOUNDS PRESENT. NPO MAINTAINED FOR PROCEDURE. INSTRUCTED PT TO CALL FOR ASSISTANCE, CALL LIGHT WITHIN REACH, VERBALIZED UNDERSTANDING.
[2020-11-02 08:00] VITALS: BP 133/54
[2020-11-02] MEDS ORDERED: BUPIVACAINE-MPF 0.5% 30 ML VIAL INJ ONE (08:06)
[2020-11-02] MEDS ORDERED: HYDROGEN PEROXIDE 3% 240 ML BTL TP ONE (08:06)
[2020-11-02 08:07] LABS: ANION GAP 10.7 (8-16); CREATININE 1.2 mg/dL (0.6-1.3); POTASSIUM 4.7 mmol/L (3.5-5.1)
[2020-11-02] MEDS: ENOXAPARIN 40 MG/0.4 ML SYR SUBQ SCH (09:00)
[2020-11-02] MEDS ORDERED: VANCOMYCIN 1GM/DEXT 5% PREMIX 200 ML IV ONE (09:40)
[2020-11-02] MEDS ORDERED: VANCOMYCIN 1,000 MG in DEXTROSE 5% 250 ML IV SCH (10:00)
--- NOTE | 2020-11-02 11:30 | NUR ---
PT WHEELED TO SURGERY IN STABLE CONDITION. NPO MAINTAINED. CONSENT HAS BEEN SIGNED BY PT, VERBALIZED UNDERSTANDING.
[2020-11-02] MEDS ORDERED: PROPOFOL 200 MG/20 ML VIAL IV ONE (12:02)
[2020-11-02] MEDS ORDERED: DESFLURANE 240 ML BTL INH ONE (12:04)
[2020-11-02] MEDS ORDERED: ONDANSETRON 4 MG/2 ML VIAL IVP PRN (12:10)
[2020-11-02] MEDS ORDERED: HYDROmorphone 1 MG/ML AMP IVP PRN (12:10)
[2020-11-02] MEDS ORDERED: fentaNYL citrate 0.05 MG/ML VIAL ONE (12:17)
[2020-11-02] MEDS ORDERED: ONDANSETRON 4 MG/2 ML VIAL ONE (12:37)
[2020-11-02] MEDS ORDERED: METOCLOPRAMIDE 10 MG/2 ML INJ VIAL ONE (13:07)
[2020-11-02] MEDS ORDERED: METOCLOPRAMIDE 10 MG/2 ML INJ VIAL IVP PRN (13:10)
--- NOTE | 2020-11-02 13:45 | NUR ---
PT RETURNED FROM SX IN STABLE CONDITION. NO SOB NOTED. DRESSING TO LEFT FOOT CLEAN , DRY AND INTACT, LUE ELEVATED WITH PILLOW. WILL CONTINUE TO MONITOR PT. Addendum: 11/02/20 at 1852 by Luzma Cabrera RN *LLE ELEVATED WITH PILLOW, NOT LUE
[2020-11-02 16:00] VITALS: BP 144/58
[2020-11-02] MEDS: INSULIN LISPRO SLIDING SCALE 100 UNITS/ML VIAL SUBQ PRN (17:48)
--- NOTE | 2020-11-02 19:11 | NUR ---
PT RESTING. NO SOB NOTED. NO COMPLAINTS MADE. WILL ENDORSE TO NEXT SHIFT NURSE FOR CONTINUITY OF CARE.
--- NOTE | 2020-11-02 19:25 | NUR ---
RECEIVED REPORT FROM DAYSHIFT NURSE FOR CONTINUITY OF CARE. PATIENT ON STABLE CONDITION.
[2020-11-02 20:00] VITALS: BP 133/81
--- NOTE | 2020-11-02 20:30 | NUR ---
PT ON ROOM AIR, NO SIGNS OF DISTRESS. CHECKED SCHEDULED BLOOD SUGAR, IT WAS 133. NO INSULIN COVERAGE GIVEN. GAVE PRN MORPHINE FOR 7/10 PAIN SCALE. PT TOLERATED WELL.
--- NOTE | 2020-11-02 21:16 | NUR ---
PT RESTING ON BED, NO SIGNS OF DISTRESS, SAFETY MEASURES IMPLEMENTED, CALL LIGHT WITHIN REACH.
[2020-11-03] MEDS: MORPHINE SULFATE 4 MG/ML SYR IVP PRN ×4 (02:07→21:13)
--- NOTE | 2020-11-03 02:07 | NUR ---
GAVE PRN MORPHINE FOR 7/10 PAIN. PT TOLERATED WELL. ASSISTED WITH BEDPAN AND ASSISTED IN [facility] CARE.
[2020-11-03 04:00] VITALS: BP 154/61
[2020-11-03 06:56] LABS: BASOPHILS % (AUTO) 0.2 % (0.0-2.0); EOSINOPHILS # (AUTO) 0.1 K/uL (0-0.4); EOSINOPHILS % (AUTO) 1.3 % (0.0-4.0); HEMOGLOBIN 10.1 g/dL (12.0-16.0); LYMPHOCYTES # (AUTO) 1.9 K/uL (2.5-16.5); LYMPHOCYTES % (AUTO) 24.6 % (20.5-51.1); MEAN CORPUSCULAR HEMOGLOBIN 28 pg (27-31); MEAN CORPUSCULAR HGB CONC 33 g/dL (33-37); MEAN CORPUSCULAR VOLUME 85.3 fL (80-94); MONOCYTES # (AUTO) 0.6 K/uL (0.8-1.0); MONOCYTES % (AUTO) 7.6 % (1.7-9.3); NEUTROPHILS # (AUTO) 5.2 K/uL (1.8-7.7); NEUTROPHILS % (AUTO) 66.3 % (42.2-75.2); PLATELET COUNT (AUTO) 280 K/uL (140-450); RED BLOOD CELL COUNT(AUTO) 3.64 MIL/uL (4.20-5.40); RED CELL DISTRIBUTION WIDTH 13.3 % (11.6-13.7); WHITE BLOOD COUNT (AUTO) 7.9 K/uL (4.8-10.8)
[2020-11-03] MEDS: INSULIN LISPRO SLIDING SCALE 100 UNITS/ML VIAL SUBQ PRN ×3 (06:57→20:35)
[2020-11-03] MEDS: BLOOD GLUCOSE MONITORING 1 DEV DEV FS SCH ×4 (06:59→20:35)
--- NOTE | 2020-11-03 07:24 | NUR ---
ENDORSE PT TO DAYSHIFT NURSE FOR CONTINUITY OF CARE. PT IS STABLE
--- NOTE | 2020-11-03 07:28 | NUR ---
RECEIVED REPORT FROM NIGHT NURSE MOHAN PATIENT IS AAOX4 ON ROOM AIR, AMBULATORY, IV INTACT ON LEFT UPPER ARM PICC LINE,SALINE LOCK BLOOD SUGAR AT 151 MG/DL ,DEBRIDEMENT ON THE LEFT FOOT DONE BY DR LINDO ON 11/02/20. SAFETY MEASURES IN PLACE AND CALL LIGHT WITHIN REACH. WILL CONTINUE TO MONITOR.
[2020-11-03 08:00] VITALS: BP 122/64
[2020-11-03] MEDS: CIPROFLOXACIN 250 MG TAB PO SCH ×2 (08:40→20:36)
[2020-11-03] MEDS: ENOXAPARIN 40 MG/0.4 ML SYR SUBQ SCH (08:42)
--- NOTE | 2020-11-03 08:50 | NUR ---
ALL PRESCRIBED MEDICATIONS WERE GIVEN PER MD ORDER. PT REPORTED PAIN 7/10 MEDICATED WITH MORPHINE BLOOD PRESSURE WAS CHECKED BEFORE MORPHINE ADMINISTRATION IT WAS 124/76 HR 88, PLATELETS WERE OK TO ADMINISTER ENOXAPARIN. WILL CONTINUE TO MONITOR PT FOP SIDE EFFECTS OF MORPHINE AND OTHER MEDICATIONS.
--- NOTE | 2020-11-03 10:00 | NUR ---
MADE ROUND AT THIS TIME PATIENT IS RESTING NO DISTRESS NOTED.
--- NOTE | 2020-11-03 11:32 | NUR ---
BLOOD GLUCOSE 148 NO INSULIN COVERAGE NEED WILL CONTINUE TO OBSERVE PT FOR S/S OF HYPO/HYPER GLUCEMIA
[2020-11-03] MEDS: ONDANSETRON 4 MG/2 ML VIAL IVP PRN (14:39)
--- NOTE | 2020-11-03 14:42 | NUR ---
PT REPORTED NAUSEA MEDICATED WITH ZOFRAN. WILL CONTINUE TO MONITOR PT.
--- NOTE | 2020-11-03 15:38 | NUR ---
PT REPORTED PAIN 09/19 MEDICATED WITH MORPHINE BLOOD PRESSURE BEFORE ADMINISTRATION WAS 123/61 VA 64, RR 17. WILL CONTINUE TO OBSERVE PT FOR SIDE EFFECTS OF MORPHINE.
--- NOTE | 2020-11-03 15:59 | NUR ---
PT BLOOD GLUCOSE WAS 163, 2 UNITS OF INSULIN WAS GIVEN. WILL CONTINUE TO OBSERVE PT FOR S/S OF HYPO/HYPER GLYCEMIA.
[2020-11-03 16:00] VITALS: BP 118/47
--- NOTE | 2020-11-03 16:38 | NUR ---
PT DENIES PAIN OR DISCOMFORT AT THE MOMENT.
--- NOTE | 2020-11-03 19:06 | NUR ---
ENDORSE THE SALES TRAINER NURSE FOR CONTINUITY OF CARE PT IS STABLE.
--- NOTE | 2020-11-03 19:30 | NUR ---
RECEIVED REPORT AT BEDSIDE.PT IS AWAKE.RESP.UNLABORED IN RA.PICC LINE IS PATENT IN LT.U.ARM.DRESSING PATENT ON LT.FOOT.NO C/O PAIN AT THIS TIME.WILL CONT.MONITORING.
[2020-11-03 20:00] VITALS: BP 141/64
--- NOTE | 2020-11-03 23:00 | NUR ---
HAD C/O PAIN MEDICATED .NOW HAS NO C/O PAIN.
[2020-11-04] MEDS: MORPHINE SULFATE 4 MG/ML SYR IVP PRN ×2 (03:27→10:48)
[2020-11-04 04:00] VITALS: BP 135/72
[2020-11-04] MEDS: BLOOD GLUCOSE MONITORING 1 DEV DEV FS SCH ×2 (06:41→11:07)
[2020-11-04] MEDS: INSULIN LISPRO SLIDING SCALE 100 UNITS/ML VIAL SUBQ PRN ×2 (06:42→11:10)
[2020-11-04 06:57] LABS: BASOPHILS % (AUTO) 0.1 % (0.0-2.0); EOSINOPHILS # (AUTO) 0.1 K/uL (0-0.4); EOSINOPHILS % (AUTO) 1.3 % (0.0-4.0); HEMATOCRIT 31.2 % (36-48); HEMOGLOBIN 10.2 g/dL (12.0-16.0); LYMPHOCYTES % (AUTO) 26.8 % (20.5-51.1); MEAN CORPUSCULAR HEMOGLOBIN 28 pg (27-31); MEAN CORPUSCULAR HGB CONC 33 g/dL (33-37); MONOCYTES # (AUTO) 0.7 K/uL (0.8-1.0); MONOCYTES % (AUTO) 9.2 % (1.7-9.3); NEUTROPHILS # (AUTO) 4.6 K/uL (1.8-7.7); NEUTROPHILS % (AUTO) 62.6 % (42.2-75.2); PLATELET COUNT (AUTO) 278 K/uL (140-450); RED BLOOD CELL COUNT(AUTO) 3.67 MIL/uL (4.20-5.40); RED CELL DISTRIBUTION WIDTH 13.7 % (11.6-13.7); WHITE BLOOD COUNT (AUTO) 7.3 K/uL (4.8-10.8)
--- NOTE | 2020-11-04 07:04 | NUR ---
SLEPT WELL.UD=905 THIA AM.COVERD PER SLIDING SCALE.NO DISTRESS NOTED NOW.
--- NOTE | 2020-11-04 07:05 | NUR ---
RECEIVED REPORT FROM ROLL FORMING MACHINE SET UP MECHANIC NURSE, PT HAS HX OF DM, LEFT FOOT DBRIDEMENT DONE, PT IS STABLE, HAVE PICC LINE ON LEFT UPPER ARM. WILL CONTINUE CURRENT PLAN OF CARE.
--- NOTE | 2020-11-04 07:23 | NUR ---
endorsed to am rn in stable condition
[2020-11-04 08:00] VITALS: BP 130/60
[2020-11-04] MEDS: CIPROFLOXACIN 250 MG TAB PO SCH (08:23)
[2020-11-04] MEDS: ENOXAPARIN 40 MG/0.4 ML SYR SUBQ SCH (08:29)
--- NOTE | 2020-11-04 08:31 | NUR ---
ADMINISTERED SCHEDULED MEDICATION PT IS RESTING AND DENIES ANY PAIN. WILL CONTINUE TO MONITOR.
--- NOTE | 2020-11-04 10:48 | NUR ---
PATIENT COMPLAINS OF LEFT FOOT PAIN 8/.MEDICATION GIVEN
--- NOTE | 2020-11-04 10:49 | NUR ---
SPOKE TO DR. DOUGLAS, AND HE SAID PATIENT CAN BE DC TODAY LONG [facility] IS SET UP AND NEEDS TO FOLLOW UP WITH DR. LINDO OFFICE AFTER DC. NOTIFIED JAYDA, RESPIRATORY THERAPY AIDE AND PATRICIA MILLER.
--- NOTE | 2020-11-04 11:11 | NUR ---
PT BLOOD GLUCOSE WAS 163, 2 UNITS OF INSULIN GIVEN PER MD ORDER. WILL CONTINUE TO MONITOR PT FOR S/S OF HYPO/HYPER GLYCEMIA.
--- NOTE | 2020-11-04 13:30 | NUR ---
DISCHARGED INSTRUCTIONS GIVEN TO PT AT THE BEDSIDE INSTRUCTED TO CONTINUE MEDICATIONS AND TO FOLLOW UP WITH DR LINDO AND INSTRUCTED THAT HOME [facility] WILL BE DOING THE WOUND CARE AND WILL CALL PATIENT TO FOLLOW UP ON HER. ENCOURAGED TO CHECK BLOOD SUGAR BEFORE MEALS AND CONTINUE MEDICATIONS. INSTRUCTED TO SEEK MEDICAL HELP IN CASE OF EMERGENCIES. REMOVED IV COMPLETE AND NO BLEEDING, CHANGED PT OWN CLOTHES AND PT TOOK ALL HER BELONGINGS. ANSWERED ALL PATIENT QUESTION AND PT VERBALIZES UNDERSTANDING. PT IS DISCHARGED TO HOME, ESCORTED TO [facility] VIA WHEELCHAIR ACCOMPANIED BY SON. PT IS STABLE.
== END 2020-11-04 13:40 | disposition home or self-care (01) | DRG 623 ==
LOC: MED 16:16 → MTU 22:23
PROVIDERS: ADMIT Hospitalist; ATTEND Hospitalist
PROC: 0JBR0ZZ Excision of Left Foot Subcutaneous Tissue and Fascia, Open Approach (ICD-10-PCS; 2020-10-22)
PROC: 0HBNXZX Excision of Left Foot Skin, External Approach, Diagnostic (ICD-10-PCS; 2020-11-02)
PROC: 0JBR0ZZ Excision of Left Foot Subcutaneous Tissue and Fascia, Open Approach (ICD-10-PCS; principal; 2020-11-02 09:30)
DX: E11.69 Type 2 diabetes mellitus with other specified complication (principal); M86.9 Osteomyelitis, unspecified; L03.116 Cellulitis of left lower limb; L02.612 Cutaneous abscess of left foot; J93.9 Pneumothorax, unspecified; N17.0 Acute kidney failure with tubular necrosis; L08.9 Local infection of the skin and subcutaneous tissue, unspecified; E11.621 Type 2 diabetes mellitus with foot ulcer; Z91.19 Patient's noncompliance with other medical treatment and regimen; E11.40 Type 2 diabetes mellitus with diabetic neuropathy, unspecified; Z88.2 Allergy status to sulfonamides; I10 Essential (primary) hypertension; Z20.822 Contact with and (suspected) exposure to COVID-19; Z88.8 Allergy status to other drugs, medicaments and biological substances; L97.529 Non-pressure chronic ulcer of other part of left foot with unspecified severity; Z88.0 Allergy status to penicillin; D72.829 Elevated white blood cell count, unspecified; M06.9 Rheumatoid arthritis, unspecified; E78.5 Hyperlipidemia, unspecified; E11.51 Type 2 diabetes mellitus with diabetic peripheral angiopathy without gangrene
CPT/HCPCS: 36415; 71045; 73630; 73700; 78315; 80048; 80053; 80202; 82948; 83036; 83605; 83615; 85025; 85610; 85730; 87040; 87070; 87075; 87081; 87086; 87205; 96365; 96367; 96375; 99285; A9503; J0330; J0696; J1650; J1815; J1885; J2001; J2270; J2405; J2704; J2710; J2765; J3010; J3370; J3490; J7030; J7060; J7120; Q4148